=== PATIENT | male | born 1950 | race Caucasian/White ===

== ENCOUNTER 2020-04-09 04:17 | Day surgery (SDC) | payer OTHER ==
[2020-04-08 12:55] VITALS: BMI 22.8
[2020-04-09] MEDS ORDERED: LIDOCAINE HCL/PF 1% SDV 5ML VIAL ONE (10:11)
[2020-04-09] MEDS ORDERED: DEXAMETHASONE SOD PHOSPHATE/PF 10 MG/ML SDV ONE (10:17)
--- NOTE | 2020-04-09 10:30 | PROC ---
Procedure Note Procedure: Preprocedure Diagnosis: Lumbar Radiculopathy Post Procedure Diagnosis: same Anesthesia: Local Procedure Performed: Left L5 and L5 Transforaminal Epidural Steroid Injections under fluoroscpic guidance After the risks and benefits were explained, informed consent was obtained. The patient was then taken to the procedure room and positioned prone on the procedure table. Time out was performed. The region overlying the Left L4 and L5 neural foramens were identified using fluoroscopy. The skin was prepped and draped in the usual sterile fashion. The skin and soft tissues were anesthetized using 1% lidocaine. The neural foramens were identified with the fluoroscopic beam directed in a right oblique dire ction. 2 22 gauge 3.5 inch spinal needles were then introduced into the appropriate neural foramens using intermittent fluoroscopic guidance using AP, oblique and lateral views as indicated. Needle placement was then confirmed with the injection of Omnipaque 180. Epidural flow was noted and the nerve root was outlined. No vascular uptake was noted. Next, a mixture 1.5 cc of dexamethasone and Normal saline followed by 0.5 cc of 1% lidocaine was then injected around the Left L4 and L5 spinal nerves. The patient tolerated the procedure well and there were no complications. The patient was taken to the post procedure recovery area in good condition. Vital signs remained stable before, during, and after the procedure. The patient was given oral and written follow-up instructions. The patient was given a follow up appointment with me in the near future. Boaz Angulo DO
[2020-04-09] MEDS ORDERED: LIDOCAINE HCL 1% PRESERVATIVE FREE - 30ML VIAL IJ ONE (10:55)
[2020-04-09] MEDS ORDERED: IOHEXOL 180 MG/1 ML ML IJ ONE (10:55)
[2020-04-09 11:44] VITALS: BP 148/75; PULSE 52; TEMP 96.2
== END 2020-04-09 11:48 | disposition home or self-care (01) ==
LOC: JASU-SURG 04:17
PROVIDERS: ATTEND Pain Medicine Pain Medicine
PROC: 3E0R33Z Introduction of Anti-inflammatory into Spinal Canal, Percutaneous Approach (ICD-10-PCS; 2020-04-09)
PROC: 3E0R3BZ Introduction of Anesthetic Agent into Spinal Canal, Percutaneous Approach (ICD-10-PCS; principal; 2020-04-09 10:30)
DX: M54.16 Radiculopathy, lumbar region (principal)
CPT/HCPCS: 76000-TC-FY

== ENCOUNTER 2020-05-21 04:44 | Day surgery (SDC) | payer OTHER ==
[2020-05-19 11:20] VITALS: BMI 22.4
--- OUTSIDE RECORDS SUMMARY | 2020-05-21 04:53 | XMS ---
:1950 Author Organization [facility] Care Team Providers Name Role Phone Chumaceiro, Michael Unavailable Unavailable Chumaceiro, Michael Unavailable Unavailable Chumaceiro, Michael Unavailable Unavailable Chumaceiro, Michael Unavailable Unavailable Chumaceiro, Michael Unavailable Unavailable Chumaceiro, Michael Unavailable Unavailable Chumaceiro, Michael Unavailable Unavailable Chumaceiro, Michael Unavailable Unavailable Erosa, Boaz Unavailable Erosa, Boaz Unavailable Re-disclosure Warning The records that you are about to access may contain information from federally- assisted alcohol or drug abuse programs. If such information is present, then the following federally mandated warning applies: This information has been disclosed to you from records protected by federal confidentiality rules (42 CFR part 2). The federal rules prohibit you from making any further disclosure of this information unless further disclosure is expressly permitted by the written consent of the person to whom it pertains or as otherwise permitted by 42 CFR part 2. A general authorization for the release of medical or other information is NOT sufficient for this purpose. The Federal rules restrict any use of the information to criminally investigate or prosecute any alcohol or drug abuse patient.The records that you are about to access may contain highly sensitive health information, the redisclosure of which is protected by Article 27-F of the [facility] Public Health law. If you continue you may haveaccess to information: Regarding HIV / AIDS; Provided by facilities licensed or operated by the [facility] Office of Mental Health; or Provided by the [facility] Office for People With Developmental Disabilities. If such information is present, then the following [facility] mandated warning applies: This information has been disclosed to you from confidential records which are protected by state law. State law prohibits you from making any further disclosure of this information without the specific written consent of the person to whom it pertains, or as otherwise permitted by law. Any unauthorized further disclosure in violation of state law may result in a fine or halfway sentence or both. A general authorization for the release of medical or other information is NOT sufficient authorization for further disclosure. Encounters Encounter Providers Location Date Indications Data Source(s ) Attender: Boaz 05/10/2020 [facility] 12:[facility]:00 AM [facility]T [facility]) Office Attender: Boaz Angulo 03/29/2020 12:00:00 AM EDT [facility] ([facility] Office Attender: Michael 03/24/2020 12:00:00 AM EDT [facility] ([facility] Office Immunizations Vaccine Date Status Description Data Source(s) New in 2011. IIV4 06/06/2018 12:00:00 completed [facility] ([facility]) New in 2011. IIV4 06/06/2018 12:00:00 completed [facility] ([facility]) New in 2011. IIV4 06/06/2018 12:00:00 completed [facility] ([facility]) New in 2011. IIV4 06/06/2018 12:00:00 completed [facility] ([facility]) New in 2011. IIV4 06/04/2017 12:00:00 completed [facility] ([facility]) New in 2011. IIV4 06/04/2017 12:00:00 completed ME [facility] ([facility]) New in 2011. IIV4 06/04/2017 12:00:00 completed ME [facility] ([facility]) New in 2011. IIV4 06/04/2017 12:00:00 completed ME [facility] ([facility]) Medications Medication Brand Start Product Dose Route Administrative Pharmacy [facility] Indications Reaction Description Data Name Date Form Instructions Instructions Source(s) gabapentin GABAPE 05/10/ CAPSULE 180 complet [facility]T P[facility]IN [facility] (St 100 MG Oral NTIN:3 2019 ed [facility] Capsule 28835 12:00: Medical, GABAPENTIN: 00 AM PC) [id number] EDT gabapentin GABAPE 04/19/ CAPSULE 90 complet [facility] (St 100 MG Oral NTIN:3 2019 ed [facility] Capsule 91305 12:00: Medical, GABAPENTIN: 00 AM PC) [id number] EDT CREAM 03/29/ CREAM 1 complet CREAM BASE [facility] ( BASE:[id number] ed Ricky 12:00: Medical, 00 AM PC) EDT CREAM 03/29/ CREAM 1 complet CREAM BASE ME DGEN ( BASE:[id number] ed [facility] 12:00: Medical, 00 AM PC) EDT CREAM 03/29/ CREAM 1 complet CREAM BASE ME DGEN ( BASE:[id number] ed [facility] 12:00: Medical, 00 AM PC) EDT 24 HR METOPR 10/24/ complet METOPROLOL SHELDON ( metoprolol OLOL 2018 ed SUCCINATE ER [facility] succinate SUCCIN 12:00: Medica l, 25 MG ATE 00 AM PC) Extended ER:866 EST Release 427 Oral Tablet METOPROLOL SUCCINATE ER:[id number] 24 HR METOPR 10/24/ complet METOPROLOL SHELDON ( metoprolol OLOL 2018 ed SUCCINATE ER [facility] succinate SUCCIN 12:00: Medica l, 25 MG ATE 00 AM PC) Extended ER:866 EST Release 427 Oral Tablet METOPROLOL SUCCINATE ER:000074 24 HR METOPR 10/24/ complet METOPROLOL [facility] ( metoprolol OLOL 2018 ed SUCCINATE ER [facility] succinate SUCCIN 12:00: Medica l, 25 MG ATE 00 AM PC) Extended ER:866 EST Release 427 Oral Tablet METOPROLOL SUCCINATE ER:[id number] 24 HR METOPR 10/24/ complet METOPROLOL M SHELDONN ( metoprolol OLOL 2018 ed SUCCINATE ER [facility] succinate SUCCIN 12:00: Medica l, 25 MG ATE 00 AM PC) Extended ER:866 EST Release 427 Oral Tablet METOPROLOL SUCCINATE ER:[id number] Aspirin 81 ASPIRI 11/20/ complet ASPIRIN [facility] (St MG Delayed N:3084 2016 ed [facility] Release 16 12:00: Medical, Oral Tablet 00 AM PC) ASPIRIN:308 EDT 416 clopidogrel PLAVIX 11/20/ complet PLAVIX [facility] (St 75 MG Oral :43420 2016 ed [facility] Tablet 2 12:00: Medical, PLAVIX:3093 00 AM PC) 62 EDT Aspirin 81 ASPIRI 11/20/ complet ASPIRIN [facility] (St MG Delayed N:3084 2016 ed [facility] Release 16 12:00: Medical, Oral Tablet 00 AM PC) ASPIRIN:308 EDT 416 clopidogrel PLAVIX 11/20/ complet PLAVIX [facility] (St 75 MG Oral :03738 2016 ed [facility] Tablet 2 12:00: Medical, PLAVIX:3093 00 AM PC) 62 EDT Aspirin 81 ASPIRI 11/20/ complet ASPIRIN [facility] (St MG Delayed N:3084 2016 ed [facility] Release 16 12:00: Medical, Oral Tablet 00 AM PC) ASPIRIN:308 EDT 416 clopidogrel PLAVIX 11/20/ complet PLAVIX [facility] (St 75 MG Oral :61160 2016 ed [facility] Tablet 2 12:00: Medical, PLAVIX:3093 00 AM PC) 62 EDT Aspirin 81 ASPIRI 11/20/ complet ASPIRIN [facility] (St MG Delayed N:3084 2016 ed [facility] Release 16 12:00: Medical, Oral Tablet 00 AM PC) ASPIRIN:308 EDT 416 clopidogrel PLAVIX 11/20/ complet PLAVIX [facility] (St 75 MG Oral :30402 2016 ed [facility] Tablet 2 12:00: Medical, PLAVIX:3093 00 AM PC) 62 EDT Lisinopril LISINO 08/16/ TABLET 30 complet LISIN OPRIL [facility] (St 10 MG Oral PRIL:3 2015 ed [facility] Tablet 20442 12:00: Medical, LISINOPRIL: 00 AM PC) [id number] EST Lisinopril LISINO 08/16/ TABLET 30 complet LISIN OPRIL [facility] (St 10 MG Oral PRIL:3 2015 ed [facility] Tablet 59681 12:00: Medical, LISINOPRIL: 00 AM PC) [id number] EST Lisinopril LISINO 08/16/ TABLET 30 complet LISIN OPRIL [facility] (St 10 MG Oral PRIL:3 2015 ed [facility] Tablet 98843 12:00: Medical, LISINOPRIL: 00 AM ) [id number] EST Lisinopril LISINO 08/16/ TABLET 30 complet LISIN OPRIL [facility] (St 10 MG Oral PRIL:3 2015 ed [facility] Tablet 82979 12:00: Medical, LISINOPRIL: 00 AM ) [id number] EST Insurance Providers Payer name Policy type Policy ID Covered Covered constitution party's Policy P abundio / Coverage constitution party ID relationship to Izaguirre Inf ormation type izaguirre CALIENTE [id number] SP [id number] HEALTHCARE (MEDICARE) [facility] [id number] CARE MEDICARE COMPLETE CALIENTE [id number] SP [id number] HEALTHCARE (MEDICARE) Problems, Conditions, and Diagnoses Code Display Name Description Problem Effective Data Type Dates Source(s) M54.16 Radiculopathy, RADICULOPATHY, LUMBAR Problem 03/29/2020 [facility] (St lumbar region REGION 12:00:00 AM [facility], ) M54.16 Radiculopathy, RADICULOPATHY, LUMBAR Problem 03/29/2020 [facility] (St lumbar region REGION 12:00:00 AM [facility], ) M54.16 Radiculopathy, RADICULOPATHY, LUMBAR Problem 03/29/2020 [facility] (St lumbar region REGION 12:00:00 AM [facility], ) M54.5 Low back pain LOW BACK PAIN Problem 01/26/2020 [facility] ( St 12:00:00 AM [facility], ) M25.552 Pain in left hip PAIN IN LEFT HIP Problem 01/26/2020 ME [facility] (St 12:00:00 AM [facility], ) M54.5 Low back pain LOW BACK PAIN Problem 01/26/2020 [facility] ( St 12:00:00 AM [facility], ) M25.552 Pain in left hip PAIN IN LEFT HIP Problem 01/26/2020 [facility] ([facility] 12[facility]00:00 AM [facility], ) M54.5 Low back pain LOW BACK PAIN Problem 01/26/2020 [facility] ( St 12:00:00 AM [facility], ) M25.552 Pain in left hip PAIN IN LEFT HIP Problem 01/26/2020 ME D[facility] (St 12:00:00 AM [facility]'s [facility], ) M54.5 Low back pain LOW BACK PAIN Problem 01/26/2020 MED[facility] ( St 12:00:00 AM [facility], ) M25.552 Pain in left hip PAIN IN LEFT HIP Problem 01/26/2020 ME [facility] (St 12:00:00 AM [facility], ) R05 Cough COUGH Problem 09/05/2019 [facility] (St 12:00:00 AM [facility], ) R05 Cough COUGH Problem 09/05/2019 [facility] (St 12:00:[address] [facility], ) R05 Cough COUGH Problem 09/05/2019 [facility] (St 12:00:00 AM [facility], ) R05 Cough COUGH Problem 09/05/2019 [facility] (St 12:00:[address] [facility], ) R63.4 Abnormal weight ABNORMAL WEIGHT LOSS Problem 06/06/2018 [facility] (St loss 12:00:00 AM [facility], ) G47.00 Insomnia, INSOMNIA, UNSPECIFIED Problem 06/06/2018 MED [facility] (St unspecified 12:00:00 AM [facility], ) Z23 Encounter for ENCOUNTER FOR Problem 06/06/2018 [facility] ( St immunization IMMUNIZATION 12:00:00 AM [facility], ) R63.4 Abnormal weight ABNORMAL WEIGHT LOSS Problem 06/06/2018 [facility] (St loss 12:00:00 AM [facility], ) G47.00 Insomnia, INSOMNIA, UNSPECIFIED Problem 06/06/2018 MED GEN (St unspecified 12:00:00 AM [facility], ) Z23 Encounter for ENCOUNTER FOR Problem 06/06/2018 [facility] ( St immunization IMMUNIZATION 12:00:00 AM [facility], ) R63.4 Abnormal weight ABNORMAL WEIGHT LOSS Problem 06/06/2018 [facility] (St loss 12:00:00 AM [facility], ) G47.00 Insomnia, INSOMNIA, UNSPECIFIED Problem 06/06/2018 MED [facility] (St unspecified 12:00:00 AM [facility], ) Z23 Encounter for ENCOUNTER FOR Problem 06/06/2018 [facility] ( St immunization IMMUNIZATION 12:00:00 AM [facility], ) R63.4 Abnormal weight ABNORMAL WEIGHT LOSS Problem 06/06/2018 [facility] (St loss 12:00:00 AM [facility], ) G47.00 Insomnia, INSOMNIA, UNSPECIFIED Problem 06/06/2018 MED GEN (St unspecified 12:00:00 AM [facility], ) Z23 Encounter for ENCOUNTER FOR Problem 06/06/2018 [facility] ( St immunization IMMUNIZATION 12:00:00 AM [facility], ) R94.5 Abnormal results ABNORMAL RESULTS OF Problem 11/28/2016 [facility] (St of liver LIVER FUNCTION STUDIES 12:00:00 AM [facility] function studies [facility], ) D50.8 Other iron OTHER IRON DEFICIENCY Problem 11/28/2016 MED GEN (St deficiency ANEMIAS 12:00:00 AM [facility] [place], ) R94.5 Abnormal results ABNORMAL RESULTS OF Problem 11/28/2016 [facility] (St of liver LIVER FUNCTION STUDIES 12:00:00 AM [facility] function studies [facility], ) D50.8 Other iron OTHER IRON DEFICIENCY Problem 11/28/2016 MED GEN (St deficiency ANEMIAS 12:00:00 AM [facility] [place], ) R94.5 Abnormal results ABNORMAL RESULTS OF Problem 11/28/2016 [facility] (St of liver LIVER FUNCTION STUDIES 12:00:00 AM [facility] function studies [facility], ) D50.8 Other iron OTHER IRON DEFICIENCY Problem 11/28/2016 MED GEN (St deficiency ANEMIAS 12:00:[address] [facility], ) R94.5 Abnormal results ABNORMAL RESULTS OF Problem 11/28/2016 [facility] (St of liver LIVER FUNCTION STUDIES 12:00:00 AM [facility] function studies [facility], ) D50.8 Other iron OTHER IRON DEFICIENCY Problem 11/28/2016 MED GEN (St deficiency ANEMIAS 12:00:00 AM [facility]'s anemias [facility], ) E78.00 Pure PURE Problem 11/20/2016 [facility] (St hypercholesterol HYPERCHOLESTEROLEMIA 12:00:00 AM [facility] [place], [facility], ) unspecified I49.9 Cardiac CARDIAC ARRHYTHMIA, Problem 11/20/2016 MED[facility] N (St arrhythmia, UNSPECIFIED 12:00:00 AM [facility] unspecified EDT Medical, ) I10 Essential ESSENTIAL (PRIMARY) Problem 11/20/2016 MEDGE N (St (primary) HYPERTENSION 12:00:00 AM [facility] hypertension EDT Medical, ) E78.00 Pure PURE Problem 11/20/2016 [facility] (St hypercholesterol HYPERCHOLESTEROLEMIA 12:00:00 AM [facility] emia, EDT Medical, ) unspecified I49.9 Cardiac CARDIAC ARRHYTHMIA, Problem 11/20/2016 MED[facility] N (St arrhythmia, UNSPECIFIED 12:00:00 AM [facility] unspecified EDT Medical, ) I10 Essential ESSENTIAL (PRIMARY) Problem 11/20/2016 MED[facility] N (St (primary) HYPERTENSION 12:00:00 AM [facility] hypertension EDT Medical, ) E78.00 Pure PURE Problem 11/20/2016 [facility] (St hypercholesterol HYPERCHOLESTEROLEMIA 12:00:00 AM [facility] emia, EDT Medical, ) unspecified I49.9 Cardiac CARDIAC ARRHYTHMIA, Problem 11/20/2016 MEDGE N (St arrhythmia, UNSPECIFIED 12:00:00 AM [facility] unspecified EDT Medical, ) I10 Essential ESSENTIAL (PRIMARY) Problem 11/20/2016 MED[facility] N (St (primary) HYPERTENSION 12:00:00 AM [facility] hypertension EDT Medical, ) E78.00 Pure PURE Problem 11/20/2016 [facility] (St hypercholesterol HYPERCHOLESTEROLEMIA 12:00:00 AM [facility] emia, EDT Medical, ) unspecified I49.9 Cardiac CARDIAC ARRHYTHMIA, Problem 11/20/2016 MED[facility] N (St arrhythmia, UNSPECIFIED 12:00:00 AM [facility] unspecified EDT Medical, ) I10 Essential ESSENTIAL (PRIMARY) Problem 11/20/2016 MEDGE N (St (primary) HYPERTENSION 12:00:00 AM [facility] hypertension EDT Medical, ) Surgeries/Procedures Procedure Description Date Indications Data Source(s) OFFICE OUTPATIENT VISIT 15 05/10/2020 Lisa FISHER ([facility] MINUTES 12:00:00 AM EDT Medical, ) Documentation of current 04/19/2020 [facility] ([facility] medications (procedure) 12:00:00 AM EDT Lisa jqauez, PC) Documentation of current 04/19/2020 [facility] ([facility] medications (procedure) 12:00:00 AM EDT M leonid, PC) Documentation of current 04/19/2020 [facility] ([facility] medications (procedure) 12:00:00 AM EDT M leonid, PC) Documentation of current 04/19/2020 [facility] ([facility] medications (procedure) 12:00:00 AM EDT leonid, PC) Documentation of current 04/19/2020 [facility] ([facility] medications (procedure) 12:00:00 AM EDT leonid, PC) Documentation of current 04/19/2020 [facility] ([facility] medications (procedure) 12:00:00 AM EDT leonid, PC) Documentation of current 04/19/2020 [facility] ([facility] medications (procedure) 12:00:00 AM EDT M leonid, PC) OFFICE OUTPATIENT VISIT 15 04/19/2020 M [facility]GEN ([facility]ES 12:00:00 AM EDT Medical, PC) Documentation of current 04/19/2020 MED [facility] ([facility] medications (procedure) 12:00:00 AM EDT leonid, PC) OFFICE OUTPATIENT VISIT 15 04/19/2020 M [facility]GEN ([facility] MIN[facility]ES 12:00:00 AM EDT Medical, PC) Documentation of current 03/29/2020 MED [facility] ([facility] medications (procedure) 12:00:00 AM EDT leonid, PC) Documentation of current 03/29/2020 [facility] ([facility] medications (procedure) 12:00:00 AM EDT leonid, PC) Documentation of current 03/29/2020 [facility] ([facility] medications (procedure) 12:00:00 AM EDT leonid, PC) Documentation of current 03/29/2020 [facility] ([facility] medications (procedure) 12:00:00 AM EDT leonid, PC) Documentation of current 03/29/2020 [facility] ([facility] medications (procedure) 12:00:00 AM EDT M leonid, PC) Documentation of current 03/29/2020 [facility] ([facility] medications (procedure) 12:00:00 AM EDT leonid, PC) Documentation of current 03/29/2020 [facility] ([facility] medications (procedure) 12:00:00 AM EDT leonid, PC) Documentation of current 03/29/2020 [facility] ([facility] medications (procedure) 12:00:00 AM EDT leonid, PC) Documentation of current 03/29/2020 [facility] ([facility] medications (procedure) 12:00:00 AM EDT leonid, PC) Documentation of current 03/29/2020 [facility] ([facility] medications (procedure) 12:00:00 AM EDT leonid, PC) Documentation of current 03/29/2020 [facility] ([facility] medications (procedure) 12:00:00 AM EDT leonid, PC) Documentation of current 03/29/2020 [facility] ([facility] medications (procedure) 12:00:00 AM EDT leonid, PC) Documentation of current 03/29/2020 [facility] ([facility] medications (procedure) 12:00:00 AM EDT leonid, PC) Documentation of current 03/29/2020 [facility] ([facility] medications (procedure) 12:00:00 AM EDT leonid, PC) Documentation of current 03/29/2020 [facility] ([facility] medications (procedure) 12:00:00 AM EDT leonid, PC) Documentation of current 03/24/2020 [facility] ([facility] medications (procedure) 12:00:00 AM EDT leonid, PC) Documentation of current 03/24/2020 [facility] ([facility] medications (procedure) 12:00:00 AM EDT leonid, PC) Documentation of current 03/24/2020 [facility] ([facility] medications (procedure) 12:00:00 AM EDT leonid, PC) OFFICE OUTPATIENT VISIT 15 03/24/2020 Lisa [facility]GEN ([facility]ES 12:00:00 AM EDT Davi PC) Documentation of current 03/24/2020 MED [facility] ([facility] medications (procedure) 12:00:00 AM EDT leonid, PC) Documentation of current 03/24/2020 [facility] ([facility] medications (procedure) 12:00:00 AM EDT leonid, PC) OFFICE OUTPATIENT VISIT 15 03/24/2020 Lisa [facility]GEN ([facility]ES 12:00:00 AM EDT Medical, PC) Documentation of current 03/24/2020 MED [facility] ([facility] medications (procedure) 12:00:00 AM EDT edical, PC) Documentation of current 03/24/2020 [facility] ([facility] medications (procedure) 12:00:00 AM EDT edical, PC) Documentation of current 03/24/2020 [facility] ([facility] medications (procedure) 12:00:00 AM EDT edical, PC) OFFICE OUTPATIENT VISIT 15 03/24/2020 M NATALIA ([facility] 12:00:00 AM EDT Medical, PC) Documentation of current 03/24/2020 MED [facility] ([facility] medications (procedure) 12:00:00 AM EDT edical, PC) OFFICE OUTPATIENT VISIT 15 03/24/2020 M NATALIA ([facility] 12:00:00 AM EDT Medical, PC) Documentation of current 02/09/2020 [facility] ([facility] medications (procedure) 12:00:00 AM EDT edical, PC) Documentation of current 02/09/2020 [facility] ([facility] medications (procedure) 12:00:00 AM EDT edical, PC) Documentation of current 02/09/2020 [facility] ([facility] medications (procedure) 12:00:00 AM EDT edical, PC) OFFICE OUTPATIENT VISIT 15 02/09/2020 M NATALIA ([facility]ES 12:00:00 AM EDT Medical, PC) Documentation of current 02/09/2020 MED [facility] ([facility] medications (procedure) 12:00:00 AM EDT edical, PC) Documentation of current 02/09/2020 [facility] ([facility] medications (procedure) 12:00:00 AM EDT edical, PC) Documentation of current 02/09/2020 [facility] ([facility] medications (procedure) 12:00:00 AM EDT edical, PC) OFFICE OUTPATIENT VISIT 15 02/09/2020 M NATALIA ([facility]ES 12:00:00 AM EDT Medical, PC) Documentation of current 02/09/2020 MED [facility] ([facility] medications (procedure) 12:00:00 AM EDT edical, PC) Documentation of current 02/09/2020 [facility] ([facility] medications (procedure) 12:00:00 AM EDT edical, PC) Documentation of current 02/09/2020 [facility] ([facility] medications (procedure) 12:00:00 AM EDT edical, PC) OFFICE OUTPATIENT VISIT 15 02/09/2020 Lisa NATALIA ([facility] 12:00:00 AM EDT Medical, PC) Documentation of current 02/09/2020 MED [facility] ([facility] medications (procedure) 12:00:00 AM EDT edical, PC) Documentation of current 02/09/2020 [facility] ([facility] medications (procedure) 12:00:00 AM EDT edical, PC) Documentation of current 02/09/2020 [facility] ([facility] medications (procedure) 12:00:00 AM EDT edical, PC) OFFICE OUTPATIENT VISIT 15 02/09/2020 Lisa NATALIA ([facility] 12:00:00 AM EDT Medical, PC) Documentation of current 01/26/2020 MED [facility] ([facility] medications (procedure) 12:00:00 AM EDT edical, PC) Documentation of current 01/26/2020 MED [facility] ([facility] medications (procedure) 12:00:00 AM EDT edical, PC) Documentation of current 01/26/2020 [facility] ([facility] medications (procedure) 12:00:00 AM EDT edical, PC) OFFICE OUTPATIENT VISIT 10 01/26/2020 Lisa NATALIA ([facility] 12:00:00 AM EDT Medical, PC) Documentation of current 01/26/2020 MED [facility] ([facility] medications (procedure) 12:00:00 AM EDT edical, PC) Documentation of current 01/26/2020 [facility] ([facility] medications (procedure) 12:00:00 AM EDT edical, PC) Documentation of current 01/26/2020 [facility] ([facility] medications (procedure) 12:00:00 AM EDT edical, PC) OFFICE OUTPATIENT VISIT 10 01/26/2020 Lisa NATALIA ([facility]ES 12:00:00 AM EDT Medical, PC) Documentation of current 01/26/2020 MED [facility] ([facility] medications (procedure) 12:00:00 AM EDT edical, ) Documentation of current 01/26/2020 [facility] ([facility] medications (procedure) 12:00:00 AM EDT edical, PC) Documentation of current 01/26/2020 MED [facility] ([facility] medications (procedure) 12:00:00 AM EDT edical, ) OFFICE OUTPATIENT VISIT 10 01/26/2020 Lisa FISHER ([facility] 12:00:00 AM EDT Medical, PC) Documentation of current 01/26/2020 MED [facility] ([facility] medications (procedure) 12:00:00 AM EDT edical, PC) Documentation of current 01/26/2020 MED [facility] ([facility] medications (procedure) 12:00:00 AM EDT edical, PC) Documentation of current 01/26/2020 [facility] ([facility] medications (procedure) 12:00:00 AM EDT edical, ) OFFICE OUTPATIENT VISIT 10 01/26/2020 Lisa FISHER ([facility] 12:00:00 AM EDT Medical, PC) Documentation of current 09/05/2019 [facility] ([facility] medications (procedure) 12:00:00 AM EST edical, PC) OFFICE OUTPATIENT VISIT 15 09/05/2019 Lisa FISHER ([facility] 12:00:00 AM EST Medical, PC) Documentation of current 09/05/2019 MED [facility] ([facility] medications (procedure) 12:00:00 AM EST edical, PC) OFFICE OUTPATIENT VISIT 15 09/05/2019 Lisa FISHER ([facility] 12:00:00 AM EST Medical, PC) Documentation of current 09/05/2019 MED [facility] ([facility] medications (procedure) 12:00:00 AM EST edical, PC) OFFICE OUTPATIENT VISIT 15 09/05/2019 Lisa FISHER ([facility] 12:00:00 AM EST Medical, PC) Documentation of current 09/05/2019 MED [facility] ([facility] medications (procedure) 12:00:00 AM EST edical, PC) OFFICE OUTPATIENT VISIT 15 09/05/2019 Lisa FISHER ([facility] 12:00:00 AM EST Medical, PC) Documentation of current 02/20/2019 MED [facility] ([facility] medications (procedure) 12:00:00 AM EDT edical, ) Documentation of current 02/20/2019 MED [facility] ([facility] medications (procedure) 12:00:00 AM EDT edical, ) OFFICE OUTPATIENT VISIT 15 02/20/2019 Lisa NATALIA ([facility] 12:00:00 AM EDT Medical, ) Documentation of current 02/20/2019 MED [facility] ([facility] medications (procedure) 12:00:00 AM EDT edical, ) Documentation of current 02/20/2019 MED [facility] ([facility] medications (procedure) 12:00:00 AM EDT edical, ) OFFICE OUTPATIENT VISIT 15 02/20/2019 Lisa NATALIA ([facility] 12:00:00 AM EDT Medical, ) Documentation of current 02/20/2019 MED [facility] ([facility] medications (procedure) 12:00:00 AM EDT edical, ) Documentation of current 02/20/2019 MED [facility] ([facility] medications (procedure) 12:00:00 AM EDT edical, ) OFFICE OUTPATIENT VISIT 15 02/20/2019 Lisa NATALIA ([facility] MIN[facility]ES 12:00:00 AM EDT Medical, ) Documentation of current 02/20/2019 MED GEN ([facility] medications (procedure) 12:00:00 AM EDT edical, ) Documentation of current 02/20/2019 MED GEN ([facility] medications (procedure) 12:00:00 AM EDT edical, ) OFFICE OUTPATIENT VISIT 15 02/20/2019 Lisa FISHER ([facility] 12:00:00 AM EDT Medical, ) OFFICE OUTPATIENT VISIT 15 10/24/2018 Lisa FISHER ([facility]ES 12:00:00 AM EST Medical, ) COLLECTION VENOUS BLOOD 10/24/2018 MEDG EN ([facility] VENIPUNCTURE 12:00:00 AM EST Medical, PC) OFFICE OUTPATIENT VISIT 15 10/24/2018 Lisa FISHER ([facility] MINUTES 12:00:00 AM EST Medical, ) COLLECTION VENOUS BLOOD 10/24/2018 MEDG EN ([facility] VENIPUNCTURE 12:00:00 AM EST Medical, ) OFFICE OUTPATIENT VISIT 15 10/24/2018 Lisa FISHER ([facility] MINUTES 12:00:00 AM EST Medical, ) COLLECTION VENOUS BLOOD 10/24/2018 MEDG EN ([facility] VENIPUNCTURE 12:00:00 AM [facility] Medical, ) OFFICE OUTPATIENT VISIT 15 10/24/2018 Lisa FISHER ([facility] MINUTES 12:00:00 AM [facility] Medical, ) COLLECTION VENOUS BLOOD 10/24/2018 MEDG EN ([facility] VENIPUNCTURE 12:00:00 AM [facility], ) Documentation of current 07/23/2018 MED GEN ([facility] medications (procedure) [facility] OFFICE OUTPATIENT VISIT 15 07/23/2018 Lisa NATALIA ([facility] MINUTES 12:00:00 AM [facility], ) Documentation of current 07/23/2018 MED GEN ([facility] medications (procedure) 12:00:00 AM EST [facility], ) OFFICE OUTPATIENT VISIT 15 07/23/2018 Lisa NATALIA ([facility] MINUTES 12:00:00 AM [facility], ) Documentation of current 07/23/2018 MED GEN ([facility] medications (procedure) [facility]:00:00 [facility] OFFICE OUTPATIENT VISIT 15 07/23/2018 Lisa NATALIA ([facility] MINUTES 12:00:00 AM [facility], ) Documentation of current 07/23/2018 MED GEN ([facility] medications (procedure) 12:00:00 AM EST [facility], ) OFFICE OUTPATIENT VISIT 15 07/23/2018 Lisa NATALIA ([facility] MINUTES 12:00:00 AM [facility], ) Documentation of current 06/06/2018 MED GEN [facility]IS[facility] 15 06/06/2018 Lisa NATALIA ([facility] MINUTES 12:00:00 AM [facility], ) INFLUENZA VACCINE 06/06/2018 MEDGEN ([facility] 12:00:00 AM [facility], ) IMADM PRQ ID SUBQ/IM NJXS 06/06/2018 ME DGEN ([facility] 1 VACCINE 12:00:00 AM [facility], ) Documentation of current 06/06/2018 MED GEN ([facility] medications (procedure) 12:00:00 AM EDT [facility], ) OFFICE OUTPATIENT VISIT 15 06/06/2018 Lisa EDGEN ([facility] MINUTES 12:00:00 AM EDT [facility], ) INFLUENZA VACCINE 06/06/2018 MEDGEN ([facility] 12:00:00 AM [facility], ) IMADM PRQ ID SUBQ/IM NJXS 06/06/2018 ME DGEN ([facility] 1 VACCINE 12:00:00 AM EDT [facility], ) Documentation of current 06/06/2018 MED GEN ([facility]procedure) [facility]PAT[facility] VISIT 15 06/06/2018 Lisa EDGEN ([facility] MINUTES 12:00:00 AM EDT Medical, ) INFLUENZA VACCINE 06/06/2018 MEDGEN ([facility] 12:00:00 AM [facility] Medical, ) IMADM PRQ ID SUBQ/IM [id number] 06/06/2018 ME DGEN ([facility] 1 VACCINE 12:00:00 AM [facility], ) Documentation of current 06/06/2018 MED GEN ([facility] medications (procedure) [facility] OFF[facility] OUTPATIENT VISIT 15 06/06/2018 Lisa CHUNGN ([facility] MINUTES 12:00:00 AM [facility] Medical, ) INFLUENZA VACCINE 06/06/2018 MEDGEN ([facility] 12:00:00 AM EDT Medical, ) IMADM PRQ ID SUBQ/IM NJXS 06/06/2018 ME DGEN ([facility] 1 VACCINE 12:00:00 AM [facility], ) Documentation of current 05/03/2018 MED GEN ([facility] medications (procedure) [facility] Documentation of current 05/03/2018 MED GEN ([facility] medications (procedure) 12:00:00 AM EDT edical, ) Documentation of current 05/03/2018 MED GEN ([facility] medications (procedure) [facility] OFFICE OUTPATIENT VISIT 15 05/03/2018 Lisa CHUNGN ([facility] MIN[facility]ES 12:00:00 AM [facility], ) COLLECTION VENOUS BLOOD 05/03/2018 MEDG EN ([facility] VENIPUNCTURE 12:00:00 AM EDT Medical, ) Documentation of current 05/03/2018 MED GEN ([facility] medications (procedure) 12:00:00 AM EDT edical, ) Documentation of current 05/03/2018 MED GEN ([facility] medications (procedure) 12:00:00 AM EDT edical, ) Documentation of current 05/03/2018 MED GEN ([facility] medications (procedure) 12:00:00 AM EDT edical, ) OFFICE OUTPATIENT VISIT 15 05/03/2018 Lisa NATALIA ([facility] MIN[facility]ES 12:00:00 AM EDT Medical, ) COLLECTION VENOUS BLOOD 05/03/2018 MEDG EN ([facility] VENIPUNCTURE 12:00:00 AM EDT Medical, ) Documentation of current 05/03/2018 MED GEN ([facility] medications (procedure) 12:00:00 AM EDT edical, ) Documentation of current 05/03/2018 MED GEN ([facility] medications (procedure) 12:00:00 AM EDT edical, ) Documentation of current 05/03/2018 MED GEN ([facility] medications (procedure) 12:00:00 AM EDT edical, ) OFFICE OUTPATIENT VISIT 15 05/03/2018 Lisa CHUNGKlaudia ([facility] MINUTES 12:00:00 AM EDT Medical, ) COLLECTION VENOUS BLOOD 05/03/2018 MEDG EN ([facility] VENIPUNCTURE 12:00:00 AM EDT Medical, ) Documentation of current 05/03/2018 MED GEN ([facility] medications (procedure) 12:00:00 AM EDT edical, ) Documentation of current 05/03/2018 MED GEN ([facility] medications (procedure) 12:00:00 AM EDT edical, ) Documentation of current 05/03/2018 MED GEN ([facility] medications (procedure) 12:00:00 AM EDT edical, ) OFFICE OUTPATIENT VISIT 15 05/03/2018 Lisa CHUNGKlaudia ([facility] MINUTES 12:00:00 AM EDT Medical, ) COLLECTION VENOUS BLOOD 05/03/2018 MEDG EN ([facility] VENIPUNCTURE 12:00:00 AM EDT Medical, ) Documentation of current 01/01/2018 MED GEN ([facility] medications (procedure) 12:00:00 AM EDT edical, ) Documentation of current 01/01/2018 MED GEN ([facility] (procedure) [facility] Documentation of current 01/01/2018 MED GEN ([facility] medications (procedure) [facility] Documentation of current 01/01/2018 MED GEN ([facility] medications (procedure) 12:00:00 AM EDT edical, ) OFFICE OUTPATIENT VISIT 25 01/01/2018 M EDGEN ([facility] MINUTES 12:00:00 AM EDT Medical, ) ECG ROUTINE ECG W/LEAST 12 01/01/2018 M EDGEN ([facility] LDS W/I&R 12:00:00 AM T Medical, ) COLLECTION VENOUS BLOOD 01/01/2018 MEDG EN ([facility] VENIPUNCTURE 12:00:00 AM T Medical, ) Documentation of current 01/01/2018 MED GEN ([facility] medications (procedure) [facility] Documentation of current 01/01/2018 MED GEN ([facility] medications (procedure) [facility] Documentation of current 01/01/2018 MED GEN ([facility] medications (procedure) [facility] Documentation of current 01/01/2018 MED GEN ([facility] medications (procedure) 12:00:00 AM EDT edical, ) OFFICE OUTPATIENT VISIT 25 01/01/2018 M EDGEN ([facility] MINUTES 12:00:00 AM T Medical, ) ECG ROUTINE ECG W/LEAST 12 01/01/2018 M EDGEN ([facility] LDS W/I&R 12:00:00 AM EDT Medical, ) COLLECTION VENOUS BLOOD 01/01/2018 MEDG EN ([facility] VENIPUNCTURE 12:00:00 AM [facility] Medical, ) Documentation of current 01/01/2018 MED GEN ([facility] medications (procedure) 12:00:00 AM EDT edical, ) Documentation of current 01/01/2018 MED GEN ([facility] medications (procedure) 12:00:00 AM EDT edical, ) Documentation of current 01/01/2018 MED GEN ([facility] medications (procedure) 12:00:00 AM EDT edical, ) Documentation of current 01/01/2018 MED GEN ([facility] medications (procedure) 12:00:00 AM EDT [facility], ) OFFICE OUTPATIENT VISIT 25 01/01/2018 Lisa EDGEN ([facility] MINUTES 12:00:00 AM EDT Medical, ) ECG ROUTINE ECG W/LEAST 12 01/01/2018 Lisa SHELDONN ([facility] LDS W/I&R 12:00:00 AM EDT Medical, ) COLLECTION VENOUS BLOOD 01/01/2018 MEDG EN ([facility] VENIPUNCTURE 12:00:00 AM EDT Medical, ) Documentation of current 01/01/2018 MED GEN ([facility] medications (procedure) 12:00:00 AM EDT edical, ) Documentation of current 01/01/2018 MED GEN ([facility] medications (procedure) 12:00:00 AM EDT [facility], ) Documentation of current 01/01/2018 MED GEN ([facility] medications (procedure) [facility] Documentation of current 01/01/2018 MED GEN ([facility] medications (procedure) [facility] OFFICE OUTPATIENT VISIT 25 01/01/2018 Lisa SHELDONN ([facility] MIN[facility]ES 12:00:00 AM EDT Medical, ) ECG ROUTINE ECG W/LEAST 12 01/01/2018 Lisa SHELDONN ([facility] LDS W/I&R 12:00:00 AM EDT Medical, ) COLLECTION VENOUS BLOOD 01/01/2018 MEDG EN ([facility] VENIPUNCTURE 12:00:00 AM EDT Medical, ) Documentation of current 08/06/2017 MED GEN ([facility] medications (procedure) 12:00:00 AM EST edical, ) OFFICE OUTPATIENT VISIT 15 08/06/2017 Lisa SHELDONN ([facility] MINUTES 12:00:00 AM [facility] Medical, ) Documentation of current 08/06/2017 MED GEN ([facility] medications (procedure) 12:00:00 AM EST Lisa edical, PC) OFFICE OUTPATIENT VISIT 15 08/06/2017 Lisa FISHER ([facility] MINUTES 12:00:00 AM EST Medical, PC) Documentation of current 08/06/2017 MED GEN ([facility] medications (procedure) 12:00:00 AM EST Lisa edical, PC) OFFICE OUTPATIENT VISIT 15 08/06/2017 Lisa FISHER ([facility] MIN[facility]ES 12:00:00 AM EST Medical, PC) Documentation of current 08/06/2017 MED GEN ([facility] medications (procedure) 12:00:00 AM EST Lisa edical, PC) OFFICE OUTPATIENT VISIT 15 08/06/2017 Lisa FISHER ([facility] MIN[facility]ES 12:00:00 AM EST Medical, PC) Documentation of current 07/23/2017 MED GEN ([facility] medications (procedure) 12:00:00 AM EST Lisa edical, PC) Documentation of current 07/23/2017 MED GEN ([facility] medications (procedure) 12:00:00 AM EST Lisa edical, PC) OFFICE OUTPATIENT VISIT 15 07/23/2017 Lisa FISHER ([facility] MIN[facility]ES 12:00:00 AM EST Medical, PC) Documentation of current 07/23/2017 MED GEN ([facility] medications (procedure) 12:00:00 AM EST Lisa edical, PC) Documentation of current 07/23/2017 MED GEN ([facility] medications (procedure) 12:00:00 AM EST Lisa edical, PC) OFFICE OUTPATIENT VISIT 15 07/23/2017 Lisa FISHER ([facility] MIN[facility]ES 12:00:00 AM EST Medical, PC) Documentation of current 07/23/2017 MED GEN ([facility] medications (procedure) 12:00:00 AM EST Lisa edical, PC) Documentation of current 07/23/2017 MED GEN ([facility] medications (procedure) 12:00:00 AM EST Lisa edical, PC) OFFICE OUTPATIENT VISIT 15 07/23/2017 Lisa FISHER ([facility] MIN[facility]ES 12:00:00 AM EST Medical, PC) Documentation of current 07/23/2017 MED GEN ([facility] medications (procedure) 12:00:00 AM EST Lisa edical, PC) Documentation of current 07/23/2017 MED GEN ([facility] medications (procedure) 12:00:00 AM EST Lisa edical, PC) OFFICE OUTPATIENT VISIT 15 07/23/2017 M EDGEN ([facility] MINUTES 12:00:00 AM [facility], ) Influenza virus vaccine, 06/04/2017 MED GEN ([facility] split virus, when 12:00:00 AM [facility]) administered to individuals 3 years of age and older, for intramuscular use (flulaval) Administration of 06/04/2017 MEDGEN ([facility] influenza virus vaccine 12:00:00 AM [facility]) OFFICE OUTPATIENT VISIT 15 06/04/2017 M EDGEN ([facility] MINUTES 12:00:00 AM [facility]) Influenza virus vaccine, 06/04/2017 MED GEN ([facility] split virus, when 12:00:00 AM [facility]) administered to individuals 3 years of age and older, for intramuscular use (flulaval) Administration of 06/04/2017 MEDGEN ([facility] influenza virus vaccine 12:00:00 AM [facility]) OFFICE OUTPATIENT VISIT 15 06/04/2017 Lisa EDGEN ([facility] MINUTES 12:00:00 AM [facility]) Influenza virus vaccine, 06/04/2017 MED GEN ([facility] split virus, when 12:00:00 AM [facility]) administered to individuals 3 years of age and older, for intramuscular use (flulaval) Administration of 06/04/2017 MEDGEN ([facility] influenza virus vaccine 12:00:00 AM [facility]) OFFICE OUTPATIENT VISIT 15 06/04/2017 Lisa EDGEN ([facility] MINUTES 12:00:00 AM [facility], ) Influenza virus vaccine, 06/04/2017 MED GEN ([facility] split virus, when 12:00:00 AM [facility]) administered to individuals 3 years of age and older, for intramuscular use (flulaval) Administration of 06/04/2017 MEDGEN ([facility] influenza virus vaccine 12:00:00 AM [facility]) OFFICE OUTPATIENT VISIT 15 06/04/2017 M EDGEN ([facility] MINUTES 12:00:00 AM [facility], ) Documentation of current 03/02/2017 MED GEN ([facility] medications (procedure) 12:00:00 AM EDT edical, PC) Documentation of current 03/02/2017 MED GEN ([facility] medications (procedure) 12:00:00 AM EDT edical, PC) Documentation of current 03/02/2017 MED GEN ([facility] medications (procedure) 12:00:00 AM EDT edical, PC) OFFICE OUTPATIENT VISIT 15 03/02/2017 Lisa FISHER ([facility] MIN[facility]ES 12:00:00 AM EDT Medical, PC) Documentation of current 03/02/2017 MED GEN ([facility] medications (procedure) 12:00:00 AM EDT edical, PC) Documentation of current 03/02/2017 MED GEN ([facility] medications (procedure) 12:00:00 AM EDT edical, PC) Documentation of current 03/02/2017 MED GEN ([facility] medications (procedure) 12:00:00 AM EDT edical, PC) OFFICE OUTPATIENT VISIT 15 03/02/2017 Lisa FISHER ([facility] MIN[facility]ES 12:00:00 AM EDT Medical, PC) Documentation of current 03/02/2017 MED GEN ([facility] medications (procedure) 12:00:00 AM EDT edical, PC) Documentation of current 03/02/2017 MED GEN ([facility] medications (procedure) 12:00:00 AM EDT edical, PC) Documentation of current 03/02/2017 MED GEN ([facility] medications (procedure) 12:00:00 AM EDT edical, PC) OFFICE OUTPATIENT VISIT 15 03/02/2017 Lisa FISHER ([facility] MIN[facility]ES 12:00:00 AM EDT Medical, PC) Documentation of current 03/02/2017 MED GEN ([facility] medications (procedure) 12:00:00 AM EDT edical, PC) Documentation of current 03/02/2017 MED GEN ([facility] medications (procedure) 12:00:00 AM EDT edical, PC) Documentation of current 03/02/2017 MED GEN ([facility] medications (procedure) 12:00:00 AM EDT edical, PC) OFFICE OUTPATIENT VISIT 15 03/02/2017 Lisa FISHER ([facility] MIN[facility]ES 12:00:00 AM EDT Medical, PC) Documentation of current 02/02/2017 MED GEN ([facility] medications (procedure) 12:00:00 AM EDT edical, ) OFFICE OUTPATIENT VISIT 15 02/02/2017 Lisa NATALIA ([facility] MIN[facility]ES 12:00:00 AM EDT Medical, ) Documentation of current 02/02/2017 MED GEN ([facility] medications (procedure) [facility]PATIENT VISIT 15 02/02/2017 Lias FISHER ([facility] MINUTES 12:00:00 AM ED Medical, ) Documentation of current 02/02/2017 MED GEN ([facility] medications (procedure) [facility] OFFICE OUTPATIENT VISIT 15 02/02/2017 Lisa NATALIA ([facility] MINUTES 12:00:00 AM [facility] Medical, ) Documentation of current 02/02/2017 MED GEN ([facility] medications (procedure) [facility]00:[facility] OFFICE OUTPATIENT VISIT 15 02/02/2017 Lisa FISHER ([facility] MINUTES 12:00:00 AM [facility] Medical, ) Documentation of current 01/12/2017 MED GEN ([facility] medications (procedure) [facility]00:[facility] Documentation of current 01/12/2017 MED GEN ([facility] medications (procedure) [facility]:00:[facility] Documentation of current 01/12/2017 MED GEN ([facility] medications (procedure) [facility]00:[facility] OFFICE OUTPATIENT VISIT 25 01/12/2017 Lisa FISHER ([facility] MINUTES 12:00:00 AM ED Medical, ) COLLECTION VENOUS BLOOD 01/12/2017 MEDG EN [facility] current 01/12/2017 MED GEN ([facility] medications (procedure) 12:00:00 AM EDT edical, ) Documentation of current 01/12/2017 MED GEN ([facility] medications (procedure) 12:00:00 AM EDT edical, ) Documentation of current 01/12/2017 MED GEN ([facility] medications (procedure) 12:00:00 AM EDT M edical, ) OFFICE OUTPATIENT VISIT 25 01/12/2017 Lisa EDGEN ([facility] MINUTES 12:00:00 AM EDT Medical, ) COLLECTION VENOUS BLOOD 01/12/2017 MEDG EN ([facility] VENIPUNCTURE 12:00:00 AM EDT Medical, ) Documentation of current 01/12/2017 MED GEN ([facility] medications (procedure) 12:00:00 AM EDT edical, ) Documentation of current 01/12/2017 MED GEN ([facility] medications (procedure) 12:00:00 AM EDT edical, ) Documentation of current 01/12/2017 MED GEN ([facility] medications (procedure) 12:00:00 AM EDT edical, ) OFFICE OUTPATIENT VISIT 25 01/12/2017 Lisa SHELDONN ([facility] MINUTES 12:00:00 AM EDT Medical, ) COLLECTION VENOUS BLOOD 01/12/2017 MEDG EN ([facility] VENIPUNCTURE 12:00:00 AM EDT Medical, ) Documentation of current 01/12/2017 MED GEN ([facility] medications (procedure) 12:00:00 AM EDT edical, ) Documentation of current 01/12/2017 MED GEN ([facility] medications (procedure) 12:00:00 AM EDT edical, ) Documentation of current 01/12/2017 MED GEN ([facility] medications (procedure) 12:00:00 AM EDT edical, ) OFFICE OUTPATIENT VISIT 25 01/12/2017 Lisa CHUNGN ([facility] MINUTES 12:00:00 AM EDT Medical, ) COLLECTION VENOUS BLOOD 01/12/2017 MEDG EN ([facility] VENIPUNCTURE 12:00:00 AM EDT Medical, ) OFFICE OUTPATIENT VISIT 15 12/05/2016 Lisa CHUNGN ([facility] MINUTES 12:00:00 AM EDT Medical, ) Documentation of current 12/05/2016 MED GEN ([facility] medications (procedure) 12:00:00 AM EDT edical, ) Documentation of current 12/05/2016 MED GEN ([facility] medications (procedure) 12:00:00 AM EDT edical, ) OFFICE OUTPATIENT VISIT 15 12/05/2016 Lisa CHUNGN ([facility] MINUTES 12:00:00 AM EDT Medical, PC) Documentation of current 12/05/2016 MED GEN ([facility] medications (procedure) 12:00:00 AM EDT edical, PC) Documentation of current 12/05/2016 MED GEN ([facility] medications (procedure) 12:00:00 AM EDT edical, PC) OFFICE OUTPATIENT VISIT 15 12/05/2016 Lisa NATALIA ([facility] MINUTES 12:00:00 AM EDT Medical, PC) Documentation of current 12/05/2016 MED GEN ([facility] medications (procedure) 12:00:00 AM EDT edical, PC) Documentation of current 12/05/2016 MED GEN ([facility] medications (procedure) 12:00:00 AM EDT edical, PC) OFFICE OUTPATIENT VISIT 15 12/05/2016 Lisa NATALIA ([facility] MINUTES 12:00:00 AM EDT Medical, PC) Documentation of current 12/05/2016 MED GEN ([facility] medications (procedure) 12:00:00 AM EDT edical, PC) Documentation of current 12/05/2016 MED GEN ([facility] medications (procedure) 12:00:00 AM EDT edical, PC) Documentation of current 11/28/2016 MED GEN ([facility] medications (procedure) 12:00:00 AM EDT edical, PC) Documentation of current 11/28/2016 MED GEN ([facility] medications (procedure) 12:00:00 AM EDT edical, PC) Documentation of current 11/28/2016 MED GEN ([facility] medications (procedure) 12:00:00 AM EDT edical, PC) OFFICE OUTPATIENT VISIT 15 11/28/2016 Lisa NATALIA ([facility] MINUTES 12:00:00 AM EDT Medical, PC) Documentation of current 11/28/2016 MED GEN ([facility] medications (procedure) 12:00:00 AM EDT edical, PC) Documentation of current 11/28/2016 MED GEN ([facility] medications (procedure) 12:00:00 AM EDT edical, PC) Documentation of current 11/28/2016 MED GEN ([facility] medications (procedure) 12:00:00 AM EDT edical, PC) OFFICE OUTPATIENT VISIT 15 11/28/2016 Lisa FISHER ([facility] MINUTES 12:00:00 AM EDT Medical, ) Documentation of current 11/28/2016 MED GEN ([facility] medications (procedure) 12:00:00 AM EDT edical, PC) Documentation of current 11/28/2016 MED GEN ([facility] medications (procedure) 12:00:00 AM EDT edical, PC) Documentation of current 11/28/2016 MED GEN ([facility] medications (procedure) 12:00:00 AM EDT edical, ) OFFICE OUTPATIENT VISIT 15 11/28/2016 Lisa FISHER ([facility] MINUTES 12:00:00 AM EDT Medical, PC) Documentation of current 11/28/2016 MED GEN ([facility] medications (procedure) 12:00:00 AM EDT edical, PC) Documentation of current 11/28/2016 MED GEN ([facility] medications (procedure) 12:00:00 AM EDT edical, PC) Documentation of current 11/28/2016 MED GEN ([facility] medications (procedure) 12:00:00 AM EDT edical, PC) OFFICE OUTPATIENT VISIT 15 11/28/2016 Lisa FISHER ([facility] MIN[facility]ES 12:00:00 AM EDT Medical, PC) Documentation of current 11/20/2016 MED GEN ([facility] medications (procedure) 12:00:00 AM EDT edical, PC) Documentation of current 11/20/2016 MED GEN ([facility] medications (procedure) 12:00:00 AM EDT edical, PC) Documentation of current 11/20/2016 MED GEN ([facility] medications (procedure) 12:00:00 AM EDT edical, PC) Documentation of current 11/20/2016 MED GEN ([facility] medications (procedure) 12:00:00 AM EDT edical, PC) OFFICE OUTPATIENT VISIT 15 11/20/2016 Lisa FISHER ([facility] MINUTES 12:00:00 AM EDT Medical, PC) COLLECTION VENOUS BLOOD 11/20/2016 MEDG EN ([facility] VENIPUNCTURE 12:00:00 AM EDT Medical, PC) Documentation of current 11/20/2016 MED GEN ([facility] medications (procedure) 12:00:00 AM EDT edical, PC) Documentation of current 11/20/2016 MED GEN ([facility] medications (procedure) 12:00:00 AM EDT edical, PC) Documentation of current 11/20/2016 MED GEN ([facility] medications (procedure) 12:00:00 AM EDT edical, PC) Documentation of current 11/20/2016 MED GEN ([facility] medications (procedure) 12:00:00 AM EDT edical, PC) OFFICE OUTPATIENT VISIT 15 11/20/2016 Lisa EDGEN ([facility] MINUTES 12:00:00 AM EDT Medical, PC) COLLECTION VENOUS BLOOD 11/20/2016 MEDG EN ([facility] VENIPUNCTURE 12:00:00 AM EDT Medical, PC) Documentation of current 11/20/2016 MED GEN ([facility] medications (procedure) 12:00:00 AM EDT edical, PC) Documentation of current 11/20/2016 MED GEN ([facility] medications (procedure) 12:00:00 AM EDT edical, PC) Documentation of current 11/20/2016 MED GEN ([facility] medications (procedure) 12:00:00 AM EDT edical, PC) Documentation of current 11/20/2016 MED GEN ([facility] medications (procedure) 12:00:00 AM EDT edical, PC) OFFICE OUTPATIENT VISIT 15 11/20/2016 Lisa SHELDONN ([facility] MIN[facility]ES 12:00:00 AM EDT Medical, PC) COLLECTION VENOUS BLOOD 11/20/2016 MEDG EN ([facility] VENIPUNCTURE 12:00:00 AM EDT Medical, PC) Documentation of current 11/20/2016 MED GEN ([facility] medications (procedure) 12:00:00 AM EDT edical, PC) Documentation of current 11/20/2016 MED GEN ([facility] medications (procedure) 12:00:00 AM EDT edical, PC) Documentation of current 11/20/2016 MED GEN ([facility] medications (procedure) 12:00:00 AM EDT edical, PC) Documentation of current 11/20/2016 MED GEN ([facility] medications (procedure) 12:00:00 AM EDT edical, PC) OFFICE OUTPATIENT VISIT 15 11/20/2016 Lisa FISHER ([facility] MIN[facility]ES 12:00:00 AM ED Medical, PC) COLLECTION VENOUS BLOOD 11/20/2016 MEDG EN ([facility] VENIPUNCTURE 12:00:00 AM EDT Medical, PC) Documentation of current 08/16/2016 MED GEN ([facility] medications (procedure) 12:00:00 AM EST Lisa [facility], PC) Documentation of current 08/16/2016 MED GEN ([facility] medications (procedure) 12:00:00 AM EST Lisa [facility], PC) Documentation of current 08/16/2016 MED GEN ([facility] medications (procedure) 12:00:00 AM EST Lisa [facility], PC) Documentation of current 08/16/2016 MED GEN ([facility] medications (procedure) 12:00:00 AM EST Lisa edical, PC) OFFICE OUTPATIENT VISIT 15 08/16/2016 Lisa FISHER ([facility] MIN[facility]ES 12:00:00 AM EST Medical, PC) Documentation of current 08/16/2016 MED GEN ([facility] medications (procedure) 12:00:00 AM EST Lisa [facility], PC) Documentation of current 08/16/2016 MED GEN ([facility] medications (procedure) 12:00:00 AM EST Lisa [facility], PC) Documentation of current 08/16/2016 MED GEN ([facility] medications (procedure) 12:00:00 AM EST Lisa [facility], PC) Documentation of current 08/16/2016 MED GEN ([facility] medications (procedure) 12:00:00 AM EST Lisa [facility], PC) OFFICE OUTPATIENT VISIT 15 08/16/2016 Lisa FISHER ([facility] MIN[facility]ES 12:00:00 AM EST Medical, PC) Documentation of current 08/16/2016 MED GEN ([facility] medications (procedure) 12:00:00 AM EST Lisa [facility], PC) Documentation of current 08/16/2016 MED GEN ([facility] medications (procedure) 12:00:00 AM EST Lisa [facility], PC) Documentation of current 08/16/2016 MED GEN ([facility] medications (procedure) 12:00:00 AM EST Lisa [facility], PC) Documentation of current 08/16/2016 MED GEN ([facility] medications (procedure) 12:00:00 AM EST M edical, PC) OFFICE OUTPATIENT VISIT 15 08/16/2016 Lisa CHUNGN ([facility] MIN[facility]ES 12:00:00 AM EST Medical, PC) Documentation of current 08/16/2016 MED GEN ([facility] medications (procedure) 12:00:00 AM EST Lisa jaquez PC) Documentation of current 08/16/2016 MED [facility] ([facility] (procedure) 12:00:00 AM EST Lisa jaquez PC) Documentation of current 08/16/2016 MED [facility] ([facility] (procedure) 12:00:00 AM EST Lisa jaquez PC) Documentation of current 08/16/2016 MED [facility] ([facility] medications (procedure) 12:00:00 AM EST Lisa jaquez PC) OFFICE OUTPATIENT VISIT 15 08/16/2016 Lisa NATALIA ([facility] MINUTES 12:00:00 AM EST Medical, PC) Results ID Date Data Source [id number] 05/16/2020 10:15:00 AM EDT [facility] Name Value Range Interpretation Description Data Sup porting Code Source(s) Document(s ) SARS [facility] coronavirus 2 RNA This lab was ordered by [facility] and reported by [facility]. ID Date Data Source [id number] 04/05/2020 12:55:00 PM EDT [facility] Name Value Range Interpretation Description Data Sup porting Code Source(s) Document(s ) SARS [facility] coronavirus 2 RNA This lab was ordered by [facility] and reported by [facility]. ID Date Data Source [id number] 10/24/2018 12:00:00 AM EST [facility] ([facility], ) Name Value Range Interpretation Description Data Sup porting Code Source(s) Document(s ) Vitamin D, 31.1 Normal (applies to [facility] (St 25-Hydroxy ng/mL non-numeric [facility] results) Medical, PC) ID Date Data Source [id number] 10/24/2018 12:00:00 AM EST [facility] ([facility]) Name Value Range Interpretation Description Data Sup porting Code Source(s) Document(s ) Vitamin B12 267 pg/mL Normal (applies to [facility] (S t non-numeric [facility] results) Medical, PC) Folate 18.1 Normal (applies to [facility] (St (Folic ng/mL non-numeric [facility] Acid), Serum results) Medical, ) ID Date Data Source [id number] 10/24/2018 12:00:00 AM EST [facility] ([facility]) Name Value Range Interpretation Description Data Sup porting Code Source(s) Document(s ) Bilirubin.c 0.08 mg/dL Normal (applies to [facility] ( St onjugated non-numeric Ricky's [Mass/volum results) Medical, ) e] in Serum or Plasma ID Date Data Source [id number] 10/24/2018 12:00:00 AM EST [facility] ([facility]) Name Value Range Interpretation Description Data Sup porting Code Source(s) Document(s ) Cholesterol 168 Normal (applies [facility] (St [Mass/volume] in mg/dL to non-numeric Ricky's Serum or Plasma results) [facility], ) HDL Cholesterol 29 mg/dL Below low normal [facility] ([facility], ) Triglyceride 151 Above high normal [facility] (S t [Mass/volume] in mg/dL Ricky's Serum or Plasma [facility], ) LDL Cholesterol 109 Above high normal [facility] (St Calc mg/dL [facility], ) VLDL Cholesterol 30 mg/dL Normal (applies [facility] (St Nathan to non-numeric [facility]'s results) [facility], ) ID Date Data Source [id number] 10/24/2018 12:00:00 AM EST [facility] ([facility], ) Name Value Range Interpretation Description Data Sup porting Code Source(s) Document(s ) Specific gravity 1.017 Normal (applies [facility] (St of Pericardial to non-numeric Ricky's fluid by results) Medical, Refractometry ) pH of Lower 6.5 Normal (applies [facility] (St respiratory to non-numeric Ricky's specimen results) Medical, ) Urine-Color Yellow Normal (applies [facility] (St to non-numeric [facility]'s results) Medical, ) WBC Esterase Negative Normal (applies [facility] (St to non-numeric [facility]'s results) Medical, ) Appearance of Clear Normal (applies [facility] (St Abdomen to non-numeric [facility]'s results) Medical, ) Glucose Negative Normal (applies [facility] (St [Mass/volume] in to non-numeric [facility]'s Urine collected results) Medical, for unspecified PC) duration Protein Negative Normal (applies [facility] (St [Mass/volume] in to non-numeric Ricky's Lower results) Medical, respiratory PC) specimen Ketones Negative Normal (applies [facility] (St [Presence] in to non-numeric [facility] Blood by Tablet results) Medical, PC) Occult Blood Negative Normal (applies [facility] (St to non-numeric [facility] results) Medical, PC) Bilirubin Negative Normal (applies [facility] (St [Presence] in to non-numeric Ricky's Peritoneal fluid results) Medical, PC) Urobilinogen,Corin 0.2 EU/dL Normal (applies [facility] (St i-Qn to non-numeric [facility]'s results) Medical, PC) Nitrite, Urine Negative Normal (applies [facility] (S t to non-numeric [facility]'s results) Medical, PC) Microscopic Normal (applies [facility] (St Examination to non-numeric [facility] results) Medical, PC) ID Date Data Source [id number] 10/24/2018 12:00:00 AM EST [facility] ([facility]) Name Value Range Interpretation Description Data Sup porting Code Source(s) Document(s ) Glucose 78 mg/dL Normal (applies [facility] (St [Mass/volume] in to non-numeric [facility]'s Urine collected for results) Medical, unspecified PC) duration Urea nitrogen 18 mg/dL Normal (applies [facility] (St [Mass/volume] in to non-numeric [facility]'s Serum or Plasma results) Medical, PC) eGFR If NonAfricn 87 Normal (applies [facility] (St Am mL/min/1 to non-numeric Ricky's .73 results) Medical, PC) Creatinine 0.89 Normal (applies [facility] (St [Interpretation] in mg/dL to non-numeric Ricky' s Urine results) Medical, PC) eGFR If Africn Am 100 Normal (applies [facility] (St mL/min/1 to non-numeric Ricky's .73 results) Medical, PC) BUN/Creatinine 20 Normal (applies [facility] (S t Ratio to non-numeric [facility]'s results) Medical, PC) Sodium 141 Normal (applies [facility] (St [Moles/volume] in mmol/L to non-numeric [facility]'s Serum or Plasma results) Medical, PC) Potassium 4.4 Normal (applies [facility] (St [Mass/volume] in mmol/L to non-numeric [facility]'s Blood results) Medical, PC) Chloride 105 Normal (applies [facility] (St [Moles/volume] in mmol/L to non-numeric [facility]'s Serum or Plasma results) Medical, PC) Carbon dioxide, 25 Normal (applies [facility] ( St total mmol/L to non-numeric Ricky's [Moles/volume] in results) Medical, Serum or Plasma PC) Calcium 9.1 Normal (applies [facility] (St [Moles/volume] in mg/dL to non-numeric [facility]'s Urine collected for results) Medical, unspecified PC) duration Protein 6.8 g/dL Normal (applies [facility] (St [Mass/volume] in to non-numeric [facility]'s Serum or Plasma results) Medical, ) Globulin, Total 2.9 g/dL Normal (applies [facility] ( St to non-numeric [facility]'s results) Medical, PC) Microalbumin 3.9 g/dL Normal (applies [facility] (St [Mass/time] in to non-numeric Ricky's Urine collected for results) Medical, unspecified PC) duration A/G Ratio 1.3 Normal (applies [facility] (St to non-numeric [facility]'s results) Medical, PC) Bilirubin.total 0.3 Normal (applies [facility] ( St [Mass/volume] in mg/dL to non-numeric Ricky's Serum or Plasma results) Medical, ) Alkaline 45 IU/L Normal (applies [facility] (St phosphatase to non-numeric Ricky's [Enzymatic results) Medical, activity/volume] in PC) Serum, Plasma or Blood Aspartate 21 IU/L Normal (applies [facility] (St aminotransferase to non-numeric Ricky's [Enzymatic results) Medical, activity/volume] in PC) Serum or Plasma Alanine 22 IU/L Normal (applies [facility] (St aminotransferase to non-numeric Ricky's [Enzymatic results) Medical, activity/volume] in PC) Serum or Plasma ID Date Data Source [id number] 10/24/2018 12:00:00 AM EST [facility] ([facility], ) Name Value Range Interpretation Description Data Sup porting Code Source(s) Document(s ) Leukocytes 5.2 Normal (applies [facility] (St [#/volume] in x10E3/uL to non-numeric [facility] Blood by results) Medical, ) Automated count Hemoglobin 12.9 Below low normal [facility] (St [Mass/volume] in g/dL Ricky's Blood [facility], ) Erythrocytes 4.08 Below low normal [facility] (St [#/volume] in x10E6/uL Ricky's Blood by [facility], ) Automated count MCV 96 fL Normal (applies [facility] (St to non-numeric Ricky's results) [facility], ) Hematocrit 39.2 % Normal (applies [facility] (St [Volume to non-numeric Ricky's Fraction] of results) [facility], ) Blood by Automated count MCHC 32.9 Normal (applies [facility] (St g/dL to non-numeric Ricky's results) [facility], ) MCH 31.6 pg Normal (applies [facility] (St to non-numeric Ricky's results) [facility], ) RDW 14.1 % Normal (applies [facility] (St to non-numeric Ricky's results) [facility], ) Platelets 191 Normal (applies [facility] (St [#/area] in x10E3/uL to non-numeric [facility]'s Blood by results) [facility], ) Microscopy high power field Neutrophils [#] 39 % Normal (applies [facility] ( St in Body fluid by to non-numeric Ricky's Manual count results) [facility], ) Lymphs 47 % Normal (applies [facility] (St to non-numeric Ricky's results) [facility], ) Monocytes 12 % Normal (applies [facility] (St [#/volume] in to non-numeric Ricky's Cord blood results) [facility], ) Eos 2 % Normal (applies [facility] (St to non-numeric Ricky's results) [facility], ) Neutrophils 2.1 Normal (applies [facility] (St (Absolute) x10E3/uL to non-numeric Ricky's results) [facility], ) Basos 0 % Normal (applies [facility] (St to non-numeric Ricky's results) [facility], ) Monocytes(Absolu 0.6 Normal (applies [facility] (St te) x10E3/uL to non-numeric Ricky's results) [facility], ) Lymphs 2.5 Normal (applies [facility] (St (Absolute) x10E3/uL to non-numeric Ricky's results) [facility], ) Eos (Absolute) 0.1 Normal (applies [facility] (S t x10E3/uL to non-numeric Ricky's results) [facility], ) Baso (Absolute) 0.0 Normal (applies [facility] ( St x10E3/uL to non-numeric Ricky's results) [facility]) Immature Grans 0.0 Normal (applies [facility] (S t (Abs) x10E3/uL to non-numeric Ricky's results) [facility]) Immature 0 % Normal (applies [facility] (St Granulocytes to non-numeric Ricky's results) [facility]) ID Date Data Source [id number] 10/24/2018 12:00:00 AM EST [facility] ([facility]) Name Value Range Interpretation Description Data Sup porting Code Source(s) Document(s ) Vitamin D, 31.1 Normal (applies to [facility] (St 25-Hydroxy ng/mL non-numeric [facility]'s results) [facility]) ID Date Data Source [id number] 10/24/2018 12:00:00 AM EST [facility] ([facility]) Name Value Range Interpretation Description Data Sup porting Code Source(s) Document(s ) Vitamin B12 267 pg/mL Normal (applies to [facility] (S t non-numeric [facility]'s results) [facility]) Folate 18.1 Normal (applies to [facility] (St (Folic ng/mL non-numeric [facility]'s Acid), Serum results) [facility]) ID Date Data Source [id number] 10/24/2018 12:00:00 AM EST [facility] ([facility]) Name Value Range Interpretation Description Data Sup porting Code Source(s) Document(s ) Bilirubin.c 0.08 mg/dL Normal (applies to [facility] ( St onjugated non-numeric Ricky's [Mass/volum results) [facility]) e] in Serum or Plasma ID Date Data Source [id number] 10/24/2018 12:00:00 AM EST [facility] ([facility]) Name Value Range Interpretation Description Data Sup porting Code Source(s) Document(s ) Cholesterol 168 Normal (applies [facility] (St [Mass/volume] in mg/dL to non-numeric Ricky's Serum or Plasma results) [facility]) Triglyceride 151 Above high normal [facility] (S t [Mass/volume] in mg/dL Ricky's Serum or Plasma [facility]) HDL Cholesterol 29 mg/dL Below low normal [facility] ([facility], [facility]) LDL Cholesterol 109 Above high normal [facility] (St Calc mg/dL [facility], [facility]) VLDL Cholesterol 30 mg/dL Normal (applies [facility] (St Nathan to non-numeric [facility] results) Medical, PC) ID Date Data Source [id number] 10/24/2018 12:00:00 AM EST [facility] ([facility]) Name Value Range Interpretation Description Data Sup porting Code Source(s) Document(s ) Specific gravity 1.017 Normal (applies [facility] (St of Pericardial to non-numeric Ricky's fluid by results) Medical, Refractometry PC) pH of Lower 6.5 Normal (applies [facility] (St respiratory to non-numeric Ricky's specimen results) Medical, PC) Appearance of Clear Normal (applies [facility] (St Abdomen to non-numeric Ricky's results) Medical, PC) Urine-Color Yellow Normal (applies [facility] (St to non-numeric Ricky's results) Medical, PC) WBC Esterase Negative Normal (applies [facility] (St to non-numeric Ricky's results) Medical, PC) Protein Negative Normal (applies [facility] (St [Mass/volume] in to non-numeric Ricky's Lower results) Medical, respiratory PC) specimen Glucose Negative Normal (applies [facility] (St [Mass/volume] in to non-numeric Ricky's Urine collected results) Medical, for unspecified PC) duration Occult Blood Negative Normal (applies [facility] (St to non-numeric Ricky's results) Medical, PC) Ketones Negative Normal (applies [facility] (St [Presence] in to non-numeric Ricky's Blood by Tablet results) Medical, PC) Bilirubin Negative Normal (applies [facility] (St [Presence] in to non-numeric Ricky's Peritoneal fluid results) Medical, PC) Urobilinogen,Corin 0.2 EU/dL Normal (applies [facility] (St i-Qn to non-numeric Ricky's results) Medical, PC) Microscopic Normal (applies [facility] (St Examination to non-numeric Ricky's results) Medical, PC) Nitrite, Urine Negative Normal (applies [facility] (S t to non-numeric [facility]'s results) Medical, PC) ID Date Data Source [id number] 10/24/2018 12:00:00 AM EST [facility] ([facility]) Name Value Range Interpretation Description Data Sup porting Code Source(s) Document(s ) Glucose 78 mg/dL Normal (applies [facility] (St [Mass/volume] in to non-numeric Ricky's Urine collected for results) Medical, unspecified PC) duration Urea nitrogen 18 mg/dL Normal (applies [facility] (St [Mass/volume] in to non-numeric Ricky's Serum or Plasma results) Medical, PC) Creatinine 0.89 Normal (applies [facility] (St [Interpretation] in mg/dL to non-numeric Ricky' s Urine results) Medical, PC) eGFR If Africn Am 100 Normal (applies [facility] (St mL/min/1 to non-numeric Ricky's .73 results) Medical, PC) eGFR If NonAfricn 87 Normal (applies [facility] (St Am mL/min/1 to non-numeric Ricky's .73 results) Medical, PC) BUN/Creatinine 20 Normal (applies [facility] (S t Ratio to non-numeric [facility]'s results) Medical, PC) Sodium 141 Normal (applies [facility] (St [Moles/volume] in mmol/L to non-numeric Ricky's Serum or Plasma results) Medical, PC) Potassium 4.4 Normal (applies [facility] (St [Mass/volume] in mmol/L to non-numeric Ricky's Blood results) Medical, PC) Carbon dioxide, 25 Normal (applies [facility] ( St total mmol/L to non-numeric Ricky's [Moles/volume] in results) Medical, Serum or Plasma PC) Chloride 105 Normal (applies [facility] (St [Moles/volume] in mmol/L to non-numeric Ricky's Serum or Plasma results) Medical, PC) Protein 6.8 g/dL Normal (applies [facility] (St [Mass/volume] in to non-numeric Ricky's Serum or Plasma results) Medical, PC) Calcium 9.1 Normal (applies [facility] (St [Moles/volume] in mg/dL to non-numeric Ricky's Urine collected for results) Medical, unspecified PC) duration Microalbumin 3.9 g/dL Normal (applies [facility] (St [Mass/time] in to non-numeric Ircky's Urine collected for results) Medical, unspecified PC) duration Globulin, Total 2.9 g/dL Normal (applies [facility] ( St to non-numeric Ricky's results) Medical, PC) A/G Ratio 1.3 Normal (applies [facility] (St to non-numeric Ricky's results) Medical, ) Alkaline 45 IU/L Normal (applies [facility] (St phosphatase to non-numeric Ricky's [Enzymatic results) Medical, activity/volume] in ) Serum, Plasma or Blood Bilirubin.total 0.3 Normal (applies [facility] ( St [Mass/volume] in mg/dL to non-numeric Ricky's Serum or Plasma results) Medical, ) Aspartate 21 IU/L Normal (applies [facility] (St aminotransferase to non-numeric Ricky's [Enzymatic results) Medical, activity/volume] in ) Serum or Plasma Alanine 22 IU/L Normal (applies [facility] (St aminotransferase to non-numeric Ricky's [Enzymatic results) Medical, activity/volume] in ) Serum or Plasma ID Date Data Source [id number] 10/24/2018 12:00:00 AM EST [facility] ([facility], ) Name Value Range Interpretation Description Data Sup porting Code Source(s) Document(s ) Leukocytes 5.2 Normal (applies [facility] (St [#/volume] in x10E3/uL to non-numeric Ricky's Blood by results) Medical, ) Automated count Erythrocytes 4.08 Below low normal [facility] (St [#/volume] in x10E6/uL Ricky's Blood by Medical, ) Automated count Hemoglobin 12.9 Below low normal [facility] (St [Mass/volume] in g/dL Ricky's Blood [facility], ) Hematocrit 39.2 % Normal (applies [facility] (St [Volume to non-numeric Ricky's Fraction] of results) Medical, ) Blood by Automated count MCH 31.6 pg Normal (applies [facility] (St to non-numeric Ricky's results) Medical, ) MCV 96 fL Normal (applies [facility] (St to non-numeric Ricky's results) Medical, ) RDW 14.1 % Normal (applies [facility] (St to non-numeric Ricky's results) Medical, ) MCHC 32.9 Normal (applies [facility] (St g/dL to non-numeric Ricky's results) Medical, ) Neutrophils [#] 39 % Normal (applies [facility] ( St in Body fluid by to non-numeric Ricky's Manual count results) [facility], ) Platelets 191 Normal (applies [facility] (St [#/area] in x10E3/uL to non-numeric Ricky's Blood by results) Medical, ) Microscopy high power field Monocytes 12 % Normal (applies [facility] (St [#/volume] in to non-numeric Ricky's Cord blood results) [facility], ) Lymphs 47 % Normal (applies [facility] (St to non-numeric Ricky's results) [facility], ) Basos 0 % Normal (applies [facility] (St to non-numeric Ricky's results) [facility], ) Eos 2 % Normal (applies [facility] (St to non-numeric Ricky's results) [facility], ) Neutrophils 2.1 Normal (applies [facility] (St (Absolute) x10E3/uL to non-numeric Ricky's results) Medical, ) Lymphs 2.5 Normal (applies [facility] (St (Absolute) x10E3/uL to non-numeric Ricky's results) [facility], ) Monocytes(Absolu 0.6 Normal (applies [facility] (St te) x10E3/uL to non-numeric Ricky's results) [facility], ) Baso (Absolute) 0.0 Normal (applies [facility] ( St x10E3/uL to non-numeric Ricky's results) [facility], ) Eos (Absolute) 0.1 Normal (applies [facility] (S t x10E3/uL to non-numeric Ricky's results) [facility], ) Immature 0 % Normal (applies [facility] (St Granulocytes to non-numeric Ricky's results) [facility], ) Immature Grans 0.0 Normal (applies [facility] (S t (Abs) x10E3/uL to non-numeric Ricky's results) [facility], ) ID Date Data Source [id number] 10/24/2018 12:00:00 AM EST [facility]) Name Value Range Interpretation Description Data Sup porting Code Source(s) Document(s ) Vitamin D, 31.1 Normal (applies to [facility] (St 25-Hydroxy ng/mL non-numeric Ricky's results) [facility]) ID Date Data Source [id number] 10/24/2018 12:00:00 AM EST [facility]) Name Value Range Interpretation Description Data Sup porting Code Source(s) Document(s ) Vitamin B12 267 pg/mL Normal (applies to [facility] (S t non-numeric Ricky's results) [facility]) Folate 18.1 Normal (applies to [facility] (St (Folic ng/mL non-numeric Ricky's Acid), Serum results) [facility], ) ID Date Data Source [id number] 10/24/2018 12:00:00 AM EST [facility] ([facility], ) Name Value Range Interpretation Description Data Sup porting Code Source(s) Document(s ) Bilirubin.c 0.08 mg/dL Normal (applies to [facility] ( St onjugated non-numeric Ricky's [Mass/volum results) Medical, ) e] in Serum or Plasma ID Date Data Source [id number] 10/24/2018 12:00:00 AM EST [facility] ([facility], ) Name Value Range Interpretation Description Data Sup porting Code Source(s) Document(s ) Cholesterol 168 Normal (applies [facility] (St [Mass/volume] in mg/dL to non-numeric Ricky's Serum or Plasma results) [facility], ) HDL Cholesterol 29 mg/dL Below low normal [facility] ([facility], ) Triglyceride 151 Above high normal [facility] (S t [Mass/volume] in mg/dL Ricky's Serum or Plasma [facility], ) LDL Cholesterol 109 Above high normal [facility] (St Calc mg/dL [facility], ) VLDL Cholesterol 30 mg/dL Normal (applies [facility] (St Nathan to non-numeric Ricky's results) [facility], ) ID Date Data Source [id number] 10/24/2018 12:00:00 AM EST [facility] ([facility], ) Name Value Range Interpretation Description Data Sup porting Code Source(s) Document(s ) pH of Lower 6.5 Normal (applies [facility] (St respiratory to non-numeric Ricky's specimen results) Medical, ) Specific gravity 1.017 Normal (applies [facility] (St of Pericardial to non-numeric Ricky's fluid by results) Medical, Refractometry ) Urine-Color Yellow Normal (applies [facility] (St to non-numeric Ricky's results) [facility], ) Appearance of Clear Normal (applies [facility] (St Abdomen to non-numeric Ricky's results) Medical, ) Protein Negative Normal (applies [facility] (St [Mass/volume] in to non-numeric Ricky's Lower results) Medical, respiratory ) specimen WBC Esterase Negative Normal (applies [facility] (St to non-numeric Ricky's results) Medical, ) Ketones Negative Normal (applies [facility] (St [Presence] in to non-numeric Ricky's Blood by Tablet results) Medical, ) Glucose Negative Normal (applies [facility] (St [Mass/volume] in to non-numeric Ricky's Urine collected results) [facility], for unspecified PC) duration Occult Blood Negative Normal (applies [facility] (St to non-numeric Ricky's results) Medical, ) Bilirubin Negative Normal (applies [facility] (St [Presence] in to non-numeric Ricky's Peritoneal fluid results) Medical, ) Urobilinogen,Corin 0.2 EU/dL Normal (applies [facility] (St i-Qn to non-numeric Ricky's results) Medical, ) Nitrite, Urine Negative Normal (applies [facility] (S t to non-numeric Ricky's results) Medical, ) Microscopic Normal (applies [facility] (St Examination to non-numeric Ricky's results) Medical, ) ID Date Data Source [id number] 10/24/2018 12:00:00 AM EST [facility] ([facility], ) Name Value Range Interpretation Description Data Sup porting Code Source(s) Document(s ) Glucose 78 mg/dL Normal (applies [facility] (St [Mass/volume] in to non-numeric Ricky's Urine collected for results) [facility], unspecified PC) duration Creatinine 0.89 Normal (applies [facility] (St [Interpretation] in mg/dL to non-numeric Ricky' s Urine results) Medical, ) Urea nitrogen 18 mg/dL Normal (applies [facility] (St [Mass/volume] in to non-numeric Ricky's Serum or Plasma results) Medical, ) eGFR If Africn Am 100 Normal (applies [facility] (St mL/min/1 to non-numeric Ricky's .73 results) Medical, ) eGFR If NonAfricn 87 Normal (applies [facility] (St Am mL/min/1 to non-numeric Ricky's .73 results) Medical, ) BUN/Creatinine 20 Normal (applies [facility]GEN (S t Ratio to non-numeric Ricky's results) Medical, ) Sodium 141 Normal (applies [facility] (St [Moles/volume] in mmol/L to non-numeric Ricky's Serum or Plasma results) Medical, PC) Chloride 105 Normal (applies [facility] (St [Moles/volume] in mmol/L to non-numeric Ricky's Serum or Plasma results) Medical, PC) Potassium 4.4 Normal (applies [facility] (St [Mass/volume] in mmol/L to non-numeric Ricky's Blood results) Medical, ) Carbon dioxide, 25 Normal (applies [facility] ( St total mmol/L to non-numeric Ricky's [Moles/volume] in results) Medical, Serum or Plasma PC) Calcium 9.1 Normal (applies [facility] (St [Moles/volume] in mg/dL to non-numeric Ricky's Urine collected for results) Medical, unspecified PC) duration Microalbumin 3.9 g/dL Normal (applies [facility] (St [Mass/time] in to non-numeric Ricky's Urine collected for results) Medical, unspecified PC) duration Protein 6.8 g/dL Normal (applies [facility] (St [Mass/volume] in to non-numeric Ricky's Serum or Plasma results) Medical, ) Globulin, Total 2.9 g/dL Normal (applies [facility]GEN ( St to non-numeric Ricky's results) Medical, PC) A/G Ratio 1.3 Normal (applies MEDGEN (St to non-numeric [facility] results) [facility], PC) Bilirubin.total 0.3 Normal (applies [facility] ( St [Mass/volume] in mg/dL to non-numeric [facility] Serum or Plasma results) Medical, ) Alkaline 45 IU/L Normal (applies [facility] (St phosphatase to non-numeric Ricky's [Enzymatic results) Medical, activity/volume] in PC) Serum, Plasma or Blood Aspartate 21 IU/L Normal (applies [facility] (St aminotransferase to non-numeric [facility]'s [Enzymatic results) Medical, activity/volume] in PC) Serum or Plasma Alanine 22 IU/L Normal (applies [facility] (St aminotransferase to non-numeric Ricky's [Enzymatic results) Medical, activity/volume] in PC) Serum or Plasma ID Date Data Source [id number] 10/24/2018 12:00:00 AM EST [facility] ([facility] Name Value Range Interpretation Description Data Sup porting Code Source(s) Document(s ) Leukocytes 5.2 Normal (applies [facility] (St [#/volume] in x10E3/uL to non-numeric [facility] Blood by results) [facility], ) Automated count Erythrocytes 4.08 Below low normal [facility] (St [#/volume] in x10E6/uL [facility] Blood by Medical, ) Automated count Hemoglobin 12.9 Below low normal [facility] (St [Mass/volume] in g/dL [facility] Blood [facility], ) Hematocrit 39.2 % Normal (applies [facility] (St [Volume to non-numeric [facility]'s Fraction] of results) [facility], ) Blood by Automated count MCH 31.6 pg Normal (applies [facility] (St to non-numeric [facility] results) [facility], ) MCV 96 fL Normal (applies [facility] (St to non-numeric [facility] results) [facility], ) MCHC 32.9 Normal (applies [facility] (St g/dL to non-numeric [facility] results) [facility], ) RDW 14.1 % Normal (applies [facility] (St to non-numeric [facility] results) [facility], ) Neutrophils [#] 39 % Normal (applies [facility] ( St in Body fluid by to non-numeric [facility] Manual count results) [facility], ) Platelets 191 Normal (applies [facility] (St [#/area] in x10E3/uL to non-numeric [facility] Blood by results) [facility], ) Microscopy high power field Lymphs 47 % Normal (applies [facility] (St to non-numeric [facility] results) [facility], ) Eos 2 % Normal (applies [facility] (St to non-numeric [facility] results) [facility], ) Monocytes 12 % Normal (applies [facility] (St [#/volume] in to non-numeric [facility] Cord blood results) [facility], ) Basos 0 % Normal (applies [facility] (St to non-numeric [facility] results) [facility], ) Neutrophils 2.1 Normal (applies [facility] (St (Absolute) x10E3/uL to non-numeric [facility] results) [facility], ) Lymphs 2.5 Normal (applies [facility] (St (Absolute) x10E3/uL to non-numeric [facility] results) [facility], ) Monocytes(Absolu 0.6 Normal (applies [facility] (St te) x10E3/uL to non-numeric [facility] results) [facility], ) Eos (Absolute) 0.1 Normal (applies [facility] (S t x10E3/uL to non-numeric [facility] results) Medical, ) Baso (Absolute) 0.0 Normal (applies [facility] ( St x10E3/uL to non-numeric [facility] results) [facility], ) Immature Grans 0.0 Normal (applies [facility] (S t (Abs) x10E3/uL to non-numeric [facility] results) Medical, ) Immature 0 % Normal (applies [facility] (St Granulocytes to non-numeric [facility] results) [facility], ) ID Date Data Source [id number] 10/24/2018 12:00:00 AM EST [facility] ([facility], ) Name Value Range Interpretation Description Data Sup porting Code Source(s) Document(s ) Vitamin D, 31.1 Normal (applies to [facility] (St 25-Hydroxy ng/mL non-numeric [facility] results) [facility], ) ID Date Data Source [id number] 10/24/2018 12:00:00 AM EST [facility] ([facility], ) Name Value Range Interpretation Description Data Sup porting Code Source(s) Document(s ) Vitamin B12 267 pg/mL Normal (applies to [facility] (S t non-numeric [facility] results) [facility], ) Folate 18.1 Normal (applies to [facility] (St (Folic ng/mL non-numeric [facility] Acid), Serum results) [facility], ) ID Date Data Source [id number] 10/24/2018 12:00:00 AM EST [facility] ([facility]) Name Value Range Interpretation Description Data Sup porting Code Source(s) Document(s ) Bilirubin.c 0.08 mg/dL Normal (applies to [facility] ( St onjugated non-numeric [facility]'s [Mass/volum results) [facility], ) e] in Serum or Plasma ID Date Data Source [id number] 10/24/2018 12:00:00 AM EST [facility] ([facility], ) Name Value Range Interpretation Description Data Sup porting Code Source(s) Document(s ) Triglyceride 151 Above high normal [facility] (S t [Mass/volume] in mg/dL [facility] Serum or Plasma [facility], ) Cholesterol 168 Normal (applies [facility] (St [Mass/volume] in mg/dL to non-numeric [facility] Serum or Plasma results) [facility], PC) VLDL Cholesterol 30 mg/dL Normal (applies [facility] (St [facility] to non-numeric [facility] results) [facility], PC) HDL Cholesterol 29 mg/dL Below low normal [facility] ([facility]) LDL Cholesterol 109 Above high normal [facility] (St Calc mg/dL [facility], ) ID Date Data Source [id number] 10/24/2018 12:00:00 AM EST [facility] ([facility], ) Name Value Range Interpretation Description Data Sup porting Code Source(s) Document(s ) Specific gravity 1.017 Normal (applies [facility] (St of Pericardial to non-numeric [facility] fluid by results) Medical, Refractometry PC) pH of Lower 6.5 Normal (applies [facility] (St respiratory to non-numeric [facility] specimen results) [facility], PC) Appearance of Clear Normal (applies [facility] (St Abdomen to non-numeric [facility] results) [facility], PC) Urine-Color Yellow Normal (applies [facility] (St to non-numeric [facility] results) [facility], PC) WBC Esterase Negative Normal (applies [facility] (St to non-numeric [facility] results) [facility], PC) Protein Negative Normal (applies [facility] (St [Mass/volume] in to non-numeric [facility]'s Lower results) Medical, respiratory PC) specimen Ketones Negative Normal (applies [facility] (St [Presence] in to non-numeric [facility] Blood by Tablet results) [facility], PC) Glucose Negative Normal (applies [facility] (St [Mass/volume] in to non-numeric [facility] Urine collected results) Medical, for unspecified PC) duration Occult Blood Negative Normal (applies [facility] (St to non-numeric [facility] results) [facility], PC) Bilirubin Negative Normal (applies [facility] (St [Presence] in to non-numeric [facility] Peritoneal fluid results) Medical, PC) Nitrite, Urine Negative Normal (applies [facility] (S t to non-numeric [facility] results) [facility], PC) Urobilinogen,Corin 0.2 EU/dL Normal (applies [facility] (St i-Qn to non-numeric [facility] results) [facility], [facility]) ID Date Data Source [id number] 10/24/2018 12:00:00 AM EST [facility] ([facility], ) Name Value Range Interpretation Description Data Sup porting Code Source(s) Document(s ) Glucose 78 mg/dL Normal (applies [facility] (St [Mass/volume] in to non-numeric [facility] Urine collected for results) Medical, unspecified PC) duration Creatinine 0.89 Normal (applies [facility] (St [Interpretation] in mg/dL to non-numeric Ricky' s Urine results) Medical, PC) Urea nitrogen 18 mg/dL Normal (applies [facility] (St [Mass/volume] in to non-numeric [facility] Serum or Plasma results) Medical, PC) eGFR If NonAfricn 87 Normal (applies [facility] (St Am mL/min/1 to non-numeric Ricky's .73 results) Medical, PC) BUN/Creatinine 20 Normal (applies [facility] (S t Ratio to non-numeric [facility] results) Medical, PC) eGFR If Africn Am 100 Normal (applies [facility] (St mL/min/1 to non-numeric [facility]'s .73 results) Medical, PC) Potassium 4.4 Normal (applies [facility] (St [Mass/volume] in mmol/L to non-numeric [facility] Blood results) Medical, PC) Sodium 141 Normal (applies [facility] (St [Moles/volume] in mmol/L to non-numeric [facility] Serum or Plasma results) Medical, PC) Chloride 105 Normal (applies [facility] (St [Moles/volume] in mmol/L to non-numeric [facility] Serum or Plasma results) Medical, PC) Carbon dioxide, 25 Normal (applies [facility] ( St total mmol/L to non-numeric [facility] [Moles/volume] in results) Medical, Serum or Plasma PC) Protein 6.8 g/dL Normal (applies [facility] (St [Mass/volume] in to non-numeric [facility] Serum or Plasma results) Medical, PC) Calcium 9.1 Normal (applies [facility] (St [Moles/volume] in mg/dL to non-numeric [facility] Urine collected for results) Medical, unspecified PC) duration Microalbumin 3.9 g/dL Normal (applies [facility] (St [Mass/time] in to non-numeric [facility] Urine collected for results) Medical, unspecified PC) duration Globulin, Total 2.9 g/dL Normal (applies [facility] ( St to non-numeric [facility] results) Medical, PC) A/G Ratio 1.3 Normal (applies [facility] (St to non-numeric [facility] results) Medical, ) Bilirubin.total 0.3 Normal (applies [facility] ( St [Mass/volume] in mg/dL to non-numeric [facility] Serum or Plasma results) [facility], ) Alkaline 45 IU/L Normal (applies [facility] (St phosphatase to non-numeric Ricky's [Enzymatic results) Medical, activity/volume] in ) Serum, Plasma or Blood Aspartate 21 IU/L Normal (applies [facility] (St aminotransferase to non-numeric Ricky's [Enzymatic results) Medical, activity/volume] in ) Serum or Plasma Alanine 22 IU/L Normal (applies [facility] (St aminotransferase to non-numeric Ricky's [Enzymatic results) Medical, activity/volume] in ) Serum or Plasma ID Date Data Source [id number] 10/24/2018 12:00:00 AM EST [facility] ([facility], ) Name Value Range Interpretation Description Data Sup porting Code Source(s) Document(s ) Leukocytes 5.2 Normal (applies [facility] (St [#/volume] in x10E3/uL to non-numeric [facility] Blood by results) [facility], ) Automated count Hemoglobin 12.9 Below low normal [facility] (St [Mass/volume] in g/dL [facility] Blood [facility], ) Erythrocytes 4.08 Below low normal [facility] (St [#/volume] in x10E6/uL [facility] Blood by [facility], ) Automated count Hematocrit 39.2 % Normal (applies [facility] (St [Volume to non-numeric Ricky's Fraction] of results) [facility], ) Blood by Automated count MCV 96 fL Normal (applies [facility] (St to non-numeric [facility]'s results) [facility], ) MCH 31.6 pg Normal (applies [facility] (St to non-numeric [facility]'s results) [facility], ) MCHC 32.9 Normal (applies [facility] (St g/dL to non-numeric [facility] results) [facility], ) RDW 14.1 % Normal (applies [facility] (St to non-numeric [facility] results) Medical, ) Platelets 191 Normal (applies [facility] (St [#/area] in x10E3/uL to non-numeric [facility] Blood by results) [facility], ) Microscopy high power field Lymphs 47 % Normal (applies [facility] (St to non-numeric [facility] results) Medical, ) Neutrophils [#] 39 % Normal (applies [facility] ( St in Body fluid by to non-numeric [facility]'s Manual count results) Medical, ) Monocytes 12 % Normal (applies [facility] (St [#/volume] in to non-numeric [facility]'s Cord blood results) Medical, ) Eos 2 % Normal (applies [facility] (St to non-numeric [facility]'s results) Medical, ) Basos 0 % Normal (applies [facility] (St to non-numeric [facility]'s results) Medical, ) Lymphs 2.5 Normal (applies [facility] (St (Absolute) x10E3/uL to non-numeric [facility] results) Medical, ) Neutrophils 2.1 Normal (applies [facility] (St (Absolute) x10E3/uL to non-numeric [facility] results) [facility], ) Monocytes(Absolu 0.6 Normal (applies [facility] (St te) x10E3/uL to non-numeric [facility]'s results) Medical, ) Eos (Absolute) 0.1 Normal (applies [facility] (S t x10E3/uL to non-numeric [facility] results) Medical, ) Baso (Absolute) 0.0 Normal (applies [facility] ( St x10E3/uL to non-numeric [facility] results) Medical, ) Immature Grans 0.0 Normal (applies [facility] (S t (Abs) x10E3/uL to non-numeric [facility] results) Medical, ) Immature 0 % Normal (applies [facility] (St Granulocytes to non-numeric [facility] results) [facility], ) ID Date Data Source [id number] 01/01/2018 12:00:00 AM EDT [facility], ) Name Value Range Interpretation Description Data Sup porting Code Source(s) Document(s ) Vitamin D, 36.7 Normal (applies to [facility] (St 25-Hydroxy ng/mL non-numeric [facility] results) [facility], ) ID Date Data Source [id number] 01/01/2018 12:00:00 AM EDT [facility] ([facility], ) Name Value Range Interpretation Description Data Sup porting Code Source(s) Document(s ) Prostate 1.7 ng/mL Normal (applies to [facility] (St Specific Ag, non-numeric [facility] Serum results) [facility], ) ID Date Data Source [id number] 01/01/2018 12:00:00 AM EDT [facility] ([facility], ) Name Value Range Interpretation Description Data Sup porting Code Source(s) Document(s ) Vitamin B12 607 pg/mL Normal (applies to [facility] (S t non-numeric [facility]'s results) [facility], ) Folate 13.7 Normal (applies to [facility] (St (Folic ng/mL non-numeric [facility]'s Acid), Serum results) [facility], ) ID Date Data Source [id number] 01/01/2018 12:00:00 AM [facility], ) Name Value Range Interpretation Description Data Sup porting Code Source(s) Document(s ) Bilirubin.c 0.08 mg/dL Normal (applies to [facility] ( St onjugated non-numeric Ricky's [Mass/volum results) [facility]) e] in Serum or Plasma ID Date Data Source [id number] 01/01/2018 12:00:00 AM EDT [facility], ) Name Value Range Interpretation Description Data Sup porting Code Source(s) Document(s ) Cholesterol 159 Normal (applies [facility] (St [Mass/volume] in mg/dL to non-numeric [facility]'s Serum or Plasma results) [facility], ) Triglyceride 77 mg/dL Normal (applies [facility] (St [Mass/volume] in to non-numeric [facility] Serum or Plasma results) [facility], ) HDL Cholesterol 28 mg/dL Below low normal [facility] ([facility], ) LDL Cholesterol 116 Above high normal [facility] (St Calc mg/dL Ricky's [facility], ) VLDL Cholesterol 15 mg/dL Normal (applies [facility] (St Nathan to non-numeric [facility]'s results) [facility]) ID Date Data Source [id number] 01/01/2018 12:00:00 AM EDT [facility], ) Name Value Range Interpretation Description Data Sup porting Code Source(s) Document(s ) pH of Lower 7.5 Normal (applies [facility] (St respiratory to non-numeric [facility]'s specimen results) [facility], ) Specific gravity 1.024 Normal (applies [facility] (St of Pericardial to non-numeric Ricky's fluid by results) Medical, Refractometry PC) Appearance of Clear Normal (applies [facility] (St Abdomen to non-numeric [facility] results) Medical, PC) Urine-Color Yellow Normal (applies [facility] (St to non-numeric [facility] results) Medical, PC) WBC Esterase Negative Normal (applies [facility] (St to non-numeric [facility]'s results) Medical, PC) Protein Negative Normal (applies [facility] (St [Mass/volume] in to non-numeric [facility]'s Lower results) Medical, respiratory PC) specimen Glucose Negative Normal (applies [facility] (St [Mass/volume] in to non-numeric [facility] Urine collected results) Medical, for unspecified PC) duration Ketones Negative Normal (applies [facility] (St [Presence] in to non-numeric [facility] Blood by Tablet results) Medical, PC) Bilirubin Negative Normal (applies [facility] (St [Presence] in to non-numeric [facility]'s Peritoneal fluid results) Medical, PC) Occult Blood Negative Normal (applies [facility] (St to non-numeric [facility]'s results) Medical, PC) Urobilinogen,Corin 0.2 EU/dL Normal (applies [facility] (St i-Qn to non-numeric [facility] results) Medical, PC) Nitrite, Urine Negative Normal (applies [facility] (S t to non-numeric [facility]'s results) Medical, PC) Microscopic Normal (applies [facility] (St Examination to non-numeric [facility] results) Medical, PC) ID Date Data Source [id number] 01/01/2018 12:00:00 AM EDT [facility] ([facility]) Name Value Range Interpretation Description Data Sup porting Code Source(s) Document(s ) Glucose 91 mg/dL Normal (applies [facility] (St [Mass/volume] in to non-numeric [facility] Urine collected for results) Medical, unspecified PC) duration Urea nitrogen 19 mg/dL Normal (applies [facility] (St [Mass/volume] in to non-numeric [facility]'s Serum or Plasma results) Medical, PC) Creatinine 0.97 Normal (applies [facility] (St [Interpretation] in mg/dL to non-numeric Ricky' s Urine results) Medical, PC) eGFR If NonAfricn 79 Normal (applies [facility] (St Am mL/min/1 to non-numeric Ricky's .73 results) Medical, PC) eGFR If Africn Am 92 Normal (applies [facility] (St mL/min/1 to non-numeric [facility]'s .73 results) Medical, PC) BUN/Creatinine 20 Normal (applies [facility] (S t Ratio to non-numeric [facility]'s results) Medical, PC) Sodium 142 Normal (applies [facility] (St [Moles/volume] in mmol/L to non-numeric [facility] Serum or Plasma results) Medical, PC) Potassium 4.2 Normal (applies [facility] (St [Mass/volume] in mmol/L to non-numeric [facility] Blood results) Medical, PC) Chloride 104 Normal (applies [facility] (St [Moles/volume] in mmol/L to non-numeric [facility] Serum or Plasma results) Medical, PC) Carbon dioxide, 22 Normal (applies [facility] ( St total mmol/L to non-numeric Ricky's [Moles/volume] in results) Medical, Serum or Plasma PC) Calcium 9.3 Normal (applies [facility] (St [Moles/volume] in mg/dL to non-numeric Ricky's Urine collected for results) Medical, unspecified PC) duration Protein 7.1 g/dL Normal (applies [facility] (St [Mass/volume] in to non-numeric [facility]'s Serum or Plasma results) Medical, ) Microalbumin 4.1 g/dL Normal (applies [facility] (St [Mass/time] in to non-numeric [facility]'s Urine collected for results) Medical, unspecified PC) duration Globulin, Total 3.0 g/dL Normal (applies [facility] ( St to non-numeric [facility]'s results) Medical, PC) A/G Ratio 1.4 Normal (applies [facility] (St to non-numeric [facility] results) Medical, PC) Bilirubin.total 0.3 Normal (applies [facility] ( St [Mass/volume] in mg/dL to non-numeric [facility] Serum or Plasma results) Medical, ) Aspartate 20 IU/L Normal (applies [facility] (St aminotransferase to non-numeric Ricky's [Enzymatic results) Medical, activity/volume] in PC) Serum or Plasma Alkaline 51 IU/L Normal (applies [facility] (St phosphatase to non-numeric Ricky's [Enzymatic results) Medical, activity/volume] in PC) Serum, Plasma or Blood Alanine 15 IU/L Normal (applies [facility] (St aminotransferase to non-numeric Ricky's [Enzymatic results) Medical, activity/volume] in PC) Serum or Plasma ID Date Data Source [id number] 01/01/2018 12:00:00 AM EDT [facility] ([facility], ) Name Value Range Interpretation Description Data Sup porting Code Source(s) Document(s ) Leukocytes 5.3 Normal (applies [facility] (St [#/volume] in x10E3/uL to non-numeric [facility] Blood by results) Medical, ) Automated count Erythrocytes 3.93 Below low normal [facility] (St [#/volume] in x10E6/uL [facility] Blood by Medical, ) Automated count Hemoglobin 12.6 Below low normal [facility] (St [Mass/volume] in g/dL [facility] Blood Medical, ) MCV 96 fL Normal (applies [facility] (St to non-numeric [facility]'s results) Medical, ) Hematocrit 37.7 % Normal (applies [facility] (St [Volume to non-numeric Ricky's Fraction] of results) Medical, ) Blood by Automated count MCHC 33.4 Normal (applies [facility] (St g/dL to non-numeric [facility] results) Medical, ) MCH 32.1 pg Normal (applies [facility] (St to non-numeric [facility]'s results) Medical, ) RDW 14.9 % Normal (applies [facility] (St to non-numeric [facility]'s results) Medical, ) Platelets 163 Normal (applies [facility] (St [#/area] in x10E3/uL to non-numeric [facility] Blood by results) Medical, ) Microscopy high power field Neutrophils [#] 46 % Normal (applies [facility] ( St in Body fluid by to non-numeric [facility]'s Manual count results) Medical, ) Lymphs 42 % Normal (applies [facility] (St to non-numeric [facility] results) Medical, ) Monocytes 11 % Normal (applies [facility] (St [#/volume] in to non-numeric [facility]'s Cord blood results) Medical, ) Eos 1 % Normal (applies [facility] (St to non-numeric [facility]'s results) Medical, ) Basos 0 % Normal (applies [facility] (St to non-numeric [facility]'s results) Medical, ) Neutrophils 2.4 Normal (applies [facility] (St (Absolute) x10E3/uL to non-numeric [facility] results) Medical, ) Lymphs 2.2 Normal (applies [facility] (St (Absolute) x10E3/uL to non-numeric [facility]'s results) Medical, ) Monocytes(Absolu 0.6 Normal (applies [facility] (St te) x10E3/uL to non-numeric [facility] results) Medical, ) Eos (Absolute) 0.1 Normal (applies [facility] (S t x10E3/uL to non-numeric [facility] results) Medical, ) Baso (Absolute) 0.0 Normal (applies [facility] ( St x10E3/uL to non-numeric [facility]'s results) Medical, ) Immature 0 % Normal (applies [facility] (St Granulocytes to non-numeric [facility]'s results) Medical, ) Immature Grans 0.0 Normal (applies [facility] (S t (Abs) x10E3/uL to non-numeric [facility] results) Medical, ) ID Date Data Source [id number] 01/01/2018 12:00:00 AM EDT [facility] ([facility], ) Name Value Range Interpretation Description Data Sup porting Code Source(s) Document(s ) Vitamin D, 36.7 Normal (applies to [facility] (St 25-Hydroxy ng/mL non-numeric [facility] results) Medical, ) ID Date Data Source [id number] 01/01/2018 12:00:00 AM EDT [facility] ([facility], ) Name Value Range Interpretation Description Data Sup porting Code Source(s) Document(s ) Prostate 1.7 ng/mL Normal (applies to [facility] (St Specific Ag, non-numeric [facility]'s Serum results) Medical, ) ID Date Data Source [id number] 01/01/2018 12:00:00 AM EDT [facility] ([facility], ) Name Value Range Interpretation Description Data Sup porting Code Source(s) Document(s ) Vitamin B12 607 pg/mL Normal (applies to [facility] (S t non-numeric [facility]'s results) Medical, ) Folate 13.7 Normal (applies to [facility] (St (Folic ng/mL non-numeric [facility]'s Acid), Serum results) Medical, ) ID Date Data Source [id number] 01/01/2018 12:00:00 AM EDT [facility] ([facility], ) Name Value Range Interpretation Description Data Sup porting Code Source(s) Document(s ) Bilirubin.c 0.08 mg/dL Normal (applies to [facility] ( St onjugated non-numeric Ricky's [Mass/volum results) Medical, ) e] in Serum or Plasma ID Date Data Source [id number] 01/01/2018 12:00:00 AM EDT [facility] ([facility] [place]) Name Value Range Interpretation Description Data Sup porting Code Source(s) Document(s ) Cholesterol 159 Normal (applies [facility] (St [Mass/volume] in mg/dL to non-numeric Ricky's Serum or Plasma results) Medical, ) Triglyceride 77 mg/dL Normal (applies [facility] (St [Mass/volume] in to non-numeric Ricky's Serum or Plasma results) Medical, ) HDL Cholesterol 28 mg/dL Below low normal [facility] VLDL Cholesterol 15 mg/dL Normal (applies [facility] (St Nathan to non-numeric [facility]'s results) Medical, ) LDL Cholesterol 116 Above high normal [facility] (St Calc mg/dL [facility]) ID Date Data Source [id number] 01/01/2018 12:00:00 AM EDT [facility], ) Name Value Range Interpretation Description Data Sup porting Code Source(s) Document(s ) Specific gravity 1.024 Normal (applies [facility] (St of Pericardial to non-numeric [facility]'s fluid by results) Medical, Refractometry ) Urine-Color Yellow Normal (applies [facility] (St to non-numeric Ricky's results) Medical, ) pH of Lower 7.5 Normal (applies [facility] (St respiratory to non-numeric [facility]'s specimen results) Medical, ) Appearance of Clear Normal (applies [facility] (St Abdomen to non-numeric Ricky's results) Medical, ) WBC Esterase Negative Normal (applies [facility] (St to non-numeric [facility]'s results) Medical, PC) Protein Negative Normal (applies [facility] (St [Mass/volume] in to non-numeric [facility] Lower results) Medical, respiratory PC) specimen Ketones Negative Normal (applies [facility] (St [Presence] in to non-numeric [facility] Blood by Tablet results) Medical, PC) Glucose Negative Normal (applies [facility] (St [Mass/volume] in to non-numeric [facility] Urine collected results) Medical, for unspecified PC) duration Occult Blood Negative Normal (applies [facility] (St to non-numeric [facility]'s results) Medical, PC) Urobilinogen,Corin 0.2 EU/dL Normal (applies [facility] (St i-Qn to non-numeric Ricky's results) Medical, PC) Bilirubin Negative Normal (applies [facility] (St [Presence] in to non-numeric [facility]'s Peritoneal fluid results) Medical, ) Nitrite, Urine Negative Normal (applies [facility] (S t to non-numeric [facility]'s results) Medical, PC) Microscopic Normal (applies [facility] (St Examination to non-numeric [facility] results) Medical, ) ID Date Data Source [id number] 01/01/2018 12:00:00 AM EDT [facility] Name Value Range Interpretation Description Data Sup porting Code Source(s) Document(s ) Glucose 91 mg/dL Normal (applies [facility] (St [Mass/volume] in to non-numeric [facility] Urine collected for results) Medical, unspecified PC) duration Urea nitrogen 19 mg/dL Normal (applies [facility] (St [Mass/volume] in to non-numeric [facility]'s Serum or Plasma results) Medical, ) eGFR If NonAfricn 79 Normal (applies [facility] (St Am mL/min/1 to non-numeric Ricky's .73 results) Medical, PC) Creatinine 0.97 Normal (applies [facility] (St [Interpretation] in mg/dL to non-numeric Ricky' s Urine results) Medical, PC) BUN/Creatinine 20 Normal (applies [facility] (S t Ratio to non-numeric [facility]'s results) Medical, PC) eGFR If Africn Am 92 Normal (applies [facility] (St mL/min/1 to non-numeric Ricky's .73 results) Medical, PC) Sodium 142 Normal (applies [facility] (St [Moles/volume] in mmol/L to non-numeric [facility]'s Serum or Plasma results) Medical, PC) Chloride 104 Normal (applies [facility] (St [Moles/volume] in mmol/L to non-numeric Ricky's Serum or Plasma results) Medical, PC) Potassium 4.2 Normal (applies [facility] (St [Mass/volume] in mmol/L to non-numeric [facility] Blood results) Medical, PC) Carbon dioxide, 22 Normal (applies [facility] ( St total mmol/L to non-numeric Ricky's [Moles/volume] in results) Medical, Serum or Plasma PC) Calcium 9.3 Normal (applies [facility] (St [Moles/volume] in mg/dL to non-numeric [facility]'s Urine collected for results) Medical, unspecified PC) duration Protein 7.1 g/dL Normal (applies [facility] (St [Mass/volume] in to non-numeric Ricky's Serum or Plasma results) Medical, ) Microalbumin 4.1 g/dL Normal (applies [facility] (St [Mass/time] in to non-numeric [facility]'s Urine collected for results) Medical, unspecified PC) duration Globulin, Total 3.0 g/dL Normal (applies [facility] ( St to non-numeric Ricky's results) Medical, PC) Bilirubin.total 0.3 Normal (applies [facility] ( St [Mass/volume] in mg/dL to non-numeric Ricky's Serum or Plasma results) Medical, ) A/G Ratio 1.4 Normal (applies [facility] (St to non-numeric [facility]'s results) Medical, ) Alkaline 51 IU/L Normal (applies [facility] (St phosphatase to non-numeric Ricky's [Enzymatic results) Medical, activity/volume] in PC) Serum, Plasma or Blood Aspartate 20 IU/L Normal (applies [facility] (St aminotransferase to non-numeric Ricky's [Enzymatic results) Medical, activity/volume] in PC) Serum or Plasma Alanine 15 IU/L Normal (applies [facility] (St aminotransferase to non-numeric Ricky's [Enzymatic results) Medical, activity/volume] in PC) Serum or Plasma ID Date Data Source [id number] 01/01/2018 12:00:00 AM EDT [facility] Name Value Range Interpretation Description Data Sup porting Code Source(s) Document(s ) Leukocytes 5.3 Normal (applies [facility] (St [#/volume] in x10E3/uL to non-numeric [facility] Blood by results) Medical, ) Automated count Hemoglobin 12.6 Below low normal [facility] (St [Mass/volume] in g/dL [facility] Blood Medical, ) Erythrocytes 3.93 Below low normal [facility] (St [#/volume] in x10E6/uL [facility] Blood by Medical, ) Automated count Hematocrit 37.7 % Normal (applies [facility] (St [Volume to non-numeric Ricky's Fraction] of results) [facility], ) Blood by Automated count MCH 32.1 pg Normal (applies [facility] (St to non-numeric Ricky's results) [facility], ) MCV 96 fL Normal (applies [facility] (St to non-numeric Ricky's results) [facility], ) MCHC 33.4 Normal (applies [facility] (St g/dL to non-numeric Ricky's results) [facility], ) RDW 14.9 % Normal (applies [facility] (St to non-numeric Ricky's results) [facility], ) Neutrophils [#] 46 % Normal (applies [facility] ( St in Body fluid by to non-numeric Ricky's Manual count results) [facility], ) Platelets 163 Normal (applies [facility] (St [#/area] in x10E3/uL to non-numeric [facility]'s Blood by results) [facility], ) Microscopy high power field Lymphs 42 % Normal (applies [facility] (St to non-numeric Ricky's results) [facility], ) Monocytes 11 % Normal (applies [facility] (St [#/volume] in to non-numeric Ricky's Cord blood results) [facility], ) Eos 1 % Normal (applies [facility] (St to non-numeric Ricky's results) [facility], ) Basos 0 % Normal (applies [facility] (St to non-numeric Ricky's results) [facility], ) Neutrophils 2.4 Normal (applies [facility] (St (Absolute) x10E3/uL to non-numeric Ricky's results) [facility], ) Lymphs 2.2 Normal (applies [facility] (St (Absolute) x10E3/uL to non-numeric Ricky's results) [facility], ) Monocytes(Absolu 0.6 Normal (applies [facility] (St te) x10E3/uL to non-numeric Rciky's results) [facility], ) Baso (Absolute) 0.0 Normal (applies [facility] ( St x10E3/uL to non-numeric Ricky's results) [facility], ) Eos (Absolute) 0.1 Normal (applies [facility] (S t x10E3/uL to non-numeric Ricky's results) [facility], ) Immature 0 % Normal (applies [facility] (St Granulocytes to non-numeric Ricky's results) [facility], ) Immature Grans 0.0 Normal (applies [facility] (S t (Abs) x10E3/uL to non-numeric Ricky's results) [facility], ) ID Date Data Source [id number] 01/01/2018 12:00:00 AM EDT [facility], ) Name Value Range Interpretation Description Data Sup porting Code Source(s) Document(s ) Vitamin D, 36.7 Normal (applies to [facility] (St 25-Hydroxy ng/mL non-numeric Ricky's results) [facility], ) ID Date Data Source [id number] 01/01/2018 12:00:00 AM EDT [facility], ) Name Value Range Interpretation Description Data Sup porting Code Source(s) Document(s ) Prostate 1.7 ng/mL Normal (applies to [facility] (St Specific Ag, non-numeric Ricky's Serum results) [facility], ) ID Date Data Source [id number] 01/01/2018 12:00:00 AM EDT [facility], ) Name Value Range Interpretation Description Data Sup porting Code Source(s) Document(s ) Vitamin B12 607 pg/mL Normal (applies to [facility] (S t non-numeric Ricky's results) [facility], ) Folate 13.7 Normal (applies to [facility] (St (Folic ng/mL non-numeric Ricky's Acid), Serum results) [facility], ) ID Date Data Source [id number] 01/01/2018 12:00:00 AM EDT [facility], ) Name Value Range Interpretation Description Data Sup porting Code Source(s) Document(s ) Bilirubin.c 0.08 mg/dL Normal (applies to [facility] ( St onjugated non-numeric Ricky's [Mass/volum results) [facility], ) e] in Serum or Plasma ID Date Data Source [id number] 01/01/2018 12:00:00 AM EDT [facility], ) Name Value Range Interpretation Description Data Sup porting Code Source(s) Document(s ) Triglyceride 77 mg/dL Normal (applies [facility] (St [Mass/volume] in to non-numeric Ricky's Serum or Plasma results) Medical, PC) Cholesterol 159 Normal (applies [facility] (St [Mass/volume] in mg/dL to non-numeric Ricky's Serum or Plasma results) Medical, PC) HDL Cholesterol 28 mg/dL Below low normal [facility] ([facility]) VLDL Cholesterol 15 mg/dL Normal (applies [facility] (St Nathan to non-numeric Ricky's results) Medical, PC) LDL Cholesterol 116 Above high normal [facility] (St Calc mg/dL [facility], ) ID Date Data Source [id number] 01/01/2018 12:00:00 AM EDT [facility], ) Name Value Range Interpretation Description Data Sup porting Code Source(s) Document(s ) Specific gravity 1.024 Normal (applies [facility] (St of Pericardial to non-numeric Ricky's fluid by results) Medical, Refractometry PC) Urine-Color Yellow Normal (applies [facility] (St to non-numeric Ricky's results) Medical, PC) pH of Lower 7.5 Normal (applies [facility] (St respiratory to non-numeric Ricky's specimen results) Medical, PC) Appearance of Clear Normal (applies [facility] (St Abdomen to non-numeric Ricky's results) Medical, PC) WBC Esterase Negative Normal (applies [facility] (St to non-numeric Ricky's results) Medical, PC) Protein Negative Normal (applies [facility] (St [Mass/volume] in to non-numeric [facility]'s Lower results) Medical, respiratory PC) specimen Glucose Negative Normal (applies [facility] (St [Mass/volume] in to non-numeric [facility]'s Urine collected results) Medical, for unspecified PC) duration Occult Blood Negative Normal (applies [facility] (St to non-numeric Ricky's results) Medical, PC) Ketones Negative Normal (applies [facility] (St [Presence] in to non-numeric Ricky's Blood by Tablet results) Medical, PC) Bilirubin Negative Normal (applies [facility] (St [Presence] in to non-numeric Ricky's Peritoneal fluid results) Medical, PC) Urobilinogen,Corin 0.2 EU/dL Normal (applies [facility] (St i-Qn to non-numeric Ricky's results) Medical, PC) Nitrite, Urine Negative Normal (applies [facility] (S t to non-numeric Ricky's results) Medical, PC) Microscopic Normal (applies [facility] (St Examination to non-numeric Ricky's results) Medical, PC) ID Date Data Source [id number] 01/01/2018 12:00:00 AM EDT [facility] Name Value Range Interpretation Description Data Sup porting Code Source(s) Document(s ) Glucose 91 mg/dL Normal (applies [facility] (St [Mass/volume] in to non-numeric Ricky's Urine collected for results) Medical, unspecified PC) duration Urea nitrogen 19 mg/dL Normal (applies [facility] (St [Mass/volume] in to non-numeric Ricky's Serum or Plasma results) Medical, PC) eGFR If NonAfricn 79 Normal (applies [facility] (St Am mL/min/1 to non-numeric Ricky's .73 results) Medical, PC) Creatinine 0.97 Normal (applies [facility] (St [Interpretation] in mg/dL to non-numeric Ricky' s Urine results) Medical, PC) eGFR If Africn Am 92 Normal (applies [facility] (St mL/min/1 to non-numeric Ricky's .73 results) Medical, PC) BUN/Creatinine 20 Normal (applies [facility] (S t Ratio to non-numeric Ricky's results) Medical, PC) Potassium 4.2 Normal (applies [facility] (St [Mass/volume] in mmol/L to non-numeric Ricky's Blood results) Medical, PC) Sodium 142 Normal (applies [facility] (St [Moles/volume] in mmol/L to non-numeric Ricky's Serum or Plasma results) Medical, PC) Chloride 104 Normal (applies [facility] (St [Moles/volume] in mmol/L to non-numeric Ricky's Serum or Plasma results) Medical, PC) Carbon dioxide, 22 Normal (applies [facility] ( St total mmol/L to non-numeric Ricky's [Moles/volume] in results) Medical, Serum or Plasma PC) Calcium 9.3 Normal (applies [facility] (St [Moles/volume] in mg/dL to non-numeric Ricky's Urine collected for results) Medical, unspecified PC) duration Protein 7.1 g/dL Normal (applies [facility] (St [Mass/volume] in to non-numeric Ricky's Serum or Plasma results) Medical, PC) Globulin, Total 3.0 g/dL Normal (applies [facility] ( St to non-numeric Ricky's results) Medical, ) Microalbumin 4.1 g/dL Normal (applies [facility] (St [Mass/time] in to non-numeric Ricky's Urine collected for results) [facility], unspecified ) duration A/G Ratio 1.4 Normal (applies [facility] (St to non-numeric Ricky's results) Medical, ) Alkaline 51 IU/L Normal (applies [facility] (St phosphatase to non-numeric Ricky's [Enzymatic results) Medical, activity/volume] in ) Serum, Plasma or Blood Bilirubin.total 0.3 Normal (applies [facility] ( St [Mass/volume] in mg/dL to non-numeric Ricky's Serum or Plasma results) Medical, ) Aspartate 20 IU/L Normal (applies [facility] (St aminotransferase to non-numeric Ricky's [Enzymatic results) Medical, activity/volume] in PC) Serum or Plasma Alanine 15 IU/L Normal (applies [facility] (St aminotransferase to non-numeric Ricky's [Enzymatic results) Medical, activity/volume] in ) Serum or Plasma ID Date Data Source [id number] 01/01/2018 12:00:00 AM EDT [facility] ([facility], ) Name Value Range Interpretation Description Data Sup porting Code Source(s) Document(s ) Leukocytes 5.3 Normal (applies [facility] (St [#/volume] in x10E3/uL to non-numeric Ricky's Blood by results) Medical, ) Automated count Hemoglobin 12.6 Below low normal [facility] (St [Mass/volume] in g/dL [facility] Blood Medical, ) Erythrocytes 3.93 Below low normal [facility] (St [#/volume] in x10E6/uL Ricky's Blood by Medical, ) Automated count Hematocrit 37.7 % Normal (applies [facility] (St [Volume to non-numeric Ricky's Fraction] of results) Medical, ) Blood by Automated count MCH 32.1 pg Normal (applies [facility] (St to non-numeric Ricky's results) Medical, ) MCV 96 fL Normal (applies [facility] (St to non-numeric Ricky's results) Medical, PC) RDW 14.9 % Normal (applies [facility] (St to non-numeric Ricky's results) Medical, ) MCHC 33.4 Normal (applies [facility] (St g/dL to non-numeric Ricky's results) [facility], ) Platelets 163 Normal (applies [facility] (St [#/area] in x10E3/uL to non-numeric Ricky's Blood by results) [facility], ) Microscopy high power field Neutrophils [#] 46 % Normal (applies [facility] ( St in Body fluid by to non-numeric Ricky's Manual count results) [facility], ) Lymphs 42 % Normal (applies [facility] (St to non-numeric Ricky's results) [facility], ) Monocytes 11 % Normal (applies [facility] (St [#/volume] in to non-numeric Ricky's Cord blood results) [facility], ) Basos 0 % Normal (applies [facility] (St to non-numeric Ricky's results) [facility], ) Eos 1 % Normal (applies [facility] (St to non-numeric Ricky's results) [facility], ) Lymphs 2.2 Normal (applies [facility] (St (Absolute) x10E3/uL to non-numeric Ricky's results) [facility], ) Neutrophils 2.4 Normal (applies [facility] (St (Absolute) x10E3/uL to non-numeric Ricky's results) [facility], ) Monocytes(Absolu 0.6 Normal (applies [facility] (St te) x10E3/uL to non-numeric Ricky's results) [facility], ) Eos (Absolute) 0.1 Normal (applies [facility] (S t x10E3/uL to non-numeric Ricky's results) [facility], ) Baso (Absolute) 0.0 Normal (applies [facility] ( St x10E3/uL to non-numeric Ricky's results) [facility], ) Immature 0 % Normal (applies [facility] (St Granulocytes to non-numeric Ricky's results) [facility], ) Immature Grans 0.0 Normal (applies [facility] (S t (Abs) x10E3/uL to non-numeric Ricky's results) [facility], ) ID Date Data Source [id number] 01/01/2018 12:00:00 AM EDT [facility], ) Name Value Range Interpretation Description Data Sup porting Code Source(s) Document(s ) Vitamin D, 36.7 Normal (applies to [facility] (St 25-Hydroxy ng/mL non-numeric Ricky's results) [facility], ) ID Date Data Source [id number] 01/01/2018 12:00:00 AM EDT [facility], ) Name Value Range Interpretation Description Data Sup porting Code Source(s) Document(s ) Prostate 1.7 ng/mL Normal (applies to [facility] (St Specific Ag, non-numeric Ricky's Serum results) [facility], ) ID Date Data Source [id number] 01/01/2018 12:00:00 AM EDT [facility] ([facility], ) Name Value Range Interpretation Description Data Sup porting Code Source(s) Document(s ) Folate 13.7 Normal (applies to [facility] (St (Folic ng/mL non-numeric Ricky's Acid), Serum results) [facility], ) Vitamin B12 607 pg/mL Normal (applies to [facility] (S t non-numeric Ricky's results) [facility], ) ID Date Data Source [id number] 01/01/2018 12:00:00 AM EDT [facility] ([facility], ) Name Value Range Interpretation Description Data Sup porting Code Source(s) Document(s ) Bilirubin.c 0.08 mg/dL Normal (applies to [facility] ( St onjugated non-numeric Ricky's [Mass/volum results) [facility], ) e] in Serum or Plasma ID Date Data Source [id number] 01/01/2018 12:00:00 AM EDT [facility] ([facility], ) Name Value Range Interpretation Description Data Sup porting Code Source(s) Document(s ) Triglyceride 77 mg/dL Normal (applies [facility] (St [Mass/volume] in to non-numeric Ricky's Serum or Plasma results) [facility], ) Cholesterol 159 Normal (applies [facility] (St [Mass/volume] in mg/dL to non-numeric Ricky's Serum or Plasma results) [facility], ) HDL Cholesterol 28 mg/dL Below low normal [facility] ([facility], ) LDL Cholesterol 116 Above high normal [facility] (St Calc mg/dL Ricky's [facility], ) VLDL Cholesterol 15 mg/dL Normal (applies [facility] (St [facility] to non-numeric Ricky's results) [facility], ) ID Date Data Source [id number] 01/01/2018 12:00:00 AM EDT [facility]) Name Value Range Interpretation Description Data Sup porting Code Source(s) Document(s ) Specific gravity 1.024 Normal (applies [facility] (St of Pericardial to non-numeric Ricky's fluid by results) Medical, Refractometry PC) Urine-Color Yellow Normal (applies [facility] (St to non-numeric Ricky's results) Medical, PC) pH of Lower 7.5 Normal (applies [facility] (St respiratory to non-numeric Ricky's specimen results) Medical, PC) WBC Esterase Negative Normal (applies [facility] (St to non-numeric Ricky's results) Medical, PC) Appearance of Clear Normal (applies [facility] (St Abdomen to non-numeric Ricky's results) Medical, PC) Protein Negative Normal (applies [facility] (St [Mass/volume] in to non-numeric Ricky's Lower results) Medical, respiratory PC) specimen Ketones Negative Normal (applies [facility] (St [Presence] in to non-numeric Ricky's Blood by Tablet results) Medical, PC) Glucose Negative Normal (applies [facility] (St [Mass/volume] in to non-numeric Ricky's Urine collected results) Medical, for unspecified PC) duration Occult Blood Negative Normal (applies [facility] (St to non-numeric Ricky's results) Medical, PC) Bilirubin Negative Normal (applies [facility] (St [Presence] in to non-numeric Ricky's Peritoneal fluid results) Medical, PC) Urobilinogen,Corin 0.2 EU/dL Normal (applies [facility] (St i-Qn to non-numeric Ricky's results) Medical, PC) Nitrite, Urine Negative Normal (applies [facility] (S t to non-numeric Ricky's results) Medical, PC) ID Date Data Source [id number] 01/01/2018 12:00:00 AM EDT [facility] ([facility] Name Value Range Interpretation Description Data Sup porting Code Source(s) Document(s ) Glucose 91 mg/dL Normal (applies [facility] (St [Mass/volume] in to non-numeric Ricky's Urine collected for results) Medical, unspecified PC) duration Creatinine 0.97 Normal (applies [facility] (St [Interpretation] in mg/dL to non-numeric Ricky' s Urine results) Medical, PC) Urea nitrogen 19 mg/dL Normal (applies [facility] (St [Mass/volume] in to non-numeric Ricky's Serum or Plasma results) Medical, PC) eGFR If NonAfricn 79 Normal (applies [facility] (St Am mL/min/1 to non-numeric Ricky's .73 results) Medical, PC) eGFR If Africn Am 92 Normal (applies [facility] (St mL/min/1 to non-numeric Ricky's .73 results) Medical, PC) Sodium 142 Normal (applies [facility] (St [Moles/volume] in mmol/L to non-numeric Ricky's Serum or Plasma results) Medical, PC) BUN/Creatinine 20 Normal (applies [facility] (S t Ratio to non-numeric Ricky's results) Medical, PC) Potassium 4.2 Normal (applies [facility] (St [Mass/volume] in mmol/L to non-numeric Ricky's Blood results) Medical, PC) Chloride 104 Normal (applies [facility] (St [Moles/volume] in mmol/L to non-numeric Ricky's Serum or Plasma results) Medical, PC) Carbon dioxide, 22 Normal (applies [facility] ( St total mmol/L to non-numeric Ricky's [Moles/volume] in results) Medical, Serum or Plasma PC) Calcium 9.3 Normal (applies [facility] (St [Moles/volume] in mg/dL to non-numeric Ricky's Urine collected for results) Medical, unspecified PC) duration Protein 7.1 g/dL Normal (applies [facility] (St [Mass/volume] in to non-numeric Ricky's Serum or Plasma results) Medical, PC) Microalbumin 4.1 g/dL Normal (applies [facility] (St [Mass/time] in to non-numeric Ricky's Urine collected for results) Medical, unspecified PC) duration Globulin, Total 3.0 g/dL Normal (applies [facility] ( St to non-numeric Ricky's results) Medical, PC) Bilirubin.total 0.3 Normal (applies [facility] ( St [Mass/volume] in mg/dL to non-numeric Ricky's Serum or Plasma results) Medical, PC) A/G Ratio 1.4 Normal (applies [facility] (St to non-numeric Ricky's results) Medical, PC) Alkaline 51 IU/L Normal (applies [facility] (St phosphatase to non-numeric Ricky's [Enzymatic results) Medical, activity/volume] in PC) Serum, Plasma or Blood Aspartate 20 IU/L Normal (applies [facility] (St aminotransferase to non-numeric Ricky's [Enzymatic results) Medical, activity/volume] in ) Serum or Plasma Alanine 15 IU/L Normal (applies [facility] (St aminotransferase to non-numeric Ricky's [Enzymatic results) Medical, activity/volume] in ) Serum or Plasma ID Date Data Source [id number] 01/01/2018 12:00:00 AM EDT [facility] ([facility], ) Name Value Range Interpretation Description Data Sup porting Code Source(s) Document(s ) Leukocytes 5.3 Normal (applies [facility] (St [#/volume] in x10E3/uL to non-numeric Ricky's Blood by results) Medical, ) Automated count Erythrocytes 3.93 Below low normal [facility] (St [#/volume] in x10E6/uL Ricky's Blood by Medical, ) Automated count Hematocrit 37.7 % Normal (applies [facility] (St [Volume to non-numeric Ricky's Fraction] of results) Medical, ) Blood by Automated count Hemoglobin 12.6 Below low normal [facility] (St [Mass/volume] in g/dL [facility] Blood Medical, ) MCV 96 fL Normal (applies [facility] (St to non-numeric Ricky's results) Medical, ) MCH 32.1 pg Normal (applies [facility] (St to non-numeric Ricky's results) Medical, ) MCHC 33.4 Normal (applies [facility] (St g/dL to non-numeric Ricky's results) Medical, ) RDW 14.9 % Normal (applies [facility] (St to non-numeric Ricky's results) Medical, ) Platelets 163 Normal (applies [facility] (St [#/area] in x10E3/uL to non-numeric Ricky's Blood by results) Medical, ) Microscopy high power field Neutrophils [#] 46 % Normal (applies [facility] ( St in Body fluid by to non-numeric Ricky's Manual count results) Medical, ) Lymphs 42 % Normal (applies [facility] (St to non-numeric Ricky's results) Medical, ) Monocytes 11 % Normal (applies [facility] (St [#/volume] in to non-numeric Ricky's Cord blood results) Medical, ) Eos 1 % Normal (applies [facility] (St to non-numeric Ricky's results) Medical, ) Basos 0 % Normal (applies [facility] (St to non-numeric Ricky's results) Medical, ) Neutrophils 2.4 Normal (applies [facility] (St (Absolute) x10E3/uL to non-numeric Ricky's results) Medical, ) Lymphs 2.2 Normal (applies [facility] (St (Absolute) x10E3/uL to non-numeric [facility] results) Medical, ) Eos (Absolute) 0.1 Normal (applies [facility] (S t x10E3/uL to non-numeric [facility] results) Medical, ) Monocytes(Absolu 0.6 Normal (applies [facility] (St te) x10E3/uL to non-numeric [facility] results) Medical, ) Immature 0 % Normal (applies [facility] (St Granulocytes to non-numeric [facility] results) [facility], ) Baso (Absolute) 0.0 Normal (applies [facility] ( St x10E3/uL to non-numeric [facility] results) Medical, ) Immature Grans 0.0 Normal (applies [facility] (S t (Abs) x10E3/uL to non-numeric [facility] results) [facility], ) ID Date Data Source [id number] 01/12/2017 12:00:00 AM EDT [facility] ([facility], ) Name Value Range Interpretation Description Data Sup porting Code Source(s) Document(s ) Bilirubin.c 0.08 mg/dL Normal (applies to [facility] ( St onjugated non-numeric [facility]'s [Mass/volum results) Medical, ) e] in Serum or Plasma ID Date Data Source [id number] 01/12/2017 12:00:00 AM EDT [facility] ([facility], ) Name Value Range Interpretation Description Data Sup porting Code Source(s) Document(s ) Glucose, Serum 87 mg/dL Normal (applies [facility] (S t to non-numeric [facility] results) Medical, ) Creatinine, Serum 0.79 Normal (applies [facility] (St mg/dL to non-numeric [facility] results) [facility], ) Urea nitrogen 22 mg/dL Normal (applies [facility] (St [Mass/volume] in to non-numeric [facility]'s Serum or Plasma results) Medical, ) eGFR If Africn Am 107 Normal (applies [facility] (St mL/min/1 to non-numeric Ricky's .73 results) Medical, ) eGFR If NonAfricn 92 Normal (applies [facility] (St Am mL/min/1 to non-numeric Ricky's .73 results) Medical, ) Sodium 141 Normal (applies [facility] (St [Moles/volume] in mmol/L to non-numeric Ricky's Serum or Plasma results) Medical, ) BUN/Creatinine 28 Above high [facility] (St Ratio normal [facility], ) Potassium, Serum 4.3 Normal (applies [facility] (St mmol/L to non-numeric [facility] results) Medical, ) Chloride 104 Normal (applies [facility] (St [Moles/volume] in mmol/L to non-numeric [facility]'s Serum or Plasma results) Medical, ) Carbon dioxide, 24 Normal (applies [facility] ( St total mmol/L to non-numeric Ricky's [Moles/volume] in results) Medical, Serum or Plasma PC) Protein 6.9 g/dL Normal (applies [facility] (St [Mass/volume] in to non-numeric Ricky's Serum or Plasma results) Medical, ) Calcium, Serum 8.6 Normal (applies [facility] (S t mg/dL to non-numeric [facility] results) Medical, ) Globulin, Total 2.9 g/dL Normal (applies [facility] ( St to non-numeric [facility] results) Medical, ) Albumin, Serum 4.0 g/dL Normal (applies [facility] (S t to non-numeric [facility] results) Medical, ) A/G Ratio 1.4 Normal (applies [facility] (St to non-numeric [facility] results) Medical, ) Bilirubin.total 0.3 Normal (applies [facility] ( St [Mass/volume] in mg/dL to non-numeric [facility]'s Serum or Plasma results) Medical, ) Alkaline 49 IU/L Normal (applies [facility] (St Phosphatase, S to non-numeric [facility] results) Medical, ) Aspartate 20 IU/L Normal (applies [facility] (St aminotransferase to non-numeric Ricky's [Enzymatic results) Medical, activity/volume] in ) Serum or Plasma Alanine 19 IU/L Normal (applies [facility] (St aminotransferase to non-numeric Ricky's [Enzymatic results) Medical, activity/volume] in ) Serum or Plasma ID Date Data Source [id number] 01/12/2017 12:00:00 AM EDT [facility] ([facility], ) Name Value Range Interpretation Description Data Sup porting Code Source(s) Document(s ) Leukocytes 6.6 Normal (applies [facility] (St [#/volume] in x10E3/uL to non-numeric [facility] Blood by results) Medical, ) Automated count Erythrocytes 3.88 Below low normal [facility] (St [#/volume] in x10E6/uL [facility] Blood by Medical, ) Automated count Hemoglobin 12.2 Below low normal [facility] (St [Mass/volume] in g/dL [facility] Blood [facility], ) MCV 96 fL Normal (applies [facility] (St to non-numeric [facility] results) Medical, ) Hematocrit 37.2 % Below low normal [facility] (St [Volume [facility]'s Fraction] of Medical, ) Blood by Automated count MCHC 32.8 Normal (applies [facility] (St g/dL to non-numeric [facility]'s results) Medical, ) MCH 31.4 pg Normal (applies [facility] (St to non-numeric [facility] results) Medical, ) Platelets 171 Normal (applies [facility] (St [#/area] in x10E3/uL to non-numeric [facility] Blood by results) Medical, ) Microscopy high power field RDW 16.8 % Above high normal [facility] ([facility], ) Neutrophils [#] 47 % Normal (applies [facility] ( St in Body fluid by to non-numeric Ricky's Manual count results) Medical, ) Lymphs 41 % Normal (applies [facility] (St to non-numeric [facility] results) Medical, ) Monocytes 11 % Normal (applies [facility] (St [#/volume] in to non-numeric [facility]'s Cord blood results) Medical, ) Basos 0 % Normal (applies [facility] (St to non-numeric [facility] results) Medical, ) Eos 1 % Normal (applies [facility] (St to non-numeric [facility] results) Medical, ) Lymphs 2.7 Normal (applies [facility] (St (Absolute) x10E3/uL to non-numeric [facility] results) Medical, ) Neutrophils 3.1 Normal (applies [facility] (St (Absolute) x10E3/uL to non-numeric [facility] results) [facility], ) Eos (Absolute) 0.1 Normal (applies [facility] (S t x10E3/uL to non-numeric [facility] results) [facility], ) Monocytes(Absolu 0.7 Normal (applies [facility] (St te) x10E3/uL to non-numeric [facility]'s results) [facility], ) Baso (Absolute) 0.0 Normal (applies [facility] ( St x10E3/uL to non-numeric [facility]'s results) [facility], ) Immature 0 % Normal (applies [facility] (St Granulocytes to non-numeric [facility]'s results) [facility], ) Immature Grans 0.0 Normal (applies [facility] (S t (Abs) x10E3/uL to non-numeric [facility] results) [facility], ) ID Date Data Source [id number] 01/12/2017 12:00:00 AM EDT [facility] ([facility], ) Name Value Range Interpretation Description Data Sup porting Code Source(s) Document(s ) Bilirubin.c 0.08 mg/dL Normal (applies to [facility] ( St onjugated non-numeric Ricky's [Mass/volum results) [facility], ) e] in Serum or Plasma ID Date Data Source [id number] 01/12/2017 12:00:00 AM EDT [facility] ([facility], ) Name Value Range Interpretation Description Data Sup porting Code Source(s) Document(s ) Glucose, Serum 87 mg/dL Normal (applies [facility] (S t to non-numeric [facility]'s results) [facility], ) Creatinine, Serum 0.79 Normal (applies [facility] (St mg/dL to non-numeric [facility]'s results) [facility], ) Urea nitrogen 22 mg/dL Normal (applies [facility] (St [Mass/volume] in to non-numeric Ricky's Serum or Plasma results) [facility], ) eGFR If NonAfricn 92 Normal (applies [facility] (St Am mL/min/1 to non-numeric Ricky's .73 results) [facility], ) eGFR If Africn Am 107 Normal (applies [facility] (St mL/min/1 to non-numeric Ricky's .73 results) [facility], ) BUN/Creatinine 28 Above high [facility] (St Ratio normal Ricky's [facility], ) Sodium 141 Normal (applies [facility] (St [Moles/volume] in mmol/L to non-numeric Ricky's Serum or Plasma results) Medical, ) Potassium, Serum 4.3 Normal (applies [facility] (St mmol/L to non-numeric Ricky's results) [facility], ) Carbon dioxide, 24 Normal (applies [facility] ( St total mmol/L to non-numeric Ricky's [Moles/volume] in results) Medical, Serum or Plasma PC) Chloride 104 Normal (applies [facility] (St [Moles/volume] in mmol/L to non-numeric Ricky's Serum or Plasma results) [facility], ) Protein 6.9 g/dL Normal (applies [facility] (St [Mass/volume] in to non-numeric Ricky's Serum or Plasma results) [facility], ) Calcium, Serum 8.6 Normal (applies [facility] (S t mg/dL to non-numeric [facility] results) [facility], ) Albumin, Serum 4.0 g/dL Normal (applies [facility] (S t to non-numeric Ricky's results) [facility], ) A/G Ratio 1.4 Normal (applies [facility] (St to non-numeric [facility]'s results) [facility], ) Globulin, Total 2.9 g/dL Normal (applies [facility] ( St to non-numeric Ricky's results) [facility], ) Bilirubin.total 0.3 Normal (applies [facility] ( St [Mass/volume] in mg/dL to non-numeric Ricky's Serum or Plasma results) [facility], ) Alkaline 49 IU/L Normal (applies [facility] (St Phosphatase, S to non-numeric [facility]'s results) [facility], ) Alanine 19 IU/L Normal (applies [facility] (St aminotransferase to non-numeric Ricky's [Enzymatic results) Medical, activity/volume] in ) Serum or Plasma Aspartate 20 IU/L Normal (applies [facility] (St aminotransferase to non-numeric Ricky's [Enzymatic results) Medical, activity/volume] in ) Serum or Plasma ID Date Data Source [id number] 01/12/2017 12:00:00 AM EDT [facility] ([facility], ) Name Value Range Interpretation Description Data Sup porting Code Source(s) Document(s ) Leukocytes 6.6 Normal (applies [facility] (St [#/volume] in x10E3/uL to non-numeric [facility] Blood by results) [facility], ) Automated count Erythrocytes 3.88 Below low normal [facility] (St [#/volume] in x10E6/uL [facility] Blood by [facility], ) Automated count Hematocrit 37.2 % Below low normal [facility] (St [Volume Ricky's Fraction] of [facility], ) Blood by Automated count Hemoglobin 12.2 Below low normal [facility] (St [Mass/volume] in g/dL Ricky's Blood [facility], ) MCV 96 fL Normal (applies [facility] (St to non-numeric Ricky's results) [facility], ) MCHC 32.8 Normal (applies [facility] (St g/dL to non-numeric Ricky's results) [facility]) MCH 31.4 pg Normal (applies [facility] (St to non-numeric Ricky's results) [facility]) RDW 16.8 % Above high normal [facility] ([facility], ) Neutrophils [#] 47 % Normal (applies [facility] ( St in Body fluid by to non-numeric Ricky's Manual count results) [facility], ) Platelets 171 Normal (applies [facility] (St [#/area] in x10E3/uL to non-numeric [facility]'s Blood by results) [facility], ) Microscopy high power field Lymphs 41 % Normal (applies [facility] (St to non-numeric Ricky's results) [facility]) Monocytes 11 % Normal (applies [facility] (St [#/volume] in to non-numeric Ricky's Cord blood results) [facility], ) Eos 1 % Normal (applies [facility] (St to non-numeric Ricky's results) [facility], ) Basos 0 % Normal (applies [facility] (St to non-numeric Ricky's results) [facility]) Neutrophils 3.1 Normal (applies [facility] (St (Absolute) x10E3/uL to non-numeric Ricky's results) [facility]) Lymphs 2.7 Normal (applies [facility] (St (Absolute) x10E3/uL to non-numeric Ricky's results) [facility]) Monocytes(Absolu 0.7 Normal (applies [facility] (St te) x10E3/uL to non-numeric Ricky's results) [facility], ) Eos (Absolute) 0.1 Normal (applies [facility] (S t x10E3/uL to non-numeric Ricky's results) [facility], ) Baso (Absolute) 0.0 Normal (applies [facility] ( St x10E3/uL to non-numeric [facility]'s results) Medical, ) Immature Grans 0.0 Normal (applies [facility] (S t (Abs) x10E3/uL to non-numeric Ricky's results) [facility], ) Immature 0 % Normal (applies [facility] (St Granulocytes to non-numeric Ricky's results) [facility], ) ID Date Data Source [id number] 01/12/2017 12:00:00 AM EDT [facility] ([facility], ) Name Value Range Interpretation Description Data Sup porting Code Source(s) Document(s ) Bilirubin.c 0.08 mg/dL Normal (applies to [facility] ( St onjugated non-numeric Ricky's [Mass/volum results) [facility], ) e] in Serum or Plasma ID Date Data Source [id number] 01/12/2017 12:00:00 AM EDT [facility] ([facility], ) Name Value Range Interpretation Description Data Sup porting Code Source(s) Document(s ) Glucose, Serum 87 mg/dL Normal (applies [facility] (S t to non-numeric Ricky's results) [facility], ) Urea nitrogen 22 mg/dL Normal (applies [facility] (St [Mass/volume] in to non-numeric Ricky's Serum or Plasma results) [facility], ) eGFR If NonAfricn 92 Normal (applies [facility] (St Am mL/min/1 to non-numeric Ricky's .73 results) [facility], ) Creatinine, Serum 0.79 Normal (applies [facility] (St mg/dL to non-numeric Ricky's results) [facility], ) eGFR If Africn Am 107 Normal (applies [facility] (St mL/min/1 to non-numeric Ricky's .73 results) Medical, ) Sodium 141 Normal (applies [facility] (St [Moles/volume] in mmol/L to non-numeric Ricky's Serum or Plasma results) [facility], ) BUN/Creatinine 28 Above high [facility] (St Ratio normal Ricky's [facility], ) Potassium, Serum 4.3 Normal (applies [facility] (St mmol/L to non-numeric Ricky's results) [facility], ) Chloride 104 Normal (applies [facility] (St [Moles/volume] in mmol/L to non-numeric Ricky's Serum or Plasma results) [facility], ) Carbon dioxide, 24 Normal (applies [facility] ( St total mmol/L to non-numeric Ricky's [Moles/volume] in results) Medical, Serum or Plasma PC) Calcium, Serum 8.6 Normal (applies [facility] (S t mg/dL to non-numeric Ricky's results) [facility], ) Protein 6.9 g/dL Normal (applies [facility] (St [Mass/volume] in to non-numeric Ricky's Serum or Plasma results) [facility], ) Albumin, Serum 4.0 g/dL Normal (applies [facility] (S t to non-numeric Ricky's results) Medical, ) Globulin, Total 2.9 g/dL Normal (applies [facility] ( St to non-numeric Ricky's results) [facility], ) Bilirubin.total 0.3 Normal (applies [facility] ( St [Mass/volume] in mg/dL to non-numeric Ricky's Serum or Plasma results) [facility], ) A/G Ratio 1.4 Normal (applies [facility] (St to non-numeric Ricky's results) [facility], ) Alkaline 49 IU/L Normal (applies [facility] (St Phosphatase, S to non-numeric Ricky's results) [facility], ) Aspartate 20 IU/L Normal (applies [facility] (St aminotransferase to non-numeric Ricky's [Enzymatic results) Medical, activity/volume] in PC) Serum or Plasma Alanine 19 IU/L Normal (applies [facility] (St aminotransferase to non-numeric Ricky's [Enzymatic results) Medical, activity/volume] in ) Serum or Plasma ID Date Data Source [id number] 01/12/2017 12:00:00 AM EDT [facility] ([facility], ) Name Value Range Interpretation Description Data Sup porting Code Source(s) Document(s ) Leukocytes 6.6 Normal (applies [facility] (St [#/volume] in x10E3/uL to non-numeric Ricky's Blood by results) [facility], ) Automated count Erythrocytes 3.88 Below low normal [facility] (St [#/volume] in x10E6/uL [facility] Blood by Medical, ) Automated count Hemoglobin 12.2 Below low normal [facility] (St [Mass/volume] in g/dL Ricky[facility] Blood [facility], ) Hematocrit 37.2 % Below low normal [facility] (St [Volume Ricky's Fraction] of [facility], ) Blood by Automated count MCV 96 fL Normal (applies [facility] (St to non-numeric Ricky's results) [facility], ) MCH 31.4 pg Normal (applies [facility] (St to non-numeric Ricky's results) [facility], ) MCHC 32.8 Normal (applies [facility] (St g/dL to non-numeric Ricky's results) [facility], ) RDW 16.8 % Above high normal [facility] ([facility], ) Platelets 171 Normal (applies [facility] (St [#/area] in x10E3/uL to non-numeric [facility] Blood by results) [facility], ) Microscopy high power field Neutrophils [#] 47 % Normal (applies [facility] ( St in Body fluid by to non-numeric Ricky's Manual count results) [facility], ) Monocytes 11 % Normal (applies [facility] (St [#/volume] in to non-numeric Ricky's Cord blood results) [facility], ) Lymphs 41 % Normal (applies [facility] (St to non-numeric Ricky's results) [facility], ) Eos 1 % Normal (applies [facility] (St to non-numeric Ricky's results) [facility], ) Basos 0 % Normal (applies [facility] (St to non-numeric Ricky's results) [facility], ) Neutrophils 3.1 Normal (applies [facility] (St (Absolute) x10E3/uL to non-numeric Ricky's results) [facility], ) Lymphs 2.7 Normal (applies [facility] (St (Absolute) x10E3/uL to non-numeric Ricky's results) [facility], ) Eos (Absolute) 0.1 Normal (applies [facility] (S t x10E3/uL to non-numeric Ricky's results) [facility], ) Monocytes(Absolu 0.7 Normal (applies [facility] (St te) x10E3/uL to non-numeric Ricky's results) [facility], ) Immature 0 % Normal (applies [facility] (St Granulocytes to non-numeric Ricky's results) [facility], ) Baso (Absolute) 0.0 Normal (applies [facility] ( St x10E3/uL to non-numeric Ricky's results) [facility], ) Immature Grans 0.0 Normal (applies [facility] (S t (Abs) x10E3/uL to non-numeric Ricky's results) [facility], ) ID Date Data Source [id number] 01/12/2017 12:00:00 AM EDT [facility] ([facility], ) Name Value Range Interpretation Description Data Sup porting Code Source(s) Document(s ) Bilirubin.c 0.08 mg/dL Normal (applies to [facility] ( St onjugated non-numeric Ricky's [Mass/volum results) Medical, ) e] in Serum or Plasma ID Date Data Source [id number] 01/12/2017 12:00:00 AM EDT [facility] ([facility], ) Name Value Range Interpretation Description Data Sup porting Code Source(s) Document(s ) Glucose, Serum 87 mg/dL Normal (applies [facility] (S t to non-numeric [facility]'s results) Medical, ) Creatinine, Serum 0.79 Normal (applies [facility] (St mg/dL to non-numeric [facility] results) Medical, ) Urea nitrogen 22 mg/dL Normal (applies [facility] (St [Mass/volume] in to non-numeric Ricky's Serum or Plasma results) Medical, ) eGFR If NonAfricn 92 Normal (applies [facility] (St Am mL/min/1 to non-numeric Ricky's .73 results) Medical, ) eGFR If Africn Am 107 Normal (applies [facility] (St mL/min/1 to non-numeric Ricky's .73 results) Medical, ) BUN/Creatinine 28 Above high [facility] (St Ratio normal [facility], ) Potassium, Serum 4.3 Normal (applies [facility] (St mmol/L to non-numeric [facility] results) [facility], ) Sodium 141 Normal (applies [facility] (St [Moles/volume] in mmol/L to non-numeric [facility] Serum or Plasma results) Medical, ) Carbon dioxide, 24 Normal (applies [facility] ( St total mmol/L to non-numeric Ricky's [Moles/volume] in results) Medical, Serum or Plasma PC) Chloride 104 Normal (applies [facility] (St [Moles/volume] in mmol/L to non-numeric [facility] Serum or Plasma results) Medical, ) Calcium, Serum 8.6 Normal (applies [facility] (S t mg/dL to non-numeric [facility] results) Medical, ) Protein 6.9 g/dL Normal (applies [facility] (St [Mass/volume] in to non-numeric [facility]'s Serum or Plasma results) [facility], ) Albumin, Serum 4.0 g/dL Normal (applies [facility] (S t to non-numeric Ricky's results) [facility], ) Globulin, Total 2.9 g/dL Normal (applies [facility] ( St to non-numeric Ricky's results) [facility], ) A/G Ratio 1.4 Normal (applies [facility] (St to non-numeric Ricky's results) [facility], ) Bilirubin.total 0.3 Normal (applies [facility] ( St [Mass/volume] in mg/dL to non-numeric Ricky's Serum or Plasma results) [facility], ) Alkaline 49 IU/L Normal (applies [facility] (St Phosphatase, S to non-numeric Ricky's results) [facility], ) Aspartate 20 IU/L Normal (applies [facility] (St aminotransferase to non-numeric Ricky's [Enzymatic results) Medical, activity/volume] in ) Serum or Plasma Alanine 19 IU/L Normal (applies [facility] (St aminotransferase to non-numeric Ricky's [Enzymatic results) Medical, activity/volume] in ) Serum or Plasma ID Date Data Source [id number] 01/12/2017 12:00:00 AM EDT [facility] ([facility], ) Name Value Range Interpretation Description Data Sup porting Code Source(s) Document(s ) Leukocytes 6.6 Normal (applies [facility] (St [#/volume] in x10E3/uL to non-numeric [facility] Blood by results) [facility], ) Automated count Hemoglobin 12.2 Below low normal [facility] (St [Mass/volume] in g/dL Ricky[facility] Blood [facility], ) Erythrocytes 3.88 Below low normal [facility] (St [#/volume] in x10E6/uL Ricky's Blood by [facility], ) Automated count Hematocrit 37.2 % Below low normal [facility] (St [Volume [facility] Fraction] of [facility], ) Blood by Automated count MCV 96 fL Normal (applies [facility] (St to non-numeric Ricky's results) [facility], ) MCH 31.4 pg Normal (applies [facility] (St to non-numeric Ricky's results) [facility], ) MCHC 32.8 Normal (applies [facility] (St g/dL to non-numeric Ricky's results) [facility], ) RDW 16.8 % Above high normal [facility] ([facility], ) Platelets 171 Normal (applies [facility] (St [#/area] in x10E3/uL to non-numeric [facility] Blood by results) [facility], ) Microscopy high power field Lymphs 41 % Normal (applies [facility]GEN (St to non-numeric Ricky's results) [facility], ) Neutrophils [#] 47 % Normal (applies [facility] ( St in Body fluid by to non-numeric Ricky's Manual count results) [facility], ) Monocytes 11 % Normal (applies [facility]GEN (St [#/volume] in to non-numeric Ricky's Cord blood results) [facility], ) Eos 1 % Normal (applies [facility] (St to non-numeric Ricky's results) [facility], ) Basos 0 % Normal (applies [facility] (St to non-numeric Ricky's results) [facility], ) Neutrophils 3.1 Normal (applies [facility] (St (Absolute) x10E3/uL to non-numeric Ricky's results) [facility], ) Lymphs 2.7 Normal (applies [facility] (St (Absolute) x10E3/uL to non-numeric Rc[facility]'s results) [facility], ) Monocytes(Absolu 0.7 Normal (applies MEDGEN (St te) x10E3/uL to non-numeric Ricky's results) [facility], ) Baso (Absolute) 0.0 Normal (applies MEDGEN ( St x10E3/uL to non-numeric Ricky's results) [facility], ) Eos (Absolute) 0.1 Normal (applies MEDGEN (S t x10E3/uL to non-numeric Ricky's results) [facility], ) Immature 0 % Normal (applies [facility] (St Granulocytes to non-numeric Ricky's results) [facility], ) Immature Grans 0.0 Normal (applies [facility]GEN (S t (Abs) x10E3/uL to non-numeric Ricky[facility] results) [facility], ) ID Date Data Source [id number] 11/20/2016 12:00:00 AM EDT [facility] ([facility], ) Name Value Range Interpretation Description Data Sup porting Code Source(s) Document(s ) Hemoglobin 5.9 % Above high normal [facility] (St A1c/Hemoglobin. Ricky's total in Blood [facility], ) ID Date Data Source [id number] 11/20/2016 12:00:00 AM EDT [facility] ([facility], ) Name Value Range Interpretation Description Data Sup porting Code Source(s) Document(s ) Protein 6.6 g/dL Normal (applies [facility] (St [Mass/volume] in to non-numeric Ricky's Serum or Plasma results) [facility], ) Albumin, Serum 3.4 g/dL Below low normal MEDGEN ( [facility], ) Bilirubin.total 0.5 Normal (applies MEDGEN ( St [Mass/volume] in mg/dL to non-numeric Ricky's Serum or Plasma results) [facility], ) Bilirubin.conjugate 0.17 Normal (applies MEDG EN (St d [Mass/volume] in mg/dL to non-numeric Ricky's Serum or Plasma results) [facility], ) Aspartate 109 IU/L Above high MEDGEN (St aminotransferase normal Ricky's [Enzymatic Medical, activity/volume] in ) Serum or Plasma Alkaline 82 IU/L Normal (applies MEDGEN (St Phosphatase, S to non-numeric Ricky's results) [facility], ) Alanine 157 IU/L Above high MEDGEN (St aminotransferase normal Ricky's [Enzymatic Medical, activity/volume] in ) Serum or Plasma ID Date Data Source [id number] 11/20/2016 12:00:00 AM EDT MEDGEN ([facility], ) Name Value Range Interpretation Description Data Sup porting Code Source(s) Document(s ) Triglyceride 48 mg/dL Normal (applies MEDGEN (St [Mass/volume] in to non-numeric Ricky's Serum or Plasma results) [facility], ) Cholesterol 77 mg/dL Below low normal MEDGEN (St [Mass/volume] in Ricky's Serum or Plasma [facility], ) VLDL Cholesterol 10 mg/dL Normal (applies MEDGEN (St [facility] to non-numeric Ricky's results) [facility], ) HDL Cholesterol 16 mg/dL Below low normal MEDGEN ([facility], ) LDL Cholesterol 51 mg/dL Normal (applies MEDGEN ( St Calc to non-numeric Ricky's results) [facility], ) ID Date Data Source [id number] 11/20/2016 12:00:00 AM EDT MEDGEN ([facility], ) Name Value Range Interpretation Description Data Sup porting Code Source(s) Document(s ) Leukocytes 6.7 Normal (applies MEDGEN (St [#/volume] in x10E3/uL to non-numeric Ricky's Blood by results) [facility], ) Automated count Erythrocytes 3.07 Below low normal MEDGEN (St [#/volume] in x10E6/uL Ricky's Blood by [facility], ) Automated count Hemoglobin 10.0 Below low normal MEDGEN (St [Mass/volume] in g/dL Ricky's Blood [facility], ) MCV 94 fL Normal (applies MEDGEN (St to non-numeric Ricky's results) [facility], ) Hematocrit 28.8 % Below low normal MEDGEN (St [Volume Ricky's Fraction] of [facility], ) Blood by Automated count MCHC 34.7 Normal (applies MEDGEN (St g/dL to non-numeric Ricky's results) [facility], ) MCH 32.6 pg Normal (applies MEDGEN (St to non-numeric Ricky's results) [facility], ) RDW 13.8 % Normal (applies MEDGEN (St to non-numeric Ricky's results) [facility], ) Platelets 223 Normal (applies MEDGEN (St [#/area] in x10E3/uL to non-numeric Ricky's Blood by results) [facility], ) Microscopy high power field Neutrophils [#] 64 % Normal (applies MEDGEN ( St in Body fluid by to non-numeric Ricky's Manual count results) [facility], ) Lymphs 26 % Normal (applies MEDGEN (St to non-numeric Ricky's results) [facility], ) Eos 2 % Normal (applies MEDGEN (St to non-numeric Ricky's results) [facility], ) Monocytes 8 % Normal (applies MEDGEN (St [#/volume] in to non-numeric Ricky's Cord blood results) [facility], ) Neutrophils 4.3 Normal (applies MEDGEN (St (Absolute) x10E3/uL to non-numeric Ricky's results) [facility]) Basos 0 % Normal (applies MEDGEN (St to non-numeric Ricky's results) [facility]) Lymphs 1.7 Normal (applies MEDGEN (St (Absolute) x10E3/uL to non-numeric Ricky's results) [facility], ) Monocytes(Absolu 0.6 Normal (applies MEDGEN (St te) x10E3/uL to non-numeric Ricky's results) [facility], ) Eos (Absolute) 0.1 Normal (applies MEDGEN (S t x10E3/uL to non-numeric Ricky's results) [facility], ) Baso (Absolute) 0.0 Normal (applies MEDGEN ( St x10E3/uL to non-numeric Ricky's results) [facility], ) Immature Grans 0.0 Normal (applies MEDGEN (S t (Abs) x10E3/uL to non-numeric Ricky's results) [facility], ) Immature 0 % Normal (applies MEDGEN (St Granulocytes to non-numeric Ricky's results) [facility], ) ID Date Data Source [id number] 11/20/2016 12:00:00 AM EDT MEDGEN ([facility]) Name Value Range Interpretation Description Data Sup porting Code Source(s) Document(s ) Hemoglobin 5.9 % Above high normal MEDGEN (St A1c/Hemoglobin. Ricky's total in Blood [facility], ) ID Date Data Source [id number] 11/20/2016 12:00:00 AM EDT MEDGEN ([facility]) Name Value Range Interpretation Description Data Sup porting Code Source(s) Document(s ) Protein 6.6 g/dL Normal (applies MEDGEN (St [Mass/volume] in to non-numeric Ricky's Serum or Plasma results) [facility], ) Albumin, Serum 3.4 g/dL Below low normal MEDGEN ( [facility]) Bilirubin.total 0.5 Normal (applies MEDGEN ( St [Mass/volume] in mg/dL to non-numeric Ricky's Serum or Plasma results) [facility], ) Bilirubin.conjugate 0.17 Normal (applies MEDG EN (St d [Mass/volume] in mg/dL to non-numeric Ricky's Serum or Plasma results) [facility], ) Alkaline 82 IU/L Normal (applies MEDGEN (St Phosphatase, S to non-numeric Ricky's results) [facility]) Aspartate 109 IU/L Above high MEDGEN (St aminotransferase normal Ricky's [Enzymatic Medical, activity/volume] in ) Serum or Plasma Alanine 157 IU/L Above high MEDGEN (St aminotransferase normal Ricky's [Enzymatic Medical, activity/volume] in ) Serum or Plasma ID Date Data Source [id number] 11/20/2016 12:00:00 AM EDT [facility] ([facility], ) Name Value Range Interpretation Description Data Sup porting Code Source(s) Document(s ) Cholesterol 77 mg/dL Below low normal MEDGEN (St [Mass/volume] in Ricky's Serum or Plasma [facility], ) Triglyceride 48 mg/dL Normal (applies MEDGEN (St [Mass/volume] in to non-numeric Ricky's Serum or Plasma results) [facility], ) HDL Cholesterol 16 mg/dL Below low normal MEDGEN ([facility], ) VLDL Cholesterol 10 mg/dL Normal (applies MEDGEN (St Nathan to non-numeric Ricky's results) [facility], ) LDL Cholesterol 51 mg/dL Normal (applies MEDGEN ( St Calc to non-numeric Ricky's results) [facility], ) ID Date Data Source [id number] 11/20/2016 12:00:00 AM EDT MEDGEN ( [facility], ) Name Value Range Interpretation Description Data Sup porting Code Source(s) Document(s ) Leukocytes 6.7 Normal (applies MEDGEN (St [#/volume] in x10E3/uL to non-numeric Ricky's Blood by results) [facility], ) Automated count Erythrocytes 3.07 Below low normal MEDGEN (St [#/volume] in x10E6/uL Ricky's Blood by [facility], ) Automated count Hemoglobin 10.0 Below low normal MEDGEN (St [Mass/volume] in g/dL Ricky's Blood [facility], ) Hematocrit 28.8 % Below low normal MEDGEN (St [Volume Ricky's Fraction] of [facility], ) Blood by Automated count MCH 32.6 pg Normal (applies MEDGEN (St to non-numeric Ricky's results) [facility], ) MCV 94 fL Normal (applies MEDGEN (St to non-numeric Ricky's results) [facility], ) MCHC 34.7 Normal (applies MEDGEN (St g/dL to non-numeric Ricky's results) [facility], ) Platelets 223 Normal (applies MEDGEN (St [#/area] in x10E3/uL to non-numeric Ricky's Blood by results) [facility], ) Microscopy high power field RDW 13.8 % Normal (applies MEDGEN (St to non-numeric Ricky's results) [facility], ) Neutrophils [#] 64 % Normal (applies MEDGEN ( St in Body fluid by to non-numeric Ricky's Manual count results) [facility], ) Lymphs 26 % Normal (applies MEDGEN (St to non-numeric Ricky's results) [facility], ) Monocytes 8 % Normal (applies MEDGEN (St [#/volume] in to non-numeric Ricky's Cord blood results) [facility], ) Eos 2 % Normal (applies MEDGEN (St to non-numeric Ricky's results) [facility], ) Basos 0 % Normal (applies MEDGEN (St to non-numeric Ricky's results) [facility], ) Neutrophils 4.3 Normal (applies MEDGEN (St (Absolute) x10E3/uL to non-numeric Ricky's results) [facility], ) Lymphs 1.7 Normal (applies MEDGEN (St (Absolute) x10E3/uL to non-numeric Ricky's results) [facility], ) Monocytes(Absolu 0.6 Normal (applies MEDGEN (St te) x10E3/uL to non-numeric Ricky's results) [facility], ) Eos (Absolute) 0.1 Normal (applies MEDGEN (S t x10E3/uL to non-numeric Ricky's results) [facility], ) Immature 0 % Normal (applies MEDGEN (St Granulocytes to non-numeric Ricky's results) [facility], ) Baso (Absolute) 0.0 Normal (applies MEDGEN ( St x10E3/uL to non-numeric Ricky's results) [facility], ) Immature Grans 0.0 Normal (applies MEDGEN (S t (Abs) x10E3/uL to non-numeric Ricky's results) [facility], ) ID Date Data Source [id number] 11/20/2016 12:00:00 AM EDT [facility]GEN ([facility], ) Name Value Range Interpretation Description Data Sup porting Code Source(s) Document(s ) Hemoglobin 5.9 % Above high normal MEDGEN (St A1c/Hemoglobin. Ricky's total in Blood [facility], ) ID Date Data Source [id number] 11/20/2016 12:00:00 AM EDT [facility] ([facility], ) Name Value Range Interpretation Description Data Sup porting Code Source(s) Document(s ) Albumin, Serum 3.4 g/dL Below low normal MEDGEN ( [facility], ) Protein 6.6 g/dL Normal (applies MEDGEN (St [Mass/volume] in to non-numeric Ricky's Serum or Plasma results) [facility]) Bilirubin.total 0.5 Normal (applies MEDGEN ( St [Mass/volume] in mg/dL to non-numeric Ricky's Serum or Plasma results) [facility]) Bilirubin.conjugate 0.17 Normal (applies MEDG EN (St d [Mass/volume] in mg/dL to non-numeric Ricky's Serum or Plasma results) [facility], ) Alkaline 82 IU/L Normal (applies MEDGEN (St Phosphatase, S to non-numeric Ricky's results) [facility]) Alanine 157 IU/L Above high MEDGEN (St aminotransferase normal Ricky's [Enzymatic Medical, activity/volume] in ) Serum or Plasma Aspartate 109 IU/L Above high MEDGEN (St aminotransferase normal Ricky's [Enzymatic Medical, activity/volume] in ) Serum or Plasma ID Date Data Source [id number] 11/20/2016 12:00:00 AM EDT MEDGEN ([facility]) Name Value Range Interpretation Description Data Sup porting Code Source(s) Document(s ) Triglyceride 48 mg/dL Normal (applies MEDGEN (St [Mass/volume] in to non-numeric Ricky's Serum or Plasma results) [facility], ) Cholesterol 77 mg/dL Below low normal MEDGEN (St [Mass/volume] in Ricky's Serum or Plasma [facility], ) HDL Cholesterol 16 mg/dL Below low normal MEDGEN ([facility], ) VLDL Cholesterol 10 mg/dL Normal (applies MEDGEN (St [facility] to non-numeric Ricky's results) [facility]) LDL Cholesterol 51 mg/dL Normal (applies MEDGEN ( St Calc to non-numeric Ricky's results) [facility]) ID Date Data Source [id number] 11/20/2016 12:00:00 AM EDT MEDGEN ([facility], ) Name Value Range Interpretation Description Data Sup porting Code Source(s) Document(s ) Leukocytes 6.7 Normal (applies MEDGEN (St [#/volume] in x10E3/uL to non-numeric Ricky's Blood by results) [facility]) Automated count Erythrocytes 3.07 Below low normal MEDGEN (St [#/volume] in x10E6/uL Ricky's Blood by [facility], ) Automated count Hemoglobin 10.0 Below low normal MEDGEN (St [Mass/volume] in g/dL Ricky's Blood [facility], ) Hematocrit 28.8 % Below low normal MEDGEN (St [Volume Ricky's Fraction] of [facility], ) Blood by Automated count MCV 94 fL Normal (applies MEDGEN (St to non-numeric Ricky's results) [facility], ) MCHC 34.7 Normal (applies MEDGEN (St g/dL to non-numeric Ricky's results) [facility], ) MCH 32.6 pg Normal (applies MEDGEN (St to non-numeric Ricky's results) [facility], ) RDW 13.8 % Normal (applies MEDGEN (St to non-numeric Ricky's results) [facility], ) Platelets 223 Normal (applies MEDGEN (St [#/area] in x10E3/uL to non-numeric Ricky's Blood by results) [facility], ) Microscopy high power field Neutrophils [#] 64 % Normal (applies MEDGEN ( St in Body fluid by to non-numeric Ricky's Manual count results) [facility], ) Lymphs 26 % Normal (applies MEDGEN (St to non-numeric Ricky's results) [facility], ) Monocytes 8 % Normal (applies MEDGEN (St [#/volume] in to non-numeric Ricky's Cord blood results) [facility], ) Eos 2 % Normal (applies MEDGEN (St to non-numeric Ricky's results) [facility], ) Basos 0 % Normal (applies MEDGEN (St to non-numeric Ricky's results) [facility], ) Neutrophils 4.3 Normal (applies MEDGEN (St (Absolute) x10E3/uL to non-numeric Ricky's results) [facility], ) Lymphs 1.7 Normal (applies MEDGEN (St (Absolute) x10E3/uL to non-numeric Ricky's results) [facility], ) Eos (Absolute) 0.1 Normal (applies MEDGEN (S t x10E3/uL to non-numeric Ricky's results) [facility], ) Monocytes(Absolu 0.6 Normal (applies MEDGEN (St te) x10E3/uL to non-numeric Ricky's results) [facility], ) Baso (Absolute) 0.0 Normal (applies MEDGEN ( St x10E3/uL to non-numeric Ricky's results) [facility], ) Immature 0 % Normal (applies MEDGEN (St Granulocytes to non-numeric Ricky's results) [facility]) Immature Grans 0.0 Normal (applies MEDGEN (S t (Abs) x10E3/uL to non-numeric Ricky's results) [facility]) ID Date Data Source [id number] 11/20/2016 12:00:00 AM EDT MEDGEN ([facility]) Name Value Range Interpretation Description Data Sup porting Code Source(s) Document(s ) Hemoglobin 5.9 % Above high normal MEDGEN (St A1c/Hemoglobin. Ricky's total in Blood [facility]) ID Date Data Source [id number] 11/20/2016 12:00:00 AM EDT MEDGEN ([facility]) Name Value Range Interpretation Description Data Sup porting Code Source(s) Document(s ) Protein 6.6 g/dL Normal (applies MEDGEN (St [Mass/volume] in to non-numeric Ricky's Serum or Plasma results) [facility]) Albumin, Serum 3.4 g/dL Below low normal MEDGEN ( [facility]) Bilirubin.total 0.5 Normal (applies MEDGEN ( St [Mass/volume] in mg/dL to non-numeric Ricky's Serum or Plasma results) [facility]) Alkaline 82 IU/L Normal (applies MEDGEN (St Phosphatase, S to non-numeric Ricky's results) [facility]) Bilirubin.conjugate 0.17 Normal (applies MEDG EN (St d [Mass/volume] in mg/dL to non-numeric Ricky's Serum or Plasma results) [facility]) Alanine 157 IU/L Above high MEDGEN (St aminotransferase normal Ricky's [Enzymatic Medical, activity/volume] in ) Serum or Plasma Aspartate 109 IU/L Above high MEDGEN (St aminotransferase normal Ricky's [Enzymatic Medical, activity/volume] in ) Serum or Plasma ID Date Data Source [id number] 11/20/2016 12:00:00 AM EDT MEDGEN ([facility]) Name Value Range Interpretation Description Data Sup porting Code Source(s) Document(s ) Cholesterol 77 mg/dL Below low normal MEDGEN (St [Mass/volume] in Ricky's Serum or Plasma [facility]) HDL Cholesterol 16 mg/dL Below low normal MEDGEN ([facility], ) Triglyceride 48 mg/dL Normal (applies MEDGEN (St [Mass/volume] in to non-numeric Ricky's Serum or Plasma results) [facility], ) LDL Cholesterol 51 mg/dL Normal (applies MEDGEN ( St Calc to non-numeric Ricky's results) [facility], ) VLDL Cholesterol 10 mg/dL Normal (applies MEDGEN (St [facility] to non-numeric Ricky's results) [facility], ) ID Date Data Source [id number] 11/20/2016 12:00:00 AM EDT [facility] ([facility], ) Name Value Range Interpretation Description Data Sup porting Code Source(s) Document(s ) Erythrocytes 3.07 Below low normal MEDGEN (St [#/volume] in x10E6/uL Ricky's Blood by [facility], ) Automated count Leukocytes 6.7 Normal (applies MEDGEN (St [#/volume] in x10E3/uL to non-numeric Ricky's Blood by results) [facility], ) Automated count Hematocrit 28.8 % Below low normal MEDGEN (St [Volume Ricky's Fraction] of [facility], ) Blood by Automated count Hemoglobin 10.0 Below low normal MEDGEN (St [Mass/volume] in g/dL Ricky's Blood [facility], ) MCV 94 fL Normal (applies MEDGEN (St to non-numeric Ricky's results) [facility], ) MCH 32.6 pg Normal (applies MEDGEN (St to non-numeric Ricky's results) [facility], ) RDW 13.8 % Normal (applies MEDGEN (St to non-numeric Ricky's results) [facility], ) MCHC 34.7 Normal (applies MEDGEN (St g/dL to non-numeric Ricky's results) [facility], ) Neutrophils [#] 64 % Normal (applies MEDGEN ( St in Body fluid by to non-numeric Ricky's Manual count results) [facility], ) Platelets 223 Normal (applies MEDGEN (St [#/area] in x10E3/uL to non-numeric Ricky's Blood by results) [facility], ) Microscopy high power field Lymphs 26 % Normal (applies MEDGEN (St to non-numeric Ricky's results) [facility], ) Monocytes 8 % Normal (applies MEDGEN (St [#/volume] in to non-numeric Ricky's Cord blood results) Medical, ) Eos 2 % Normal (applies MEDGEN (St to non-numeric Ricky's results) [facility], ) Basos 0 % Normal (applies MEDGEN (St to non-numeric Ricky's results) [facility], ) Neutrophils 4.3 Normal (applies MEDGEN (St (Absolute) x10E3/uL to non-numeric Ricky's results) Medical, ) Lymphs 1.7 Normal (applies MEDGEN (St (Absolute) x10E3/uL to non-numeric Ricky's results) [facility], ) Monocytes(Absolu 0.6 Normal (applies MEDGEN (St te) x10E3/uL to non-numeric Ricky's results) [facility], ) Baso (Absolute) 0.0 Normal (applies MEDGEN ( St x10E3/uL to non-numeric Ricky's results) [facility], ) Eos (Absolute) 0.1 Normal (applies MEDGEN (S t x10E3/uL to non-numeric Ricky's results) [facility], ) Immature 0 % Normal (applies MEDGEN (St Granulocytes to non-numeric Ricky's results) [facility], ) Immature Grans 0.0 Normal (applies MEDGEN (S t (Abs) x10E3/uL to non-numeric Ricky's results) [facility], ) Procedure Social History Code Duration Value Status Description Data Source(s ) Smoking 05/10/2020 No alcohol No completed No alcohol No MEDGEN ( [facility] 12:00:00 AM EDT smoking smoking Medical, ) Smoking 05/10/2020 Unknown if ever completed Unknown if ever MEDG EN ([facility] 12:00:00 AM EDT smoked smoked Medical, ) Smoking 04/19/2020 No alcohol No completed No alcohol No [facility] smoking smoking Medical, ) Smoking 04/19/2020 Unknown if ever completed Unknown if ever MEDG EN ([facility] 12:00:00 AM EDT smoked smoked Medical, ) Smoking 03/29/2020 No alcohol No completed No alcohol No MEDGEN ( [facility] 12:00:00 AM EDT smoking smoking Medical, ) Smoking 03/29/2020 Unknown if ever completed Unknown if ever MEDG EN ([facility] 12:00:00 AM EDT smoked smoked Medical, ) Smoking 03/24/2020 No alcohol No completed No alcohol No MEDGEN ( [facility] 12:00:00 AM EDT smoking smoking [facility]) Smoking 03/24/2020 Unknown if ever completed Unknown if ever MEDG EN ([facility] 12:00:00 AM EDT smoked smoked [facility]) Vital Signs ID Date Data Source UNK Name Value Range Interpretation Code Description Data Source(s) Heart rate 88 /min 88 /min MEDGEN ([facility]) Respiratory rate 14 /min 14 /min MEDGEN ( [facility]) Inhaled oxygen 96 % 96 % MEDGEN ([facility]) Diastolic blood 60 mm[Hg] 60 mm[Hg] MEDGEN ([facility]) Systolic blood 120 mm[Hg] 120 mm[Hg] [facility] [place] Body height 72 in 72 in MEDGEN ([facility]) Heart rate 103 /min 103 /min MEDGEN ([facility]) Respiratory rate 15 /min 15 /min MEDGEN ( [facility]) Inhaled oxygen 96 % 96 % MEDGEN ([facility]) Body mass index 23.7 kg/m2 23.7 kg/m2 MEDGEN (S t (BMI) [Ratio] [facility]) Diastolic blood 64 mm[Hg] 64 mm[Hg] MEDGEN (S [facility]) Systolic blood 120 mm[Hg] 120 mm[Hg] [facility] [place] [place] Body weight 175 lb 175 lb MEDGEN ([facility]) Body height 72 in 72 in MEDGEN ([facility]) Heart rate 103 /min 103 /min MEDGEN ([facility]) Respiratory rate 15 /min 15 /min MEDGEN ( [facility]) Inhaled oxygen 96 % 96 % MEDGEN ([facility]) Body mass index 23.7 kg/m2 23.7 kg/m2 MEDGEN (S t (BMI) [Ratio] [facility]) Diastolic blood 64 mm[Hg] 64 mm[Hg] MEDGEN (S [facility]) Systolic blood 120 mm[Hg] 120 mm[Hg] [facility] [place] [place] Body weight 175 lb 175 lb MEDGEN ([facility]) Body height 72 in 72 in MEDGEN ([facility]) Heart rate 103 /min 103 /min MEDGEN ([facility]) Respiratory rate 15 /min 15 /min MEDGEN ( [facility]) Inhaled oxygen 96 % 96 % MEDGEN ([facility], ) Body mass index 23.7 kg/m2 23.7 kg/m2 MEDGEN (S t (BMI) [Ratio] [facility]) Diastolic blood 64 mm[Hg] 64 mm[Hg] MEDGEN (S t pressure [facility]) Systolic blood 120 mm[Hg] 120 mm[Hg] [facility] [place] [place] Body weight 175 lb 175 lb MEDGEN ([facility]) Body height 72 in 72 in MEDGEN ([facility]) Body mass index 23.9 kg/m2 23.9 kg/m2 MEDGEN (S t (BMI) [Ratio] [facility]) Diastolic blood 70 mm[Hg] 70 mm[Hg] MEDGEN (S t pressure [facility]) Systolic blood 118 mm[Hg] 118 mm[Hg] [facility] [place] [place] Body weight 176 lb 176 lb MEDGEN ([facility]) Body height 72 in 72 in MEDGEN ([facility]) Body mass index 23.9 kg/m2 23.9 kg/m2 MEDGEN (S t (BMI) [Ratio] [facility]) Diastolic blood 70 mm[Hg] 70 mm[Hg] MEDGEN (S t pressure [facility]) Systolic blood 118 mm[Hg] 118 mm[Hg] [facility] [place] [place] weight 176 lb 176 lb [facility] [place] Body height 72 in 72 in [facility] ([facility] [place]) Body mass index 23.9 kg/m2 23.9 kg/m2 MEDGEN (S t (BMI) [Ratio] [facility] [place], ) Diastolic blood 70 mm[Hg] 70 mm[Hg] MEDGEN (S t pressure [facility]) Systolic blood 118 mm[Hg] 118 mm[Hg] [facility] [place] [place] Body weight 176 lb 176 lb [facility] ([facility] [place]) Body height 72 in 72 in [facility] ([facility] [place]) Body mass index 23.9 kg/m2 23.9 kg/m2 MEDGEN (S t (BMI) [Ratio] [facility] [place], ) Diastolic blood 70 mm[Hg] 70 mm[Hg] MEDGEN (S t pressure [facility]) Systolic blood 118 mm[Hg] 118 mm[Hg] [facility] [place] [place] Body weight 176 lb 176 lb [facility] ([facility] [place]) Body height 72 in 72 in [facility] ([facility] [place]) Heart rate 54 /min 54 /min [facility] ([facility] [place]) Inhaled oxygen 99 % 99 % MEDGEN ([facility], ) Body mass index 24.5 kg/m2 24.5 kg/m2 MEDGEN (S t (BMI) [Ratio] [facility] [place], ) Diastolic blood 72 mm[Hg] 72 mm[Hg] MEDGEN (S t pressure [facility]) Systolic blood 130 mm[Hg] 130 mm[Hg] [facility] [place] [place] Body weight 181 lb 181 lb [facility] ([facility] [place]) Body height 72 in 72 in [facility] ([facility] [place]) Heart rate 54 /min 54 /min [facility] ([facility] [place]) Inhaled oxygen 99 % 99 % MEDGEN ([facility], ) Body mass index 24.5 kg/m2 24.5 kg/m2 MEDGEN (S t (BMI) [Ratio] [facility] [place], ) Diastolic blood 72 mm[Hg] 72 mm[Hg] MEDGEN (S t pressure [facility]) Systolic blood 130 mm[Hg] 130 mm[Hg] [facility] [place] [place] Body weight 181 lb 181 lb [facility] ([facility] [place]) Body height 72 in 72 in [facility] ([facility] [place]) Body height 72 in 72 in [facility] ([facility] [place]) Heart rate 54 /min 54 /min [facility] ([facility] [place]) Inhaled oxygen 99 % 99 % MED[facility] ([facility]) Body mass index 24.5 kg/m2 24.5 kg/m2 MEDGEN (S t (BMI) [Ratio] [facility]) Diastolic blood 72 mm[Hg] 72 mm[Hg] MEDGEN (S [facility]) Systolic blood 130 mm[Hg] 130 mm[Hg] [facility] [place] [place] Body weight 181 lb 181 lb [facility] ([facility] [place]) Heart rate 54 /min 54 /min [facility] ([facility] [place]) Inhaled oxygen 99 % 99 % MEDGEN ([facility]) Body mass index 24.5 kg/m2 24.5 kg/m2 MEDGEN (S t (BMI) [Ratio] [facility]) Diastolic blood 72 mm[Hg] 72 mm[Hg] MED[facility] (S [facility]) Systolic blood 130 mm[Hg] 130 mm[Hg] [facility] [place] [place] Body weight 181 lb 181 lb [facility] ([facility] [place]) Body height 72 in 72 in [facility] ([facility] [place]) Body mass index 24 kg/m2 24 kg/m2 MEDGEN (S t (BMI) [Ratio] [facility]) Diastolic blood 72 mm[Hg] 72 mm[Hg] MED[facility] (S [facility]) Systolic blood 126 mm[Hg] 126 mm[Hg] [facility] [place] [place] Body weight 177 lb 177 lb [facility] ([facility] [place]) Body height 72 in 72 in [facility] ([facility] [place]) Body mass index 24 kg/m2 24 kg/m2 MEDGEN (S t (BMI) [Ratio] [facility]) Diastolic blood 72 mm[Hg] 72 mm[Hg] MED[facility] (S [facility]) Systolic blood 126 mm[Hg] 126 mm[Hg] [facility] [place] [place] Body weight 177 lb 177 lb [facility] ([facility] [place]) Body height 72 in 72 in [facility] ([facility] [place]) Body mass index 24 kg/m2 24 kg/m2 MEDGEN (S t (BMI) [Ratio] [facility]) Diastolic blood 72 mm[Hg] 72 mm[Hg] MED[facility] (S [facility]) Systolic blood 126 mm[Hg] 126 mm[Hg] [facility] [place] [facility] 177 lb [facility] [place] Body height 72 in 72 in [facility] ([facility] [place]) Body mass index 24 kg/m2 24 kg/m2 MEDGEN (S t (BMI) [Ratio] [facility]) Diastolic blood 72 mm[Hg] 72 mm[Hg] [facility] (S [facility]) Systolic blood 126 mm[Hg] 126 mm[Hg] [facility] [place] [place] Body weight 177 lb 177 lb [facility] ([facility] [place]) Body height 72 in 72 in [facility] [place] Body mass index 23.7 kg/m2 23.7 kg/m2 MEDGEN (S t (BMI) [Ratio] [facility]) Diastolic blood 84 mm[Hg] 84 mm[Hg] [facility] (S [facility]) Systolic blood 140 mm[Hg] 140 mm[Hg] [facility] [place] [place] Body weight 175 lb 175 lb [facility] ([facility] [place]) Body height 72 in 72 in [facility] [place] Body mass index 23.7 kg/m2 23.7 kg/m2 MEDGEN (S t (BMI) [Ratio] [facility]) Diastolic blood 84 mm[Hg] 84 mm[Hg] [facility] (S [facility]) Systolic blood 140 mm[Hg] 140 mm[Hg] [facility] [place] [place] Body weight 175 lb 175 lb [facility] ([facility] [place]) Body height 72 in 72 in [facility] ([facility] [place]) Body mass index 23.7 kg/m2 23.7 kg/m2 MEDGEN (S t (BMI) [Ratio] [facility] [place], ) Diastolic blood 84 mm[Hg] 84 mm[Hg] MEDGEN (S t pressure [facility]) Systolic blood 140 mm[Hg] 140 mm[Hg] [facility] [place] Body weight 175 lb 175 lb [facility] ([facility] [place]) Body height 72 in 72 in [facility] [place] Body mass index 23.7 kg/m2 23.7 kg/m2 MEDGEN (S t (BMI) [Ratio] [facility], ) Diastolic blood 84 mm[Hg] 84 mm[Hg] MEDGEN (S t pressure [facility]) Systolic blood 140 mm[Hg] 140 mm[Hg] [facility] [place] [place] Body weight 175 lb 175 lb [facility] ([facility] [place]) Body height 72 in 72 in [facility] ([facility] [place]) Body mass index 24 kg/m2 24 kg/m2 MEDGEN (S t (BMI) [Ratio] [facility] [place], ) Diastolic blood 74 mm[Hg] 74 mm[Hg] MEDGEN (S t pressure [facility]) Systolic blood 126 mm[Hg] 126 mm[Hg] [facility] [place] Body weight 177 lb 177 lb [facility] ([facility] [place]) Body height 72 in 72 in [facility] ([facility] [place]) Body mass index 24 kg/m2 24 kg/m2 MEDGEN (S t (BMI) [Ratio] [facility] [place], ) Diastolic blood 74 mm[Hg] 74 mm[Hg] MEDGEN (S t pressure [facility]) Systolic blood 126 mm[Hg] 126 mm[Hg] [facility] [place] [place] Body weight 177 lb 177 lb [facility] ([facility] [place]) Body height 72 in 72 in [facility] ([facility] [place]) Body mass index 24 kg/m2 24 kg/m2 MEDGEN (S t (BMI) [Ratio] [facility] [place], ) Diastolic blood 74 mm[Hg] 74 mm[Hg] MEDGEN (S t pressure [facility]) Systolic blood 126 mm[Hg] 126 mm[Hg] [facility] [place] [place] Body weight 177 lb 177 lb [facility] ([facility] [place]) Body height 72 in 72 in [facility] ([facility] [place]) Body mass index 24 kg/m2 24 kg/m2 MEDGEN (S t (BMI) [Ratio] [facility] [place], ) Diastolic blood 74 mm[Hg] 74 mm[Hg] MEDGEN (S t pressure [facility]) Systolic blood 126 mm[Hg] 126 mm[Hg] [facility] [place] [place] Body weight 177 lb 177 lb [facility] ([facility] [place]) Body height 72 in 72 in [facility] ([facility] [place]) Body mass index 23.9 kg/m2 23.9 kg/m2 MEDGEN (S t (BMI) [Ratio] [facility] [place], ) Diastolic blood 80 mm[Hg] 80 mm[Hg] MEDGEN (S t pressure [facility]) Systolic blood 132 mm[Hg] 132 mm[Hg] [facility] [place] [place] Body weight 176 lb 176 lb [facility] ([facility] [place]) Body height 72 in 72 in [facility] ([facility] [place]) Body mass index 23.9 kg/m2 23.9 kg/m2 MEDGEN (S t (BMI) [Ratio] [facility] [place], ) Diastolic blood 80 mm[Hg] 80 mm[Hg] MEDGEN (S t pressure [facility]) Systolic blood 132 mm[Hg] 132 mm[Hg] [facility] [place] [place] Body weight 176 lb 176 lb [facility] ([facility] [place]) Body height 72 in 72 in [facility] ([facility] [place]) Body mass index 23.9 kg/m2 23.9 kg/m2 MEDGEN (S t (BMI) [Ratio] [facility] [place], ) Diastolic blood 80 mm[Hg] 80 mm[Hg] MEDGEN (S t pressure [facility]) Systolic blood 132 mm[Hg] 132 mm[Hg] [facility] [place] [place] Body weight 176 lb 176 lb [facility] ([facility] [place]) Body height 72 in 72 in [facility] ([facility] [place]) Body mass index 23.9 kg/m2 23.9 kg/m2 MEDGEN (S t (BMI) [Ratio] [facility]) Diastolic blood 80 mm[Hg] 80 mm[Hg] MEDGEN (S [facility]) Systolic blood 132 mm[Hg] 132 mm[Hg] [facility] [place] Body weight 176 lb 176 lb [facility] ([facility] [place]) Body height 72 in 72 in [facility] ([facility] [place]) Body mass index 23.5 kg/m2 23.5 kg/m2 MEDGEN (S t (BMI) [Ratio] [facility]) Diastolic blood 90 mm[Hg] 90 mm[Hg] MEDGEN (S [facility]) Systolic blood 150 mm[Hg] 150 mm[Hg] [facility] [place] [place] Body weight 173 lb 173 lb [facility] ([facility] [place]) Body height 72 in 72 in [facility] ([facility] [place]) Body mass index 23.5 kg/m2 23.5 kg/m2 MEDGEN (S t (BMI) [Ratio] [facility]) Diastolic blood 90 mm[Hg] 90 mm[Hg] MEDGEN (S [facility]) Systolic blood 150 mm[Hg] 150 mm[Hg] [facility] [place] Body weight 173 lb 173 lb [facility] ([facility] [place]) Body height 72 in 72 in [facility] [place] Body mass index 23.5 kg/m2 23.5 kg/m2 MEDGEN (S t (BMI) [Ratio] [facility]) Diastolic blood 90 mm[Hg] 90 mm[Hg] MED[facility] (S [facility]) Systolic blood 150 mm[Hg] 150 mm[Hg] [facility] [place] Body weight 173 lb 173 lb [facility] [place] Body height 72 in 72 in [facility] ([facility] [place]) Body mass index 23.5 kg/m2 23.5 kg/m2 MEDGEN (S t (BMI) [Ratio] [facility]) Diastolic blood 90 mm[Hg] 90 mm[Hg] MEDGEN (S t [facility]) Systolic blood 150 mm[Hg] 150 mm[Hg] [facility] [place] Body weight 173 lb 173 lb [facility] [place]) Body height 72 in 72 in [facility] ([facility] [place]) Body mass index 23.6 kg/m2 23.6 kg/m2 MEDGEN (S t (BMI) [Ratio] [facility]) Diastolic blood 100 mm[Hg] 100 mm[Hg] [facility] (S [facility] [place]) Systolic blood 150 mm[Hg] 150 mm[Hg] [facility] Body weight 174 lb 174 lb [facility] ([facility] [place]) Body height 72 in 72 in [facility] ([facility] [place]) Body mass index 23.6 kg/m2 23.6 kg/m2 MEDGEN (S t (BMI) [Ratio] [facility]) Diastolic blood 100 mm[Hg] 100 mm[Hg] [facility] (S [facility]) Systolic blood 150 mm[Hg] 150 mm[Hg] [facility] Body weight 174 lb 174 lb [facility] ([facility] [place]) Body height 72 in 72 in [facility] ([facility] [place]) Body mass index 23.6 kg/m2 23.6 kg/m2 MEDGEN (S t (BMI) [Ratio] [facility]) Diastolic blood 100 mm[Hg] 100 mm[Hg] MEDGEN (S [facility]) Systolic blood 150 mm[Hg] 150 mm[Hg] [facility] Body weight 174 lb 174 lb [facility] ([facility] [place]) Body height 72 in 72 in [facility] ([facility] [place]) Body mass index 23.6 kg/m2 23.6 kg/m2 MEDGEN (S t (BMI) [Ratio] [facility] [place], ) Diastolic blood 100 mm[Hg] 100 mm[Hg] MEDGEN (S t pressure [facility]) Systolic blood 150 mm[Hg] 150 mm[Hg] [facility] [place] Body weight 174 lb 174 lb [facility] ([facility] [place]) Body height 72 in 72 in [facility] [place]) Body mass index 25 kg/m2 25 kg/m2 MEDGEN (S t (BMI) [Ratio] [facility] [place], ) Diastolic blood 84 mm[Hg] 84 mm[Hg] MEDGEN (S t pressure [facility]) Systolic blood 140 mm[Hg] 140 mm[Hg] [facility] [place] Body weight 184 lb 184 lb [facility] ([facility] [place]) Body height 72 in 72 in [facility] ([facility] [place]) Body mass index 25 kg/m2 25 kg/m2 MEDGEN (S t (BMI) [Ratio] [facility] [place], ) Diastolic blood 84 mm[Hg] 84 mm[Hg] MEDGEN (S t pressure [facility]) Systolic blood 140 mm[Hg] 140 mm[Hg] [facility] [place] Body weight 184 lb 184 lb [facility] ([facility] [place]) Body height 72 in 72 in [facility] ([facility] [place]) Body mass index 25 kg/m2 25 kg/m2 MEDGEN (S t (BMI) [Ratio] [facility] [place], ) Diastolic blood 84 mm[Hg] 84 mm[Hg] MEDGEN (S t pressure [facility]) Systolic blood 140 mm[Hg] 140 mm[Hg] [facility] [place] Body weight 184 lb 184 lb [facility] ([facility] [place]) Body height 72 in 72 in [facility] ([facility] [place]) Body mass index 25 kg/m2 25 kg/m2 MEDGEN (S t (BMI) [Ratio] [facility]) Diastolic blood 84 mm[Hg] 84 mm[Hg] MEDGEN (S t pressure [facility]) Systolic blood 140 mm[Hg] 140 mm[Hg] [facility] [place] Body weight 184 lb 184 lb [facility] ([facility] [place]) Body height 72 in 72 in [facility] ([facility] [place]) Body mass index 24.5 kg/m2 24.5 kg/m2 MEDGEN (S t (BMI) [Ratio] [facility]) Diastolic blood 100 mm[Hg] 100 mm[Hg] MEDGEN (S [facility]) Systolic blood 170 mm[Hg] 170 mm[Hg] [facility] [place] Body weight 181 lb 181 lb [facility] [place] Body height 72 in 72 in [facility] ([facility] [place]) Body mass index 24.5 kg/m2 24.5 kg/m2 MEDGEN (S t (BMI) [Ratio] [facility]) Diastolic blood 100 mm[Hg] 100 mm[Hg] MED[facility] (S [facility]) Systolic blood 170 mm[Hg] 170 mm[Hg] [facility] [place] Body weight 181 lb 181 lb [facility] ([facility] [place]) Body height 72 in 72 in [facility] [place] Body mass index 24.5 kg/m2 24.5 kg/m2 MEDGEN (S t (BMI) [Ratio] [facility]) Diastolic blood 100 mm[Hg] 100 mm[Hg] [facility] (S [facility]) Systolic blood 170 mm[Hg] 170 mm[Hg] [facility] [place] Body weight 181 lb 181 lb [facility] ([facility] [place]) Body height 72 in 72 in [facility] [place]) Body mass index 24.5 kg/m2 24.5 kg/m2 MEDGEN (S t (BMI) [Ratio] [facility]) Diastolic blood 100 mm[Hg] 100 mm[Hg] MED[facility] (S [facility]) Systolic blood 170 mm[Hg] 170 mm[Hg] [facility] [place] Body weight 181 lb 181 lb [facility] ([facility] [place]) Body height 72 in 72 in [facility] [place]) Body mass index 24.8 kg/m2 24.8 kg/m2 MEDGEN (S t (BMI) [Ratio] [facility]) Diastolic blood 80 mm[Hg] 80 mm[Hg] MED[facility] (S [facility]) Systolic blood 130 mm[Hg] 130 mm[Hg] [facility] [place] Body weight 183 lb 183 lb [facility] ([facility] [place]) Body height 72 in 72 in [facility] ([facility] [place]) Body mass index 24.8 kg/m2 24.8 kg/m2 MEDGEN (S t (BMI) [Ratio] [facility]) Diastolic blood 80 mm[Hg] 80 mm[Hg] [facility] (S [facility]) Systolic blood 130 mm[Hg] 130 mm[Hg] [facility] Body weight 183 lb 183 lb [facility] ([facility] [place]) Body height 72 in 72 in [facility] ([facility] [place]) Body mass index 24.8 kg/m2 24.8 kg/m2 MEDGEN (S t (BMI) [Ratio] [facility]) Diastolic blood 80 mm[Hg] 80 mm[Hg] [facility] ([facility]) Systolic blood 130 mm[Hg] 130 mm[Hg] [facility] [place] Body weight 183 lb 183 lb [facility] ([facility] [place]) Body height 72 in 72 in [facility] ([facility] [place]) Body mass index 24.8 kg/m2 24.8 kg/m2 MEDGEN (S t (BMI) [Ratio] [facility]) Diastolic blood 80 mm[Hg] 80 mm[Hg] [facility] ([facility]) Systolic blood 130 mm[Hg] 130 mm[Hg] [facility] Body weight 183 lb 183 lb [facility] ([facility] [place]) Body height 72 in 72 in [facility] ([facility] [place]) Heart rate 61 /min 61 /min [facility] ([facility] [place]) Body mass index 24.1 kg/m2 24.1 kg/m2 MEDGEN (S t (BMI) [Ratio] [facility]) Diastolic blood 90 mm[Hg] 90 mm[Hg] MEDGEN (S t pressure [facility]) Systolic blood 150 mm[Hg] 150 mm[Hg] [facility] [place] Body weight 178 lb 178 lb [facility] ([facility] [place]) Body height 72 in 72 in [facility] ([facility] [place]) Heart rate 61 /min 61 /min [facility] ([facility] [place]) Body mass index 24.1 kg/m2 24.1 kg/m2 MEDGEN (S t (BMI) [Ratio] [facility]) Diastolic blood 90 mm[Hg] 90 mm[Hg] MEDGEN (S t [facility]) Systolic blood 150 mm[Hg] 150 mm[Hg] [facility] [place] Body weight 178 lb 178 lb [facility] ([facility] [place]) Body height 72 in 72 in [facility] ([facility] [place]) Heart rate 61 /min 61 /min [facility] ([facility] [place]) Body mass index 24.1 kg/m2 24.1 kg/m2 MEDGEN (S t (BMI) [Ratio] [facility] [place], ) Diastolic blood 90 mm[Hg] 90 mm[Hg] MEDGEN (S t pressure [facility]) Systolic blood 150 mm[Hg] 150 mm[Hg] [facility] [place] Body weight 178 lb 178 lb [facility] ([facility] [place]) Body height 72 in 72 in [facility] ([facility] [place]) Heart rate 61 /min 61 /min [facility] ([facility] [place]) Body mass index 24.1 kg/m2 24.1 kg/m2 MEDGEN (S t (BMI) [Ratio] [facility] [place], ) Diastolic blood 90 mm[Hg] 90 mm[Hg] MEDGEN (S t pressure [facility]) Systolic blood 150 mm[Hg] 150 mm[Hg] [facility] [place] Body weight 178 lb 178 lb [facility] ([facility] [place]) Body height 72 in 72 in [facility] ([facility] [place]) Heart rate 61 /min 61 /min [facility] ([facility] [place]) Body mass index 24.5 kg/m2 24.5 kg/m2 MEDGEN (S t (BMI) [Ratio] [facility] [place], ) Diastolic blood 82 mm[Hg] 82 mm[Hg] MEDGEN (S t pressure [facility]) Systolic blood 140 mm[Hg] 140 mm[Hg] [facility] [place] Body weight 181 lb 181 lb [facility] ([facility] [place]) Body height 72 in 72 in [facility] ([facility] [place]) Heart rate 61 /min 61 /min [facility] ([facility] [place]) Body mass index 24.5 kg/m2 24.5 kg/m2 MEDGEN (S t (BMI) [Ratio] [facility] [place], ) Diastolic blood 82 mm[Hg] 82 mm[Hg] MEDGEN (S t pressure [facility]) Systolic blood 140 mm[Hg] 140 mm[Hg] [facility] Body weight 181 lb 181 lb [facility] ([facility] [place]) Body height 72 in 72 in [facility] ([facility] [place]) Heart rate 61 /min 61 /min [facility] ([facility] [place]) Body mass index 24.5 kg/m2 24.5 kg/m2 MEDGEN (S t (BMI) [Ratio] [facility] [place], ) Diastolic blood 82 mm[Hg] 82 mm[Hg] MEDGEN (S pressure [facility]) Systolic blood 140 mm[Hg] 140 mm[Hg] [facility] Body weight 181 lb 181 lb [facility] ([facility] [place]) Body height 72 in 72 in [facility] ([facility] [place]) Heart rate 61 /min 61 /min [facility] ([facility] [place]) Body mass index 24.5 kg/m2 24.5 kg/m2 MEDGEN (S t (BMI) [Ratio] [facility] [place], ) Diastolic blood 82 mm[Hg] 82 mm[Hg] MEDGEN (S t [facility] , ) Systolic blood 140 mm[Hg] 140 mm[Hg] MEDGEN ([facility] [place] ) Body weight 181 lb 181 lb [facility] ([facility] [place]) Body height 72 in 72 in [facility] ([facility] [place]) Heart rate 61 /min 61 /min [facility] ([facility] [place]) Body mass index 24 kg/m2 24 kg/m2 MEDGEN (S t (BMI) [Ratio] [facility] [place], ) Diastolic blood 74 mm[Hg] 74 mm[Hg] MEDGEN (S t pressure [facility] , ) Systolic blood 126 mm[Hg] 126 mm[Hg] [facility] ([facility] , ) Body weight 177 lb 177 lb [facility] ([facility] [place]) Body height 72 in 72 in [facility] ([facility]) Heart rate 61 /min 61 /min [facility] ([facility] , ) Body mass index 24 kg/m2 24 kg/m2 [facility] (S t (BMI) [Ratio] [facility], ) Diastolic blood 74 mm[Hg] 74 mm[Hg] [facility] (S t [facility] , ) Systolic blood 126 mm[Hg] 126 mm[Hg] [facility] (St pressure [facility] , ) Body weight 177 lb 177 lb [facility] ([facility]) Body height 72 in 72 in [facility] ([facility]) Heart rate 61 /min 61 /min [facility] ([facility] , ) Body mass index 24 kg/m2 24 kg/m2 [facility] (S t (BMI) [Ratio] [facility] [place], ) Diastolic blood 74 mm[Hg] 74 mm[Hg] [facility] (S t pressure [facility] , ) Systolic blood 126 mm[Hg] 126 mm[Hg] [facility] ([facility] , ) Body weight 177 lb 177 lb [facility] ([facility]) Body height 72 in 72 in [facility] ([facility]) Heart rate 61 /min 61 /min [facility] ([facility]) Body mass index 24 kg/m2 24 kg/m2 [facility] (S t (BMI) [Ratio] [facility], ) Diastolic blood 74 mm[Hg] 74 mm[Hg] [facility] (S t pressure [facility]) Systolic blood 126 mm[Hg] 126 mm[Hg] [facility] [place] [place] Body weight 177 lb 177 lb [facility] ([facility]) Body height 72 in 72 in [facility] ([facility]) Heart rate 61 /min 61 /min [facility] ([facility]) Body mass index 23.7 kg/m2 23.7 kg/m2 [facility] (S t (BMI) [Ratio] [facility], ) Diastolic blood 72 mm[Hg] 72 mm[Hg] [facility] (S t pressure [facility]) Systolic blood 120 mm[Hg] 120 mm[Hg] [facility] [place] [place] Body weight 175 lb 175 lb [facility] ([facility]) Body height 72 in 72 in [facility] ([facility]) Heart rate 61 /min 61 /min [facility] ([facility]) Body mass index 23.7 kg/m2 23.7 kg/m2 [facility] (S t (BMI) [Ratio] [facility], ) Diastolic blood 72 mm[Hg] 72 mm[Hg] [facility] (S t pressure [facility]) Systolic blood 120 mm[Hg] 120 mm[Hg] [facility] [place] [place] Body weight 175 lb 175 lb [facility] ([facility]) Body height 72 in 72 in [facility] ([facility]) Heart rate 61 /min 61 /min [facility] ([facility]) Body mass index 23.7 kg/m2 23.7 kg/m2 [facility] (S t (BMI) [Ratio] [facility], ) Diastolic blood 72 mm[Hg] 72 mm[Hg] [facility] (S t pressure [facility]) Systolic blood 120 mm[Hg] 120 mm[Hg] [facility] [place] [place] Body weight 175 lb 175 lb [facility] ([facility]) Body height 72 in 72 in [facility] ([facility]) Heart rate 61 /min 61 /min [facility] ([facility]) Body mass index 23.7 kg/m2 23.7 kg/m2 [facility] (S t (BMI) [Ratio] [facility]) Diastolic blood 72 mm[Hg] 72 mm[Hg] [facility] (S pressure [facility]) Systolic blood 120 mm[Hg] 120 mm[Hg] [facility] [place] [place] Body weight 175 lb 175 lb [facility] ([facility]) Body height 72 in 72 in [facility] ([facility]) Heart rate 61 /min 61 /min [facility] ([facility]) Body mass index 23.7 kg/m2 23.7 kg/m2 [facility] (S t (BMI) [Ratio] [facility]) Diastolic blood 82 mm[Hg] 82 mm[Hg] [facility] (S t [facility]) Systolic blood 120 mm[Hg] 120 mm[Hg] [facility] [place] [place] Body weight 175 lb 175 lb [facility] ([facility]) Body height 72 in 72 in [facility] ([facility]) Heart rate 61 /min 61 /min [facility] ([facility]) Body mass index 23.7 kg/m2 23.7 kg/m2 [facility] (S t (BMI) [Ratio] [facility]) Diastolic blood 82 mm[Hg] 82 mm[Hg] [facility] (S t pressure [facility]) Systolic blood 120 mm[Hg] 120 mm[Hg] [facility] [place] [place] Body weight 175 lb 175 lb [facility] ([facility]) Body height 72 in 72 in [facility] ([facility]) Heart rate 61 /min 61 /min [facility] ([facility]) Body mass index 23.7 kg/m2 23.7 kg/m2 [facility] (S t (BMI) [Ratio] [facility]) Diastolic blood 82 mm[Hg] 82 mm[Hg] [facility] (S t pressure [facility]) Systolic blood 120 mm[Hg] 120 mm[Hg] [facility] [place] [place] Body weight 175 lb 175 lb [facility] ([facility]) Body height 72 in 72 in [facility] ([facility]) Heart rate 61 /min 61 /min [facility] ([facility]) Body mass index 23.7 kg/m2 23.7 kg/m2 [facility] (S t (BMI) [Ratio] [facility], ) Diastolic blood 82 mm[Hg] 82 mm[Hg] [facility] (S t [facility]) Systolic blood 120 mm[Hg] 120 mm[Hg] [facility] [place] [place] Body weight 175 lb 175 lb [facility] ([facility]) Body height 72 in 72 in [facility] ([facility]) Heart rate 61 /min 61 /min [facility] ([facility]) Body mass index 23.7 kg/m2 23.7 kg/m2 [facility] (S t (BMI) [Ratio] [facility], ) Diastolic blood 65 mm[Hg] 65 mm[Hg] [facility] (S t [facility]) Systolic blood 116 mm[Hg] 116 mm[Hg] [facility] [place] [place] Body weight 175 lb 175 lb [facility] ([facility]) Body height 72 in 72 in [facility] ([facility]) Heart rate 61 /min 61 /min [facility] ([facility]) Body mass index 23.7 kg/m2 23.7 kg/m2 [facility] (S t (BMI) [Ratio] [facility], ) Diastolic blood 65 mm[Hg] 65 mm[Hg] [facility] (S t [facility]) Systolic blood 116 mm[Hg] 116 mm[Hg] [facility] [place] [place] Body weight 175 lb 175 lb [facility] ([facility]) Body height 72 in 72 in [facility] ([facility]) Heart rate 61 /min 61 /min [facility] ([facility]) Body mass index 23.7 kg/m2 23.7 kg/m2 [facility] (S t (BMI) [Ratio] [facility], ) Diastolic blood 65 mm[Hg] 65 mm[Hg] [facility] (S t pressure [facility]) Systolic blood 116 mm[Hg] 116 mm[Hg] [facility] [place] [place] Body weight 175 lb 175 lb [facility] ([facility]) Body height 72 in 72 in [facility] ([facility]) Heart rate 61 /min 61 /min [facility] ([facility]) Body mass index 23.7 kg/m2 23.7 kg/m2 [facility] (S t (BMI) [Ratio] [facility], ) Diastolic blood 65 mm[Hg] 65 mm[Hg] [facility] (S t pressure [facility]) Systolic blood 116 mm[Hg] 116 mm[Hg] [facility] [place] [place] Body weight 175 lb 175 lb [facility] ([facility]) Body height 72 in 72 in [facility] ([facility]) Body mass index 23.7 kg/m2 23.7 kg/m2 [facility] (S t (BMI) [Ratio] [facility], ) Diastolic blood 70 mm[Hg] 70 mm[Hg] [facility] (S t pressure [facility]) Systolic blood 120 mm[Hg] 120 mm[Hg] [facility] [place] [place] Body weight 175 lb 175 lb [facility] ([facility]) Body height 72 in 72 in [facility] ([facility]) Body mass index 23.7 kg/m2 23.7 kg/m2 [facility] (S t (BMI) [Ratio] [facility], ) Diastolic blood 70 mm[Hg] 70 mm[Hg] [facility] (S t pressure [facility]) Systolic blood 120 mm[Hg] 120 mm[Hg] [facility] [place] [place] Body weight 175 lb 175 lb [facility] ([facility]) Body height 72 in 72 in [facility] ([facility]) Body mass index 23.7 kg/m2 23.7 kg/m2 [facility] (S t (BMI) [Ratio] [facility], ) Diastolic blood 70 mm[Hg] 70 mm[Hg] [facility] (S t pressure [facility]) Systolic blood 120 mm[Hg] 120 mm[Hg] [facility] [place] Body weight 175 lb 175 lb [facility] ([facility]) Body height 72 in 72 in [facility] ([facility]) Body mass index 23.7 kg/m2 23.7 kg/m2 [facility] (BMI[facility] [Ratio] [facility], ) Diastolic blood 70 mm[Hg] 70 mm[Hg] [facility] (S t pressure [facility]) Systolic blood 120 mm[Hg] 120 mm[Hg] [facility] [place] Body weight 175 lb 175 lb [facility] ([facility]) Body height 72 in 72 in [facility] ([facility])
== END 2020-05-21 06:25 | disposition home or self-care (01) ==
LOC: JASU-SURG 04:44
PROVIDERS: ATTEND Pain Medicine Pain Medicine
DX: Z53.8 Procedure and treatment not carried out for other reasons (principal)

== ENCOUNTER 2020-05-21 06:18 | Emergency (ER) | payer OTHER ==
[2020-05-21 07:00] VITALS: BMI 24.4
--- OUTSIDE RECORDS SUMMARY | 2020-05-21 07:09 | XMS ---
:1950 Author Organization [facility] Care Team Providers Name Role [...] is protected by Article 27-F of the [facility] Public Health law. If you continue you may haveaccess to information: Regarding HIV / AIDS; Provided by facilities licensed or operated by the [facility] Office of Mental Health; or Provided by the [facility] Office for People With Developmental Disabilities. If such information is present, then the following [facility] mandated warning applies: This information has been [...] law may result in a fine or fpc sentence or both. A general authorization for [...] Brand Start Product Dose Route Administrative Pharmacy [facility] Indications Reaction Description Data Name Date Form Instructions Instructions Source(s) gabapentin GABAPE 05/10/ CAPSULE 180 complet CURT PENTIN MED[facility] (St 100 MG Oral NTIN:3 2019 ed [facility] Capsule 52876 12:00: Medical, GABAPENTIN: 00 AM PC) [id number] EDT gabapentin GABAPE 04/19/ CAPSULE 90 complet [facility]T [facility]IN MED[facility] (St 100 MG Oral NTIN:3 2019 ed [facility] Capsule 43253 12:00: Medical, GABAPENTIN: 00 AM PC) [id number] EDT CREAM 03/29/ CREAM 1 complet CREAM BASE ME DGEN ( BASE:[id number] ed Ricky 12:00: Medical, 00 AM PC) EDT CREAM 03/29/ CREAM 1 complet CREAM BASE ME DGEN ( BASE:[id number] ed [facility] 12:00: Medical, 00 AM PC) EDT CREAM 03/29/ CREAM 1 complet CREAM BASE ME DGEN ( BASE:[id number] ed [facility] 12:00: Medical, 00 AM PC) EDT 24 HR METOPR 10/24/ complet METOPROLOL SHELDON ( metoprolol OLOL 2018 ed SUCCINATE ER J [facility] succinate SUCCIN 12:00: Medica l, 25 MG ATE 00 AM PC) Extended ER:866 EST Release 427 Oral Tablet METOPROLOL SUCCINATE ER:[id number] 24 HR METOPR 10/24/ complet METOPROLOL SHELDON ( metoprolol OLOL 2018 ed SUCCINATE ER J ohn[facility] succinate SUCCIN 12:00: Medica l, 25 MG ATE 00 AM PC) Extended ER:866 EST Release 427 Oral Tablet METOPROLOL SUCCINATE ER:[id number] 24 HR METOPR 10/24/ complet METOPROLOL [facility] ( metoprolol OLOL 2018 ed SUCCINATE ER J ohn's succinate SUCCIN 12:00: Medica l, 25 MG ATE 00 AM PC) Extended ER:866 EST Release 427 Oral Tablet METOPROLOL SUCCINATE ER:[id number] 24 HR METOPR 10/24/ complet METOPROLOL M SHELDONN ( metoprolol OLOL 2018 ed SUCCINATE ER J ohn's succinate SUCCIN 12:00: Medica l, 25 MG ATE 00 AM PC) Extended ER:866 EST Release 427 Oral Tablet METOPROLOL SUCCINATE ER:[id number] Aspirin 81 ASPIRI 11/20/ complet ASPIRIN MED[facility] (St MG Delayed N:3084 2016 ed Ricky[facility] Release 16 12:00: Medical, Oral Tablet 00 AM PC) ASPIRIN:308 EDT 416 clopidogrel PLAVIX 11/20/ complet PLAVIX MED[facility] (St 75 MG Oral :48394 2016 ed Ricky[facility] Tablet 2 12:00: Medical, PLAVIX:3093 00 AM PC) 62 EDT Aspirin 81 ASPIRI 11/20/ complet ASPIRIN MEDGEN (St MG Delayed N:3084 2016 ed Ricky[facility] Release 16 12:00: Medical, Oral Tablet 00 AM PC) ASPIRIN:308 EDT 416 clopidogrel PLAVIX 11/20/ complet PLAVIX MEDGEN (St 75 MG Oral :11488 2016 ed [facility] Tablet 2 12:00: Medical, PLAVIX:3093 00 AM PC) 62 EDT Aspirin 81 ASPIRI 11/20/ complet ASPIRIN MED[facility] (St MG Delayed N:3084 2016 ed Ricky[facility] Release 16 12:00: Medical, Oral Tablet 00 AM PC) ASPIRIN:308 EDT 416 clopidogrel PLAVIX 11/20/ complet PLAVIX MED[facility] (St 75 MG Oral :34841 2016 ed Ricky[facility] Tablet 2 12:00: Medical, PLAVIX:3093 00 AM PC) 62 EDT Aspirin 81 ASPIRI 11/20/ complet ASPIRIN MEDGEN (St MG Delayed N:3084 2016 ed [facility] Release 16 12:00: Medical, Oral Tablet 00 AM PC) ASPIRIN:308 EDT 416 clopidogrel PLAVIX 11/20/ complet PLAVIX MED[facility] (St 75 MG Oral :88948 2016 ed [facility] Tablet 2 12:00: Medical, PLAVIX:3093 00 AM PC) 62 EDT Lisinopril LISINO 08/16/ TABLET 30 complet LISIN OPRIL MEDGEN (St 10 MG Oral PRIL:3 2015 ed Ricky's Tablet 03037 12:00: Medical, LISINOPRIL: 00 AM PC) [id number] EST Lisinopril LISINO 08/16/ TABLET 30 complet LISIN OPRIL MEDGEN (St 10 MG Oral PRIL:3 2015 ed [facility] Tablet 10044 12:00: Medical, LISINOPRIL: 00 AM PC) [id number] EST Lisinopril LISINO 08/16/ TABLET 30 complet LISIN OPRIL MEDGEN (St 10 MG Oral PRIL:3 2015 ed [facility]'s Tablet 74976 12:00: Medical, LISINOPRIL: 00 AM ) [id number] EST Lisinopril LISINO 08/16/ TABLET 30 complet LISIN OPRIL MEDGEN (St 10 MG Oral PRIL:3 2015 ed Ricky's Tablet 51228 12:00: Medical, LISINOPRIL: 00 AM ) [id number] EST Insurance Providers Payer name Policy type Policy ID Covered Covered green party's Policy P abundio / Coverage green party ID relationship to [employer] ormation type izagu[employer]re HARRISON [id number] SP [id number] HEALTHCARE (MEDICARE) [facility] [id number] 1 [id number] CARE MEDICARE COMPLETE HARRISON [id number] SP [id number] HEALTHCARE (MEDICARE) Problems, Conditions, and Diagnoses Code Display Name Description Problem Effective Data Type Dates Source(s) M54.16 Radiculopathy, RADICULOPATHY, LUMBAR Problem 03/29/2020 MEDGEN (St lumbar region REGION 12:00:00 AM Ricky[facility], ) M54.16 Radiculopathy, RADICULOPATHY, LUMBAR Problem 03/29/2020 MEDGEN (St lumbar region REGION 12:00:00 AM [facility], ) M54.16 Radiculopathy, RADICULOPATHY, LUMBAR Problem 03/29/2020 MEDGEN (St lumbar region REGION 12:00:00 AM [facility], ) M54.5 Low back pain LOW BACK PAIN Problem 01/26/2020 MEDGEN ( St 12:00:00 AM [facility], ) M25.552 Pain in left hip PAIN IN LEFT HIP Problem 01/26/2020 ME DGEN (St 12:00:00 AM Ricky[facility], ) M54.5 Low back pain LOW BACK PAIN Problem 01/26/2020 MEDGEN ( St 12:00:00 AM [facility], ) M25.552 Pain in left hip PAIN IN LEFT HIP Problem 01/26/2020 ME DGEN (St 12:00:00 [facility] M54.5 Low back pain LOW BACK PAIN Problem 01/26/2020 MEDGEN ( St 12:00:00 AM [facility], ) M25.552 Pain in left hip PAIN IN LEFT HIP Problem 01/26/2020 ME DGEN (St 12:00:00 AM [facility], ) M54.5 Low back pain LOW BACK PAIN Problem 01/26/2020 MEDGEN ( St 12:00:00 AM [facility], ) M25.552 Pain in left hip PAIN IN LEFT HIP Problem 01/26/2020 ME DGEN (St 12:00:00 AM [facility], ) R05 Cough COUGH Problem 09/05/2019 MEDGEN (St 12:00:00 AM [facility], ) R05 Cough COUGH Problem 09/05/2019 MEDGEN (St 12:00:00 AM [facility], ) R05 Cough COUGH Problem 09/05/2019 MEDGEN (St 12:00:00 AM [facility], ) R05 Cough COUGH Problem 09/05/2019 MEDGEN (St 12:00:00 AM [facility], ) R63.4 Abnormal weight ABNORMAL WEIGHT LOSS Problem 06/06/2018 MEDGEN (St loss 12:00:00 AM [facility], ) G47.00 Insomnia, INSOMNIA, UNSPECIFIED Problem 06/06/2018 MED GEN (St unspecified 12:00:00 AM [facility], ) Z23 Encounter for ENCOUNTER FOR Problem 06/06/2018 MEDGEN ( St immunization IMMUNIZATION 12:00:00 AM [facility], ) R63.4 Abnormal weight ABNORMAL WEIGHT LOSS Problem 06/06/2018 MEDGEN (St loss 12:00:00 AM [facility], ) G47.00 Insomnia, INSOMNIA, UNSPECIFIED Problem 06/06/2018 MED GEN (St unspecified 12:00:00 AM [facility], ) Z23 Encounter for ENCOUNTER FOR Problem 06/06/2018 MEDGEN ( St immunization IMMUNIZATION 12:00:00 AM [facility], ) R63.4 Abnormal weight ABNORMAL WEIGHT LOSS Problem 06/06/2018 MEDGEN (St loss 12:00:00 AM [facility], ) G47.00 Insomnia, INSOMNIA, UNSPECIFIED Problem 06/06/2018 MED GEN (St unspecified 12:00:00 AM [facility], ) Z23 Encounter for ENCOUNTER FOR Problem 06/06/2018 MEDGEN ( St immunization IMMUNIZATION 12:00:00 AM [facility], ) R63.4 Abnormal weight ABNORMAL WEIGHT LOSS Problem 06/06/2018 MEDGEN (St loss 12:00:00 AM [facility], ) G47.00 Insomnia, INSOMNIA, UNSPECIFIED Problem 06/06/2018 MED GEN (St unspecified 12:00:00 AM [facility], ) Z23 Encounter for ENCOUNTER FOR Problem 06/06/2018 MEDGEN ( St immunization IMMUNIZATION 12:00:00 AM [facility], ) R94.5 Abnormal results ABNORMAL RESULTS OF Problem 11/28/2016 MEDGEN (St of liver LIVER FUNCTION STUDIES 12:00:00 AM J ohn's function studies [facility], ) D50.8 Other iron OTHER IRON DEFICIENCY Problem 11/28/2016 MED GEN (St deficiency ANEMIAS 12:00:00 AM [facility], ) R94.5 Abnormal results ABNORMAL RESULTS OF Problem 11/28/2016 MEDGEN (St of liver LIVER FUNCTION STUDIES 12:00:00 AM J ohn's function studies [facility], ) D50.8 Other iron OTHER IRON DEFICIENCY Problem 11/28/2016 MED GEN (St deficiency ANEMIAS 12:00:00 AM [facility], ) R94.5 Abnormal results ABNORMAL RESULTS OF Problem 11/28/2016 MEDGEN (St of liver LIVER FUNCTION STUDIES 12:00:00 AM J ohn's function studies [facility], ) D50.8 Other iron OTHER IRON DEFICIENCY Problem 11/28/2016 MED GEN (St deficiency ANEMIAS 12:00:00 AM [facility], ) R94.5 Abnormal results ABNORMAL RESULTS OF Problem 11/28/2016 MEDGEN (St of liver LIVER FUNCTION STUDIES 12:00:00 AM J ohn's function studies [facility], ) D50.8 Other iron OTHER IRON DEFICIENCY Problem 11/28/2016 MED GEN (St deficiency ANEMIAS 12:00:00 AM [facility] anemias [facility], ) E78.00 Pure PURE Problem 11/20/2016 MEDGEN (St hypercholesterol HYPERCHOLESTEROLEMIA 12:00:00 AM [facility], ) unspecified I49.9 Cardiac CARDIAC ARRHYTHMIA, Problem [...] (Jamaal's medications (procedure) 12:00:00 AM EDT Lisa jaquez, PC) Documentation of current 04/19/2020 MED GEN [...] OFFICE OUTPATIENT VISIT 15 02/20/2019 Lisa FISHER (Jmaaal's MINUTES 12:00:00 AM EDT Medical, ) OFFICE [...] 10/24/2018 MEDG EN (Jamaal's VENIPUNCTURE 12:00:00 AM [facility] Medical, ) OFFICE OUTPATIENT VISIT 15 10/24/2018 Lisa FISHER (Jamaal's MINUTES 12:00:00 AM [facility] Medical, ) COLLECTION VENOUS BLOOD 10/24/2018 MEDG EN (Jamaal's VENIPUNCTURE 12:00:00 AM [facility], ) Documentation of current 07/23/2018 MED GEN ([facility]al[facility] medications (procedure) [facility]PAT[facility] VISIT 15 07/23/2018 Lisa NATALIA (Jamaal's MINUTES 12:00:00 AM [facility], ) Documentation of current 07/23/2018 MED GEN (Jamaal's medications (procedure) 12:00:00 AM EST [facility], ) OFFICE OUTPATIENT VISIT 15 07/23/2018 Lisa NATALIA (Jamaal's MINUTES 12:00:00 AM [facility], ) Documentation of current 07/23/2018 MED GEN (Jamaal's medications (procedure) [facility]:00:[facility] OFF[facility] OUTPATIENT VISIT 15 07/23/2018 Lisa NATALIA ([facility]amaal's MINUTES 12:00:00 AM [facility], ) Documentation of current 07/23/2018 MED GEN (Jamaal's medications (procedure) 12:00:00 AM EST [facility], ) OFFICE OUTPATIENT VISIT 15 07/23/2018 Lisa NATALIA ([facility]amaal's MINUTES 12:00:00 AM [facility], ) Documentation of current 06/06/2018 MED GEN ([facility]IS[facility] 15 06/06/2018 Lisa NATALIA (Jamaal's MINUTES 12:00:00 AM [facility], ) INFLUENZA VACCINE 06/06/2018 MEDGEN (Jamaal's 12:00:00 AM [facility], ) IMADM PRQ ID SUBQ/IM NJXS 06/06/2018 ME DGEN (Jamaal's 1 VACCINE 12:00:00 AM [facility], ) Documentation of current 06/06/2018 MED GEN (Jamaal's medications (procedure) 12:00:00 AM EDT [facility], ) OFFICE OUTPATIENT VISIT 15 06/06/2018 Lisa EDGEN (Jamaal's MINUTES 12:00:00 AM EDT [facility], ) INFLUENZA VACCINE 06/06/2018 MEDGEN (Jamaal's 12:00:00 AM [facility], ) IMADM PRQ ID SUBQ/IM NJXS 06/06/2018 ME DGEN (Jamaal's 1 VACCINE 12:00:00 AM EDT [facility], ) Documentation of current 06/06/2018 MED GEN ([facility]amaal's medications (procedure) 12:00:00 [facility] OFFICE OUTPATIENT VISIT 15 06/06/2018 Lisa EDGEN (Jamaal's MINUTES 12:00:00 AM EDT Medical, ) INFLUENZA VACCINE 06/06/2018 MEDGEN (Jamaal's 12:00:00 AM [facility] Medical, ) IMADM PRQ ID SUBQ/IM NJXS 06/06/2018 ME DGEN (Jamaal's 1 VACCINE 12:00:00 AM [facility], ) Documentation of current 06/06/2018 MED GEN (Jamaal's medications (procedure) 12:00:00 AM EDT [facility], ) OFFICE OUTPATIENT VISIT 15 06/06/2018 Lisa CHUNGN (Jamaal's MINUTES 12:00:00 AM [facility] Medical, ) INFLUENZA VACCINE 06/06/2018 MEDGEN (Jamaal's 12:00:00 AM EDT Medical, ) IMADM PRQ ID SUBQ/IM NJXS 06/06/2018 ME DGEN (Jamaal's 1 VACCINE 12:00:00 AM [facility], ) Documentation of current 05/03/2018 MED GEN (Jamaal's medications (procedure) 12:00:00 AM EDT [facility], ) Documentation of current 05/03/2018 MED GEN (Jamaal's medications (procedure) 12:00:00 AM EDT edical, ) Documentation of current 05/03/2018 MED GEN (Jamaal's medications (procedure) 12:00:00 AM EDT [facility], ) OFFICE OUTPATIENT VISIT 15 05/03/2018 Lisa CHUNGN (Jamaal's MINUTES 12:00:00 AM [facility], ) COLLECTION VENOUS BLOOD 05/03/2018 MEDG EN [...] GEN (Jamaal's medications (procedure) 12:00:00 AM EDT [facility], ) Documentation of current 01/01/2018 MED GEN (Jamaal's medications (procedure) 12:00:00 AM EDT [facility], ) Documentation of current 01/01/2018 MED GEN [...] GEN (Jamaal's medications (procedure) 12:00:00 AM EDT [facility], ) Documentation of current 01/01/2018 MED GEN (Jamaal's medications (procedure) 12:00:00 AM EDT [facility], ) Documentation of current 01/01/2018 MED GEN (Jamaal's medications (procedure) 12:00:00 AM EDT [facility], ) Documentation of current 01/01/2018 MED GEN (Jamaal's medications (procedure) 12:00:00 AM EDT edical, ) OFFICE OUTPATIENT VISIT 25 01/01/2018 M EDGEN (Jamaal's MINUTES 12:00:00 AM T Medical, ) ECG ROUTINE ECG W/LEAST 12 01/01/2018 M EDGEN ([facility]al's LDS W/I&R 12:00:00 AM EDT Medical, ) COLLECTION VENOUS BLOOD 01/01/2018 MEDG EN (Jamaal's VENIPUNCTURE 12:00:00 AM [facility] Medical, ) Documentation of current 01/01/2018 MED GEN (Jamaal's medications (procedure) 12:00:00 AM EDT edical, ) Documentation of current 01/01/2018 MED GEN (Jamaal's medications (procedure) 12:00:00 AM EDT edical, ) Documentation of current 01/01/2018 MED GEN (Jamaal's medications (procedure) 12:00:00 AM EDT edical, ) Documentation of current 01/01/2018 MED GEN (Jamaal's medications (procedure) 12:00:00 AM EDT [facility], ) OFFICE OUTPATIENT VISIT 25 01/01/2018 Lisa [...] GEN (Jamaal's medications (procedure) 12:00:00 AM EDT [facility], ) Documentation of current 01/01/2018 MED GEN (Jamaal's medications (procedure) 12:00:00 AM EDT [facility], ) Documentation of current 01/01/2018 MED GEN (Jamaal's medications (procedure) 12:00:00 AM EDT [facility], ) OFFICE OUTPATIENT VISIT 25 01/01/2018 Lisa [...] 08/06/2017 Lisa SHELDONN (Jamaal's MINUTES 12:00:00 AM [facility] Medical, ) Documentation of current 08/06/2017 MED [...] GEN (Jamaal's medications (procedure) 12:00:00 AM EST [facility], PC) Documentation of current 07/23/2017 MED [...] 07/23/2017 M EDGEN ([facility]al's MINUTES 12:00:00 AM [facility], ) Influenza virus vaccine, 06/04/2017 MED GEN (Jamaal's split virus, when 12:00:[address] [facility]) administered to individuals 3 years of age and older, for intramuscular use (flulaval) Administration of 06/04/2017 MEDGEN ([facility]amaal's influenza virus vaccine 12:00:00 AM [facility]) OFFICE OUTPATIENT VISIT 15 06/04/2017 M EDGEN (Jamaal's MINUTES 12:00:00 AM [facility]) Influenza virus vaccine, 06/04/2017 MED GEN (Jamaal's split virus, when 12:00:[address] [facility]) administered to individuals 3 years of age and older, for intramuscular use (flulaval) Administration of 06/04/2017 MEDGEN (Jamaal's influenza virus vaccine 12:00:00 AM [facility]) OFFICE OUTPATIENT VISIT 15 06/04/2017 Lisa EDGEN (Jamaal's MINUTES 12:00:00 AM [facility]) Influenza virus vaccine, 06/04/2017 MED GEN (Jamaal's split virus, when 12:00:[address] [facility]) administered to individuals 3 years of age and older, for intramuscular use (flulaval) Administration of 06/04/2017 MEDGEN ([facility]amaal's influenza virus vaccine 12:00:00 AM [facility]) OFFICE OUTPATIENT VISIT 15 06/04/2017 Lisa EDGEN (Jamaal's MINUTES 12:00:00 AM [facility], ) Influenza virus vaccine, 06/04/2017 MED GEN (Jamaal's split virus, when 12:00:[address] [facility]) administered to individuals 3 years of age and older, for intramuscular use (flulaval) Administration of 06/04/2017 MEDGEN (Jamaal's influenza virus vaccine 12:00:00 AM [facility]) OFFICE OUTPATIENT VISIT 15 06/04/2017 M EDGEN (Jamaal's MINUTES 12:00:00 AM [facility], ) Documentation of current 03/02/2017 MED GEN (Jamaal's medications (procedure) 12:00:00 AM EDT edical, PC) Documentation of current 03/02/2017 MED GEN (Jamaal's medications (procedure) 12:00:00 AM EDT edical, PC) Documentation of current 03/02/2017 MED GEN (Jamaal's medications (procedure) 12:00:00 AM EDT edical, PC) OFFICE OUTPATIENT VISIT 15 03/02/2017 Lisa FISHER (Jamaal's MINUTES 12:00:00 AM EDT Medical, PC) Documentation of current 03/02/2017 MED GEN (Ajmaal's medications (procedure) 12:00:00 AM EDT edical, PC) [...] GEN (Jamaal's medications (procedure) 12:00:00 AM EDT [facility], ) OFFICE OUTPATIENT VISIT 15 02/02/2017 Lisa FISHER (Jamaal's MINUTES 12:00:00 AM ED Medical, ) Documentation of current 02/02/2017 MED GEN (Jamaal's medications (procedure) 12:00:00 AM EDT [facility], ) OFFICE OUTPATIENT VISIT 15 02/02/2017 Lisa NATALIA ([facility]amaal's MINUTES 12:00:00 AM [facility] Medical, ) Documentation of current 02/02/2017 MED GEN (Jamaal's medications (procedure) 12:00:00 AM EDT [facility], ) OFFICE OUTPATIENT VISIT 15 02/02/2017 Lisa FISHER (Jamaal's MINUTES 12:00:00 AM [facility] Medical, ) Documentation of current 01/12/2017 MED GEN (Jamaal's medications (procedure) 12:00:00 AM EDT [facility], ) Documentation of current 01/12/2017 MED GEN (Jamaal's medications (procedure) 12:00:00 AM EDT [facility], ) Documentation of current 01/12/2017 MED GEN (Jamaal's medications (procedure) 12:00:00 AM EDT [facility], ) OFFICE OUTPATIENT VISIT 25 01/12/2017 Lisa FISHER (Jamaal's MINUTES 12:00:00 AM ED Medical, ) COLLECTION VENOUS BLOOD 01/12/2017 MEDG EN ([facility] Documentation of current 01/12/2017 MED [...] GEN (Jamaal's medications (procedure) 12:00:00 AM EST [facility], [facility]) Documentation of current 08/16/2016 MED [...] PC) OFFICE OUTPATIENT VISIT 15 08/16/2016 Lisa CUHNGN (Jamaal's MINUTES 12:00:00 AM EST Medical, PC) [...] Medical, PC) Results ID Date Data Source [id number] 05/16/2020 10:15:00 AM EDT [facility] Name Value Range Interpretation Description Data Sup porting Code Source(s) Document(s ) SARS [facility] coronavirus 2 RNA This lab was ordered by [facility] and reported by [facility]. ID Date Data Source [id number] 04/05/2020 12:55:00 PM EDT [facility] Name Value Range Interpretation Description Data Sup porting Code Source(s) Document(s ) SARS [facility] coronavirus 2 RNA This lab was ordered by [facility] and reported by [facility]. ID Date Data Source [id number] 10/24/2018 12:00:00 AM EST [facility], ) Name Value Range Interpretation Description Data Sup porting Code Source(s) Document(s ) Vitamin D, 31.1 Normal (applies to MEDGEN (St 25-Hydroxy ng/mL non-numeric Ricky's results) Medical, PC) ID Date Data Source [id number] 10/24/2018 12:00:00 AM EST [facility]) Name Value Range Interpretation Description Data Sup porting Code Source(s) Document(s ) Vitamin B12 267 pg/mL Normal (applies to MEDGEN (S t non-numeric Ricky's results) Medical, PC) Folate 18.1 Normal (applies to MEDGEN (St (Folic ng/mL non-numeric Ricky's Acid), Serum results) Medical, ) ID Date Data Source [id number] 10/24/2018 12:00:00 AM EST MEDGEN ([facility]) Name Value Range Interpretation Description Data Sup porting Code Source(s) Document(s ) Bilirubin.c 0.08 mg/dL Normal (applies to MEDGEN ( St onjugated non-numeric Ricky's [Mass/volum results) Medical, ) e] in Serum or Plasma ID Date Data Source [id number] 10/24/2018 12:00:00 AM EST MEDGEN ([facility]) Name Value Range Interpretation Description Data Sup porting Code Source(s) Document(s ) Cholesterol 168 Normal (applies MEDGEN (St [Mass/volume] in mg/dL to non-numeric Ricky's Serum or Plasma results) [facility], ) HDL Cholesterol 29 mg/dL Below low normal MEDGEN ([facility], ) Triglyceride 151 Above high normal MEDGEN (S t [Mass/volume] in mg/dL Ricky's Serum or Plasma [facility], ) LDL Cholesterol 109 Above high normal MEDGEN (St Calc mg/dL [facility], ) VLDL Cholesterol 30 mg/dL Normal (applies MEDGEN (St Nathan to non-numeric Ricky's results) [facility], ) ID Date Data Source [id number] 10/24/2018 12:00:00 AM EST MEDGEN ([facility], ) Name Value Range Interpretation Description Data [...] results) Medical, PC) ID Date Data Source [id number] 10/24/2018 12:00:00 AM EST [facility] [...] Serum or Plasma ID Date Data Source [id number] 10/24/2018 12:00:00 AM EST [facility] ([facility], ) Name Value Range Interpretation Description Data Sup porting Code Source(s) Document(s ) Leukocytes 5.2 Normal (applies MEDGEN (St [#/volume] in x10E3/uL to non-numeric Ricky's Blood by results) Medical, ) Automated count Hemoglobin 12.9 Below low normal MEDGEN (St [Mass/volume] in g/dL Ricky's Blood [facility], ) Erythrocytes 4.08 Below low normal MEDGEN (St [#/volume] in x10E6/uL Ricky's Blood by [facility], ) Automated count MCV 96 fL Normal (applies MEDGEN (St to non-numeric Ricky's results) [facility], ) Hematocrit 39.2 % Normal (applies MEDGEN (St [Volume to non-numeric Ricky's Fraction] of results) [facility], ) Blood by Automated count MCHC 32.9 Normal (applies MEDGEN (St g/dL to non-numeric Ricky's results) [facility], ) MCH 31.6 pg Normal (applies MEDGEN (St to non-numeric Ricky's results) [facility], ) RDW 14.1 % Normal (applies MEDGEN (St to non-numeric Ricky's results) [facility], ) Platelets 191 Normal (applies MEDGEN (St [#/area] in x10E3/uL to non-numeric Ricky's Blood by results) [facility], ) Microscopy high power field Neutrophils [#] 39 % Normal (applies MEDGEN ( St in Body fluid by to non-numeric Ricky's Manual count results) [facility], ) Lymphs 47 % Normal (applies MEDGEN (St to non-numeric Ricky's results) [facility], ) Monocytes 12 % Normal (applies MEDGEN (St [#/volume] in to non-numeric Ricky's Cord blood results) [facility], ) Eos 2 % Normal (applies MEDGEN (St to non-numeric Ricky's results) [facility], ) Neutrophils 2.1 Normal (applies MEDGEN (St (Absolute) x10E3/uL to non-numeric Ricky's results) [facility], ) Basos 0 % Normal (applies MEDGEN (St to non-numeric Ricky's results) [facility], ) Monocytes(Absolu 0.6 Normal (applies MEDGEN (St te) x10E3/uL to non-numeric Ricky's results) [facility], ) Lymphs 2.5 Normal (applies MEDGEN (St (Absolute) x10E3/uL to non-numeric Ricky's results) [facility], ) Eos (Absolute) 0.1 Normal (applies [facility] (S t x10E3/uL to non-numeric Ricky's results) [facility], ) Baso (Absolute) 0.0 Normal (applies MEDGEN ( St x10E3/uL to non-numeric Ricky's results) [facility]) Immature Grans 0.0 Normal (applies [facility]GEN (S t (Abs) x10E3/uL to non-numeric Ricky's results) [facility]) Immature 0 % Normal (applies MEDGEN (St Granulocytes to non-numeric Ricky's results) [facility]) ID Date Data Source [id number] 10/24/2018 12:00:00 AM EST [facility] ([facility]) Name Value Range Interpretation Description Data Sup porting Code Source(s) Document(s ) Vitamin D, 31.1 Normal (applies to MEDGEN (St 25-Hydroxy ng/mL non-numeric Ricky's results) [facility]) ID Date Data Source [id number] 10/24/2018 12:00:00 AM EST [facility] ([facility]) Name Value Range Interpretation Description Data Sup porting Code Source(s) Document(s ) Vitamin B12 267 pg/mL Normal (applies to [facility]GEN (S t non-numeric Ricky's results) [facility]) Folate 18.1 Normal (applies to MEDGEN (St (Folic ng/mL non-numeric [facility]'s Acid), Serum results) [facility]) ID Date Data Source [id number] 10/24/2018 12:00:00 AM EST [facility] ([facility]) Name Value Range Interpretation Description Data Sup porting Code Source(s) Document(s ) Bilirubin.c 0.08 mg/dL Normal (applies to MEDGEN ( St onjugated non-numeric Ricky's [Mass/volum results) [facility]) e] in Serum or Plasma ID Date Data Source [id number] 10/24/2018 12:00:00 AM EST [facility] ([facility]) Name Value Range Interpretation Description Data Sup porting Code Source(s) Document(s ) Cholesterol 168 Normal (applies MEDGEN (St [Mass/volume] in mg/dL to non-numeric Ricky's Serum or Plasma results) [facility]) Triglyceride 151 Above high normal MEDGEN (S t [Mass/volume] in mg/dL Ricky's Serum or Plasma [facility]) HDL Cholesterol 29 mg/dL Below low normal [facility] ([facility]) LDL Cholesterol 109 Above high normal MED[facility] (St Calc mg/dL [facility]) VLDL Cholesterol 30 mg/dL Normal (applies [facility] ([facility] to non-numeric [facility] results) [facility]) ID Date Data Source [id number] 10/24/2018 12:00:00 AM EST [facility]) ID Date Data Source [id number] 10/24/2018 12:00:00 AM EST [facility] ([facility] [...] Serum or Plasma ID Date Data Source [id number] 10/24/2018 12:00:00 AM EST [facility] ([facility] [...] MEDGEN (St [Mass/volume] in g/dL [facility] Blood [facility], ) Hematocrit 39.2 % Normal (applies MEDGEN [...] by to non-numeric [facility]'s Manual count results) [facility], ) Platelets 191 Normal (applies [facility]GEN (St [#/area] in x10E3/uL to non-numeric [facility] Blood by results) [facility], ) Microscopy high power field Monocytes 12 % Normal (applies [facility]GEN (St [#/volume] in to non-numeric Ricky's Cord blood results) [facility], ) Lymphs 47 % Normal (applies [facility]GEN (St to non-numeric Ricky's results) [facility], ) Basos 0 % Normal (applies [facility]GEN (St to non-numeric Ricky's results) [facility], ) Eos 2 % Normal (applies [facility]GEN (St to non-numeric [facility]'s results) [facility], ) Neutrophils 2.1 Normal (applies [facility]GEN (St (Absolute) x10E3/uL to non-numeric [facility] results) [facility], ) Lymphs 2.5 Normal (applies [facility]GEN (St (Absolute) x10E3/uL to non-numeric Ricky's results) [facility], ) Monocytes(Absolu 0.6 Normal (applies MEDGEN (St te) x10E3/uL to non-numeric [facility] results) [facility], ) Baso (Absolute) 0.0 Normal (applies MEDGEN ( St x10E3/uL to non-numeric Ricky's results) [facility], ) Eos (Absolute) 0.1 Normal (applies [facility]GEN (S t x10E3/uL to non-numeric Ricky's results) [facility], ) Immature 0 % Normal (applies [facility]GEN (St Granulocytes to non-numeric Ricky's results) [facility], ) Immature Grans 0.0 Normal (applies [facility]GEN (S t (Abs) x10E3/uL to non-numeric [facility]'s results) [facility], ) ID Date Data Source [id number] 10/24/2018 12:00:00 AM EST [facility]) Name Value Range Interpretation Description Data Sup porting Code Source(s) Document(s ) Vitamin D, 31.1 Normal (applies to [facility] (St 25-Hydroxy ng/mL non-numeric [facility]'s results) [facility]) ID Date Data Source [id number] 10/24/2018 12:00:00 AM EST [facility]) Name Value Range Interpretation Description Data Sup porting Code Source(s) Document(s ) Vitamin B12 267 pg/mL Normal (applies to [facility] (S t non-numeric Ricky's results) [facility]) Folate 18.1 Normal (applies to MEDGEN (St (Folic ng/mL non-numeric [facility] Acid), Serum results) [facility], ) ID Date Data Source [id number] 10/24/2018 12:00:00 AM EST [facility] ([facility], ) Name Value Range Interpretation Description Data Sup porting Code Source(s) Document(s ) Bilirubin.c 0.08 mg/dL Normal (applies to MEDGEN ( St onjugated non-numeric [facility]'s [Mass/volum results) [facility], ) e] in Serum or Plasma ID Date Data Source [id number] 10/24/2018 12:00:00 AM EST [facility] ([facility], ) Name Value Range Interpretation Description Data Sup porting Code Source(s) Document(s ) Cholesterol 168 Normal (applies MEDGEN (St [Mass/volume] in mg/dL to non-numeric [facility]'s Serum or Plasma results) [facility], ) HDL Cholesterol 29 mg/dL Below low normal [facility] ([facility], ) Triglyceride 151 Above high normal MEDGEN (S t [Mass/volume] in mg/dL [facility]'s Serum or Plasma [facility], ) LDL Cholesterol 109 Above high normal MEDGEN (St Calc mg/dL [facility], ) VLDL Cholesterol 30 mg/dL Normal (applies MEDGEN (St Nathan to non-numeric Ricky's results) [facility], ) ID Date Data Source [id number] 10/24/2018 12:00:00 AM EST [facility] ([facility], ) Name Value Range Interpretation Description Data Sup porting Code Source(s) Document(s ) pH of Lower 6.5 Normal (applies MEDGEN (St respiratory to non-numeric [facility]'s specimen results) [facility], ) Specific gravity 1.017 Normal (applies [facility]GEN (St of Pericardial to non-numeric Ricky's fluid by results) [facility] ) Urine-Color Yellow Normal (applies MEDGEN (St to non-numeric [facility]'s results) [facility], ) Appearance of Clear Normal (applies MEDGEN [...] in to non-numeric [facility] Urine collected results) [facility], for unspecified PC) duration Occult Blood Negative [...] results) [facility], ) ID Date Data Source [id number] 10/24/2018 12:00:00 AM EST [facility] Name Value Range Interpretation Description Data Sup porting Code Source(s) Document(s ) Glucose 78 mg/dL Normal (applies MEDGEN (St [Mass/volume] in to non-numeric [facility]'s Urine collected for results) [facility], unspecified PC) duration Creatinine 0.89 Normal (applies [...] MEDGEN (St [Moles/volume] in mmol/L to non-numeric Rciky's Serum or Plasma results) [facility]) Potassium [...] Serum or Plasma ID Date Data Source [id number] 10/24/2018 12:00:00 AM EST [facility] Name Value Range Interpretation Description Data Sup porting Code Source(s) Document(s ) Leukocytes 5.2 Normal (applies MEDGEN (St [#/volume] in x10E3/uL to non-numeric [facility] Blood by results) [facility], ) Automated count Erythrocytes 4.08 Below low normal MEDGEN (St [#/volume] in x10E6/uL [facility], ) Automated count Hemoglobin 12.9 Below low normal MEDGEN (St [Mass/volume] in g/dL [facility], ) Hematocrit 39.2 % Normal (applies MEDGEN (St [Volume to non-numeric Ricky's Fraction] of results) [facility], ) Blood by Automated count MCH 31.6 pg Normal (applies MEDGEN (St to non-numeric Ricky's results) [facility], ) MCV 96 fL Normal (applies MEDGEN (St to non-numeric [facility]'s results) [facility], ) MCHC 32.9 Normal (applies MEDGEN (St g/dL to non-numeric Ricky's results) [facility], ) RDW 14.1 % Normal (applies MEDGEN (St to non-numeric [facility]'s results) [facility], ) Neutrophils [#] 39 % Normal (applies MEDGEN ( St in Body fluid by to non-numeric Ricky's Manual count results) [facility], ) Platelets 191 Normal (applies MEDGEN (St [#/area] in x10E3/uL to non-numeric [facility] Blood by results) [facility], ) Microscopy high power field Lymphs 47 % Normal (applies MEDGEN (St to non-numeric [facility]'s results) [facility], ) Eos 2 % Normal (applies MEDGEN (St to non-numeric [facility]'s results) [facility], ) Monocytes 12 % Normal (applies MEDGEN (St [#/volume] in to non-numeric [facility]'s Cord blood results) [facility], ) Basos 0 % Normal (applies MEDGEN (St to non-numeric [facility]'s results) [facility], ) Neutrophils 2.1 Normal (applies MEDGEN (St (Absolute) x10E3/uL to non-numeric Ricky's results) [facility], ) Lymphs 2.5 Normal (applies MEDGEN (St (Absolute) x10E3/uL to non-numeric Ricky's results) [facility], ) Monocytes(Absolu 0.6 Normal (applies MEDGEN (St te) x10E3/uL to non-numeric [facility]'s results) [facility], ) Eos (Absolute) 0.1 Normal (applies MEDGEN (S t x10E3/uL to non-numeric [facility] results) [facility], ) Baso (Absolute) 0.0 Normal (applies MEDGEN ( St x10E3/uL to non-numeric [facility] results) [facility], ) Immature Grans 0.0 Normal (applies MEDGEN (S t (Abs) x10E3/uL to non-numeric [facility] results) [facility], ) Immature 0 % Normal (applies MEDGEN (St Granulocytes to non-numeric Ricky's results) [facility], ) ID Date Data Source [id number] 10/24/2018 12:00:00 AM EST [facility] ([facility], ) Name Value Range Interpretation Description Data Sup porting Code Source(s) Document(s ) Vitamin D, 31.1 Normal (applies to MEDGEN (St 25-Hydroxy ng/mL non-numeric [facility]'s results) [facility], ) ID Date Data Source [id number] 10/24/2018 12:00:00 AM EST [facility] ([facility], ) Name Value Range Interpretation Description Data Sup porting Code Source(s) Document(s ) Vitamin B12 267 pg/mL Normal (applies to MEDGEN (S t non-numeric Ricky's results) [facility], ) Folate 18.1 Normal (applies to MEDGEN (St (Folic ng/mL non-numeric [facility]'s Acid), Serum results) [facility], ) ID Date Data Source [id number] 10/24/2018 12:00:00 AM EST [facility] ([facility]) Name Value Range Interpretation Description Data Sup porting Code Source(s) Document(s ) Bilirubin.c 0.08 mg/dL Normal (applies to MEDGEN ( St onjugated non-numeric Ricky's [Mass/volum results) [facility], ) e] in Serum or Plasma ID Date Data Source [id number] 10/24/2018 12:00:00 AM EST MEDGEN ([facility], ) Name Value Range Interpretation Description Data Sup porting Code Source(s) Document(s ) Triglyceride 151 Above high normal MEDGEN (S t [Mass/volume] in mg/dL [facility] Serum or Plasma [facility], ) Cholesterol 168 Normal (applies MEDGEN (St [Mass/volume] in mg/dL to non-numeric Ricky's Serum or Plasma results) [facility]) VLDL Cholesterol 30 mg/dL Normal (applies MED[facility] (St [facility] to non-numeric [facility] results) [facility]) HDL Cholesterol 29 mg/dL Below low normal [facility] ([facility]) LDL Cholesterol 109 Above high normal MED[facility] (St Calc mg/dL [facility], ) ID Date Data Source [id number] 10/24/2018 12:00:00 AM EST [facility] ([facility]) [facility]) ID Date Data Source [id number] 10/24/2018 12:00:00 AM EST [facility] ([facility] [...] to non-numeric Ricky's Serum or Plasma results) [facility], ) Alkaline 45 IU/L Normal (applies MEDGEN [...] Serum or Plasma ID Date Data Source [id number] 10/24/2018 12:00:00 AM EST [facility], ) Name Value Range Interpretation Description Data Sup porting Code Source(s) Document(s ) Leukocytes 5.2 Normal (applies MEDGEN (St [#/volume] in x10E3/uL to non-numeric [facility]'s Blood by results) [facility], ) Automated count Hemoglobin 12.9 Below low normal MEDGEN (St [Mass/volume] in g/dL [facility], ) Erythrocytes 4.08 Below low normal MEDGEN (St [#/volume] in x10E6/uL [facility] Blood by [facility], ) Automated count Hematocrit 39.2 % Normal (applies MEDGEN (St [Volume to non-numeric Ricky's Fraction] of results) [facility], ) Blood by Automated count MCV 96 fL Normal (applies MEDGEN (St to non-numeric Ricky's results) [facility], ) MCH 31.6 pg Normal (applies MEDGEN (St to non-numeric Ricky's results) [facility], ) MCHC 32.9 Normal (applies MEDGEN (St g/dL to non-numeric Ricky's results) [facility], ) RDW 14.1 % Normal (applies MEDGEN (St to non-numeric [facility]'s results) [facility], ) Platelets 191 Normal (applies MEDGEN (St [#/area] in x10E3/uL to non-numeric [facility]'s Blood by results) [facility], ) Microscopy high power field Lymphs 47 [...] (St (Absolute) x10E3/uL to non-numeric Ricky's results) [facility], ) Monocytes(Absolu 0.6 Normal (applies MEDGEN (St [...] MEDGEN (St Granulocytes to non-numeric Ricky's results) [facility], ) ID Date Data Source [id number] 01/01/2018 12:00:00 AM EDT [facility] ([facility], ) Name Value Range Interpretation Description Data Sup porting Code Source(s) Document(s ) Vitamin D, 36.7 Normal (applies to MEDGEN (St 25-Hydroxy ng/mL non-numeric [facility]'s results) [facility], ) ID Date Data Source [id number] 01/01/2018 12:00:00 AM EDT [facility] ([facility], ) Name Value Range Interpretation Description Data Sup porting Code Source(s) Document(s ) Prostate 1.7 ng/mL Normal (applies to MEDGEN (St Specific Ag, non-numeric Ricky's Serum results) [facility], ) ID Date Data Source [id number] 01/01/2018 12:00:00 AM EDT [facility] ([facility], ) Name Value Range Interpretation Description Data Sup porting Code Source(s) Document(s ) Vitamin B12 607 pg/mL Normal (applies to MEDGEN (S t non-numeric Ricky's results) [facility], ) Folate 13.7 Normal (applies to MEDGEN (St (Folic ng/mL non-numeric [facility]'s Acid), Serum results) [facility], ) ID Date Data Source [id number] 01/01/2018 12:00:00 AM EDT [facility] ([facility], ) Name Value Range Interpretation Description Data Sup porting Code Source(s) Document(s ) Bilirubin.c 0.08 mg/dL Normal (applies to MEDGEN ( St onjugated non-numeric Ricky's [Mass/volum results) [facility]) e] in Serum or Plasma ID Date Data Source [id number] 01/01/2018 12:00:00 AM EDT [facility] ([facility], ) Name Value Range Interpretation Description Data Sup porting Code Source(s) Document(s ) Cholesterol 159 Normal (applies MEDGEN (St [Mass/volume] in mg/dL to non-numeric Ricky's Serum or Plasma results) [facility], ) Triglyceride 77 mg/dL Normal (applies MEDGEN (St [Mass/volume] in to non-numeric Ricky's Serum or Plasma results) [facility], ) HDL Cholesterol 28 mg/dL Below low normal [facility] ([facility], ) LDL Cholesterol 116 Above high normal MEDGEN (St Calc mg/dL [facility], ) VLDL Cholesterol 15 mg/dL Normal (applies MEDGEN (St Nathan to non-numeric Ricky's results) [facility]) ID Date Data Source [id number] 01/01/2018 12:00:00 AM EDT [facility] ([facility], ) Name Value Range Interpretation Description Data Sup porting Code Source(s) Document(s ) pH of Lower 7.5 Normal (applies MEDGEN (St respiratory to non-numeric Ricky's specimen results) [facility], ) Specific gravity 1.024 Normal (applies [facility]GEN [...] results) [facility]) ID Date Data Source [id number] 01/01/2018 12:00:00 AM EDT [facility] ([facility] [...] Serum or Plasma ID Date Data Source [id number] 01/01/2018 12:00:00 AM EDT [facility] ([facility] [...] results) [facility], ) ID Date Data Source [id number] 01/01/2018 12:00:00 AM EDT [facility] ([facility], ) Name Value Range Interpretation Description Data Sup porting Code Source(s) Document(s ) Vitamin D, 36.7 Normal (applies to [facility] (St 25-Hydroxy ng/mL non-numeric [facility]'s results) [facility], ) ID Date Data Source [id number] 01/01/2018 12:00:00 AM EDT [facility] ([facility], ) Name Value Range Interpretation Description Data Sup porting Code Source(s) Document(s ) Prostate 1.7 ng/mL Normal (applies to MEDGEN (St Specific Ag, non-numeric Ricky's Serum results) [facility], ) ID Date Data Source [id number] 01/01/2018 12:00:00 AM EDT [facility] ([facility], ) Name Value Range Interpretation Description Data Sup porting Code Source(s) Document(s ) Vitamin B12 607 pg/mL Normal (applies to [facility]GEN (S t non-numeric [facility]'s results) [facility], ) Folate 13.7 Normal (applies to MEDGEN (St (Folic ng/mL non-numeric [facility] Acid), Serum results) [facility], ) ID Date Data Source [id number] 01/01/2018 12:00:00 AM EDT [facility] ([facility] ) Name Value Range Interpretation Description Data Sup porting Code Source(s) Document(s ) Bilirubin.c 0.08 mg/dL Normal (applies to MEDGEN ( St onjugated non-numeric Ricky's [Mass/volum results) [facility], ) e] in Serum or Plasma ID Date Data Source [id number] 01/01/2018 12:00:00 AM EDT [facility] ([facility]) Name Value Range Interpretation Description Data Sup porting Code Source(s) Document(s ) Cholesterol 159 Normal (applies MEDGEN (St [Mass/volume] in mg/dL to non-numeric Ricky's Serum or Plasma results) [facility], ) Triglyceride 77 mg/dL Normal (applies MED[facility] (St [Mass/volume] in to non-numeric Ricky's Serum or Plasma results) [facility], ) HDL Cholesterol 28 mg/dL Below low normal [facility] VLDL Cholesterol 15 mg/dL Normal (applies MED[facility] ([facility] to non-numeric [facility] results) [facility], ) LDL Cholesterol 116 Above high normal MEDGEN (St Calc mg/dL [facility]) ID Date Data Source [id number] 01/01/2018 12:00:00 AM EDT [facility] ([facility], ) Name Value Range Interpretation Description Data [...] results) [facility], ) ID Date Data Source [id number] 01/01/2018 12:00:00 AM EDT [facility] ([facility] [...] Serum or Plasma ID Date Data Source [id number] 01/01/2018 12:00:00 AM EDT [facility] ([facility] [...] [Volume to non-numeric Ricky's Fraction] of results) [facility], ) Blood by Automated count MCH 32.1 pg Normal (applies MEDGEN (St to non-numeric Ricky's results) [facility], ) MCV 96 fL Normal (applies MEDGEN (St to non-numeric Ricky's results) [facility], ) MCHC 33.4 Normal (applies MEDGEN (St g/dL to non-numeric Ricky's results) [facility], ) RDW 14.9 % Normal (applies MEDGEN (St to non-numeric Ricky's results) [facility], ) Neutrophils [#] 46 % Normal (applies MEDGEN ( St in Body fluid by to non-numeric Ricky's Manual count results) [facility], ) Platelets 163 Normal (applies MEDGEN (St [#/area] in x10E3/uL to non-numeric Ricky's Blood by results) [facility], ) Microscopy high power field Lymphs 42 % Normal (applies MEDGEN (St to non-numeric Ricky's results) [facility], ) Monocytes 11 % Normal (applies MEDGEN (St [#/volume] in to non-numeric Ricky's Cord blood results) [facility], ) Eos 1 % Normal (applies MEDGEN (St to non-numeric Ricky's results) [facility], ) Basos 0 % Normal (applies MEDGEN (St to non-numeric Ricky's results) [facility], ) Neutrophils 2.4 Normal (applies MEDGEN (St (Absolute) x10E3/uL to non-numeric Ricky's results) [facility], ) Lymphs 2.2 Normal (applies MEDGEN (St (Absolute) x10E3/uL to non-numeric Ricky's results) [facility], ) Monocytes(Absolu 0.6 Normal (applies MEDGEN (St te) x10E3/uL to non-numeric Ricky's results) [facility], ) Baso (Absolute) 0.0 Normal (applies MEDGEN ( St x10E3/uL to non-numeric Ricky's results) [facility], ) Eos (Absolute) 0.1 Normal (applies MEDGEN (S t x10E3/uL to non-numeric Ricky's results) [facility], ) Immature 0 % Normal (applies MEDGEN (St Granulocytes to non-numeric Ricky's results) [facility], ) Immature Grans 0.0 Normal (applies MEDGEN (S t (Abs) x10E3/uL to non-numeric Ricky's results) [facility], ) ID Date Data Source [id number] 01/01/2018 12:00:00 AM EDT [facility] ([facility], ) Name Value Range Interpretation Description Data Sup porting Code Source(s) Document(s ) Vitamin D, 36.7 Normal (applies to MED[facility] (St 25-Hydroxy ng/mL non-numeric Ricky's results) [facility], ) ID Date Data Source [id number] 01/01/2018 12:00:00 AM EDT [facility] ([facility], ) Name Value Range Interpretation Description Data Sup porting Code Source(s) Document(s ) Prostate 1.7 ng/mL Normal (applies to MEDGEN (St Specific Ag, non-numeric Ricky's Serum results) [facility], ) ID Date Data Source [id number] 01/01/2018 12:00:00 AM EDT [facility] ([facility], ) Name Value Range Interpretation Description Data Sup porting Code Source(s) Document(s ) Vitamin B12 607 pg/mL Normal (applies to MEDGEN (S t non-numeric Ricky's results) [facility], ) Folate 13.7 Normal (applies to MEDGEN (St (Folic ng/mL non-numeric Ricky's Acid), Serum results) [facility], ) ID Date Data Source [id number] 01/01/2018 12:00:00 AM EDT [facility] ( [facility], ) Name Value Range Interpretation Description Data Sup porting Code Source(s) Document(s ) Bilirubin.c 0.08 mg/dL Normal (applies to MED[facility] ( St onjugated non-numeric Ricky's [Mass/volum results) [facility], ) e] in Serum or Plasma ID Date Data Source [id number] 01/01/2018 12:00:00 AM EDT [facility], ) Name Value Range Interpretation Description Data [...] Above high normal MED[facility] (St Calc mg/dL [facility], ) ID Date Data Source [id number] 01/01/2018 12:00:00 AM EDT [facility] ([facility], ) Name Value Range Interpretation Description Data [...] results) [facility]) ID Date Data Source [id number] 01/01/2018 12:00:00 AM EDT [facility] ([facility] [...] to non-numeric Ricky's Urine collected for results) [facility], unspecified ) duration A/G Ratio 1.4 Normal [...] Serum or Plasma ID Date Data Source [id number] 01/01/2018 12:00:00 AM EDT [facility] ([facility] [...] MEDGEN (St g/dL to non-numeric Ricky's results) [facility], ) Platelets 163 Normal (applies MEDGEN (St [#/area] in x10E3/uL to non-numeric Ricky's Blood by results) [facility], ) Microscopy high power field Neutrophils [#] 46 % Normal (applies MEDGEN ( St in Body fluid by to non-numeric Ricky's Manual count results) [facility], ) Lymphs 42 % Normal (applies MEDGEN (St to non-numeric Ricky's results) [facility], ) Monocytes 11 % Normal (applies MEDGEN (St [#/volume] in to non-numeric Ricky's Cord blood results) [facility], ) Basos 0 % Normal (applies MEDGEN (St to non-numeric Ricky's results) [facility], ) Eos 1 % Normal (applies MEDGEN (St to non-numeric Ricky's results) [facility], ) Lymphs 2.2 Normal (applies MEDGEN (St (Absolute) x10E3/uL to non-numeric Ricky's results) [facility], ) Neutrophils 2.4 Normal (applies MEDGEN (St (Absolute) x10E3/uL to non-numeric Ricky's results) [facility], ) Monocytes(Absolu 0.6 Normal (applies MEDGEN (St te) x10E3/uL to non-numeric Ricky's results) [facility], ) Eos (Absolute) 0.1 Normal (applies MEDGEN (S t x10E3/uL to non-numeric Ricky's results) [facility], ) Baso (Absolute) 0.0 Normal (applies MEDGEN ( St x10E3/uL to non-numeric Ricky's results) [facility], ) Immature 0 % Normal (applies MEDGEN (St Granulocytes to non-numeric Ricky's results) [facility], ) Immature Grans 0.0 Normal (applies MEDGEN (S t (Abs) x10E3/uL to non-numeric Ricky's results) [facility], ) ID Date Data Source [id number] 01/01/2018 12:00:00 AM EDT [facility] ([facility] ) Name Value Range Interpretation Description Data Sup porting Code Source(s) Document(s ) Vitamin D, 36.7 Normal (applies to MEDGEN (St 25-Hydroxy ng/mL non-numeric Ricky's results) [facility], ) ID Date Data Source [id number] 01/01/2018 12:00:00 AM EDT [facility] ) Name Value Range Interpretation Description Data Sup porting Code Source(s) Document(s ) Prostate 1.7 ng/mL Normal (applies to MEDGEN (St Specific Ag, non-numeric Ricky's Serum results) [facility], ) ID Date Data Source [id number] 01/01/2018 12:00:00 AM EDT MED[facility] ([facility], ) Name Value Range Interpretation Description Data Sup porting Code Source(s) Document(s ) Folate 13.7 Normal (applies to MEDGEN (St (Folic ng/mL non-numeric Ricky's Acid), Serum results) [facility], ) Vitamin B12 607 pg/mL Normal (applies to MEDGEN (S t non-numeric Ricky's results) [facility], ) ID Date Data Source [id number] 01/01/2018 12:00:00 AM EDT [facility] ([facility], ) Name Value Range Interpretation Description Data Sup porting Code Source(s) Document(s ) Bilirubin.c 0.08 mg/dL Normal (applies to MEDGEN ( St onjugated non-numeric Ricky's [Mass/volum results) [facility], ) e] in Serum or Plasma ID Date Data Source [id number] 01/01/2018 12:00:00 AM EDT [facility] ([facility], ) Name Value Range Interpretation Description Data Sup porting Code Source(s) Document(s ) Triglyceride 77 mg/dL Normal (applies MEDGEN (St [Mass/volume] in to non-numeric Ricky's Serum or Plasma results) [facility], ) Cholesterol 159 Normal (applies MEDGEN (St [Mass/volume] in mg/dL to non-numeric Ricky's Serum or Plasma results) [facility], ) HDL Cholesterol 28 mg/dL Below low normal [facility] ([facility], ) LDL Cholesterol 116 Above high normal MEDGEN (St Calc mg/dL [facility], ) VLDL Cholesterol 15 mg/dL Normal (applies MEDGEN (St Nathan to non-numeric Ricky's results) [facility], ) ID Date Data Source [id number] 01/01/2018 12:00:00 AM EDT [facility] ([facility] Name Value Range Interpretation Description Data [...] results) [facility], [facility]) ID Date Data Source [id number] 01/01/2018 12:00:00 AM EDT [facility] ([facility] [...] Serum or Plasma ID Date Data Source [id number] 01/01/2018 12:00:00 AM EDT [facility] ([facility] [...] MEDGEN (St Granulocytes to non-numeric Ricky's results) [facility], ) Baso (Absolute) 0.0 Normal (applies MEDGEN ( St x10E3/uL to non-numeric Ricky's results) [facility], ) Immature Grans 0.0 Normal (applies MEDGEN (S t (Abs) x10E3/uL to non-numeric Ricky's results) [facility], ) ID Date Data Source [id number] 01/12/2017 12:00:00 AM EDT [facility] ([facility], ) Name Value Range Interpretation Description Data Sup porting Code Source(s) Document(s ) Bilirubin.c 0.08 mg/dL Normal (applies to MEDGEN ( St onjugated non-numeric Ricky's [Mass/volum results) [facility], ) e] in Serum or Plasma ID Date Data Source [id number] 01/12/2017 12:00:00 AM EDT [facility] ([facility] ) Name Value Range Interpretation Description Data Sup porting Code Source(s) Document(s ) Glucose, Serum 87 mg/dL Normal (applies MEDGEN (S t to non-numeric Ricky's results) Medical, ) Creatinine, Serum 0.79 Normal (applies MEDGEN (St mg/dL to non-numeric Ricky's results) [facility], ) Urea nitrogen 22 mg/dL Normal (applies [...] Serum or Plasma ID Date Data Source [id number] 01/12/2017 12:00:00 AM EDT [facility] ([facility], ) Name Value Range Interpretation Description Data [...] 16.8 % Above high normal [facility] ([facility], ) Neutrophils [#] 47 % Normal (applies [...] (St (Absolute) x10E3/uL to non-numeric Ricky's results) [facility], ) Eos (Absolute) 0.1 Normal (applies MEDGEN (S t x10E3/uL to non-numeric Ricky's results) [facility], ) Monocytes(Absolu 0.7 Normal (applies MEDGEN (St te) x10E3/uL to non-numeric Ricky's results) [facility], ) Baso (Absolute) 0.0 Normal (applies MEDGEN ( St x10E3/uL to non-numeric Ricky's results) [facility], ) Immature 0 % Normal (applies MEDGEN (St Granulocytes to non-numeric Ricky's results) [facility], ) Immature Grans 0.0 Normal (applies MEDGEN (S t (Abs) x10E3/uL to non-numeric Ricky's results) [facility], ) ID Date Data Source [id number] 01/12/2017 12:00:00 AM EDT [facility] ([facility], ) Name Value Range Interpretation Description Data Sup porting Code Source(s) Document(s ) Bilirubin.c 0.08 mg/dL Normal (applies to MEDGEN ( St onjugated non-numeric Ricky's [Mass/volum results) [facility], ) e] in Serum or Plasma ID Date Data Source [id number] 01/12/2017 12:00:00 AM EDT [facility] ([facility], ) Name Value Range Interpretation Description Data Sup porting Code Source(s) Document(s ) Glucose, Serum 87 mg/dL Normal (applies MEDGEN (S t to non-numeric Ricky's results) [facility], ) Creatinine, Serum 0.79 Normal (applies MEDGEN (St mg/dL to non-numeric Ricky's results) [facility], ) Urea nitrogen 22 mg/dL Normal (applies MEDGEN (St [Mass/volume] in to non-numeric Ricky's Serum or Plasma results) [facility], ) eGFR If NonAfricn 92 Normal (applies MEDGEN (St Am mL/min/1 to non-numeric Ricky's .73 results) [facility], ) eGFR If Africn Am 107 Normal (applies MEDGEN (St mL/min/1 to non-numeric Ricky's .73 results) [facility], ) BUN/Creatinine 28 Above high MEDGEN (St Ratio normal [facility], ) Sodium 141 Normal (applies MEDGEN (St [Moles/volume] in mmol/L to non-numeric Ricky's Serum or Plasma results) Medical, ) Potassium, Serum 4.3 Normal (applies MEDGEN (St mmol/L to non-numeric Ricky's results) [facility], ) Carbon dioxide, 24 Normal (applies MEDGEN ( St total mmol/L to non-numeric Ricky's [Moles/volume] in results) Medical, Serum or Plasma PC) Chloride 104 Normal (applies MEDGEN (St [Moles/volume] in mmol/L to non-numeric Ricky's Serum or Plasma results) [facility], ) Protein 6.9 g/dL Normal (applies MEDGEN (St [Mass/volume] in to non-numeric Ricky's Serum or Plasma results) [facility], ) Calcium, Serum 8.6 Normal (applies MEDGEN (S t mg/dL to non-numeric Ricky's results) [facility], ) Albumin, Serum 4.0 g/dL Normal (applies MEDGEN (S t to non-numeric Ricky's results) [facility], ) A/G Ratio 1.4 Normal (applies MEDGEN (St to non-numeric Ricky's results) [facility], ) Globulin, Total 2.9 g/dL Normal (applies MEDGEN ( St to non-numeric Ricky's results) [facility], ) Bilirubin.total 0.3 Normal (applies MEDGEN ( St [Mass/volume] in mg/dL to non-numeric Ricky's Serum or Plasma results) [facility], ) Alkaline 49 IU/L Normal (applies MEDGEN (St Phosphatase, S to non-numeric Ricky's results) [facility], ) Alanine 19 IU/L Normal (applies MEDGEN (St aminotransferase to non-numeric Ricky's [Enzymatic results) Medical, activity/volume] in ) Serum or Plasma Aspartate 20 IU/L Normal (applies MEDGEN (St aminotransferase to non-numeric Ricky's [Enzymatic results) Medical, activity/volume] in ) Serum or Plasma ID Date Data Source [id number] 01/12/2017 12:00:00 AM EDT [facility] Name Value Range Interpretation Description Data Sup porting Code Source(s) Document(s ) Leukocytes 6.6 Normal (applies MEDGEN (St [#/volume] in x10E3/uL to non-numeric Ricky's Blood by results) [facility], ) Automated count Erythrocytes 3.88 Below low normal MEDGEN (St [#/volume] in x10E6/uL Ricky's Blood by [facility], ) Automated count Hematocrit 37.2 % Below low normal MEDGEN (St [Volume Ricky's Fraction] of [facility], ) Blood by Automated count Hemoglobin 12.2 Below low normal MEDGEN (St [Mass/volume] in g/dL Ricky's Blood [facility], ) MCV 96 fL Normal (applies MEDGEN (St to non-numeric Ricky's results) [facility], ) MCHC 32.8 Normal (applies MEDGEN (St g/dL to non-numeric Ricky's results) [facility]) MCH 31.4 pg Normal (applies MEDGEN (St to non-numeric Ricky's results) [facility]) RDW 16.8 % Above high normal [facility] ([facility], ) Neutrophils [#] 47 % Normal (applies MEDGEN ( St in Body fluid by to non-numeric Ricky's Manual count results) [facility], ) Platelets 171 Normal (applies MEDGEN (St [#/area] in x10E3/uL to non-numeric Ricky's Blood by results) [facility], ) Microscopy high power field Lymphs 41 % Normal (applies MEDGEN (St to non-numeric Ricky's results) [facility]) Monocytes 11 % Normal (applies MEDGEN (St [#/volume] in to non-numeric Ricky's Cord blood results) [facility], ) Eos 1 % Normal (applies MEDGEN (St to non-numeric Ricky's results) [facility], ) Basos 0 % Normal (applies MEDGEN (St to non-numeric Ricky's results) [facility]) Neutrophils 3.1 Normal (applies MEDGEN (St (Absolute) x10E3/uL to non-numeric Ricky's results) [facility]) Lymphs 2.7 Normal (applies MEDGEN (St (Absolute) x10E3/uL to non-numeric Ricky's results) [facility]) Monocytes(Absolu 0.7 Normal (applies MEDGEN (St te) x10E3/uL to non-numeric Ricky's results) [facility], ) Eos (Absolute) 0.1 Normal (applies MEDGEN (S t x10E3/uL to non-numeric Ricky's results) [facility], ) Baso (Absolute) 0.0 Normal (applies MEDGEN ( St x10E3/uL to non-numeric Ricky's results) [facility], ) Immature Grans 0.0 Normal (applies MEDGEN (S t (Abs) x10E3/uL to non-numeric Ricky's results) [facility], ) Immature 0 % Normal (applies MEDGEN (St Granulocytes to non-numeric Ricky's results) [facility], ) ID Date Data Source [id number] 01/12/2017 12:00:00 AM EDT [facility] ([facility], ) Name Value Range Interpretation Description Data Sup porting Code Source(s) Document(s ) Bilirubin.c 0.08 mg/dL Normal (applies to MEDGEN ( St onjugated non-numeric Ricky's [Mass/volum results) [facility], ) e] in Serum or Plasma ID Date Data Source [id number] 01/12/2017 12:00:00 AM EDT [facility] ([facility], ) Name Value Range Interpretation Description Data Sup porting Code Source(s) Document(s ) Glucose, Serum 87 mg/dL Normal (applies MEDGEN (S t to non-numeric Ricky's results) [facility], ) Urea nitrogen 22 mg/dL Normal (applies MEDGEN (St [Mass/volume] in to non-numeric Ricky's Serum or Plasma results) [facility], ) eGFR If NonAfricn 92 Normal (applies MEDGEN (St Am mL/min/1 to non-numeric Ricky's .73 results) [facility], ) Creatinine, Serum 0.79 Normal (applies MEDGEN (St mg/dL to non-numeric Ricky's results) [facility], ) eGFR If Africn Am 107 Normal (applies MEDGEN (St mL/min/1 to non-numeric Ricky's .73 results) Medical, ) Sodium 141 Normal (applies MEDGEN (St [Moles/volume] in mmol/L to non-numeric Ricky's Serum or Plasma results) [facility], ) BUN/Creatinine 28 Above high MEDGEN (St Ratio normal Ricky's [facility], ) Potassium, Serum 4.3 Normal (applies MEDGEN (St mmol/L to non-numeric Ricky's results) [facility], ) Chloride 104 Normal (applies MEDGEN (St [Moles/volume] in mmol/L to non-numeric Ricky's Serum or Plasma results) [facility], ) Carbon dioxide, 24 Normal (applies MEDGEN ( St total mmol/L to non-numeric Ricky's [Moles/volume] in results) Medical, Serum or Plasma PC) Calcium, Serum 8.6 Normal (applies MEDGEN (S t mg/dL to non-numeric Ricky's results) [facility], ) Protein 6.9 g/dL Normal (applies MEDGEN (St [Mass/volume] in to non-numeric Ricky's Serum or Plasma results) [facility], ) Albumin, Serum 4.0 g/dL Normal (applies MEDGEN (S t to non-numeric Ricky's results) [facility], ) Globulin, Total 2.9 g/dL Normal (applies MEDGEN ( St to non-numeric Ricky's results) [facility], ) Bilirubin.total 0.3 Normal (applies MEDGEN ( St [Mass/volume] in mg/dL to non-numeric Ricky's Serum or Plasma results) [facility], ) A/G Ratio 1.4 Normal (applies MEDGEN (St to non-numeric Ricky's results) [facility], ) Alkaline 49 IU/L Normal (applies MEDGEN (St Phosphatase, S to non-numeric Ricky's results) [facility], ) Aspartate 20 IU/L Normal (applies MEDGEN (St aminotransferase to non-numeric Ricky's [Enzymatic results) Medical, activity/volume] in PC) Serum or Plasma Alanine 19 IU/L Normal (applies MEDGEN (St aminotransferase to non-numeric Ricky's [Enzymatic results) Medical, activity/volume] in ) Serum or Plasma ID Date Data Source [id number] 01/12/2017 12:00:00 AM EDT [facility] Name Value Range Interpretation Description Data Sup porting Code Source(s) Document(s ) Leukocytes 6.6 Normal (applies MEDGEN (St [#/volume] in x10E3/uL to non-numeric Ricky's Blood by results) [facility], ) Automated count Erythrocytes 3.88 Below low normal MEDGEN (St [#/volume] in x10E6/uL Ricky's Blood by [facility], ) Automated count Hemoglobin 12.2 Below low normal MEDGEN (St [Mass/volume] in g/dL Ricky's Blood [facility], ) Hematocrit 37.2 % Below low normal MEDGEN (St [Volume Ricky's Fraction] of [facility], ) Blood by Automated count MCV 96 fL Normal (applies MEDGEN (St to non-numeric Ricky's results) [facility], ) MCH 31.4 pg Normal (applies MEDGEN (St to non-numeric Ricky's results) [facility], ) MCHC 32.8 Normal (applies MEDGEN (St g/dL to non-numeric Ricky's results) [facility], ) RDW 16.8 % Above high normal [facility] ([facility], ) Platelets 171 Normal (applies MEDGEN (St [#/area] in x10E3/uL to non-numeric Ricky's Blood by results) [facility], ) Microscopy high power field Neutrophils [#] 47 % Normal (applies MEDGEN ( St in Body fluid by to non-numeric Ricky's Manual count results) [facility], ) Monocytes 11 % Normal (applies MEDGEN (St [#/volume] in to non-numeric Ricky's Cord blood results) [facility], ) Lymphs 41 % Normal (applies MEDGEN (St to non-numeric Ricky's results) [facility], ) Eos 1 % Normal (applies MEDGEN (St to non-numeric Ricky's results) [facility], ) Basos 0 % Normal (applies MEDGEN (St to non-numeric Ricky's results) [facility], ) Neutrophils 3.1 Normal (applies MEDGEN (St (Absolute) x10E3/uL to non-numeric Ricky's results) [facility], ) Lymphs 2.7 Normal (applies MEDGEN (St (Absolute) x10E3/uL to non-numeric Ricky's results) [facility], ) Eos (Absolute) 0.1 Normal (applies MEDGEN (S t x10E3/uL to non-numeric Ricky's results) [facility], ) Monocytes(Absolu 0.7 Normal (applies MEDGEN (St te) x10E3/uL to non-numeric Ricky's results) [facility], ) Immature 0 % Normal (applies MEDGEN (St Granulocytes to non-numeric Ricky's results) [facility], ) Baso (Absolute) 0.0 Normal (applies MEDGEN ( St x10E3/uL to non-numeric Ricky's results) [facility], ) Immature Grans 0.0 Normal (applies MEDGEN (S t (Abs) x10E3/uL to non-numeric Ricky's results) [facility], ) ID Date Data Source [id number] 01/12/2017 12:00:00 AM EDT [facility] ([facility], ) Name Value Range Interpretation Description Data Sup porting Code Source(s) Document(s ) Bilirubin.c 0.08 mg/dL Normal (applies to MEDGEN ( St onjugated non-numeric Ricky's [Mass/volum results) Medical, ) e] in Serum or Plasma ID Date Data Source [id number] 01/12/2017 12:00:00 AM EDT [facility] ([facility], ) Name Value Range Interpretation Description Data [...] to non-numeric Ricky's Serum or Plasma results) [facility], ) Albumin, Serum 4.0 g/dL Normal (applies MEDGEN (S t to non-numeric Ricky's results) [facility], ) Globulin, Total 2.9 g/dL Normal (applies MEDGEN ( St to non-numeric Ricky's results) [facility], ) A/G Ratio 1.4 Normal (applies MEDGEN (St to non-numeric Ricky's results) [facility], ) Bilirubin.total 0.3 Normal (applies MEDGEN ( St [Mass/volume] in mg/dL to non-numeric Ricky's Serum or Plasma results) [facility], ) Alkaline 49 IU/L Normal (applies MEDGEN (St Phosphatase, S to non-numeric Ircky's results) [facility], ) Aspartate 20 IU/L Normal (applies MEDGEN (St aminotransferase to non-numeric Ricky's [Enzymatic results) Medical, activity/volume] in ) Serum or Plasma Alanine 19 IU/L Normal (applies MEDGEN (St aminotransferase to non-numeric Ricky's [Enzymatic results) Medical, activity/volume] in ) Serum or Plasma ID Date Data Source [id number] 01/12/2017 12:00:00 AM EDT [facility] ([facility], ) Name Value Range Interpretation Description Data Sup porting Code Source(s) Document(s ) Leukocytes 6.6 Normal (applies MEDGEN (St [#/volume] in x10E3/uL to non-numeric Ricky's Blood by results) [facility], ) Automated count Hemoglobin 12.2 Below low normal MEDGEN (St [Mass/volume] in g/dL Ricky's Blood [facility], ) Erythrocytes 3.88 Below low normal MEDGEN (St [#/volume] in x10E6/uL Ricky's Blood by [facility], ) Automated count Hematocrit 37.2 % Below low normal MEDGEN (St [Volume Ricky's Fraction] of [facility], ) Blood by Automated count MCV 96 fL Normal (applies MEDGEN (St to non-numeric Ricky's results) [facility], ) MCH 31.4 pg Normal (applies MEDGEN (St to non-numeric Ricky's results) [facility], ) MCHC 32.8 Normal (applies MEDGEN (St g/dL to non-numeric Ricky's results) [facility], ) RDW 16.8 % Above high normal [facility] ([facility], ) Platelets 171 Normal (applies MEDGEN (St [#/area] in x10E3/uL to non-numeric Ricky's Blood by results) [facility], ) Microscopy high power field Lymphs 41 % Normal (applies MEDGEN (St to non-numeric Ricky's results) [facility], ) Neutrophils [#] 47 % Normal (applies MEDGEN ( St in Body fluid by to non-numeric Ricky's Manual count results) [facility], ) Monocytes 11 % Normal (applies MEDGEN (St [#/volume] in to non-numeric Ricky's Cord blood results) [facility], ) Eos 1 % Normal (applies MEDGEN (St to non-numeric Ricky's results) [facility], ) Basos 0 % Normal (applies MEDGEN (St to non-numeric Ricky's results) [facility], ) Neutrophils 3.1 Normal (applies MEDGEN (St (Absolute) x10E3/uL to non-numeric Ricky's results) [facility], ) Lymphs 2.7 Normal (applies MEDGEN (St (Absolute) x10E3/uL to non-numeric Ricky's results) [facility], ) Monocytes(Absolu 0.7 Normal (applies MEDGEN (St te) x10E3/uL to non-numeric Ricky's results) [facility], ) Baso (Absolute) 0.0 Normal (applies MEDGEN ( St x10E3/uL to non-numeric Ricky's results) [facility], ) Eos (Absolute) 0.1 Normal (applies MEDGEN (S t x10E3/uL to non-numeric Ricky's results) [facility], ) Immature 0 % Normal (applies MEDGEN (St Granulocytes to non-numeric Ricky's results) [facility], ) Immature Grans 0.0 Normal (applies MEDGEN (S t (Abs) x10E3/uL to non-numeric Ricky's results) [facility], ) ID Date Data Source [id number] 11/20/2016 12:00:00 AM EDT [facility] ([facility], ) Name Value Range Interpretation Description Data Sup porting Code Source(s) Document(s ) Hemoglobin 5.9 % Above high normal MEDGEN (St A1c/Hemoglobin. Ricky's total in Blood [facility], ) ID Date Data Source [id number] 11/20/2016 12:00:00 AM EDT [facility] ([facility], ) Name Value Range Interpretation Description Data Sup porting Code Source(s) Document(s ) Protein 6.6 g/dL Normal (applies MEDGEN (St [Mass/volume] in to non-numeric Rikcy's Serum or Plasma results) [facility], ) Albumin, Serum 3.4 g/dL Below low normal MED[facility] ( [facility], ) Bilirubin.total 0.5 Normal (applies MEDGEN ( St [Mass/volume] in mg/dL to non-numeric Ricky's Serum or Plasma results) [facility], ) Bilirubin.conjugate 0.17 Normal (applies MEDG EN (St d [Mass/volume] in mg/dL to non-numeric Ricky's Serum or Plasma results) [facility], ) Aspartate 109 IU/L Above high MEDGEN (St aminotransferase normal Ricky's [Enzymatic Medical, activity/volume] in ) Serum or Plasma Alkaline 82 IU/L Normal (applies MEDGEN (St Phosphatase, S to non-numeric Ricky's results) [facility], ) Alanine 157 IU/L Above high MEDGEN (St aminotransferase normal Ricky's [Enzymatic Medical, activity/volume] in ) Serum or Plasma ID Date Data Source [id number] 11/20/2016 12:00:00 AM EDT [facility] ([facility], ) Name Value Range Interpretation Description Data Sup porting Code Source(s) Document(s ) Triglyceride 48 mg/dL Normal (applies MEDGEN (St [Mass/volume] in to non-numeric Ricky's Serum or Plasma results) [facility], ) Cholesterol 77 mg/dL Below low normal MEDGEN (St [Mass/volume] in Ricky's Serum or Plasma [facility], ) VLDL Cholesterol 10 mg/dL Normal (applies MEDGEN (St Nathan to non-numeric Ricky's results) [facility], ) HDL Cholesterol 16 mg/dL Below low normal [facility] ([facility], ) LDL Cholesterol 51 mg/dL Normal (applies MEDGEN ( St Calc to non-numeric Ricky's results) [facility], ) ID Date Data Source [id number] 11/20/2016 12:00:00 AM EDT [facility] ([facility], ) Name Value Range Interpretation Description Data Sup porting Code Source(s) Document(s ) Leukocytes 6.7 Normal (applies MEDGEN (St [#/volume] in x10E3/uL to non-numeric Ricky's Blood by results) [facility], ) Automated count Erythrocytes 3.07 Below low normal MEDGEN (St [#/volume] in x10E6/uL Ricky's Blood by [facility], ) Automated count Hemoglobin 10.0 Below low normal MEDGEN (St [Mass/volume] in g/dL Ricky's Blood [facility], ) MCV 94 fL Normal (applies MEDGEN (St to non-numeric Ricky's results) [facility], ) Hematocrit 28.8 % Below low normal MEDGEN (St [Volume Ricky's Fraction] of [facility], ) Blood by Automated count MCHC 34.7 Normal (applies MEDGEN (St g/dL to non-numeric Ricky's results) [facility], ) MCH 32.6 pg Normal (applies MEDGEN (St to non-numeric Ricky's results) [facility], ) RDW 13.8 % Normal (applies MEDGEN (St to non-numeric Ricky's results) [facility], ) Platelets 223 Normal (applies MEDGEN (St [#/area] in x10E3/uL to non-numeric Ricky's Blood by results) [facility], ) Microscopy high power field Neutrophils [#] 64 % Normal (applies MEDGEN ( St in Body fluid by to non-numeric Ricky's Manual count results) [facility], ) Lymphs 26 % Normal (applies MEDGEN (St to non-numeric Ricky's results) [facility], ) Eos 2 % Normal (applies MEDGEN (St to non-numeric Ricky's results) [facility], ) Monocytes 8 % Normal (applies MEDGEN (St [#/volume] in to non-numeric Ricky's Cord blood results) [facility], ) Neutrophils 4.3 Normal (applies MEDGEN (St (Absolute) x10E3/uL to non-numeric Ricky's results) [facility]) Basos 0 % Normal (applies MEDGEN (St to non-numeric Ricky's results) [facility]) Lymphs 1.7 Normal (applies MEDGEN (St (Absolute) x10E3/uL to non-numeric Ricky's results) [facility], ) Monocytes(Absolu 0.6 Normal (applies MEDGEN (St te) x10E3/uL to non-numeric Ricky's results) [facility], ) Eos (Absolute) 0.1 Normal (applies MEDGEN (S t x10E3/uL to non-numeric Ricky's results) [facility], ) Baso (Absolute) 0.0 Normal (applies MEDGEN ( St x10E3/uL to non-numeric Ricky's results) [facility], ) Immature Grans 0.0 Normal (applies MEDGEN (S t (Abs) x10E3/uL to non-numeric Rciky's results) [facility], ) Immature 0 % Normal (applies MEDGEN (St Granulocytes to non-numeric Ricky's results) [facility], ) ID Date Data Source [id number] 11/20/2016 12:00:00 AM EDT MED[facility] ([facility]) Name Value Range Interpretation Description Data Sup porting Code Source(s) Document(s ) Hemoglobin 5.9 % Above high normal MEDGEN (St A1c/Hemoglobin. Ricky's total in Blood [facility], ) ID Date Data Source [id number] 11/20/2016 12:00:00 AM EDT MEDGEN ([facility]) Name Value Range Interpretation Description Data Sup porting Code Source(s) Document(s ) Protein 6.6 g/dL Normal (applies MEDGEN (St [Mass/volume] in to non-numeric Ricky's Serum or Plasma results) [facility], ) Albumin, Serum 3.4 g/dL Below low normal [facility] ( [facility]) Bilirubin.total 0.5 Normal (applies MEDGEN ( St [Mass/volume] in mg/dL to non-numeric Ricky's Serum or Plasma results) [facility], ) Bilirubin.conjugate 0.17 Normal (applies MEDG EN (St d [Mass/volume] in mg/dL to non-numeric Ricky's Serum or Plasma results) [facility], ) Alkaline 82 IU/L Normal (applies MEDGEN (St Phosphatase, S to non-numeric Ricky's results) [facility]) Aspartate 109 IU/L Above high MEDGEN (St aminotransferase normal Ricky's [Enzymatic Medical, activity/volume] in ) Serum or Plasma Alanine 157 IU/L Above high MEDGEN (St aminotransferase normal Ricky's [Enzymatic Medical, activity/volume] in ) Serum or Plasma ID Date Data Source [id number] 11/20/2016 12:00:00 AM EDT [facility] ([facility], ) Name Value Range Interpretation Description Data Sup porting Code Source(s) Document(s ) Cholesterol 77 mg/dL Below low normal MEDGEN (St [Mass/volume] in Ricky's Serum or Plasma [facility], ) Triglyceride 48 mg/dL Normal (applies MEDGEN (St [Mass/volume] in to non-numeric Ricky's Serum or Plasma results) [facility], ) HDL Cholesterol 16 mg/dL Below low normal [facility] ([facility], ) VLDL Cholesterol 10 mg/dL Normal (applies MEDGEN (St Nathan to non-numeric Ricky's results) [facility], ) LDL Cholesterol 51 mg/dL Normal (applies MEDGEN ( St Calc to non-numeric Ricky's results) [facility], ) ID Date Data Source [id number] 11/20/2016 12:00:00 AM EDT [facility] ( [facility], ) Name Value Range Interpretation Description Data Sup porting Code Source(s) Document(s ) Leukocytes 6.7 Normal (applies MEDGEN (St [#/volume] in x10E3/uL to non-numeric [facility]'s Blood by results) [facility], ) Automated count Erythrocytes 3.07 Below low normal MEDGEN (St [#/volume] in x10E6/uL Ricky[facility] Blood by [facility], ) Automated count Hemoglobin 10.0 Below low normal [facility] (St [Mass/volume] in g/dL Ricky[facility] Blood [facility], ) Hematocrit 28.8 % Below low normal MEDGEN (St [Volume Ricky's Fraction] of [facility], ) Blood by Automated count MCH 32.6 pg Normal (applies MEDGEN (St to non-numeric Ricky's results) [facility], ) MCV 94 fL Normal (applies MEDGEN (St to non-numeric Ricky's results) [facility], ) MCHC 34.7 Normal (applies MEDGEN (St g/dL to non-numeric Ricky's results) [facility], ) Platelets 223 Normal (applies MEDGEN (St [#/area] in x10E3/uL to non-numeric Ricky[facility] Blood by results) [facility], ) Microscopy high power field RDW 13.8 % Normal (applies MEDGEN (St to non-numeric Ricky's results) [facility], ) Neutrophils [#] 64 % Normal (applies MEDGEN ( St in Body fluid by to non-numeric Ricky's Manual count results) [facility], ) Lymphs 26 % Normal (applies [facility]GEN (St to non-numeric Ricky's results) [facility], ) Monocytes 8 % Normal (applies MEDGEN (St [#/volume] in to non-numeric Ricky's Cord blood results) [facility], ) Eos 2 % Normal (applies MEDGEN (St to non-numeric Ricky's results) [facility], ) Basos 0 % Normal (applies [facility]GEN (St to non-numeric Ricky's results) [facility], ) Neutrophils 4.3 Normal (applies [facility]GEN (St (Absolute) x10E3/uL to non-numeric Ricky's results) [facility], ) Lymphs 1.7 Normal (applies [facility]GEN (St (Absolute) x10E3/uL to non-numeric Ricky's results) [facility], ) Monocytes(Absolu 0.6 Normal (applies [facility]GEN (St te) x10E3/uL to non-numeric Ricky's results) [facility], ) Eos (Absolute) 0.1 Normal (applies [facility]GEN (S t x10E3/uL to non-numeric Ricky's results) [facility], ) Immature 0 % Normal (applies [facility] (St Granulocytes to non-numeric Ricky's results) [facility], ) Baso (Absolute) 0.0 Normal (applies [facility] ( St x10E3/uL to non-numeric Ricky's results) [facility], ) Immature Grans 0.0 Normal (applies [facility] (S t (Abs) x10E3/uL to non-numeric Ricky's results) [facility], ) ID Date Data Source [id number] 11/20/2016 12:00:00 AM EDT [facility] ([facility], ) Name Value Range Interpretation Description Data Sup porting Code Source(s) Document(s ) Hemoglobin 5.9 % Above high normal [facility] (St A1c/Hemoglobin. Ricky[facility] total in Blood [facility], ) ID Date Data Source [id number] 11/20/2016 12:00:00 AM EDT [facility] ([facility], ) Name Value Range Interpretation Description Data Sup porting Code Source(s) Document(s ) Albumin, Serum 3.4 g/dL Below low normal [facility] ( [facility], ) Protein 6.6 g/dL Normal (applies [facility] (St [Mass/volume] in to non-numeric [facility] Serum or Plasma results) [facility]) Bilirubin.total 0.5 Normal (applies MEDGEN ( St [Mass/volume] in mg/dL to non-numeric [facility] Serum or Plasma results) [facility]) Bilirubin.conjugate 0.17 Normal (applies MEDG EN (St d [Mass/volume] in mg/dL to non-numeric [facility] Serum or Plasma results) [facility], ) Alkaline 82 IU/L Normal (applies [facility] (St Phosphatase, S to non-numeric Ricky's results) [facility]) Alanine 157 IU/L Above high [facility] (St aminotransferase normal Ricky's [Enzymatic Medical, activity/volume] in ) Serum or Plasma Aspartate 109 IU/L Above high [facility]GEN (St aminotransferase normal Ricky's [Enzymatic Medical, activity/volume] in ) Serum or Plasma ID Date Data Source [id number] 11/20/2016 12:00:00 AM EDT [facility] ([facility]) Name Value Range Interpretation Description Data Sup porting Code Source(s) Document(s ) Triglyceride 48 mg/dL Normal (applies [facility] (St [Mass/volume] in to non-numeric [facility] Serum or Plasma results) [facility], ) Cholesterol 77 mg/dL Below low normal [facility] (St [Mass/volume] in Ricky's Serum or Plasma [facility], ) HDL Cholesterol 16 mg/dL Below low normal [facility] ([facility], ) VLDL Cholesterol 10 mg/dL Normal (applies [facility] (St Nathan to non-numeric Ricky's results) [facility]) LDL Cholesterol 51 mg/dL Normal (applies MEDGEN ( St Calc to non-numeric Ricky's results) [facility]) ID Date Data Source [id number] 11/20/2016 12:00:00 AM EDT [facility] ([facility], ) Name Value Range Interpretation Description Data Sup porting Code Source(s) Document(s ) Leukocytes 6.7 Normal (applies [facility] (St [#/volume] in x10E3/uL to non-numeric Ricky[facility] Blood by results) [facility]) Automated count Erythrocytes 3.07 Below low normal [facility] (St [#/volume] in x10E6/uL Ricky's Blood by [facility], ) Automated count Hemoglobin 10.0 Below low normal [facility] (St [Mass/volume] in g/dL Ricky[facility] Blood [facility], ) Hematocrit 28.8 % Below low normal [facility] (St [Volume Ricky's Fraction] of [facility], ) Blood by Automated count MCV 94 fL Normal (applies [facility]GEN (St to non-numeric Ricky's results) [facility], ) MCHC 34.7 Normal (applies [facility] (St g/dL to non-numeric Ricky's results) [facility], ) MCH 32.6 pg Normal (applies [facility]GEN (St to non-numeric Ricky's results) [facility], ) RDW 13.8 % Normal (applies [facility]GEN (St to non-numeric Ricky's results) [facility], ) Platelets 223 Normal (applies [facility]GEN (St [#/area] in x10E3/uL to non-numeric Ricky's Blood by results) [facility], ) Microscopy high power field Neutrophils [#] 64 % Normal (applies MEDGEN ( St in Body fluid by to non-numeric Ricky's Manual count results) [facility], ) Lymphs 26 % Normal (applies [facility]GEN (St to non-numeric Ricky's results) [facility], ) Monocytes 8 % Normal (applies [facility]GEN (St [#/volume] in to non-numeric Ricky's Cord blood results) [facility], ) Eos 2 % Normal (applies [facility]GEN (St to non-numeric Ricky's results) [facility], ) Basos 0 % Normal (applies [facility]GEN (St to non-numeric Ricky's results) [facility], ) Neutrophils 4.3 Normal (applies [facility]GEN (St (Absolute) x10E3/uL to non-numeric Ricky's results) [facility], ) Lymphs 1.7 Normal (applies [facility]GEN (St (Absolute) x10E3/uL to non-numeric Ricky's results) [facility], ) Eos (Absolute) 0.1 Normal (applies MEDGEN (S t x10E3/uL to non-numeric Ricky's results) [facility], ) Monocytes(Absolu 0.6 Normal (applies MEDGEN (St te) x10E3/uL to non-numeric Ricky's results) [facility], ) Baso (Absolute) 0.0 Normal (applies MEDGEN ( St x10E3/uL to non-numeric Ricky's results) [facility], ) Immature 0 % Normal (applies [facility] (St Granulocytes to non-numeric Ricky's results) [facility]) Immature Grans 0.0 Normal (applies [facility]GEN (S t (Abs) x10E3/uL to non-numeric Ricky's results) [facility]) ID Date Data Source [id number] 11/20/2016 12:00:00 AM EDT MED[facility] ([facility]) Name Value Range Interpretation Description Data Sup porting Code Source(s) Document(s ) Hemoglobin 5.9 % Above high normal [facility] (St A1c/Hemoglobin. Ricky's total in Blood [facility]) ID Date Data Source [id number] 11/20/2016 12:00:00 AM EDT MED[facility] ([facility]) Name Value Range Interpretation Description Data Sup porting Code Source(s) Document(s ) Protein 6.6 g/dL Normal (applies MEDGEN (St [Mass/volume] in to non-numeric [facility] Serum or Plasma results) [facility]) Albumin, Serum 3.4 g/dL Below low normal [facility] ( [facility]) Bilirubin.total 0.5 Normal (applies MEDGEN ( St [Mass/volume] in mg/dL to non-numeric [facility] Serum or Plasma results) [facility]) Alkaline 82 IU/L Normal (applies [facility] (St Phosphatase, S to non-numeric Ricky's results) [facility]) Bilirubin.conjugate 0.17 Normal (applies MEDG EN (St d [Mass/volume] in mg/dL to non-numeric Ricky's Serum or Plasma results) [facility]) Alanine 157 IU/L Above high [facility] (St aminotransferase normal Ricky's [Enzymatic Medical, activity/volume] in ) Serum or Plasma Aspartate 109 IU/L Above high MEDGEN (St aminotransferase normal Ricky's [Enzymatic Medical, activity/volume] in ) Serum or Plasma ID Date Data Source [id number] 11/20/2016 12:00:00 AM EDT [facility] ([facility]) Name Value Range Interpretation Description Data Sup porting Code Source(s) Document(s ) Cholesterol 77 mg/dL Below low normal [facility] (St [Mass/volume] in Ricky's Serum or Plasma [facility]) HDL Cholesterol 16 mg/dL Below low normal [facility] ([facility], ) Triglyceride 48 mg/dL Normal (applies [facility]GEN (St [Mass/volume] in to non-numeric Ricky's Serum or Plasma results) [facility], ) LDL Cholesterol 51 mg/dL Normal (applies MEDGEN ( St Calc to non-numeric Ricky's results) [facility], ) VLDL Cholesterol 10 mg/dL Normal (applies [facility] (St Nathan to non-numeric Ricky's results) [facility], ) ID Date Data Source [id number] 11/20/2016 12:00:00 AM EDT [facility] ([facility], ) Name Value Range Interpretation Description Data Sup porting Code Source(s) Document(s ) Erythrocytes 3.07 Below low normal [facility] (St [#/volume] in x10E6/uL Ricky[facility] Blood by [facility], ) Automated count Leukocytes 6.7 Normal (applies [facility]GEN (St [#/volume] in x10E3/uL to non-numeric Ricky's Blood by results) [facility], ) Automated count Hematocrit 28.8 % Below low normal [facility] (St [Volume Ricky's Fraction] of [facility], ) Blood by Automated count Hemoglobin 10.0 Below low normal [facility] (St [Mass/volume] in g/dL Ricky[facility] Blood [facility], ) MCV 94 fL Normal (applies [facility]GEN (St to non-numeric Ricky's results) [facility], ) MCH 32.6 pg Normal (applies MEDGEN (St to non-numeric Ricky's results) [facility], ) RDW 13.8 % Normal (applies [facility]GEN (St to non-numeric Ricky's results) [facility], ) MCHC 34.7 Normal (applies [facility]GEN (St g/dL to non-numeric Ricky's results) [facility], ) Neutrophils [#] 64 % Normal (applies MEDGEN ( St in Body fluid by to non-numeric Ricky's Manual count results) [facility], ) Platelets 223 Normal (applies [facility] (St [#/area] in x10E3/uL to non-numeric [facility] Blood by results) [facility], ) Microscopy high power field Lymphs 26 % Normal (applies [facility]GEN (St to non-numeric Ricky's results) [facility], ) Monocytes 8 % Normal (applies MEDGEN [...] No completed No alcohol No MEDGEN ( [facility] 12:00:00 AM EDT smoking smoking Medical, ) Smoking 05/10/2020 Unknown if ever completed Unknown if ever MEDG EN ([facility] 12:00:00 AM EDT smoked smoked Medical, ) Smoking 04/19/2020 No alcohol No completed No alcohol No [facility] smoking smoking Medical, ) Smoking 04/19/2020 Unknown if ever completed Unknown if ever MEDG EN ([facility] 12:00:00 AM EDT smoked smoked Medical, ) Smoking 03/29/2020 No alcohol No completed No alcohol No MEDGEN ( [facility] 12:00:00 AM EDT smoking smoking Medical, ) Smoking 03/29/2020 Unknown if ever completed Unknown if ever MEDG EN ([facility] 12:00:00 AM EDT smoked smoked Medical, ) Smoking 03/24/2020 No alcohol No completed No alcohol No MEDGEN ( [facility] 12:00:00 AM EDT smoking smoking [facility]) Smoking 03/24/2020 Unknown if ever completed Unknown if ever MEDG EN ([facility] 12:00:00 AM EDT smoked smoked [facility]) Vital Signs ID Date Data Source UNK Name Value Range Interpretation Code Description Data Source(s) Heart rate 88 /min 88 /min [facility] ([facility]) Respiratory rate 14 /min 14 /min [facility] ( [facility]) Inhaled oxygen 96 % 96 % MED[facility] ([facility]) Diastolic blood 60 mm[Hg] 60 mm[Hg] MEDGEN (S [facility]) Systolic blood 120 mm[Hg] 120 mm[Hg] MEDGEN ([facility]) Body height 72 in 72 in MED[facility] ([facility]) Heart rate 103 /min 103 /min [facility] ([facility]) Respiratory rate 15 /min 15 /min MED[facility] ( [facility]) Inhaled oxygen 96 % 96 % [facility] ([facility]) Body mass index 23.7 kg/m2 23.7 kg/m2 MEDGEN (S t (BMI) [Ratio] [facility]) Diastolic blood 64 mm[Hg] 64 mm[Hg] MEDGEN (S [facility]) Systolic blood 120 mm[Hg] 120 mm[Hg] MEDGEN ([facility]) Body weight 175 lb 175 lb MED[facility] ([facility]) Body height 72 in 72 in [facility] ([facility]) Heart rate 103 /min 103 /min [facility] ([facility]) Respiratory rate 15 /min 15 /min MED[facility] ( [facility]) Inhaled oxygen 96 % 96 % MED[facility] ([facility]) Body mass index 23.7 kg/m2 23.7 kg/m2 MEDGEN (S t (BMI) [Ratio] [facility]) Diastolic blood 64 mm[Hg] 64 mm[Hg] MEDGEN (S [facility]) Systolic blood 120 mm[Hg] 120 mm[Hg] MEDGEN ([facility]) Body weight 175 lb 175 lb MED[facility] ([facility]) Body height 72 in 72 in MED[facility] ([facility]) Heart rate 103 /min 103 /min [facility] ([facility]) Respiratory rate 15 /min 15 /min MEDGEN ( [facility]) Inhaled oxygen 96 % 96 % MEDGEN ([facility], ) Body mass index 23.7 kg/m2 23.7 kg/m2 MEDGEN (S t (BMI) [Ratio] [facility]) Diastolic blood 64 mm[Hg] 64 mm[Hg] MEDGEN (S t pressure [facility]) Systolic blood 120 mm[Hg] 120 mm[Hg] MEDGEN ([facility]) Body weight 175 lb 175 lb MED[facility] ([facility]) Body height 72 in 72 in [facility] ([facility]) Body mass index 23.9 kg/m2 23.9 kg/m2 MEDGEN (S t (BMI) [Ratio] [facility]) Diastolic blood 70 mm[Hg] 70 mm[Hg] MEDGEN (S t pressure [facility]) Systolic blood 118 mm[Hg] 118 mm[Hg] MED[facility] ([facility]) Body weight 176 lb 176 lb MED[facility] ([facility]) Body height 72 in 72 in [facility] ([facility]) Body mass index 23.9 kg/m2 23.9 kg/m2 MEDGEN (S t (BMI) [Ratio] [facility]) Diastolic blood 70 mm[Hg] 70 mm[Hg] MEDGEN (S t pressure [facility]) Systolic blood 118 mm[Hg] 118 mm[Hg] MEDGEN ([facility]) Body weight 176 lb 176 lb MED[facility] ([facility]) Body height 72 in 72 in MED[facility] ([facility]) Body mass index 23.9 kg/m2 23.9 kg/m2 MEDGEN (S t (BMI) [Ratio] [facility], ) Diastolic blood 70 mm[Hg] 70 mm[Hg] MEDGEN (S t pressure [facility]) Systolic blood 118 mm[Hg] 118 mm[Hg] MEDGEN ([facility]) Body weight 176 lb 176 lb MED[facility] ([facility]) Body height 72 in 72 in MED[facility] ([facility]) Body mass index 23.9 kg/m2 23.9 kg/m2 MEDGEN (S t (BMI) [Ratio] [facility], ) Diastolic blood 70 mm[Hg] 70 mm[Hg] MEDGEN (S t pressure [facility]) Systolic blood 118 mm[Hg] 118 mm[Hg] MED[facility] ([facility]) Body weight 176 lb 176 lb MED[facility] ([facility]) Body height 72 in 72 in MED[facility] ([facility]) Heart rate 54 /min 54 /min MED[facility] ([facility]) Inhaled oxygen 99 % 99 % MEDGEN ([facility], ) Body mass index 24.5 kg/m2 24.5 kg/m2 MEDGEN (S t (BMI) [Ratio] [facility], ) Diastolic blood 72 mm[Hg] 72 mm[Hg] MEDGEN (S t pressure [facility]) Systolic blood 130 mm[Hg] 130 mm[Hg] MED[facility] ([facility]) Body weight 181 lb 181 lb MED[facility] ([facility]) Body height 72 in 72 in [facility] ([facility]) Heart rate 54 /min 54 /min MED[facility] ([facility]) Inhaled oxygen 99 % 99 % MEDGEN ([facility], ) Body mass index 24.5 kg/m2 24.5 kg/m2 MEDGEN (S t (BMI) [Ratio] [facility], ) Diastolic blood 72 mm[Hg] 72 mm[Hg] MEDGEN (S t pressure [facility]) Systolic blood 130 mm[Hg] 130 mm[Hg] MEDGEN ([facility]) Body weight 181 lb 181 lb MEDGEN ([facility]) Body height 72 in 72 in MEDGEN ([facility]) Body height 72 in 72 in MEDGEN ([facility]) Heart rate 54 /min 54 /min MED[facility] ([facility]) Inhaled oxygen 99 % 99 % MED[facility] ([facility]) Body mass index 24.5 kg/m2 24.5 kg/m2 MEDGEN (S t (BMI) [Ratio] [facility]) Diastolic blood 72 mm[Hg] 72 mm[Hg] MEDGEN (S [facility]) Systolic blood 130 mm[Hg] 130 mm[Hg] MEDGEN ([facility]) Body weight 181 lb 181 lb MEDGEN ([facility]) Heart rate 54 /min 54 /min MED[facility] ([facility]) Inhaled oxygen 99 % 99 % MED[facility] ([facility]) Body mass index 24.5 kg/m2 24.5 kg/m2 MEDGEN (S t (BMI) [Ratio] [facility]) Diastolic blood 72 mm[Hg] 72 mm[Hg] MEDGEN (S [facility]) Systolic blood 130 mm[Hg] 130 mm[Hg] MEDGEN ([facility]) Body weight 181 lb 181 lb MED[facility] ([facility]) Body height 72 in 72 in MEDGEN ([facility]) Body mass index 24 kg/m2 24 kg/m2 MEDGEN (S t (BMI) [Ratio] [facility]) Diastolic blood 72 mm[Hg] 72 mm[Hg] MEDGEN (S [facility]) Systolic blood 126 mm[Hg] 126 mm[Hg] MEDGEN ([facility]) Body weight 177 lb 177 lb MED[facility] ([facility]) Body height 72 in 72 in MEDGEN ([facility]) Body mass index 24 kg/m2 24 kg/m2 MEDGEN (S t (BMI) [Ratio] [facility]) Diastolic blood 72 mm[Hg] 72 mm[Hg] MEDGEN (S [facility]) Systolic blood 126 mm[Hg] 126 mm[Hg] MEDGEN ([facility]) Body weight 177 lb 177 lb MEDGEN ([facility]) Body height 72 in 72 in [facility] ([facility]) Body mass index 24 kg/m2 24 kg/m2 MEDGEN (S t (BMI) [Ratio] [facility]) Diastolic blood 72 mm[Hg] 72 mm[Hg] MEDGEN (S [facility]) Systolic blood 126 mm[Hg] 126 mm[Hg] MED[facility] ([facility]) Body weight 177 lb 177 lb [facility] ([facility]) Body height 72 in 72 in [facility] ([facility]) Body mass index 24 kg/m2 24 kg/m2 MEDGEN (S t (BMI) [Ratio] [facility]) Diastolic blood 72 mm[Hg] 72 mm[Hg] MEDGEN (S [facility]) Systolic blood 126 mm[Hg] 126 mm[Hg] [facility] ([facility]) Body weight 177 lb 177 lb [facility] ([facility]) Body height 72 in 72 in [facility] ([facility]) Body mass index 23.7 kg/m2 23.7 kg/m2 MEDGEN (S t (BMI) [Ratio] [facility]) Diastolic blood 84 mm[Hg] 84 mm[Hg] MEDGEN (S [facility]) Systolic blood 140 mm[Hg] 140 mm[Hg] [facility] ([facility]) Body weight 175 lb 175 lb [facility] ([facility]) Body height 72 in 72 in [facility] ([facility]) Body mass index 23.7 kg/m2 23.7 kg/m2 MEDGEN (S t (BMI) [Ratio] [facility]) Diastolic blood 84 mm[Hg] 84 mm[Hg] MEDGEN (S [facility]) Systolic blood 140 mm[Hg] 140 mm[Hg] [facility] ([facility]) Body weight 175 lb 175 lb [facility] ([facility]) Body height 72 in 72 in [facility] ([facility]) Body mass index 23.7 kg/m2 23.7 kg/m2 MEDGEN (S t (BMI) [Ratio] [facility], ) Diastolic blood 84 mm[Hg] 84 mm[Hg] MEDGEN (S t pressure [facility]) Systolic blood 140 mm[Hg] 140 mm[Hg] MED[facility] ([facility]) Body weight 175 lb 175 lb [facility] ([facility]) Body height 72 in 72 in [facility] ([facility]) Body mass index 23.7 kg/m2 23.7 kg/m2 MEDGEN (S t (BMI) [Ratio] [facility], ) Diastolic blood 84 mm[Hg] 84 mm[Hg] MEDGEN (S t pressure [facility]) Systolic blood 140 mm[Hg] 140 mm[Hg] MED[facility] ([facility]) Body weight 175 lb 175 lb [facility] ([facility]) Body height 72 in 72 in [facility] ([facility]) Body mass index 24 kg/m2 24 kg/m2 MEDGEN (S t (BMI) [Ratio] [facility], ) Diastolic blood 74 mm[Hg] 74 mm[Hg] MEDGEN (S t pressure [facility]) Systolic blood 126 mm[Hg] 126 mm[Hg] [facility] ([facility]) Body weight 177 lb 177 lb [facility] ([facility]) Body height 72 in 72 in [facility] ([facility]) Body mass index 24 kg/m2 24 kg/m2 MEDGEN (S t (BMI) [Ratio] [facility], ) Diastolic blood 74 mm[Hg] 74 mm[Hg] MEDGEN (S t pressure [facility]) Systolic blood 126 mm[Hg] 126 mm[Hg] MED[facility] ([facility]) Body weight 177 lb 177 lb [facility] ([facility]) Body height 72 in 72 in [facility] ([facility]) Body mass index 24 kg/m2 24 kg/m2 MEDGEN (S t (BMI) [Ratio] [facility], ) Diastolic blood 74 mm[Hg] 74 mm[Hg] MEDGEN (S t pressure [facility]) Systolic blood 126 mm[Hg] 126 mm[Hg] MEDGEN ([facility]) Body weight 177 lb 177 lb [facility] ([facility]) Body height 72 in 72 in [facility] ([facility]) Body mass index 24 kg/m2 24 kg/m2 MEDGEN (S t (BMI) [Ratio] [facility], ) Diastolic blood 74 mm[Hg] 74 mm[Hg] MEDGEN (S t pressure [facility]) Systolic blood 126 mm[Hg] 126 mm[Hg] MEDGEN ([facility]) Body weight 177 lb 177 lb MED[facility] ([facility]) Body height 72 in 72 in [facility] ([facility]) Body mass index 23.9 kg/m2 23.9 kg/m2 MEDGEN (S t (BMI) [Ratio] [facility], ) Diastolic blood 80 mm[Hg] 80 mm[Hg] MEDGEN (S t pressure [facility]) Systolic blood 132 mm[Hg] 132 mm[Hg] [facility] ([facility] [facility] Body weight 176 lb 176 lb [facility] ([facility]) Body height 72 in 72 in [facility] ([facility]) Body mass index 23.9 kg/m2 23.9 kg/m2 [facility] (S t (BMI) [Ratio] [facility], ) Diastolic blood 80 mm[Hg] 80 mm[Hg] [facility] (S t pressure [facility]) Systolic blood 132 mm[Hg] 132 mm[Hg] MED[facility] ([facility]) Body weight 176 lb 176 lb [facility] ([facility]) Body height 72 in 72 in [facility] ([facility]) Body mass index 23.9 kg/m2 23.9 kg/m2 [facility] (S t (BMI) [Ratio] [facility], ) Diastolic blood 80 mm[Hg] 80 mm[Hg] [facility] (S t pressure [facility]) Systolic blood 132 mm[Hg] 132 mm[Hg] MED[facility] ([facility]) Body weight 176 lb 176 lb [facility] ([facility]) Body height 72 in 72 in [facility] ([facility]) Body mass index 23.9 kg/m2 23.9 kg/m2 [facility] (S t (BMI) [Ratio] [facility]) Diastolic blood 80 mm[Hg] 80 mm[Hg] MED[facility] (S [facility]) Systolic blood 132 mm[Hg] 132 mm[Hg] [facility] ([facility]) Body weight 176 lb 176 lb [facility] ([facility]) Body height 72 in 72 in [facility] ([facility]) Body mass index 23.5 kg/m2 23.5 kg/m2 [facility] (S t (BMI) [Ratio] [facility]) Diastolic blood 90 mm[Hg] 90 mm[Hg] [facility] (S [facility]) Systolic blood 150 mm[Hg] 150 mm[Hg] [facility] ([facility]) Body weight 173 lb 173 lb [facility] ([facility]) Body height 72 in 72 in [facility] ([facility]) Body mass index 23.5 kg/m2 23.5 kg/m2 [facility] (S t (BMI) [Ratio] [facility]) Diastolic blood 90 mm[Hg] 90 mm[Hg] [facility] (S [facility]) Systolic blood 150 mm[Hg] 150 mm[Hg] [facility] ([facility]) Body weight 173 lb 173 lb [facility] ([facility]) Body height 72 in 72 in [facility] ([facility]) Body mass index 23.5 kg/m2 23.5 kg/m2 [facility] (S t (BMI) [Ratio] [facility]) Diastolic blood 90 mm[Hg] 90 mm[Hg] [facility] (S [facility]) Systolic blood 150 mm[Hg] 150 mm[Hg] [facility] ([facility]) Body weight 173 lb 173 lb [facility] ([facility]) Body height 72 in 72 in [facility] ([facility]) Body mass index 23.5 kg/m2 23.5 kg/m2 [facility] (S t (BMI) [Ratio] [facility]) Diastolic blood 90 mm[Hg] 90 mm[Hg] [facility] (S t [facility]) Systolic blood 150 mm[Hg] 150 mm[Hg] [facility] ([facility]) Body weight 173 lb 173 lb [facility] ([facility]) Body height 72 in 72 in [facility] ([facility]) Body mass index 23.6 kg/m2 23.6 kg/m2 [facility] (S t (BMI) [Ratio] [facility]) Diastolic blood 100 mm[Hg] 100 mm[Hg] [facility] (S t [facility]) Systolic blood 150 mm[Hg] 150 mm[Hg] [facility] ([facility]) Body weight 174 lb 174 lb [facility] ([facility]) Body height 72 in 72 in [facility] ([facility]) Body mass index 23.6 kg/m2 23.6 kg/m2 [facility] (S t (BMI) [Ratio] [facility]) Diastolic blood 100 mm[Hg] 100 mm[Hg] [facility] (S [facility]) Systolic blood 150 mm[Hg] 150 mm[Hg] [facility] ([facility]) Body weight 174 lb 174 lb [facility] ([facility]) Body height 72 in 72 in [facility] ([facility]) Body mass index 23.6 kg/m2 23.6 kg/m2 [facility] (S t (BMI) [Ratio] [facility]) Diastolic blood 100 mm[Hg] 100 mm[Hg] [facility] (S [facility]) Systolic blood 150 mm[Hg] 150 mm[Hg] [facility] ([facility]) Body weight 174 lb 174 lb [facility] ([facility]) Body height 72 in 72 in [facility] ([facility]) Body mass index 23.6 kg/m2 23.6 kg/m2 [facility] (S t (BMI) [Ratio] [facility], ) Diastolic blood 100 mm[Hg] 100 mm[Hg] [facility] (S t pressure [facility]) Systolic blood 150 mm[Hg] 150 mm[Hg] [facility] ([facility]) Body weight 174 lb 174 lb [facility] ([facility]) Body height 72 in 72 in [facility] ([facility]) Body mass index 25 kg/m2 25 kg/m2 [facility] (S t (BMI) [Ratio] [facility], ) Diastolic blood 84 mm[Hg] 84 mm[Hg] [facility] (S t pressure [facility]) Systolic blood 140 mm[Hg] 140 mm[Hg] [facility] ([facility]) Body weight 184 lb 184 lb [facility] ([facility]) Body height 72 in 72 in [facility] ([facility]) Body mass index 25 kg/m2 25 kg/m2 [facility] (S t (BMI) [Ratio] [facility], ) Diastolic blood 84 mm[Hg] 84 mm[Hg] [facility] (S t pressure [facility]) Systolic blood 140 mm[Hg] 140 mm[Hg] [facility] ([facility]) Body weight 184 lb 184 lb [facility] ([facility]) Body height 72 in 72 in [facility] ([facility]) Body mass index 25 kg/m2 25 kg/m2 [facility] (S t (BMI) [Ratio] [facility], ) Diastolic blood 84 mm[Hg] 84 mm[Hg] [facility] (S t pressure [facility]) Systolic blood 140 mm[Hg] 140 mm[Hg] [facility] ([facility]) Body weight 184 lb 184 lb [facility] ([facility]) Body height 72 in 72 in [facility] ([facility]) Body mass index 25 kg/m2 25 kg/m2 [facility] (S t (BMI) [Ratio] [facility]) Diastolic blood 84 mm[Hg] 84 mm[Hg] [facility] (S t pressure [facility]) Systolic blood 140 mm[Hg] 140 mm[Hg] [facility] ([facility]) Body weight 184 lb 184 lb [facility] ([facility]) Body height 72 in 72 in [facility] ([facility]) Body mass index 24.5 kg/m2 24.5 kg/m2 [facility] (S t (BMI) [Ratio] [facility]) Diastolic blood 100 mm[Hg] 100 mm[Hg] [facility] (S [facility]) Systolic blood 170 mm[Hg] 170 mm[Hg] [facility] ([facility]) Body weight 181 lb 181 lb [facility] ([facility]) Body height 72 in 72 in [facility] ([facility]) Body mass index 24.5 kg/m2 24.5 kg/m2 [facility] (S t (BMI) [Ratio] [facility]) Diastolic blood 100 mm[Hg] 100 mm[Hg] [facility] (S [facility]) Systolic blood 170 mm[Hg] 170 mm[Hg] [facility] ([facility]) Body weight 181 lb 181 lb [facility] ([facility]) Body height 72 in 72 in [facility] ([facility]) Body mass index 24.5 kg/m2 24.5 kg/m2 [facility] (S t (BMI) [Ratio] [facility]) Diastolic blood 100 mm[Hg] 100 mm[Hg] [facility] (S [facility]) Systolic blood 170 mm[Hg] 170 mm[Hg] [facility] ([facility]) Body weight 181 lb 181 lb [facility] ([facility]) Body height 72 in 72 in [facility] ([facility]) Body mass index 24.5 kg/m2 24.5 kg/m2 [facility] (S t (BMI) [Ratio] [facility]) Diastolic blood 100 mm[Hg] 100 mm[Hg] [facility] (S [facility]) Systolic blood 170 mm[Hg] 170 mm[Hg] [facility] ([facility]) Body weight 181 lb 181 lb [facility] ([facility]) Body height 72 in 72 in [facility] ([facility]) Body mass index 24.8 kg/m2 24.8 kg/m2 [facility] (S t (BMI) [Ratio] [facility]) Diastolic blood 80 mm[Hg] 80 mm[Hg] [facility] (S [facility]) Systolic blood 130 mm[Hg] 130 mm[Hg] [facility] ([facility]) Body weight 183 lb 183 lb [facility] ([facility]) Body height 72 in 72 in [facility] ([facility]) Body mass index 24.8 kg/m2 24.8 kg/m2 [facility] (S t (BMI) [Ratio] [facility]) Diastolic blood 80 mm[Hg] 80 mm[Hg] [facility] (S [facility]) Systolic blood 130 mm[Hg] 130 mm[Hg] [facility] ([facility]) Body weight 183 lb 183 lb [facility] ([facility]) Body height 72 in 72 in [facility] ([facility]) Body mass index 24.8 kg/m2 24.8 kg/m2 [facility] (S t (BMI) [Ratio] [facility]) Diastolic blood 80 mm[Hg] 80 mm[Hg] [facility] ([facility]) Systolic blood 130 mm[Hg] 130 mm[Hg] [facility] ([facility]) Body weight 183 lb 183 lb [facility] ([facility]) Body height 72 in 72 in [facility] ([facility]) Body mass index 24.8 kg/m2 24.8 kg/m2 [facility] (S t (BMI) [Ratio] [facility]) Diastolic blood 80 mm[Hg] 80 mm[Hg] [facility] ([facility]) Systolic blood 130 mm[Hg] 130 mm[Hg] [facility] ([facility]) Body weight 183 lb 183 lb [facility] ([facility]) Body height 72 in 72 in [facility] ([facility]) Heart rate 61 /min 61 /min [facility] ([facility]) Body mass index 24.1 kg/m2 24.1 kg/m2 [facility] (S t (BMI) [Ratio] [facility]) Diastolic blood 90 mm[Hg] 90 mm[Hg] [facility] (S t pressure [facility]) Systolic blood 150 mm[Hg] 150 mm[Hg] [facility] ([facility]) Body weight 178 lb 178 lb [facility] ([facility]) Body height 72 in 72 in [facility] ([facility]) Heart rate 61 /min 61 /min [facility] ([facility]) Body mass index 24.1 kg/m2 24.1 kg/m2 [facility] (S t (BMI) [Ratio] [facility]) Diastolic blood 90 mm[Hg] 90 mm[Hg] [facility] (S t [facility]) Systolic blood 150 mm[Hg] 150 mm[Hg] [facility] ([facility]) Body weight 178 lb 178 lb [facility] ([facility]) Body height 72 in 72 in [facility] ([facility]) Heart rate 61 /min 61 /min [facility] ([facility]) Body mass index 24.1 kg/m2 24.1 kg/m2 [facility] (S t (BMI) [Ratio] [facility], ) Diastolic blood 90 mm[Hg] 90 mm[Hg] [facility] (S t pressure [facility]) Systolic blood 150 mm[Hg] 150 mm[Hg] [facility] ([facility]) Body weight 178 lb 178 lb [facility] ([facility]) Body height 72 in 72 in [facility] ([facility]) Heart rate 61 /min 61 /min [facility] ([facility]) Body mass index 24.1 kg/m2 24.1 kg/m2 [facility] (S t (BMI) [Ratio] [facility], ) Diastolic blood 90 mm[Hg] 90 mm[Hg] [facility] (S t pressure [facility]) Systolic blood 150 mm[Hg] 150 mm[Hg] [facility] ([facility]) Body weight 178 lb 178 lb [facility] ([facility]) Body height 72 in 72 in [facility] ([facility]) Heart rate 61 /min 61 /min [facility] ([facility]) Body mass index 24.5 kg/m2 24.5 kg/m2 [facility] (S t (BMI) [Ratio] [facility], ) Diastolic blood 82 mm[Hg] 82 mm[Hg] [facility] (S t pressure [facility]) Systolic blood 140 mm[Hg] 140 mm[Hg] [facility] ([facility]) Body weight 181 lb 181 lb [facility] ([facility]) Body height 72 in 72 in [facility] ([facility]) Heart rate 61 /min 61 /min [facility] ([facility]) Body mass index 24.5 kg/m2 24.5 kg/m2 [facility] (S t (BMI) [Ratio] [facility], ) Diastolic blood 82 mm[Hg] 82 mm[Hg] [facility] (S t pressure [facility]) Systolic blood 140 mm[Hg] 140 mm[Hg] MEDGEN ([facility]) Body weight 181 lb 181 lb [facility] ([facility]) Body height 72 in 72 in [facility] ([facility]) Heart rate 61 /min 61 /min [facility] ([facility]) Body mass index 24.5 kg/m2 24.5 kg/m2 [facility] (S t (BMI) [Ratio] [facility], ) Diastolic blood 82 mm[Hg] 82 mm[Hg] MEDGEN (S pressure [facility]) Systolic blood 140 mm[Hg] 140 mm[Hg] MED[facility] ([facility]) Body weight 181 lb 181 lb [facility] ([facility]) Body height 72 in 72 in [facility] ([facility]) Heart rate 61 /min 61 /min [facility] ([facility]) Body mass index 24.5 kg/m2 24.5 kg/m2 MED[facility] (S t (BMI) [Ratio] [facility], ) Diastolic blood 82 mm[Hg] 82 mm[Hg] MEDGEN (S t pressure [facility] , ) Systolic blood 140 mm[Hg] 140 mm[Hg] [facility] ([facility] , ) Body weight 181 lb 181 lb [facility] ([facility]) Body height 72 in 72 in [facility] ([facility]) Heart rate 61 /min 61 /min [facility] ([facility]) Body mass index 24 kg/m2 24 kg/m2 [facility] (S t (BMI) [Ratio] [facility], ) Diastolic blood 74 mm[Hg] 74 mm[Hg] MEDGEN (S t pressure [facility] , ) Systolic blood 126 mm[Hg] 126 mm[Hg] [facility] ([facility] , ) Body weight 177 lb 177 lb [facility] ([facility]) Body height 72 in 72 in [facility] ([facility]) Heart rate 61 /min 61 /min MED[facility] ([facility] , ) Body mass index 24 kg/m2 24 kg/m2 MED[facility] (S t (BMI) [Ratio] [facility], ) Diastolic blood 74 mm[Hg] 74 mm[Hg] MEDGEN (S t pressure [facility] , ) Systolic blood 126 mm[Hg] 126 mm[Hg] MEDGEN (St pressure [facility] , ) Body weight 177 lb 177 lb [facility] ([facility]) Body height 72 in 72 in [facility] ([facility]) Heart rate 61 /min 61 /min MED[facility] ([facility] , ) Body mass index 24 kg/m2 24 kg/m2 MED[facility] (S t (BMI) [Ratio] [facility], ) Diastolic blood 74 mm[Hg] 74 mm[Hg] MEDGEN (S t pressure [facility] , ) Systolic blood 126 mm[Hg] 126 mm[Hg] MEDGEN (St pressure [facility] , ) Body weight 177 lb 177 lb [facility] ([facility]) Body height 72 in 72 in [facility] ([facility]) Heart rate 61 /min 61 /min [facility] ([facility]) Body mass index 24 kg/m2 24 kg/m2 [facility] (S t (BMI) [Ratio] [facility], ) Diastolic blood 74 mm[Hg] 74 mm[Hg] MED[facility] (S t pressure [facility]) Systolic blood 126 mm[Hg] 126 mm[Hg] MEDGEN ([facility]) Body weight 177 lb 177 lb [facility] ([facility]) Body height 72 in 72 in [facility] ([facility]) Heart rate 61 /min 61 /min [facility] ([facility]) Body mass index 23.7 kg/m2 23.7 kg/m2 [facility] (S t (BMI) [Ratio] [facility], ) Diastolic blood 72 mm[Hg] 72 mm[Hg] MED[facility] (S t pressure [facility]) Systolic blood 120 mm[Hg] 120 mm[Hg] MEDGEN ([facility]) Body weight 175 lb 175 lb [facility] ([facility]) Body height 72 in 72 in [facility] ([facility]) Heart rate 61 /min 61 /min [facility] ([facility]) Body mass index 23.7 kg/m2 23.7 kg/m2 [facility] (S t (BMI) [Ratio] [facility], ) Diastolic blood 72 mm[Hg] 72 mm[Hg] MED[facility] (S t pressure [facility]) Systolic blood 120 mm[Hg] 120 mm[Hg] MEDGEN ([facility]) Body weight 175 lb 175 lb [facility] ([facility]) Body height 72 in 72 in [facility] ([facility]) Heart rate 61 /min 61 /min [facility] ([facility]) Body mass index 23.7 kg/m2 23.7 kg/m2 [facility] (S t (BMI) [Ratio] [facility], ) Diastolic blood 72 mm[Hg] 72 mm[Hg] [facility] (S t pressure [facility]) Systolic blood 120 mm[Hg] 120 mm[Hg] MEDGEN ([facility]) Body weight 175 lb 175 lb [facility] ([facility]) Body height 72 in 72 in [facility] ([facility]) Heart rate 61 /min 61 /min [facility] ([facility]) Body mass index 23.7 kg/m2 23.7 kg/m2 [facility] (S t (BMI) [Ratio] [facility]) Diastolic blood 72 mm[Hg] 72 mm[Hg] MEDGEN (S pressure [facility]) Systolic blood 120 mm[Hg] 120 mm[Hg] MEDGEN ([facility]) Body weight 175 lb 175 lb [facility] ([facility]) Body height 72 in 72 in [facility] ([facility]) Heart rate 61 /min 61 /min [facility] ([facility]) Body mass index 23.7 kg/m2 23.7 kg/m2 MED[facility] (S t (BMI) [Ratio] [facility]) Diastolic blood 82 mm[Hg] 82 mm[Hg] MEDGEN (S t [facility]) Systolic blood 120 mm[Hg] 120 mm[Hg] MEDGEN ([facility]) Body weight 175 lb 175 lb [facility] ([facility]) Body height 72 in 72 in [facility] ([facility]) Heart rate 61 /min 61 /min [facility] ([facility]) Body mass index 23.7 kg/m2 23.7 kg/m2 MEDGEN (S t (BMI) [Ratio] [facility]) Diastolic blood 82 mm[Hg] 82 mm[Hg] MEDGEN (S t pressure [facility]) Systolic blood 120 mm[Hg] 120 mm[Hg] MEDGEN ([facility]) Body weight 175 lb 175 lb [facility] ([facility]) Body height 72 in 72 in MED[facility] ([facility]) Heart rate 61 /min 61 /min MED[facility] ([facility]) Body mass index 23.7 kg/m2 23.7 kg/m2 MEDGEN (S t (BMI) [Ratio] [facility]) Diastolic blood 82 mm[Hg] 82 mm[Hg] MEDGEN (S t pressure [facility]) Systolic blood 120 mm[Hg] 120 mm[Hg] MEDGEN ([facility]) Body weight 175 lb 175 lb [facility] ([facility]) Body height 72 in 72 in [facility] ([facility]) Heart rate 61 /min 61 /min MED[facility] ([facility]) Body mass index 23.7 kg/m2 23.7 kg/m2 MED[facility] (S t (BMI) [Ratio] [facility], ) Diastolic blood 82 mm[Hg] 82 mm[Hg] MEDGEN (S t [facility]) Systolic blood 120 mm[Hg] 120 mm[Hg] MEDGEN ([facility]) Body weight 175 lb 175 lb [facility] ([facility]) Body height 72 in 72 in [facility] ([facility]) Heart rate 61 /min 61 /min [facility] ([facility]) Body mass index 23.7 kg/m2 23.7 kg/m2 [facility] (S t (BMI) [Ratio] [facility], ) Diastolic blood 65 mm[Hg] 65 mm[Hg] MEDGEN (S t [facility]) Systolic blood 116 mm[Hg] 116 mm[Hg] MEDGEN ([facility]) Body weight 175 lb 175 lb [facility] ([facility]) Body height 72 in 72 in [facility] ([facility]) Heart rate 61 /min 61 /min [facility] ([facility]) Body mass index 23.7 kg/m2 23.7 kg/m2 [facility] (S t (BMI) [Ratio] [facility], ) Diastolic blood 65 mm[Hg] 65 mm[Hg] MED[facility] (S t [facility]) Systolic blood 116 mm[Hg] 116 mm[Hg] MEDGEN ([facility]) Body weight 175 lb 175 lb [facility] ([facility]) Body height 72 in 72 in [facility] ([facility]) Heart rate 61 /min 61 /min [facility] ([facility]) Body mass index 23.7 kg/m2 23.7 kg/m2 MED[facility] (S t (BMI) [Ratio] [facility], ) Diastolic blood 65 mm[Hg] 65 mm[Hg] MED[facility] (S t pressure [facility]) Systolic blood 116 mm[Hg] 116 mm[Hg] MEDGEN ([facility]) Body weight 175 lb 175 lb [facility] ([facility]) Body height 72 in 72 in [facility] ([facility]) Heart rate 61 /min 61 /min [facility] ([facility]) Body mass index 23.7 kg/m2 23.7 kg/m2 [facility] (S t (BMI) [Ratio] [facility], ) Diastolic blood 65 mm[Hg] 65 mm[Hg] MED[facility] (S t pressure [facility]) Systolic blood 116 mm[Hg] 116 mm[Hg] MED[facility] ([facility]) Body weight 175 lb 175 lb [facility] ([facility]) Body height 72 in 72 in [facility] ([facility]) Body mass index 23.7 kg/m2 23.7 kg/m2 [facility] (S t (BMI) [Ratio] [facility], ) Diastolic blood 70 mm[Hg] 70 mm[Hg] [facility] (S t pressure [facility]) Systolic blood 120 mm[Hg] 120 mm[Hg] MED[facility] ([facility]) Body weight 175 lb 175 lb [facility] ([facility]) Body height 72 in 72 in [facility] ([facility]) Body mass index 23.7 kg/m2 23.7 kg/m2 [facility] (S t (BMI) [Ratio] [facility], ) Diastolic blood 70 mm[Hg] 70 mm[Hg] [facility] (S t pressure [facility]) Systolic blood 120 mm[Hg] 120 mm[Hg] MED[facility] ([facility]) Body weight 175 lb 175 lb [facility] ([facility]) Body height 72 in 72 in [facility] ([facility]) Body mass index 23.7 kg/m2 23.7 kg/m2 [facility] (S t (BMI) [Ratio] [facility], ) Diastolic blood 70 mm[Hg] 70 mm[Hg] [facility] (S t pressure [facility]) Systolic blood 120 mm[Hg] 120 mm[Hg] [facility] ([facility]) Body weight 175 lb 175 lb [facility] ([facility]) Body height 72 in 72 in [facility] ([facility]) Body mass index 23.7 kg/m2 23.7 kg/m2 [facility] (S t (BMI) [Ratio] [facility], ) Diastolic blood 70 mm[Hg] 70 mm[Hg] [facility] (S t pressure [facility] [place]) Systolic blood 120 mm[Hg] 120 mm[Hg] [facility] ([facility]) Body weight 175 lb 175 lb [facility] ([facility] [place]) Body height 72 in 72 in [facility] ([facility] [place])
--- NOTE | 2020-05-21 07:36 | PDOC ---
History of Present Illness - General Chief Complaint: Diarrhea Stated Complaint: DIARRHEA Time Seen by Provider: 05/21/20 07:21 History Source: Patient, Spouse - History of Present Illness Initial Comments: 05/21/20 07:33 69M w/hx HTN, HepB p/w one day of non-bloody diarrhea. He reports x7 non bloody diarrhea since last night, including waking up twice to use the restroom. No one else in the home has similar symptoms. He denies any nausea, vomiting, weakness, fatigue, or difficulty tolerating po. No prior abdominal surgeries. He reports presenting to the hospital for an epidural spinal injection, and being encouraged to present to the ED. No recent medication use. Past History - Medical History Allergies/Adverse Reactions: Allergies Allergy/AdvReac Type Severity Reaction Status Date / Time No Known Drug Allergies Allergy Verified 05/21/20 06:34 Home Medications: Ambulatory Orders Lisinopril [Prinivil] 40 mg PO DAILY 04/08/20 Metoprolol Succinate [Toprol XL -] 25 mg PO DAILY 04/08/20 Aspirin [ASA -] 81 mg PO DAILY 04/09/20 Anemia: No Asthma: No Cancer: No Cardiac Disorders: Yes (pacemaker 2016) CVA: No COPD: No CHF: No Dementia: No Diabetes: No GI Disorders: No Disorders: No HTN: Yes Hypercholesterolemia: No Liver Disease: No Seizures: No Thyroid Disease: No - Surgical History Abdominal Surgery: No Appendectomy: No Cardiac Surgery: Yes (pacemaker 2016) Cholecystectomy: No Lung Surgery: No Neurologic Surgery: No Orthopedic Surgery: No - Immunization History Immunization Up to Date: Yes - Psycho-Social/Smoking History Smoking Status: Yes Smoking History: Never smoked Have you smoked in the past 12 months: No Number of Cigarettes Smoked Daily: 20 If you are a former smoker, when did you quit?: 2016 Information on smoking cessation initiated: No 'Breaking Loose' booklet given: 11/10/14 - Substance Abuse Hx (Audit-C & DAST Scrn) How often the patient has a drink containing alcohol: Never Score: In Men: 4 or > Positive; In Women: 3 or > Positive: 0 Screen Result (Pos requires Nsg. Audit-10AR): Negative In the last yr the pt used illegal drug/Rx for NonMed reason: No Score: Yes response is considered Positive: 0 Screen Result (Positive result requires Nsg. DAST-10): Negative Review of Systems - Review of Systems Able to Perform ROS?: Yes Comments:: 05/21/20 08:30 GENERAL/CONSTITUTIONAL: No fever or chills. No weakness. HEAD, EYES, EARS, NOSE AND THROAT: No change in vision. No ear pain or discharge. No sore throat. CARDIOVASCULAR: No chest pain or shortness of breath RESPIRATORY: No cough, wheezing, or hemoptysis. GASTROINTESTINAL: Diarrhea. No nausea, vomiting, abdominal pain, or constipation. GENITOURINARY: No dysuria, frequency, or change in urination. MUSCULOSKELETAL: No joint or muscle swelling or pain. No neck or back pain. SKIN: No rash NEUROLOGIC: No headache, vertigo, loss of consciousness, or change in strength/sensation. ENDOCRINE: No increased thirst. No abnormal weight change HEMATOLOGIC/LYMPHATIC: No anemia, easy bleeding, or history of blood clots. ALLERGIC/IMMUNOLOGIC: No hives or skin allergy. *Physical Exam - Vital Signs Last Vital Signs Temp Pulse Resp BP Pulse Ox 97.9 F 51 L 20 124/63 100 05/21/20 06:34 05/21/20 06:34 05/21/20 06:34 05/21/20 06:34 05/21/20 06:34 - Physical Exam 05/21/20 08:30 GENERAL: Awake, alert, and fully oriented, in no acute distress HEAD: No signs of trauma, normocephalic, atraumatic EYES: PERRLA, EOMI, sclera anicteric, conjunctiva clear ENT: Auricles normal inspection, hearing grossly normal, nares patent, oropharynx clear without exudates. Moist mucosa NECK: Normal ROM, supple, no lymphadenopathy, JVD, or masses LUNGS: No distress, speaks full sentences, clear to auscultation bilaterally HEART: Regular rate and rhythm, normal S1 and S2, no murmurs, rubs or gallops, peripheral pulses normal and equal bilaterally. ABDOMEN: Soft, nontender, normoactive bowel sounds. No guarding, no rebound. No masses EXTREMITIES : Normal inspection, Normal range of motion, no edema. No clubbing or cyanosis NEUROLOGICAL: Cranial nerves II through XII grossly intact. Normal speech, normal gait, no focal sensorimotor deficits SKIN: Warm, Dry, normal turgor, no rashes or lesions noted ED Treatment Course - LABORATORY CBC & Chemistry Diagram: 05/21/20 08:00 05/21/20 08:00 Medical Decision Making - Medical Decision Making 05/21/20 08:31 69M w/hx HTN, HepB p/w one day of x7 non-bloody diarrhea without abdominal pain/tenderness, nausea, or vomiting, likely representing viral diarrheal disease. Plan: CBC CMP 1L LR Dispo: Discharge Discharge - Discharge Information Problems reviewed: Yes Clinical Impression/Diagnosis: Diarrhea Qualifiers: Diarrhea type: unspecified type Qualified Code(s): R19.7 - Diarrhea, unspeci fied Condition: Stable Disposition: HOME - Admission No - Follow up/Referral Referrals: Michael Viramontes MD [Primary Care Provider] - - Patient Discharge Instructions Patient Printed Discharge Instructions: DI for Diarrhea and Traveler's Diarrhea -- Adult Additional Instructions: Usted fue evaluado en la silvia de urgencias por diarrhea. [place] niveles de diana estaban normales. Regresa a la silvia de urgencias si empiezas tener dolor abdominal, fiebres altas, o nauseas y vomitos y no puedes comer ni beber. Print Language: LAO - Post Discharge Activity
[2020-05-21] MEDS ORDERED: LACTATED RINGERS SOLUTION 1000 ML INFUS.BAG IV ONE (07:55)
[2020-05-21 08:27] LABS: BASO % 0.2 % (0-2.0); EOS % 1.1 % (0-4.5); HEMATOCRIT 37.3 % (35.4-49); HEMOGLOBIN 12.7 GM/dL (11.7-16.9); LYMPH % 31.5 % (8-40); MCH 33.3 pg (25.7-33.7); MEAN CELL VOLUME 97.9 fl (80-96); MEAN PLT VOLUME 9.4 fl (7.5-11.1); MONO % 10.1 % (3.8-10.2); NEUT % 57.1 % (42.8-82.8); PLATELET COUNT 150 K/MM3 (134-434); RDW 13.8 % (11.9-15.9); WHITE BLOOD COUNT 6.7 K/mm3 (4.0-10.0)
[2020-05-21 08:52] LABS: ALBUMIN 3.3 g/dl (3.4-5.0); BILIRUBIN,TOTAL 0.4 mg/dL (0.2-1); BLOOD UREA NITROGEN 19.8 mg/dL (7-18); CALCIUM 8.8 mg/dL (8.5-10.1); CREATININE 0.9 mg/dL (0.55-1.3); POTASSIUM 3.4 mmol/L (3.5-5.1); TOT PROT 6.4 g/dl (6.4-8.2)
--- NOTE | 2020-05-21 09:05 | PDOC ---
Attending Attestation - Resident Resident Name: Travis Wilder - ED Attending Attestation I have performed the following: I have examined & evaluated the patient, The case was reviewed & discussed with the resident, I agree w/resident's findings & plan, Exceptions are as noted - HPI HPI: 05/21/20 09:00 69M w/hx HTN, HepB p/w non-bloody diarrhea since yesterday afternoon. Denies suspicious food intake. States other people in the house ate the same foods withotu any symptoms. Denies any abdominal pain. Was going to pain management thismorning and mentioned the diarrhea so he was told to get "checked out" to be medically cleared in order to reschedule the appointment. Denies all other complaints. - Physicial Exam PE: 05/21/20 09:02 General: well appearing Abdomen: soft, nt, no rebound, no guarding, no masses - Medical Decision Making 05/21/20 09:02 69 yo M with diarrhea since yesterday afternoon, tolerating PO and no abdominal pain or tenderness, possible enteritis vs. colitis. No tenderness to suggest diverticulitis. Plan: -labs -if labs unremarkable will d/c with return precautions, recommend PMD f/u This clinical encounter is taking place during a federal and state health care emergency attributable to the novel [place] Virus pandemic. The [place] of the Department of Health and Human Services has declared, pursuant to the Public Health Service Act 319F-3 (42 U.S.C. 247d-6d), that a covered persons activities related to medical countermeasures against COVID-19 will be immune from liability under Federal and State law. Discharge - Discharge Information Problems reviewed: Yes Clinical Impression/Diagnosis: Diarrhea Qualifiers: Diarrhea type: unspecified type Qualified Code(s): R19.7 - Diarrhea, unspecified Condition: Stable Disposition: HOME - Follow up/Referral Referrals: Michael Viramontes MD [Primary Care Provider] - - Patient Discharge Instructions Patient Printed Discharge Instructions: DI for Diarrhea and Traveler's Diarrhea -- Adult Additional Instructions: Usted fue evaluado en la silvia de urgencias por diarrhea. [place] niveles de diana estaban normales. Regresa a la silvia de urgencias si empiezas tener dolor abdominal, fiebres altas, o nauseas y vomitos y no puedes comer ni beber. Print Language: AZERI - Post Discharge Activity
[2020-05-21 09:12] VITALS: BP 119/74; PULSE 52; TEMP 98
== END 2020-05-21 09:13 | disposition home or self-care (01) ==
LOC: JER 06:18
DX: R19.7 Diarrhea, unspecified (principal)
CPT/HCPCS: 36415; 80053; 85025; 99284-25

== ENCOUNTER 2020-06-11 05:38 | Day surgery (SDC) | payer OTHER ==
--- OUTSIDE RECORDS SUMMARY | 2020-06-08 11:44 | XMS ---
:1950 Author Organization [facility] Care Team Providers Name Role Phone [...] is protected by Article 27-F of the [facility] Public Health law. If you continue you may haveaccess to information: Regarding HIV / AIDS; Provided by facilities licensed or operated by the [facility] Office of Mental Health; or Provided by the [facility] Office for People With Developmental Disabilities. If such information is present, then the following [facility] mandated warning applies: This information has been [...] law may result in a fine or correction sentence or both. A general authorization for the release of medical or other information is NOT sufficient authorization for further disclosure. Encounters Encounter Providers Location Date Indications Data Source(s ) Attender: Boaz 06/03/2020 MED[facility] ([facility] 12:00:00 AM EDT Medical, ) Office Attender: Boaz Angulo 05/10/2020 12:00:00 AM EDT [facility] ([facility], ) Office Attender: Boaz Angulo 03/29/2020 12:00:00 AM EDT [facility] ([facility], ) Office Attender: Michael 03/24/2020 12:00:00 AM EDT [facility] ([facility], ) Office Medications Medication Brand Start Product Dose Route Administrative Pharmacy [facility] Indications Reaction Description Data Name Date Form Instructions Instructions Source(s) gabapentin GABAPE 05/10/ CAPSULE 180 complet CURT PENTIN MED[facility] (St 100 MG Oral NTIN:3 2019 ed [facility] 16114 12:00: Medical, GABAPENTIN: 00 AM PC) [id number] EDT gabapentin GABAPE 05/10/ CAPSULE 180 complet [facility] (St 100 MG Oral NTIN:3 2019 ed [facility] [id number] 12:00: Medical, GABAPENTIN: 00 AM PC) [id number] EDT gabapentin GABAPE 04/19/ CAPSULE 90 complet [facility]T [facility] (St 100 MG Oral NTIN:3 2019 ed [facility] 24183 12:00: Medical, GABAPENTIN: 00 AM PC) [id number] EDT CREAM 03/29/ CREAM 1 complet CREAM BASE ME DGEN (St BASE:[id number] ed [facility] 12:00: Medical, 00 AM PC) EDT CREAM 03/29/ CREAM 1 complet CREAM BASE ME DGEN (St BASE:[id number] ed [facility] 12:00: Medical, 00 AM PC) EDT CREAM 03/29/ CREAM 1 complet CREAM BASE ME DGEN ( BASE:[id number] ed [facility] 12:00: Medical, 00 AM PC) EDT CREAM 03/29/ CREAM 1 complet CREAM BASE ME DGEN ( BASE:[id number] ed [facility] 12:00: Medical, 00 AM PC) EDT Insurance Providers Payer name Policy type Policy ID Covered Covered democrat's Policy P abundio / Coverage democrat ID relationship to [employer] Inf ormation type [facility] [place] [facility] [id number] SP [id number] HEALTHCARE (MEDICARE) [facility] [id number] CARE MEDICARE COMPLETE UNITED [id number] SP [id number] HEALTHCARE (MEDICARE) Problems, Conditions, and Diagnoses Code Display Name Description Problem Type Effective Dates Data Source(s) M54.16 Radiculopathy, RADICULOPATHY, Problem 03/29/2020 MED[facility] (St lumbar region [facility] 12:00:00 AM EDT Tod Tomlinson, ) M54.16 Radiculopathy, RADICULOPATHY, Problem 03/29/2020 MED[facility] (St lumbar region [facility] 12:00:00 AM EDT Tod Tomlinson ) M54.16 Radiculopathy, RADICULOPATHY, Problem 03/29/2020 MED[facility] (St lumbar region [facility] 12:00:00 AM EDT Tod Tomlinson, ) M54.16 Radiculopathy, RADICULOPATHY, Problem 03/29/2020 MED[facility] (St lumbar region [facility] 12:00:00 AM EDT Tod Tomlinson ) M54.5 Low back pain LOW BACK PAIN Problem 01/26/2020 MED[facility] ( St 12:00:00 AM EDT JOHANA Hudson) M25.552 Pain in left PAIN IN LEFT HIP Problem 01/26/2020 MED[facility] (St hip 12:00:00 AM EDT JOHANA Hudson) M54.5 Low back pain LOW BACK PAIN Problem 01/26/2020 MED[facility] ( St 12:00:00 AM EDT JOHANA Hudson) M25.552 Pain in left PAIN IN LEFT HIP Problem 01/26/2020 MED[facility] (St hip 12:00:00 AM EDT [facility]) M54.5 Low back pain LOW BACK PAIN Problem 01/26/2020 MED[facility] ( St 12:00:00 AM EDT [facility]) M25.552 Pain in left PAIN IN LEFT HIP Problem 01/26/2020 MED[facility] (St hip 12:00:00 AM EDT [facility]) M54.5 Low back pain LOW BACK PAIN Problem 01/26/2020 MED[facility] ( St 12:00:00 AM EDT [facility]) M25.552 Pain in left PAIN IN LEFT HIP Problem 01/26/2020 MED[facility] (St hip 12:00:00 AM EDT [facility]) M54.5 Low back pain LOW BACK PAIN Problem 01/26/2020 MED[facility] ( St 12:00:00 AM EDT [facility]) M25.552 Pain in left PAIN IN LEFT HIP Problem 01/26/2020 MED[facility] (St hip 12:00:00 AM EDT [facility]) R05 Cough COUGH Problem 09/05/2019 MED[facility] (St 12:00:00 AM EST [facility]) R05 Cough COUGH Problem 09/05/2019 MED[facility] (St 12:00:00 AM EST [facility]) R05 Cough COUGH Problem 09/05/2019 MED[facility] (St 12:00:00 AM EST [facility]) R05 Cough COUGH Problem 09/05/2019 MED[facility] (St 12:00:00 AM EST [facility]) R05 Cough COUGH Problem 09/05/2019 MED[facility] (St 12:00:00 AM EST [facility]) Surgeries/Procedures Procedure Description Date Indications Data Source(s) Documentation of current 06/03/2020 MED [facility] ([facility] (procedure) 12:00:00 AM EDT JOHANA Cuellar) Documentation of current 06/03/2020 MED [facility] ([facility] (procedure) 12:00:00 AM EDT JOHANA Cuellar) OFFICE OUTPATIENT VISIT 06/03/2020 [facility] EN ([facility] 15 MINUTES 12:00:00 AM EDT Medical, ) OFFICE OUTPATIENT VISIT 05/10/2020 [facility] EN ([facility] 15 MINUTES 12:00:00 AM EDT Medical, PC) OFFICE OUTPATIENT VISIT 05/10/2020 [facility] EN ([facility] 15 MINUTES 12:00:00 AM EDT Medical, PC) Documentation [...] AM EDT leonid, PC) OFFICE OUTPATIENT VISIT 04/19/2020 [facility] EN ([facility] 15 MINUTES 12:00:00 AM EDT Medical, PC) Documentation [...] AM EDT leonid, PC) OFFICE OUTPATIENT VISIT 04/19/2020 [facility] EN ([facility] 15 [facility]UTES 12:00:00 AM EDT Medical, PC) Documentation of current 04/19/2020 MED GEN ([facility] (procedure) 12:00:00 AM EDT leonid, PC) OFFICE OUTPATIENT VISIT 04/19/2020 [facility] EN ([facility] 15 MINUTES 12:00:00 AM EDT Medical, PC) Documentation [...] medications (procedure) 12:00:00 AM EDT M leonid, JOHANA) Documentation of current 03/29/2020 MED [facility] ([facility] [...] EDT Lisa jaquez, PC) Documentation of current 03/29/2020 MED GEN [...] GEN ([facility] (procedure) 12:00:00 AM EDT stephanieical, ) OFFICE OUTPATIENT VISIT 03/24/2020 MED[facility] EN ([facility] 15 MINUTES 12:00:00 AM EDT Medical, ) Documentation of current 03/24/2020 MED [facility] ([facility] (procedure) 12:00:00 AM EDT stephanieical, ) Documentation of current 03/24/2020 MED [facility] ([facility] (procedure) 12:00:00 AM EDT leonid, PC) Documentation of current 03/24/2020 MED [facility] ([facility] (procedure) 12:00:00 AM EDT stephanieical, ) OFFICE OUTPATIENT VISIT 03/24/2020 [facility] EN ([facility] 15 MINUTES 12:00:00 AM EDT Medical, ) Documentation of current 03/24/2020 MED [facility] ([facility] (procedure) 12:00:00 AM EDT [facility]ieical, PC) Documentation of current 03/24/2020 MED [facility] ([facility] (procedure) 12:00:00 AM EDT stephanieical, ) OFFICE OUTPATIENT VISIT 03/24/2020 MED[facility] EN ([facility] 15 MINUTES 12:00:00 AM [facility] Medical, ) Documentation of current 03/24/2020 MED GEN ([facility] (procedure) 12:00:00 AM EDT leonid, PC) Documentation of current 03/24/2020 MED [facility] ([facility] (procedure) 12:00:00 AM EDT [facility]ie[facility], PC) Documentation of current 03/24/2020 MED GEN ([facility] (procedure) 12:00:00 AM EDT leonid, ) OFFICE OUTPATIENT VISIT 03/24/2020 MED[facility] EN ([facility] 15 MINUTES 12:00:00 AM EDT Medical, PC) Documentation of current 03/24/2020 MED [facility] ([facility] (procedure) 12:00:00 AM EDT leonid, PC) OFFICE OUTPATIENT VISIT 03/24/2020 [facility] EN ([facility] 15 MINUTES 12:00:00 AM EDT Medical, PC) Documentation of current 02/09/2020 MED [facility] ([facility] (procedure) 12:00:00 AM EDT edical, PC) Documentation of current 02/09/2020 MED [facility] ([facility] (procedure) 12:00:00 AM EDT leonid, PC) Documentation of current 02/09/2020 MED [facility] ([facility] (procedure) 12:00:00 AM EDT ste[facility]ieical, PC) OFFICE OUTPATIENT VISIT 02/09/2020 [facility] EN ([facility] 15 MINUTES 12:00:00 AM EDT Medical, ) Documentation of current 02/09/2020 MED [facility] ([facility] (procedure) 12:00:00 AM EDT [facility]ieical, PC) Documentation of current 02/09/2020 MED [facility] ([facility] (procedure) 12:00:00 AM EDT leonid, PC) Documentation of current 02/09/2020 MED [facility] ([facility] (procedure) 12:00:00 AM EDT [facility]ieical, PC) OFFICE OUTPATIENT VISIT 02/09/2020 [facility] EN ([facility] 15 MINUTES 12:00:00 AM EDT [facility], ) Documentation of current 02/09/2020 MED GEN ([facility] (procedure) 12:00:00 AM EDT leonid, PC) Documentation of current 02/09/2020 MED GEN ([facility] (procedure) 12:00:00 AM EDT leonid, PC) Documentation of current 02/09/2020 MED [facility] ([facility] (procedure) 12:00:00 AM EDT [facility]ie[facility], PC) OFFICE OUTPATIENT VISIT 02/09/2020 [facility] EN ([facility] 15 MINUTES 12:00:00 AM EDT Medical, PC) Documentation of current 02/09/2020 MED [facility] ([facility] (procedure) 12:00:00 AM EDT ste[facility]ieical, PC) Documentation of current 02/09/2020 MED [facility] ([facility] (procedure) 12:00:00 AM EDT stephanieical, PC) Documentation of current 02/09/2020 MED [facility] ([facility] (procedure) 12:00:00 AM EDT ste[facility]ieical, PC) OFFICE OUTPATIENT VISIT 02/09/2020 [facility] EN ([facility] 15 MINUTES 12:00:00 AM EDT Medical, PC) Documentation of current 02/09/2020 MED GEN ([facility] (procedure) 12:00:00 AM EDT edical, ) Documentation of current 02/09/2020 MED GEN ([facility] (procedure) 12:00:00 AM EDT edical, PC) Documentation of current 02/09/2020 MED GEN ([facility] (procedure) 12:00:00 AM EDT edical, ) OFFICE OUTPATIENT VISIT 02/09/2020 MED[facility] EN ([facility] 15 MINUTES 12:00:00 AM EDT Medical, ) Documentation of current 01/26/2020 MED GEN ([facility] (procedure) 12:00:00 AM EDT edical, ) Documentation of current 01/26/2020 MED [facility] ([facility] (procedure) 12:00:00 AM EDT edical, PC) Documentation of current 01/26/2020 MED GEN ([facility] (procedure) 12:00:00 AM EDT edical, PC) OFFICE OUTPATIENT VISIT 01/26/2020 MEDG EN ([facility] 10 MINUTES 12:00:00 AM EDT Medical, ) Documentation of current 01/26/2020 MED GEN ([facility] (procedure) 12:00:00 AM EDT edical, PC) Documentation of current 01/26/2020 MED GEN ([facility] (procedure) 12:00:00 AM EDT edical, PC) Documentation of current 01/26/2020 MED GEN ([facility] (procedure) 12:00:00 AM EDT edical, PC) OFFICE OUTPATIENT VISIT 01/26/2020 MED[facility] EN ([facility] 10 MINUTES 12:00:00 AM EDT Medical, PC) Documentation of current 01/26/2020 MED GEN ([facility] (procedure) 12:00:00 AM EDT edical, PC) Documentation of current 01/26/2020 MED GEN ([facility] (procedure) 12:00:00 AM EDT edical, PC) Documentation of current 01/26/2020 MED GEN ([facility] (procedure) 12:00:00 AM EDT edical, ) OFFICE OUTPATIENT VISIT 01/26/2020 MED[facility] EN ([facility] 10 MINUTES 12:00:00 AM EDT Medical, ) Documentation of current 01/26/2020 MED GEN ([facility] (procedure) 12:00:00 AM EDT edical, ) Documentation of current 01/26/2020 MED GEN ([facility] (procedure) 12:00:00 AM EDT edical, ) Documentation of current 01/26/2020 MED [facility] ([facility]PAT[facility] VISIT 01/26/2020 MEDG EN ([facility] 10 MINUTES 12:00:00 AM ED Medical, ) Documentation of current 01/26/2020 MED GEN ([facility] (procedure) 12:00:00 AM EDT edical, PC) Documentation of current 01/26/2020 MED [facility] ([facility] current 01/26/2020 MED GEN ([facility] medications (procedure) 12:00:00 AM EDT [facility], ) OFFICE OUTPATIENT VISIT 01/26/2020 MEDG EN ([facility] 10 MINUTES 12:00:00 AM [facility] Medical, ) Documentation of current 09/05/2019 MED GEN ([facility]procedure) [facility]:00:00 [facility] OFFICE OUTPATIENT VISIT 09/05/2019 MEDG EN ([facility] 15 MINUTES 12:00:00 AM EST Medical, PC) Documentation of current 09/05/2019 MED GEN ([facility]procedure) 12:00:00 AM [facility] OFFICE OUTPATIENT VISIT 09/05/2019 MEDG EN ([facility] 15 MINUTES 12:00:00 AM EST Medical, PC) Documentation of current 09/05/2019 MED GEN ([facility]procedure) [facility]:00:00 [facility] OFFICE OUTPATIENT VISIT 09/05/2019 MEDG EN ([facility] 15 MINUTES 12:00:00 AM EST Medical, PC) Documentation of current 09/05/2019 MED GEN ([facility] (procedure) 12:00:00 AM EST edical, ) OFFICE OUTPATIENT VISIT 09/05/2019 MEDG EN ([facility] 15 MINUTES 12:00:00 AM EST Medical, PC) Documentation of current 09/05/2019 MED GEN ([facility] (procedure) 12:00:00 AM EST M edical, PC) OFFICE OUTPATIENT VISIT 09/05/2019 MED[facility] EN ([facility] 15 MINUTES 12:00:00 AM EST Medical, PC) Results ID Date Data Source [id number] 05/16/2020 10:15:00 AM EDT [facility] Name Value Range Interpretation Description Data Sup porting Code Source(s) Document(s ) SARS [facility] coronavirus 2 RNA This lab was ordered by [facility] and reported by [facility]. ID Date Data Source [id number] 04/05/2020 12:55:00 PM EDT [facility] Name Value Range Interpretation Description Data Sup porting Code Source(s) Document(s ) SARS [facility] coronavirus 2 RNA This lab was ordered by [facility] and reported by [facility]. Procedure Social History Code Duration Value Status Description Data Source(s ) Smoking 06/03/2020 No alcohol No completed No alcohol No MEDGEN ( [facility] 12:00:00 AM EDT smoking smoking Medical, PC) Smoking 06/03/2020 Unknown if ever completed Unknown if ever [facility] EN ([facility] 12:00:00 AM EDT smoked smoked Medical, PC) Smoking 05/10/2020 No alcohol No completed No alcohol No [facility] ( [facility] 12:00:00 AM EDT smoking smoking Medical, PC) Smoking 05/10/2020 Unknown if ever completed Unknown if ever [facility] EN ([facility] 12:00:00 AM EDT smoked smoked Medical, PC) Smoking 04/19/2020 No alcohol No completed No alcohol No [facility] ( [facility] 12:00:00 AM EDT smoking smoking Medical, PC) Smoking 04/19/2020 Unknown if ever completed Unknown if ever [facility] EN ([facility] 12:00:00 AM EDT smoked smoked Medical, PC) Smoking 03/29/2020 No alcohol No completed No alcohol No [facility] ( [facility] 12:00:00 AM EDT smoking smoking Medical, PC) Smoking 03/29/2020 Unknown if ever completed Unknown if ever [facility] EN ([facility] 12:00:00 AM EDT smoked smoked Medical, PC) Smoking 03/24/2020 No alcohol No completed No alcohol No MEDGEN ( [facility] 12:00:00 AM EDT smoking smoking [facility]) Smoking 03/24/2020 Unknown if ever completed Unknown if ever MEDG EN ([facility] 12:00:00 AM EDT smoked smoked [facility]) Vital Signs ID Date Data Source UNK Name Value Range Interpretation Code Description Data Source(s) Heart rate 58 /min 58 /min [facility] ([facility]) Respiratory rate 14 /min 14 /min [facility] ( [facility]) Inhaled oxygen 98 % 98 % MEDGEN ([facility]) Diastolic blood 80 mm[Hg] 80 mm[Hg] MEDGEN ([facility]) Systolic blood 120 mm[Hg] 120 mm[Hg] MEDGEN ([facility]) Body height 72 in 72 in MEDGEN ([facility]) Heart rate 88 /min 88 /min [facility] ([facility]) Respiratory rate 14 /min 14 /min MEDGEN ( [facility]) Inhaled oxygen 96 % 96 % MEDGEN ([facility]) Diastolic blood 60 mm[Hg] 60 mm[Hg] MEDGEN (S [facility]) Systolic blood 120 mm[Hg] 120 mm[Hg] MEDGEN ([facility]) Body height 72 in 72 in [facility] ([facility]) Heart rate 88 /min 88 /min [facility] ([facility]) Respiratory rate 14 /min 14 /min MEDGEN ( [facility]) Inhaled oxygen 96 % 96 % MEDGEN ([facility]) Diastolic blood 60 mm[Hg] 60 mm[Hg] MEDGEN (S [facility]) Systolic blood 120 mm[Hg] 120 mm[Hg] MEDGEN ([facility]) Body height 72 in 72 in MEDGEN ([facility]) Heart rate 103 /min 103 /min MED[facility] ([facility]) Respiratory rate 15 /min 15 /min MEDGEN ( [facility]) Inhaled oxygen 96 % 96 % MEDGEN ([facility]) Body mass index 23.7 kg/m2 23.7 kg/m2 MEDGEN (S t (BMI) [Ratio] [facility], ) Diastolic blood 64 mm[Hg] 64 mm[Hg] MEDGEN (S t pressure [facility]) Systolic blood 120 mm[Hg] 120 mm[Hg] MEDGEN ([facility]) Body weight 175 lb 175 lb MEDGEN ([facility]) Body height 72 in 72 in MEDGEN ([facility]) Heart rate 103 /min 103 /min MEDGEN ([facility]) Respiratory rate 15 /min 15 /min MEDGEN ( [facility]) Inhaled oxygen 96 % 96 % MEDGEN ([facility], ) Body mass index 23.7 kg/m2 23.7 kg/m2 MEDGEN (S t (BMI) [Ratio] [facility], ) Diastolic blood 64 mm[Hg] 64 mm[Hg] MEDGEN (S t pressure [facility]) Systolic blood 120 mm[Hg] 120 mm[Hg] MEDGEN ([facility]) Body weight 175 lb 175 lb MEDGEN ([facility]) Body height 72 in 72 in MEDGEN ([facility]) Heart rate 103 /min 103 /min MED[facility] ([facility]) Respiratory rate 15 /min 15 /min MEDGEN ( [facility]) Inhaled oxygen 96 % 96 % MEDGEN ([facility], ) Body mass index 23.7 kg/m2 23.7 kg/m2 MEDGEN (S t (BMI) [Ratio] [facility], ) Diastolic blood 64 mm[Hg] 64 mm[Hg] MEDGEN (S t pressure [facility]) Systolic blood 120 mm[Hg] 120 mm[Hg] MEDGEN ([facility]) Body weight 175 lb 175 lb MEDGEN ([facility]) Body height 72 in 72 in MEDGEN ([facility]) Heart rate 103 /min 103 /min MEDGEN ([facility]) Respiratory rate 15 /min 15 /min MEDGEN ( [facility]) Inhaled oxygen 96 % 96 % MEDGEN ([facility]) Body mass index 23.7 kg/m2 23.7 kg/m2 MEDGEN (S t (BMI) [Ratio] [facility]) Diastolic blood 64 mm[Hg] 64 mm[Hg] MEDGEN (S [facility]) Systolic blood 120 mm[Hg] 120 mm[Hg] MEDGEN ([facility]) Body weight 175 lb 175 lb [facility] ([facility]) Body height 72 in 72 in [facility] ([facility]) Body mass index 23.9 kg/m2 23.9 kg/m2 MEDGEN (S t (BMI) [Ratio] [facility]) Diastolic blood 70 mm[Hg] 70 mm[Hg] MEDGEN (S [facility]) Systolic blood 118 mm[Hg] 118 mm[Hg] MEDGEN ([facility]) Body weight 176 lb 176 lb [facility] ([facility]) Body height 72 in 72 in [facility] ([facility]) Body mass index 23.9 kg/m2 23.9 kg/m2 MEDGEN (S t (BMI) [Ratio] [facility]) Diastolic blood 70 mm[Hg] 70 mm[Hg] [facility] (S [facility]) Systolic blood 118 mm[Hg] 118 mm[Hg] MEDGEN ([facility]) Body weight 176 lb 176 lb MEDGEN ([facility]) Body height 72 in 72 in [facility] ([facility]) Body mass index 23.9 kg/m2 23.9 kg/m2 MEDGEN (S t (BMI) [Ratio] [facility]) Diastolic blood 70 mm[Hg] 70 mm[Hg] MEDGEN (S [facility]) Systolic blood 118 mm[Hg] 118 mm[Hg] MEDGEN ([facility]) Body weight 176 lb 176 lb [facility] ([facility]) Body height 72 in 72 in [facility] ([facility]) Body mass index 23.9 kg/m2 23.9 kg/m2 MEDGEN (S t (BMI) [Ratio] [facility], ) Diastolic blood 70 mm[Hg] 70 mm[Hg] MEDGEN (S t pressure [facility]) Systolic blood 118 mm[Hg] 118 mm[Hg] MEDGEN ([facility]) Body weight 176 lb 176 lb MEDGEN ([facility]) Body height 72 in 72 in MEDGEN ([facility]) Body mass index 23.9 kg/m2 23.9 kg/m2 MEDGEN (S t (BMI) [Ratio] [facility], ) Diastolic blood 70 mm[Hg] 70 mm[Hg] MEDGEN (S t [facility]) Systolic blood 118 mm[Hg] 118 mm[Hg] MEDGEN ([facility]) Body weight 176 lb 176 lb MEDGEN ([facility]) Body height 72 in 72 in MEDGEN ([facility]) Heart rate 54 /min 54 /min MED[facility] ([facility]) Inhaled oxygen 99 % 99 % MEDGEN ([facility]) Body mass index 24.5 kg/m2 24.5 kg/m2 MEDGEN (S t (BMI) [Ratio] [facility], ) Diastolic blood 72 mm[Hg] 72 mm[Hg] MEDGEN (S t [facility]) Systolic blood 130 mm[Hg] 130 mm[Hg] MEDGEN ([facility]) Body weight 181 lb 181 lb MEDGEN ([facility]) Body height 72 in 72 in MEDGEN ([facility]) Heart rate 54 /min 54 /min MEDGEN ([facility]) Inhaled oxygen 99 % 99 % MEDGEN ([facility]) Body mass index 24.5 kg/m2 24.5 kg/m2 MEDGEN (S t (BMI) [Ratio] [facility], ) Diastolic blood 72 mm[Hg] 72 mm[Hg] MEDGEN (S t pressure [facility]) Systolic blood 130 mm[Hg] 130 mm[Hg] MEDGEN ([facility]) Body weight 181 lb 181 lb MEDGEN ([facility]) Body height 72 in 72 in MEDGEN ([facility]) Heart rate 54 /min 54 /min MED[facility] ([facility]) Inhaled oxygen 99 % 99 % MEDGEN ([facility]) Body mass index 24.5 kg/m2 24.5 kg/m2 MEDGEN (S t (BMI) [Ratio] [facility]) Diastolic blood 72 mm[Hg] 72 mm[Hg] MEDGEN (S [facility]) Systolic blood 130 mm[Hg] 130 mm[Hg] MEDGEN ([facility]) Body weight 181 lb 181 lb MEDGEN ([facility]) Body height 72 in 72 in MEDGEN ([facility]) Body height 72 in 72 in MEDGEN ([facility]) Heart rate 54 /min 54 /min MEDGEN ([facility]) Inhaled oxygen 99 % 99 % MEDGEN ([facility]) Body mass index 24.5 kg/m2 24.5 kg/m2 MEDGEN (S t (BMI) [Ratio] [facility]) Diastolic blood 72 mm[Hg] 72 mm[Hg] MEDGEN (S [facility]) Systolic blood 130 mm[Hg] 130 mm[Hg] MEDGEN ([facility]) Body weight 181 lb 181 lb MEDGEN ([facility]) Heart rate 54 /min 54 /min MEDGEN ([facility]) Inhaled oxygen 99 % 99 % MEDGEN ([facility]) Body mass index 24.5 kg/m2 24.5 kg/m2 MEDGEN (S t (BMI) [Ratio] [facility]) Diastolic blood 72 mm[Hg] 72 mm[Hg] MEDGEN (S [facility]) Systolic blood 130 mm[Hg] 130 mm[Hg] MEDGEN ([facility]) Body weight 181 lb 181 lb MEDGEN ([facility]) Body height 72 in 72 in MEDGEN ([facility]) Body mass index 24 kg/m2 24 kg/m2 MEDGEN (S t (BMI) [Ratio] [facility]) Diastolic blood 72 mm[Hg] 72 mm[Hg] MEDGEN (S t pressure [facility]) Systolic blood 126 mm[Hg] 126 mm[Hg] [facility] [facility]) Body weight 177 lb 177 lb [facility] ([facility] [place]) Body height 72 in 72 in [facility] ([facility] [place]) Body mass index 24 kg/m2 24 kg/m2 [facility] (S t (BMI) [Ratio] [facility] [place], ) Diastolic blood 72 mm[Hg] 72 mm[Hg] [facility] (S t pressure [facility] [place]) Systolic blood 126 mm[Hg] 126 mm[Hg] [facility] ([facility]) Body weight 177 lb 177 lb [facility] ([facility] [place]) Body height 72 in 72 in [facility] ([facility] [place]) Body mass index 24 kg/m2 24 kg/m2 [facility] (S t (BMI) [Ratio] [facility] [place], ) Diastolic blood 72 mm[Hg] 72 mm[Hg] [facility] (S t pressure [facility] [place]) Systolic blood 126 mm[Hg] 126 mm[Hg] [facility] ([facility]) Body weight 177 lb 177 lb [facility] ([facility] [place]) Body height 72 in 72 in [facility] ([facility] [place]) Body mass index 24 kg/m2 24 kg/m2 [facility] (S t (BMI) [Ratio] [facility] [place], ) Diastolic blood 72 mm[Hg] 72 mm[Hg] [facility] (S t pressure [facility] [place]) Systolic blood 126 mm[Hg] 126 mm[Hg] [facility] ([facility]) Body weight 177 lb 177 lb [facility] ([facility] [place]) Body height 72 in 72 in [facility] ([facility] [place]) Body mass index 24 kg/m2 24 kg/m2 [facility] (S t (BMI) [Ratio] [facility] [place], ) Diastolic blood 72 mm[Hg] 72 mm[Hg] [facility] (S t pressure [facility] [place] , ) Systolic blood 126 mm[Hg] 126 mm[Hg] [facility] ([facility] [place] , ) Body weight 177 lb 177 lb [facility] ([facility] , ) [facility] height 72 in 72 in [facility] ([facility] , )
[2020-06-10 17:55] VITALS: BMI 23.7
--- OUTSIDE RECORDS SUMMARY | 2020-06-11 05:41 | XMS ---
[...] is protected by Article 27-F of the [facility] Public Health law. If you continue you may haveaccess to information: Regarding HIV / AIDS; Provided by facilities licensed or operated by the [facility] Office of Mental Health; or Provided by the [facility] Office for People With Developmental Disabilities. If such information is present, then the following [facility] mandated warning applies: This information [...] law may result in a fine or residential sentence or both. A general authorization for the release of medical or other information is NOT sufficient authorization for further disclosure. Encounters Encounter Providers Location Date Indications Data Source(s ) Attender: Boaz 06/03/2020 MEDGEN ([facility] [place] 12:00:00 AM EDT Medical, ) Office Attender: Boaz Angulo 05/10/2020 12:00:00 AM EDT MEDGEN ([facility], ) Office Attender: Boaz Angulo 03/29/2020 12:00:00 AM EDT MEDGEN ([facility], ) Office Attender: Michael 03/24/2020 12:00:00 AM EDT [facility] ([facility], ) Office Medications Medication Brand Start Product Dose Route Administrative Pharmacy [facility] Indications Reaction Description Data Name Date Form Instructions Instructions Source(s) gabapentin GABAPE 05/10/ CAPSULE 180 complet CURT PENTIN MED[facility] (St 100 MG Oral NTIN:3 2019 ed [facility] 22589 12:00: Medical, GABAPENTIN: 00 AM PC) [id number] EDT gabapentin GABAPE 05/10/ CAPSULE 180 complet CURT PENTIN [facility] (St 100 MG Oral NTIN:3 2019 ed [facility] 28400 12:00: Medical, GABAPENTIN: 00 AM PC) [id number] EDT gabapentin GABAPE 04/19/ CAPSULE 90 complet [facility]T PENTIN [facility] (St 100 MG Oral NTIN:3 2019 ed [facility] 72368 12:00: Medical, GABAPENTIN: 00 AM PC) [id number] EDT CREAM 03/29/ CREAM 1 complet CREAM BASE ME DGEN (St BASE:[id number] ed [facility] 12:00: Medical, 00 AM PC) EDT CREAM 03/29/ CREAM 1 complet CREAM BASE ME DGEN (St BASE:[id number] ed [facility] 12:00: Medical, 00 AM PC) EDT CREAM 03/29/ CREAM 1 complet CREAM BASE ME DGEN ( BASE:[id number] ed [facility] 12:00: Medical, 00 AM PC) EDT CREAM 03/29/ CREAM 1 complet CREAM BASE ME DGEN ( BASE:[id number] ed [facility] 12:00: Medical, 00 AM PC) EDT Insurance Providers Payer name Policy type Policy ID Covered Covered alliance party's Policy P abundio / Coverage alliance party ID relationship to [employer] Inf ormation type [place] [place] [id number] SP [id number] HEALTHCARE (MEDICARE) [place] [id number] SP [id number] HEALTHCARE (MEDICARE) [facility] [id number] CARE MEDICARE COMPLETE [place] [id number] SP [id number] HEALTHCARE (MEDICARE) Problems, Conditions, and Diagnoses Code Display Name Description Problem Type Effective Dates Data Source(s) M54.16 Radiculopathy, RADICULOPATHY, Problem 03/29/2020 MED[facility] ([facility] lumbar region [facility] 12:00:00 AM [facility] [place] M54.16 Radiculopathy, RADICULOPATHY, Problem 03/29/2020 MED[facility] (St lumbar region [facility] 12:00:00 AM EDT [facility] [place] M54.16 Radiculopathy, RADICULOPATHY, Problem 03/29/2020 MED[facility] (St lumbar region [facility] 12:00:00 AM EDT [facility] M54.16 Radiculopathy, RADICULOPATHY, Problem 03/29/2020 MED[facility] (St lumbar region [facility] 12:00:00 AM EDT [facility] [place] M54.5 Low back pain LOW BACK PAIN Problem 01/26/2020 MED[facility] ( St 12:00:00 AM EDT Kay nava ) M25.552 Pain in left PAIN IN LEFT HIP Problem 01/26/[address] [facility] ([address] hip 12:00:00 AM EDT Kay nava ) M54.5 Low back pain LOW BACK [...] MED GEN ([facility] (procedure) 12:00:00 AM EDJOHANA Palomino) Documentation of current 06/03/2020 MED GEN ([facility] (procedure) 12:00:00 AM EDJOHANA Palomino) OFFICE OUTPATIENT VISIT 06/03/2020 MEDG EN ([facility] 15 MINUTES 12:00:00 AM EDT Medical, PC) OFFICE OUTPATIENT VISIT 05/10/2020 MEDG EN ([facility] 15 MINUTES 12:00:00 AM EDT Medical, PC) OFFICE OUTPATIENT VISIT 05/10/2020 MEDG EN ([facility] 15 MINUTES 12:00:00 AM EDT [facility], PC) Documentation of current 04/19/2020 MED GEN ([facility] (procedure) 12:00:00 AM EDT leonid, ) Documentation of current 04/19/2020 MED GEN [...] GEN ([facility] (procedure) 12:00:00 AM EDT leonid PC) Documentation of current 04/19/2020 MED GEN ([facility] (procedure) 12:00:00 AM EDT leonid PC) Documentation of current 04/19/2020 MED GEN ([facility] (procedure) 12:00:00 AM EDT leonid, PC) Documentation of current 04/19/2020 MED GEN ([facility] (procedure) 12:00:00 AM EDT leonid, PC) Documentation of current 04/19/2020 MED GEN ([facility] (procedure) 12:00:00 AM EDT leoind, PC) Documentation of current 04/19/2020 MED GEN [...] AM EDT JOHANA Cuellar) Documentation of current 03/29/2020 MED GEN ([facility] (procedure) 12:00:00 AM EDT JOHANA Cuellar) Documentation of current 03/29/2020 MED GEN ([facility] (procedure) 12:00:00 AM EDT JOHANA Cuellar) Documentation of current 03/29/2020 MED GEN ([facility] (procedure) 12:00:00 AM EDT JOHANA Cuellar) Documentation of current 03/29/2020 MED GEN ([facility] (procedure) 12:00:00 AM EDT JOHANA jaquez) Documentation of current 03/29/2020 MED GEN ([facility] (procedure) 12:00:00 AM EDT JOHANA Cuellar) Documentation of current 03/29/2020 MED GEN ([facility] (procedure) 12:00:00 AM EDT Lisa jaquez PC) Documentation of current 03/29/2020 MED GEN ([facility] (procedure) 12:00:00 AM EDT JOHANA Cuellar) Documentation of current 03/29/2020 MED GEN ([facility] (procedure) 12:00:00 AM EDT Lisa jaquez PC) Documentation of current 03/29/2020 MED GEN ([facility] (procedure) 12:00:00 AM EDT JOHANA Cuellar) Documentation of current 03/29/2020 MED GEN ([facility] (procedure) 12:00:00 AM EDT JOHANA Cuellar) Documentation of current 03/29/2020 MED GEN ([facility] (procedure) 12:00:00 AM EDT JOHANA Cuellar) Documentation of current 03/29/2020 MED GEN ([facility] (procedure) 12:00:00 AM EDT Lisa jaquez PC) Documentation of current 03/29/2020 MED GEN ([facility] (procedure) 12:00:00 AM EDT JOHANA Cuellar) Documentation of current 03/24/2020 MED GEN ([facility] (procedure) 12:00:00 AM EDT Lisa jaquez PC) Documentation of current 03/24/2020 MED GEN ([facility] (procedure) 12:00:00 AM EDT JOHANA jaquez) Documentation of current 03/24/2020 MED GEN ([facility] (procedure) 12:00:00 AM EDT stephanieical, PC) OFFICE OUTPATIENT VISIT 03/24/2020 MEDG EN ([facility] 15 MINUTES 12:00:00 AM EDT Medical, ) Documentation of current 03/24/2020 MED GEN ([facility] (procedure) 12:00:00 AM EDT stephanieical, PC) Documentation of current 03/24/2020 MED GEN ([facility] (procedure) 12:00:00 AM EDT stephanieical, PC) Documentation of current 03/24/2020 MED GEN ([facility] (procedure) 12:00:00 AM EDT stephanieical, PC) OFFICE OUTPATIENT VISIT 03/24/2020 MEDG EN ([facility] 15 MINUTES 12:00:00 AM EDT Medical, PC) Documentation of current 03/24/2020 MED GEN ([facility] (procedure) 12:00:00 AM EDT stephanieical, PC) Documentation of current 03/24/2020 MED GEN ([facility] (procedure) 12:00:00 AM EDT stephanieical, PC) OFFICE OUTPATIENT VISIT 03/24/2020 MED[facility] EN ([facility] 15 MINUTES 12:00:00 AM EDT Medical, PC) Documentation of current 03/24/2020 MED GEN ([facility] (procedure) 12:00:00 AM EDT stephanieical, PC) Documentation of current 03/24/2020 MED GEN ([facility] (procedure) 12:00:00 AM EDT leonid, PC) Documentation of current 03/24/2020 MED GEN ([facility] (procedure) 12:00:00 AM EDT stephanieical, PC) OFFICE OUTPATIENT VISIT 03/24/2020 MEDG EN ([facility] 15 MINUTES 12:00:00 AM EDT Medical, PC) Documentation of current 03/24/2020 MED GEN ([facility] (procedure) 12:00:00 AM EDT stephanieical, PC) OFFICE OUTPATIENT VISIT 03/24/2020 MEDG EN [...] AM EDT edical, PC) OFFICE OUTPATIENT VISIT 02/09/2020 MEDG EN ([facility] 15 MINUTES 12:00:00 AM EDT Medical, ) Documentation of current 02/09/2020 MED GEN ([facility] (procedure) 12:00:00 AM EDT stephanieical, PC) Documentation of current 02/09/2020 MED GEN ([facility] (procedure) 12:00:00 AM EDT edical, PC) Documentation of current 02/09/2020 MED GEN ([facility] (procedure) 12:00:00 AM EDT edical, PC) OFFICE OUTPATIENT VISIT 02/09/2020 MEDG EN ([facility] 15 MINUTES 12:00:00 AM EDT Medical, PC) Documentation of current 02/09/2020 MED GEN ([facility] (procedure) 12:00:00 AM EDT edical, PC) Documentation of current 02/09/2020 MED GEN ([facility] (procedure) 12:00:00 AM EDT edical, PC) Documentation of current 02/09/2020 MED GEN ([facility] (procedure) 12:00:00 AM EDT edical, PC) OFFICE OUTPATIENT VISIT 02/09/2020 MEDG EN ([facility] 15 MINUTES 12:00:00 AM EDT Medical, PC) Documentation of current 02/09/2020 MED GEN ([facility] (procedure) 12:00:00 AM EDT stephanieical, PC) Documentation of current 02/09/2020 MED GEN ([facility] (procedure) 12:00:00 AM EDT edical, PC) Documentation of current 02/09/2020 MED GEN ([facility] (procedure) 12:00:00 AM EDT edical, PC) OFFICE OUTPATIENT VISIT 02/09/2020 MEDG EN ([facility] 15 MINUTES 12:00:00 AM EDT Medical, ) Documentation of current 01/26/2020 MED GEN ([facility] (procedure) 12:00:00 AM EDT edical, PC) Documentation of current 01/26/2020 MED GEN ([facility] (procedure) 12:00:00 AM EDT edical, PC) Documentation of current 01/26/2020 MED GEN ([facility] (procedure) 12:00:00 AM EDT ste[facility]ieical, PC) OFFICE OUTPATIENT VISIT 01/26/2020 MEDG EN ([facility] 10 MINUTES 12:00:00 AM T [facility], ) Documentation of current 01/26/2020 MED GEN ([facility] (procedure) 12:00:00 AM EDT stephanieical, PC) Documentation of current 01/26/2020 MED GEN ([facility] (procedure) 12:00:00 AM EDT stephanieical, PC) Documentation of current 01/26/2020 MED GEN ([facility] (procedure) 12:00:00 AM EDT stephanieical, PC) OFFICE OUTPATIENT VISIT 01/26/2020 MEDG EN ([facility] 10 MINUTES 12:00:00 AM T Medical, PC) Documentation of current 01/26/2020 MED [...] GEN ([facility] Documentation of current 01/26/2020 MED GEN ([facility] (procedure) 12:00:00 AM EDT [facility], ) Documentation of current 01/26/2020 MED GEN ([facility] medications (procedure) 12:00:00 AM EDT [facility], ) OFFICE OUTPATIENT VISIT 01/26/2020 MEDG EN ([facility] 10 MINUTES 12:00:00 AM ED Medical, ) Documentation of current 01/26/2020 MED GEN ([facility] (procedure) 12:00:00 AM EDT [facility], ) Documentation of current 01/26/2020 MED GEN ([facility] (procedure) 12:00:00 AM EDT [facility], ) Documentation of current 01/26/2020 MED GEN ([facility] (procedure) 12:00:00 AM EDT [facility], ) OFFICE OUTPATIENT VISIT 01/26/2020 [facility]G EN [facility]ation of current 09/05/2019 MED GEN ([facility] (procedure) 12:00:00 AM EST [facility], ) OFFICE OUTPATIENT VISIT 09/05/2019 MEDG EN ([facility] 15 MINUTES 12:00:00 AM EST [facility], ) Documentation of current 09/05/2019 MED GEN ([facility]procedure) [facility] OFF[facility] OUTPATIENT VISIT 09/05/2019 MEDG [...] Medical, PC) Results ID Date Data Source [id number] 06/06/2020 12:10:00 PM EDT [facility] Name Value Range Interpretation Description Data Sup porting Code Source(s) Document(s ) SARS [facility] coronavirus 2 RNA This lab was ordered by [facility] and reported by [facility]. ID Date Data Source [id number] 05/16/2020 10:15:00 AM EDT [facility] Name Value Range Interpretation Description Data Sup porting Code Source(s) Document(s ) SARS [facility] coronavirus 2 RNA This lab was ordered by [facility] and reported by [facility]. ID Date Data Source [id number] 04/05/2020 12:55:00 PM EDT [facility] Name Value Range Interpretation Description Data Sup porting Code Source(s) Document(s ) SARS [facility] coronavirus 2 RNA This lab was ordered by [facility] and reported by [facility]. Procedure [...] ([facility] 12:00:00 AM EDT smoked smoked Medical, ) Smoking 03/29/2020 No alcohol No completed No alcohol No MEDGEN ( [facility] 12:00:00 AM EDT smoking smoking Medical, ) Smoking 03/29/2020 Unknown if ever completed Unknown if ever MEDG EN ([facility] 12:00:00 AM EDT smoked smoked Medical, ) Smoking 03/24/2020 No alcohol No completed No alcohol No MEDGEN ( [facility] 12:00:00 AM EDT smoking smoking Medical, ) Smoking 03/24/2020 Unknown if ever completed Unknown if ever MEDG EN ([facility] 12:00:00 AM EDT smoked smoked Medical, ) Vital Signs ID Date Data Source UNK Name Value Range Interpretation Code Description Data Source(s) Heart rate 58 /min 58 /min MEDGEN ([facility] , ) Respiratory rate 14 /min 14 /min [facility] ( [facility]) Inhaled oxygen 98 % 98 % MEDGEN ([facility], ) Diastolic blood 80 mm[Hg] 80 mm[Hg] MEDGEN (S t pressure [facility]) Systolic blood 120 mm[Hg] 120 mm[Hg] MEDGEN ([facility]) Body height 72 in 72 in MEDGEN ([facility]) Heart rate 88 /min 88 /min MEDGEN ([facility]) Respiratory rate 14 /min 14 /min MEDGEN ( [facility]) Inhaled oxygen 96 % 96 % MEDGEN ([facility], ) Diastolic blood 60 mm[Hg] 60 mm[Hg] MEDGEN (S t pressure [facility]) Systolic blood 120 mm[Hg] 120 mm[Hg] MEDGEN ([facility] , ) Body height 72 in 72 in MEDGEN ([facility]) Heart rate 88 /min 88 /min MED[facility] ([facility]) Respiratory rate 14 /min 14 /min MEDGEN ( [facility]) Inhaled oxygen 96 % 96 % MEDGEN ([facility], ) Diastolic blood 60 mm[Hg] 60 mm[Hg] MEDGEN (S t pressure [facility] [place] , ) Systolic blood 120 mm[Hg] 120 mm[Hg] MEDGEN ([facility]) Body height 72 in 72 in MEDGEN ([facility]) Heart rate 103 /min 103 /min MED[facility] ([facility]) Respiratory rate 15 /min 15 /min MEDGEN ( [facility]) Inhaled oxygen 96 % 96 % MED[facility] ([facility]) Body mass index 23.7 kg/m2 23.7 kg/m2 MEDGEN (S t (BMI) [Ratio] [facility], ) Diastolic blood 64 mm[Hg] 64 mm[Hg] MEDGEN (S t pressure [facility]) Systolic blood 120 mm[Hg] 120 mm[Hg] MEDGEN ([facility]) Body weight 175 lb 175 lb MEDGEN ([facility]) Body height 72 in 72 in MEDGEN ([facility]) Heart rate 103 /min 103 /min MEDGEN ([facility]) Respiratory rate 15 /min 15 /min MEDGEN ( [facility]) Inhaled oxygen 96 % 96 % MEDGEN ([facility]) Body mass index 23.7 kg/m2 23.7 kg/m2 MEDGEN (S t (BMI) [Ratio] [facility]) Diastolic blood 64 mm[Hg] 64 mm[Hg] MEDGEN (S t pressure [facility]) Systolic blood 120 mm[Hg] 120 mm[Hg] MEDGEN ([facility]) Body weight 175 lb 175 lb MEDGEN ([facility]) Body height 72 in 72 in MEDGEN ([facility]) Heart rate 103 /min 103 /min MEDGEN ([facility]) Respiratory rate 15 /min 15 /min MEDGEN ( [facility]) Inhaled oxygen 96 % 96 % MEDGEN ([facility]) Body mass index 23.7 kg/m2 23.7 kg/m2 MEDGEN (S t (BMI) [Ratio] [facility]) Diastolic blood 64 mm[Hg] 64 mm[Hg] MEDGEN (S t pressure [facility]) Systolic blood 120 mm[Hg] 120 mm[Hg] MEDGEN ([facility]) Body weight 175 lb 175 lb MEDGEN ([facility]) Body height 72 in 72 in MEDGEN ([facility]) Heart rate 103 /min 103 /min MEDGEN ([facility]) Respiratory rate 15 /min 15 /min MEDGEN ( [facility]) Inhaled oxygen 96 % 96 % MEDGEN ([facility]) Body mass index 23.7 kg/m2 23.7 kg/m2 MEDGEN (S t (BMI) [Ratio] [facility]) Diastolic blood 64 mm[Hg] 64 mm[Hg] MEDGEN (S t [facility] [place] [place]) Systolic blood 120 mm[Hg] 120 mm[Hg] MEDGEN ([facility]) Body weight 175 lb 175 lb MEDGEN ([facility]) Body height 72 in 72 in MEDGEN ([facility]) Body mass index 23.9 kg/m2 23.9 kg/m2 MEDGEN (S t (BMI) [Ratio] [facility]) Diastolic blood 70 mm[Hg] 70 mm[Hg] MEDGEN (S t [facility] [place] [place]) Systolic blood 118 mm[Hg] 118 mm[Hg] MEDGEN ([facility]) Body weight 176 lb 176 lb MEDGEN ([facility]) Body height 72 in 72 in MEDGEN ([facility]) Body mass index 23.9 kg/m2 23.9 kg/m2 MEDGEN (S t (BMI) [Ratio] [facility]) Diastolic blood 70 mm[Hg] 70 mm[Hg] MEDGEN (S t [facility] [place] [place]) Systolic blood 118 mm[Hg] 118 mm[Hg] MEDGEN ([facility]) Body weight 176 lb 176 lb MEDGEN ([facility]) Body height 72 in 72 in MEDGEN ([facility]) Body mass index 23.9 kg/m2 23.9 kg/m2 MEDGEN (S t (BMI) [Ratio] [facility]) Diastolic blood 70 mm[Hg] 70 mm[Hg] MEDGEN (S t [facility] [place] [place]) Systolic blood 118 mm[Hg] 118 mm[Hg] MEDGEN ([facility]) Body weight 176 lb 176 lb MEDGEN ([facility]) Body height 72 in 72 in MEDGEN ([facility]) Body mass index 23.9 kg/m2 23.9 kg/m2 MEDGEN (S t (BMI) [Ratio] [facility]) Diastolic blood 70 mm[Hg] 70 mm[Hg] MEDGEN (S [facility]) Systolic blood 118 mm[Hg] 118 mm[Hg] MEDGEN ([facility]) Body weight 176 lb 176 lb MEDGEN ([facility]) Body height 72 in 72 in MEDGEN ([facility]) Body mass index 23.9 kg/m2 23.9 kg/m2 MEDGEN (S t (BMI) [Ratio] [facility]) Diastolic blood 70 mm[Hg] 70 mm[Hg] MEDGEN (S [facility]) Systolic blood 118 mm[Hg] 118 mm[Hg] MEDGEN ([facility]) Body weight 176 lb 176 lb MEDGEN ([facility]) Body height 72 in 72 in MEDGEN ([facility]) Heart rate 54 /min 54 /min MEDGEN ([facility]) Inhaled oxygen 99 % 99 % MEDGEN ([facility]) Body mass index 24.5 kg/m2 24.5 kg/m2 MEDGEN (S t (BMI) [Ratio] [facility]) Diastolic blood 72 mm[Hg] 72 mm[Hg] MEDGEN (S [facility]) Systolic blood 130 mm[Hg] 130 mm[Hg] MEDGEN ([facility]) Body weight 181 lb 181 lb MEDGEN ([facility]) Body height 72 in 72 in MEDGEN ([facility]) Heart rate 54 /min 54 /min MEDGEN ([facility]) Inhaled oxygen 99 % 99 % MEDGEN ([facility], ) Body mass index 24.5 kg/m2 24.5 kg/m2 MEDGEN (S t (BMI) [Ratio] [facility]) Diastolic blood 72 mm[Hg] 72 mm[Hg] MEDGEN (S t pressure [facility]) Systolic blood 130 mm[Hg] 130 mm[Hg] MEDGEN ([facility]) Body weight 181 lb 181 lb MEDGEN ([facility]) Body height 72 in 72 in MEDGEN ([facility]) Heart rate 54 /min 54 /min MEDGEN ([facility]) Inhaled oxygen 99 % 99 % MEDGEN ([facility]) Body mass index 24.5 kg/m2 24.5 kg/m2 MEDGEN (S t (BMI) [Ratio] [facility]) Diastolic blood 72 mm[Hg] 72 mm[Hg] MEDGEN (S t pressure [facility]) Systolic blood 130 mm[Hg] 130 mm[Hg] MEDGEN ([facility]) Body weight 181 lb 181 lb MEDGEN ([facility]) Body height 72 in 72 in MEDGEN ([facility]) Body height 72 in 72 in MEDGEN ([facility]) Heart rate 54 /min 54 /min MEDGEN ([facility]) Inhaled oxygen 99 % 99 % MEDGEN ([facility]) Body mass index 24.5 kg/m2 24.5 kg/m2 MEDGEN (S t (BMI) [Ratio] [facility], ) Diastolic blood 72 mm[Hg] 72 mm[Hg] MEDGEN (S t pressure [facility]) Systolic blood 130 mm[Hg] 130 mm[Hg] MEDGEN ([facility]) Body weight 181 lb 181 lb MEDGEN ([facility]) Heart rate 54 /min 54 /min MEDGEN ([facility]) Inhaled oxygen 99 % 99 % MEDGEN ([facility]) Body mass index 24.5 kg/m2 24.5 kg/m2 MEDGEN (S t (BMI) [Ratio] [facility] ) Diastolic blood 72 mm[Hg] 72 mm[Hg] MEDGEN (S t pressure [facility]) Systolic blood 130 mm[Hg] 130 mm[Hg] MEDGEN ([facility]) Body weight 181 lb 181 lb MEDGEN ([facility]) Body height 72 in 72 in MEDGEN ([facility]) Body mass index 24 kg/m2 24 kg/m2 MEDGEN (S t (BMI) [Ratio] [facility], ) Diastolic blood 72 mm[Hg] 72 mm[Hg] MEDGEN (S t pressure [facility]) Systolic blood 126 mm[Hg] 126 mm[Hg] MEDGEN ([facility]) Body weight 177 lb 177 lb MEDGEN ([facility]) Body height 72 in 72 in MEDGEN ([facility]) Body mass index 24 kg/m2 24 kg/m2 MEDGEN (S t (BMI) [Ratio] [facility], ) Diastolic blood 72 mm[Hg] 72 mm[Hg] MEDGEN (S t pressure [facility]) Systolic blood 126 mm[Hg] 126 mm[Hg] MEDGEN ([facility]) Body weight 177 lb 177 lb MEDGEN ([facility]) Body height 72 in 72 in MEDGEN ([facility]) Body mass index 24 kg/m2 24 kg/m2 MEDGEN (S t (BMI) [Ratio] [facility], ) Diastolic blood 72 mm[Hg] 72 mm[Hg] MEDGEN (S t pressure [facility]) Systolic blood 126 mm[Hg] 126 mm[Hg] MEDGEN ([facility]) Body weight 177 lb 177 lb MEDGEN ([facility]) Body height 72 in 72 in MEDGEN ([facility]) Body mass index 24 kg/m2 24 kg/m2 MEDGEN (S t (BMI) [Ratio] [facility], ) Diastolic blood 72 mm[Hg] 72 mm[Hg] MEDGEN (S t pressure [facility]) Systolic blood 126 mm[Hg] 126 mm[Hg] MEDGEN ([facility]) Body weight 177 lb 177 lb [facility] ([facility]) Body height 72 in 72 in [facility] ([facility]) Body mass index 24 kg/m2 24 kg/m2 [facility] ([facility] (BMI) [Ratio] [facility]) Diastolic blood 72 mm[Hg] 72 mm[Hg] [facility] ([facility]) Systolic blood 126 mm[Hg] 126 mm[Hg] [facility] ([facility]) Body weight 177 lb 177 lb [facility] ([facility]) Body height 72 in 72 in [facility] ([facility])
--- NOTE | 2020-06-11 14:37 | HP ---
Admitting History and Physical - Admission Chief Complaint: Left Low back and Leg Pain History of Present Illness: Pt complains of left low back and leg pain. History Source: Patient - Past Medical History DIET ASSISTANT: Yes: Alzheimer's Cardiovascular: Yes: HTN, Hyperlipdemia, Other (heavy smoker) Psych: Yes: Anxiety - Smoking History Smoking history: Former smoker Have you smoked in the past 12 months: No Aproximately how many cigarettes per day: 20 If you are a former smoker, when did you quit?: 2016 - Alcohol/Substance Use Hx Alcohol Use: No Home Medications - Allergies Allergies/Adverse Reactions: Allergies Allergy/AdvReac Type Severity Reaction Status Date / Time No Known Drug Allergies Allergy Verified 05/21/20 06:34 - Home Medications Home Medications: Ambulatory Orders Lisinopril [Prinivil] 40 mg PO DAILY 04/08/20 Metoprolol Succinate [Toprol XL -] 25 mg PO DAILY 04/08/20 Aspirin [ASA -] 81 mg PO DAILY 04/09/20 Review of Systems - Review of Systems Constitutional: reports: No Symptoms Eyes: reports: No Symptoms HENT: reports: No Symptoms Neck: reports: No Symptoms Cardiovascular: reports: No Symptoms Respiratory: reports: No Symptoms Gastrointestinal: reports: No Symptoms Genitourinary: reports: No Symptoms Breasts: reports: No Symptoms Reported Musculoskeletal: reports: Back Pain Neurological: reports: Parasthesia Hematology/Lymphatic: reports: No Symptoms Psychiatric: reports: No Symptoms Physical Examination Vital Signs: Vital Signs Temperature 97.7 F 06/11/20 12:56 Pulse Rate 52 L 06/11/20 12:56 Respiratory Rate 18 06/11/20 12:56 Blood Pressure 136/69 06/11/20 12:56 O2 Sat by Pulse Oximetry (%) 99 06/11/20 12:56 Imaging - Results MRI: Report Reviewed, Image Reviewed Assessment/Plan The patients pain is secondary to lumbar radiculopathy. 1. I will perform left paracentral interlaminar epidural steroid injection under fluoroscopic guidance.
[2020-06-11] MEDS ORDERED: LIDOCAINE HCL/PF 1% SDV 5ML VIAL ONE (15:02)
[2020-06-11] MEDS ORDERED: DEXAMETHASONE SOD PHOSPHATE/PF 10 MG/ML SDV ONE (15:02)
[2020-06-11] MEDS ORDERED: SODIUM CHLORIDE 0.9% P/F 10 ML VIAL IJ ONE (15:05)
[2020-06-11] MEDS ORDERED: IOHEXOL 180 MG/1 ML ML IJ ONE (15:17)
[2020-06-11] MEDS ORDERED: DEXAMETHASONE SOD PHOSPHATE 10 MG/1 ML VIAL IVPUSH ONE (15:17)
[2020-06-11] MEDS ORDERED: LIDOCAINE 1% P/F 10 MG/ML VIAL INF ONE (15:17)
[2020-06-11 16:11] VITALS: TEMP 98.6
[2020-06-11 16:15] VITALS: BP 153/79; PULSE 56
--- NOTE | 2020-06-15 12:35 | PROC ---
Procedure Note Procedure: Pre procedure Diagnosis: Lumbar Spinal Stenosis/ Lumabr radiculopathy Post Procedure Diagnosis: same Anesthesia: local Procedure Performed: L5-S1 Interlaminar epidural steroid injection After the risks and benefits were explained, informed consent was obtained. The patient was then taken to the procedure room and positioned prone on the procedure table. Time out was performed. Interlaminar space was identified using fluoroscopy. The skin was prepped and draped in the usual sterile fashion. The skin and soft tissues were anesthetized using 1% lidocaine. Under intermittent fluoroscopic guidance, a #22 gauge 3.5 inch [place] was successfully directed into the posterior epidural space at the L5-s1 level, using a posterior approach and loss of resistance technique. Needle placement was then confirmed with the injection of Omnipaque 180. Epidural flow was noted and no vascular uptake was noted. A 5 cc cocktail of 2 cc normal saline and 2 cc Dexamethasone 10 mg/mL and 1 cc of 1% lidocaine was then injected at the site. The patients response was again monitored and sensorimotor examination remained unchanged. The patient tolerated the procedure well and there were no complications. The patient was taken to the post procedure recovery area in good condition. Vital signs remained stable before, and after the procedure. The patient was given oral follow-up instructions. The patient was given a follow up appointment with me in the near future. Boaz Angulo DO
== END 2020-06-11 14:05 | disposition home or self-care (01) ==
LOC: JASU-SURG 05:38
PROVIDERS: ATTEND Pain Medicine Pain Medicine
PROC: 3E0R3BZ Introduction of Anesthetic Agent into Spinal Canal, Percutaneous Approach (ICD-10-PCS; 2020-06-11)
PROC: B01BYZZ Fluoroscopy of Spinal Cord using Other Contrast (ICD-10-PCS; 2020-06-11)
PROC: 3E0R33Z Introduction of Anti-inflammatory into Spinal Canal, Percutaneous Approach (ICD-10-PCS; principal; 2020-06-11 14:00)
DX: M48.061 Spinal stenosis, lumbar region without neurogenic claudication (principal); M54.16 Radiculopathy, lumbar region
CPT/HCPCS: 76000-TC-FY; J1100

== ENCOUNTER 2020-07-26 20:17 | Inpatient (IN) | payer OTHER ==
[2020-07-26 20:21] VITALS: BMI 23.7
[2020-07-26] MEDS ORDERED: morphine CARPU-JECT 2 MG/1 ML DISP.SYRIN IVPUSH ONE (20:50)
[2020-07-26] MEDS ORDERED: morphine SULFATE 4 MG/ML VIAL ONE (21:30)
[2020-07-26 21:36] LABS: BASO % 0.3 % (0-2.0); EOS % 1.9 % (0-4.5); HEMOGLOBIN 14.8 GM/dL (11.7-16.9); LYMPH % 25.6 % (8-40); MCH 31.9 pg (25.7-33.7); MCHC 32.9 g/dl (32.0-35.9); MEAN CELL VOLUME 96.9 fl (80-96); MEAN PLT VOLUME 8.5 fl (7.5-11.1); MONO % 10.9 % (3.8-10.2); NEUT % 61.3 % (42.8-82.8); PLATELET COUNT 194 K/MM3 (134-434); RBC 4.65 M/mm3 (4.00-5.60); WHITE BLOOD COUNT 9.5 K/mm3 (4.0-10.0)
[2020-07-26 21:43] LABS: INR 1.02 (0.83-1.09); PROTHROMBIN TIME (PATIENT) 12.3 SEC (9.7-13.0)
[2020-07-26 21:46] LABS: ACTIVATED PTT 29.4 SECONDS (25.2-36.5)
[2020-07-26 21:55] LABS: POTASSIUM 3.5 mmol/L (3.5-5.1)
[2020-07-26 21:56] LABS: CALCIUM 9.3 mg/dL (8.5-10.1)
[2020-07-26 21:57] LABS: ALBUMIN 3.4 g/dl (3.4-5.0); BLOOD UREA NITROGEN 29.4 mg/dL (7-18)
[2020-07-26 22:00] LABS: CREATININE 1.1 mg/dL (0.55-1.3)
[2020-07-26 22:02] LABS: TOT PROT 6.7 g/dl (6.4-8.2)
[2020-07-26 22:07] LABS: BILIRUBIN,TOTAL 0.4 mg/dL (0.2-1)
[2020-07-27] MEDS ORDERED: ACETAMINOPHEN 325 MG TABLET (FP) PO PRN (00:26)
[2020-07-27] MEDS: ACETAMINOPHEN 325 MG TABLET (FP) PO PRN ×3 (00:39→20:56)
[2020-07-27] MEDS ORDERED: LACTATED RINGERS SOLUTION 1,000 ML/1,000 ML INFUS.BAG IV SCH (01:00)
[2020-07-27] MEDS ORDERED: morphine SULFATE 4 MG/ML VIAL IVPUSH ONE (02:33)
[2020-07-27 06:31] LABS: HEMATOCRIT 41.2 % (35.4-49); HEMOGLOBIN 13.7 GM/dL (11.7-16.9); MCH 32.2 pg (25.7-33.7); MCHC 33.1 g/dl (32.0-35.9); MEAN CELL VOLUME 97.3 fl (80-96); MEAN PLT VOLUME 8.6 fl (7.5-11.1); PLATELET COUNT 179 K/MM3 (134-434); RBC 4.23 M/mm3 (4.00-5.60); RDW 14.1 % (11.9-15.9); WHITE BLOOD COUNT 7.5 K/mm3 (4.0-10.0)
[2020-07-27 07:02] LABS: POTASSIUM 3.9 mmol/L (3.5-5.1)
[2020-07-27 07:04] LABS: CALCIUM 8.8 mg/dL (8.5-10.1)
[2020-07-27 07:05] LABS: BLOOD UREA NITROGEN 26.2 mg/dL (7-18); MAGNESIUM 2.3 mg/dL (1.8-2.4)
[2020-07-27 07:07] LABS: CREATININE 0.9 mg/dL (0.55-1.3)
[2020-07-27 07:08] LABS: PHOSPHOROUS 4.2 mg/dL (2.5-4.9)
[2020-07-27] MEDS ORDERED: BUPIVACAINE LIPOSOME/PF (EXPAREL) 266 MG/20 ML VIAL ONE (09:52)
[2020-07-27] MEDS ORDERED: LIDOCAINE 1%/EPI 1:100000 (50 ML MULTI DOSE VIAL) ONE (09:52)
[2020-07-27] MEDS ORDERED: GENTAMICIN SO4 80 MG/2 ML VIAL ONE (09:52)
[2020-07-27] MEDS ORDERED: VANCOMYCIN 1,000 MG VIAL (RESTRICTED TO ID ONLY) ONE (09:52)
[2020-07-27] MEDS ORDERED: THROMBIN (BOVINE) 20,000 UNIT VIAL TP ONE (09:53)
[2020-07-27] MEDS ORDERED: CHLORTHALIDONE 25 MG TABLET PO SCH (10:00)
[2020-07-27] MEDS: metoPROLOL SUCCINATE 25 MG TAB.SR.24H (FP) PO SCH (10:19)
[2020-07-27] MEDS: SPIRONOLACTONE 25 MG TABLET PO SCH (10:20)
[2020-07-27] MEDS: LISINOPRIL 20 MG TABLET PO SCH (10:20)
[2020-07-27 13:33] LABS: N-TERMINAL BNP 122.9 pg/ml (5-125)
[2020-07-27] MEDS: INSULIN SLIDING SCALE (NOVOLOG) 1 VIAL SQ SCH ×2 (16:37→20:59)
[2020-07-27] MEDS: oxyCODONE HCL 5 MG TABLET PO PRN (20:56)
[2020-07-28] MEDS: oxyCODONE HCL 5 MG TABLET PO PRN ×3 (02:49→17:35)
[2020-07-28] MEDS: LACTATED RINGERS SOLUTION 1,000 ML/1,000 ML INFUS.BAG IV SCH ×2 (02:50→17:34)
[2020-07-28] MEDS: ACETAMINOPHEN 325 MG TABLET (FP) PO PRN ×3 (02:50→17:35)
[2020-07-28] MEDS: INSULIN SLIDING SCALE (NOVOLOG) 1 VIAL SQ SCH ×3 (06:10→22:29)
[2020-07-28 08:01] LABS: BASO % 0.2 % (0-2.0); EOS % 1.6 % (0-4.5); HEMATOCRIT 44.9 % (35.4-49); HEMOGLOBIN 15.3 GM/dL (11.7-16.9); LYMPH % 41.7 % (8-40); MCH 33.1 pg (25.7-33.7); MCHC 34.1 g/dl (32.0-35.9); MEAN PLT VOLUME 8.9 fl (7.5-11.1); MONO % 10.3 % (3.8-10.2); NEUT % 46.2 % (42.8-82.8); PLATELET COUNT 180 K/MM3 (134-434); RBC 4.63 M/mm3 (4.00-5.60); RDW 13.8 % (11.9-15.9); WHITE BLOOD COUNT 7.7 K/mm3 (4.0-10.0)
[2020-07-28 08:18] LABS: POTASSIUM 3.8 mmol/L (3.5-5.1)
[2020-07-28 08:21] LABS: ALBUMIN 3.4 g/dl (3.4-5.0); BLOOD UREA NITROGEN 24.2 mg/dL (7-18); MAGNESIUM 2.1 mg/dL (1.8-2.4)
[2020-07-28 08:22] LABS: CALCIUM 8.8 mg/dL (8.5-10.1)
[2020-07-28 08:25] LABS: BILIRUBIN,TOTAL 1.1 mg/dL (0.2-1); PHOSPHOROUS 3.8 mg/dL (2.5-4.9)
[2020-07-28 08:26] LABS: TOT PROT 6.9 g/dl (6.4-8.2)
[2020-07-28] MEDS: LISINOPRIL 20 MG TABLET PO SCH (09:41)
[2020-07-28] MEDS: metoPROLOL SUCCINATE 25 MG TAB.SR.24H (FP) PO SCH (09:41)
[2020-07-28] MEDS: SPIRONOLACTONE 25 MG TABLET PO SCH (09:41)
[2020-07-28] MEDS ORDERED: CHLORHEXIDINE GLUCONATE 4% CLEANSER FOR DECOLONIZATION TP SCH (22:00)
[2020-07-29] MEDS: ACETAMINOPHEN 325 MG TABLET (FP) PO PRN (02:16)
[2020-07-29] MEDS: oxyCODONE HCL 5 MG TABLET PO PRN (02:16)
[2020-07-29] MEDS: LACTATED RINGERS SOLUTION 1,000 ML/1,000 ML INFUS.BAG IV SCH ×2 (04:43→16:07)
[2020-07-29] MEDS: INSULIN SLIDING SCALE (NOVOLOG) 1 VIAL SQ SCH ×4 (06:12→22:20)
[2020-07-29 06:29] LABS: BASO % 0.2 % (0-2.0); EOS % 1.7 % (0-4.5); HEMATOCRIT 41.2 % (35.4-49); HEMOGLOBIN 13.9 GM/dL (11.7-16.9); LYMPH % 37.6 % (8-40); MCH 32.5 pg (25.7-33.7); MCHC 33.7 g/dl (32.0-35.9); MEAN CELL VOLUME 96.6 fl (80-96); MEAN PLT VOLUME 8.8 fl (7.5-11.1); MONO % 9.6 % (3.8-10.2); NEUT % 50.9 % (42.8-82.8); PLATELET COUNT 187 K/MM3 (134-434); RBC 4.27 M/mm3 (4.00-5.60); RDW 14.4 % (11.9-15.9); WHITE BLOOD COUNT 7.2 K/mm3 (4.0-10.0)
[2020-07-29 06:40] LABS: POTASSIUM 3.9 mmol/L (3.5-5.1)
[2020-07-29 06:42] LABS: ALBUMIN 3.1 g/dl (3.4-5.0); BLOOD UREA NITROGEN 27.6 mg/dL (7-18); CALCIUM 8.9 mg/dL (8.5-10.1)
[2020-07-29 06:47] LABS: BILIRUBIN,TOTAL 0.7 mg/dL (0.2-1); TOT PROT 6.1 g/dl (6.4-8.2)
[2020-07-29] MEDS ORDERED: GENTAMICIN SO4 80 MG/2 ML VIAL ONE (07:14)
[2020-07-29] MEDS ORDERED: BUPIVACAINE LIPOSOME/PF (EXPAREL) 266 MG/20 ML VIAL ONE (07:14)
[2020-07-29] MEDS ORDERED: VANCOMYCIN 1,000 MG VIAL (RESTRICTED TO ID ONLY) ONE ×2 (07:14→09:13)
[2020-07-29] MEDS ORDERED: LIDOCAINE 1%/EPI 1:100000 (50 ML MULTI DOSE VIAL) ONE (07:15)
[2020-07-29] MEDS ORDERED: THROMBIN (BOVINE) 20,000 UNIT VIAL TP ONE (07:15)
[2020-07-29] MEDS ORDERED: PROPOFOL 20 ML ONE (07:55)
[2020-07-29] MEDS ORDERED: morphine SULFATE/PF 0.5 MG/ML (2cc Syringe - QUVA) ONE (07:55)
[2020-07-29] MEDS ORDERED: SUCCINYLCHOLINE CHLORIDE 200 MG/10 ML SYRINGE ONE (07:55)
[2020-07-29] MEDS ORDERED: ROCURONIUM BROMIDE 50 MG/5 ML SYRINGE ONE (07:55)
[2020-07-29] MEDS ORDERED: ceFAZolin SODIUM 1 GM VIAL IVPB ONE ×2 (08:20→12:09)
[2020-07-29] MEDS ORDERED: morphine SULFATE/PF 0.5 MG/ML (2cc Syringe - QUVA) IT ONE (08:40)
[2020-07-29] MEDS ORDERED: ceFAZolin SODIUM 1 GM VIAL ONE ×2 (09:12→16:45)
[2020-07-29] MEDS ORDERED: EPHEDRINE SULFATE/0.9% NACL/PF 50 MG/10 ML SYRINGE NR ONE (09:15)
[2020-07-29] MEDS ORDERED: LIDOCAINE 1%/EPI 1:100000 (20 ML MULTI DOSE VIAL) IJ ONE (09:25)
[2020-07-29] MEDS ORDERED: THROMBIN (BOVINE) 5,000 UNIT VIAL TP ONE ×2 (09:30→09:59)
[2020-07-29] MEDS ORDERED: GENTAMICIN SO4 80 MG/2 ML VIAL IVPB ONE (10:00)
[2020-07-29] MEDS ORDERED: BACITRACIN 50,000 UNITS VIAL TP ONE ×2 (10:00→10:03)
[2020-07-29] MEDS ORDERED: VANCOMYCIN 1,000 MG VIAL (RESTRICTED TO ID ONLY) IVPB ONE (10:02)
[2020-07-29] MEDS ORDERED: BUPIVACAINE HCL/PF 0.5% (5MG/ML) 10 ML VIAL IJ ONE ×2 (10:06→12:13)
[2020-07-29] MEDS ORDERED: BUPIVACAINE LIPOSOME/PF (EXPAREL) 266 MG/20 ML VIAL NR ONE ×2 (10:07→12:13)
[2020-07-29] MEDS ORDERED: DESFLURANE GAS 240 ML BOTTLE IH ONE (11:04)
[2020-07-29] MEDS ORDERED: ONDANSETRON 4 MG/2 ML VIAL ONE (11:07)
[2020-07-29] MEDS ORDERED: DEXAMETHASONE SOD PHOSPHATE 4 MG/1 ML VIAL ONE (11:07)
[2020-07-29] MEDS ORDERED: METOPROLOL TARTRATE 5 MG/5 ML VIAL ONE (12:27)
[2020-07-29] MEDS ORDERED: diphenhydrAMINE HCL 25 MG CAPSULE (FP) PO PRN (13:38)
[2020-07-29] MEDS ORDERED: ONDANSETRON 4 MG/2 ML VIAL IVPUSH PRN (13:38)
[2020-07-29] MEDS ORDERED: oxyCODONE HCL 5 MG TABLET PO PRN ×2 (13:59)
[2020-07-29] MEDS ORDERED: ONDANSETRON 4 MG/2 ML VIAL IVPUSH ONE (13:59)
[2020-07-29] MEDS ORDERED: NALOXONE HCL 0.4 MG/ML VIAL IVPUSH PRN (13:59)
[2020-07-29] MEDS: SPIRONOLACTONE 25 MG TABLET PO SCH (15:27)
[2020-07-29] MEDS: metoPROLOL SUCCINATE 25 MG TAB.SR.24H (FP) PO SCH (15:27)
[2020-07-29] MEDS: LISINOPRIL 20 MG TABLET PO SCH (15:27)
[2020-07-29] MEDS: ACETAMINOPHEN 325 MG TABLET (FP) PO SCH ×2 (16:07→22:16)
[2020-07-29] MEDS: DOCUSATE SODIUM 100 MG CAPSULE (FP) PO SCH ×2 (16:07→22:15)
[2020-07-29] MEDS: CEFAZOLIN 1 GM in DEXTROSE 5%-WATER - 1 GM/50 ML IVPB IVPB SCH ×2 (16:11→17:25)
[2020-07-29] MEDS ORDERED: DEXTROSE 5%-WATER - 50 ML IVPB ONE (16:45)
[2020-07-29] MEDS: PANTOPRAZOLE SODIUM 40 MG VIAL IVPUSH SCH (17:48)
[2020-07-29] MEDS ORDERED: ACETAMINOPHEN 1000 MG/100 ML VIAL (NON FORMULARY) IVPB PRN (19:25)
[2020-07-30] MEDS: ACETAMINOPHEN 325 MG TABLET (FP) PO SCH (02:55)
[2020-07-30] MEDS ORDERED: ceFAZolin SODIUM 1 GM VIAL ONE ×3 (02:56→16:33)
[2020-07-30] MEDS ORDERED: DEXTROSE 5%-WATER - 50 ML IVPB ONE ×3 (02:57→16:33)
[2020-07-30] MEDS: CEFAZOLIN 1 GM in DEXTROSE 5%-WATER - 1 GM/50 ML IVPB IVPB SCH ×3 (02:58→17:10)
[2020-07-30] MEDS: LACTATED RINGERS SOLUTION 1,000 ML/1,000 ML INFUS.BAG IV SCH ×2 (04:29→17:10)
[2020-07-30] MEDS: DOCUSATE SODIUM 100 MG CAPSULE (FP) PO SCH ×3 (05:46→21:27)
[2020-07-30] MEDS: INSULIN SLIDING SCALE (NOVOLOG) 1 VIAL SQ SCH ×4 (06:05→21:33)
[2020-07-30 08:42] LABS: BASO % 0.2 % (0-2.0); HEMATOCRIT 35.7 % (35.4-49); HEMOGLOBIN 11.9 GM/dL (11.7-16.9); LYMPH % 16.4 % (8-40); MCH 32.1 pg (25.7-33.7); MCHC 33.3 g/dl (32.0-35.9); MEAN CELL VOLUME 96.3 fl (80-96); MEAN PLT VOLUME 8.9 fl (7.5-11.1); MONO % 10.2 % (3.8-10.2); NEUT % 73.2 % (42.8-82.8); PLATELET COUNT 167 K/MM3 (134-434); RBC 3.71 M/mm3 (4.00-5.60); WHITE BLOOD COUNT 10.2 K/mm3 (4.0-10.0)
[2020-07-30 08:55] LABS: POTASSIUM 4.1 mmol/L (3.5-5.1)
[2020-07-30] MEDS ORDERED: oxyCODONE HCL 5 MG TABLET PO PRN ×2 (09:00)
[2020-07-30 09:08] LABS: CALCIUM 8.6 mg/dL (8.5-10.1)
[2020-07-30 09:09] LABS: ALBUMIN 2.7 g/dl (3.4-5.0); BLOOD UREA NITROGEN 30.6 mg/dL (7-18)
[2020-07-30 09:12] LABS: CREATININE 0.9 mg/dL (0.55-1.3); PHOSPHOROUS 4.3 mg/dL (2.5-4.9)
[2020-07-30 09:13] LABS: BILIRUBIN,TOTAL 0.7 mg/dL (0.2-1); TOT PROT 5.6 g/dl (6.4-8.2)
[2020-07-30] MEDS: LISINOPRIL 20 MG TABLET PO SCH (10:15)
[2020-07-30] MEDS: FOLIC ACID 1 MG TABLET (FP) PO SCH (10:15)
[2020-07-30] MEDS: PANTOPRAZOLE SODIUM 40 MG VIAL IVPUSH SCH (10:15)
[2020-07-30] MEDS: HEPARIN NA (PORCINE) 5,000 UNITS/ML 1ML VIAL SQ SCH ×2 (10:15→17:10)
[2020-07-30] MEDS: SPIRONOLACTONE 25 MG TABLET PO SCH (10:16)
[2020-07-30] MEDS: FERROUS SO4 325 MG TABLET (FP) PO SCH (10:16)
[2020-07-30] MEDS: metoPROLOL SUCCINATE 25 MG TAB.SR.24H (FP) PO SCH (10:16)
[2020-07-30] MEDS: oxyCODONE HCL 10 MG SUSTAINED ACTING TABLET PO SCH ×2 (13:22→21:27)
[2020-07-30] MEDS: oxyCODONE HCL 5 MG TABLET PO PRN (21:57)
[2020-07-31] MEDS ORDERED: ceFAZolin SODIUM 1 GM VIAL ONE ×3 (02:23→17:19)
[2020-07-31] MEDS ORDERED: DEXTROSE 5%-WATER - 50 ML IVPB ONE ×3 (02:23→17:19)
[2020-07-31] MEDS: HEPARIN NA (PORCINE) 5,000 UNITS/ML 1ML VIAL SQ SCH ×3 (02:24→17:30)
[2020-07-31] MEDS: CEFAZOLIN 1 GM in DEXTROSE 5%-WATER - 1 GM/50 ML IVPB IVPB SCH ×3 (02:25→17:30)
[2020-07-31] MEDS: oxyCODONE HCL 5 MG TABLET PO PRN ×3 (02:35→14:58)
[2020-07-31] MEDS: DOCUSATE SODIUM 100 MG CAPSULE (FP) PO SCH ×3 (06:13→21:28)
[2020-07-31] MEDS: INSULIN SLIDING SCALE (NOVOLOG) 1 VIAL SQ SCH ×4 (06:13→21:28)
[2020-07-31] MEDS: LACTATED RINGERS SOLUTION 1,000 ML/1,000 ML INFUS.BAG IV SCH (06:15)
[2020-07-31 07:46] LABS: POTASSIUM 3.9 mmol/L (3.5-5.1)
[2020-07-31 08:00] LABS: CALCIUM 8.1 mg/dL (8.5-10.1)
[2020-07-31 08:01] LABS: ALBUMIN 2.6 g/dl (3.4-5.0); BLOOD UREA NITROGEN 18.7 mg/dL (7-18); MAGNESIUM 1.9 mg/dL (1.8-2.4)
[2020-07-31 08:02] LABS: TOT PROT 5.4 g/dl (6.4-8.2)
[2020-07-31 08:04] LABS: CREATININE 0.8 mg/dL (0.55-1.3); PHOSPHOROUS 2.4 mg/dL (2.5-4.9)
[2020-07-31 08:05] LABS: BILIRUBIN,TOTAL 0.8 mg/dL (0.2-1)
[2020-07-31 08:14] LABS: BASO % 0.1 % (0-2.0); EOS % 0.1 % (0-4.5); HEMATOCRIT 34.3 % (35.4-49); HEMOGLOBIN 11.6 GM/dL (11.7-16.9); LYMPH % 27.7 % (8-40); MCH 33.4 pg (25.7-33.7); MEAN CELL VOLUME 98.3 fl (80-96); MEAN PLT VOLUME 9.3 fl (7.5-11.1); MONO % 11.6 % (3.8-10.2); NEUT % 60.5 % (42.8-82.8); PLATELET COUNT 149 K/MM3 (134-434); RBC 3.49 M/mm3 (4.00-5.60); RDW 13.9 % (11.9-15.9); WHITE BLOOD COUNT 10.1 K/mm3 (4.0-10.0)
[2020-07-31] MEDS: SPIRONOLACTONE 25 MG TABLET PO SCH (09:34)
[2020-07-31] MEDS: LISINOPRIL 20 MG TABLET PO SCH (09:34)
[2020-07-31] MEDS: FERROUS SO4 325 MG TABLET (FP) PO SCH (09:34)
[2020-07-31] MEDS: metoPROLOL SUCCINATE 25 MG TAB.SR.24H (FP) PO SCH (09:34)
[2020-07-31] MEDS: FOLIC ACID 1 MG TABLET (FP) PO SCH (09:35)
[2020-07-31] MEDS: oxyCODONE HCL 10 MG SUSTAINED ACTING TABLET PO SCH ×2 (09:35→21:28)
[2020-07-31] MEDS: PANTOPRAZOLE SODIUM 40 MG VIAL IVPUSH SCH (09:37)
[2020-07-31] MEDS ORDERED: SODIUM PHOSPHATE - 15 MM in DEXTROSE 5%-WATER - 250 ML IVPB ONE (11:00)
[2020-07-31] MEDS ORDERED: PCA PUMP NR ONE ×3 (14:21→21:01)
[2020-07-31] MEDS: HYDROmorphone *PCA* 10MG/50ML DISP.SYRIN PCA SCH (15:40)
[2020-08-01] MEDS ORDERED: ceFAZolin SODIUM 1 GM VIAL ONE ×3 (01:16→18:13)
[2020-08-01] MEDS ORDERED: DEXTROSE 5%-WATER - 50 ML IVPB ONE ×3 (01:16→18:13)
[2020-08-01] MEDS: HEPARIN NA (PORCINE) 5,000 UNITS/ML 1ML VIAL SQ SCH ×3 (01:29→18:15)
[2020-08-01] MEDS: CEFAZOLIN 1 GM in DEXTROSE 5%-WATER - 1 GM/50 ML IVPB IVPB SCH ×3 (01:29→18:16)
[2020-08-01] MEDS: DOCUSATE SODIUM 100 MG CAPSULE (FP) PO SCH ×3 (06:55→21:59)
[2020-08-01] MEDS: INSULIN SLIDING SCALE (NOVOLOG) 1 VIAL SQ SCH ×3 (06:56→21:59)
[2020-08-01] MEDS ORDERED: PCA PUMP NR ONE (08:26)
[2020-08-01] MEDS: HYDROmorphone *PCA* 10MG/50ML DISP.SYRIN PCA SCH (08:57)
[2020-08-01] MEDS: oxyCODONE HCL 10 MG SUSTAINED ACTING TABLET PO SCH ×2 (09:59→22:00)
[2020-08-01] MEDS: metoPROLOL SUCCINATE 25 MG TAB.SR.24H (FP) PO SCH (10:00)
[2020-08-01] MEDS: LISINOPRIL 20 MG TABLET PO SCH (10:00)
[2020-08-01] MEDS: FOLIC ACID 1 MG TABLET (FP) PO SCH (10:00)
[2020-08-01] MEDS: FERROUS SO4 325 MG TABLET (FP) PO SCH (10:00)
[2020-08-01] MEDS: SPIRONOLACTONE 25 MG TABLET PO SCH (10:01)
[2020-08-01] MEDS: PANTOPRAZOLE SODIUM 40 MG VIAL IVPUSH SCH (10:02)
[2020-08-01] MEDS ORDERED: SENNOSIDES 8.8 MG/5 ML BULK BOTTLE PO ONE (10:53)
[2020-08-01 11:17] LABS: BASO % 0.2 % (0-2.0); HEMATOCRIT 32.8 % (35.4-49); HEMOGLOBIN 10.9 GM/dL (11.7-16.9); LYMPH % 16.9 % (8-40); MCH 32.2 pg (25.7-33.7); MCHC 33.2 g/dl (32.0-35.9); MEAN PLT VOLUME 8.5 fl (7.5-11.1); MONO % 9.4 % (3.8-10.2); NEUT % 72.5 % (42.8-82.8); PLATELET COUNT 149 K/MM3 (134-434); RBC 3.39 M/mm3 (4.00-5.60); RDW 13.9 % (11.9-15.9); WHITE BLOOD COUNT 10.8 K/mm3 (4.0-10.0)
[2020-08-01 11:41] LABS: POTASSIUM 3.7 mmol/L (3.5-5.1)
[2020-08-01 11:44] LABS: ALBUMIN 2.4 g/dl (3.4-5.0); BLOOD UREA NITROGEN 20.3 mg/dL (7-18); MAGNESIUM 1.9 mg/dL (1.8-2.4)
[2020-08-01 11:47] LABS: CREATININE 0.9 mg/dL (0.55-1.3)
[2020-08-01 11:48] LABS: PHOSPHOROUS 2.9 mg/dL (2.5-4.9)
[2020-08-01 11:49] LABS: TOT PROT 5.4 g/dl (6.4-8.2)
[2020-08-01] MEDS ORDERED: POTASSIUM CHLORIDE TABS 20 MEQ TABLET.ER (FP) PO ONE (12:45)
[2020-08-01 16:45] LABS: BASO % 0.2 % (0-2.0); EOS % 0.8 % (0-4.5); HEMATOCRIT 31.9 % (35.4-49); HEMOGLOBIN 10.8 GM/dL (11.7-16.9); LYMPH % 17.2 % (8-40); MCH 32.9 pg (25.7-33.7); MCHC 33.9 g/dl (32.0-35.9); MEAN CELL VOLUME 97.1 fl (80-96); MEAN PLT VOLUME 8.8 fl (7.5-11.1); MONO % 9.4 % (3.8-10.2); NEUT % 72.4 % (42.8-82.8); PLATELET COUNT 150 K/MM3 (134-434); RBC 3.29 M/mm3 (4.00-5.60); RDW 13.9 % (11.9-15.9); WHITE BLOOD COUNT 11.3 K/mm3 (4.0-10.0)
[2020-08-01] MEDS ORDERED: ACETAMINOPHEN 325 MG TABLET (FP) PO PRN (18:37)
[2020-08-01] MEDS: POLYETHYLENE GLYCOL 3350 119 GM BTL PO SCH (21:59)
[2020-08-02] MEDS ORDERED: ceFAZolin SODIUM 1 GM VIAL ONE ×2 (01:06→09:05)
[2020-08-02] MEDS ORDERED: DEXTROSE 5%-WATER - 50 ML IVPB ONE ×2 (01:06→09:05)
[2020-08-02] MEDS: CEFAZOLIN 1 GM in DEXTROSE 5%-WATER - 1 GM/50 ML IVPB IVPB SCH ×2 (01:12→09:13)
[2020-08-02] MEDS: HEPARIN NA (PORCINE) 5,000 UNITS/ML 1ML VIAL SQ SCH ×3 (01:13→16:11)
[2020-08-02] MEDS ORDERED: PCA PUMP NR ONE ×2 (02:22→11:38)
[2020-08-02] MEDS: HYDROmorphone *PCA* 10MG/50ML DISP.SYRIN PCA SCH ×2 (02:40→16:08)
[2020-08-02] MEDS: INSULIN SLIDING SCALE (NOVOLOG) 1 VIAL SQ SCH ×5 (06:15→21:12)
[2020-08-02] MEDS: DOCUSATE SODIUM 100 MG CAPSULE (FP) PO SCH ×3 (06:16→21:58)
[2020-08-02 08:01] LABS: BASO % 0.2 % (0-2.0); EOS % 1.9 % (0-4.5); HEMATOCRIT 30.4 % (35.4-49); HEMOGLOBIN 10.2 GM/dL (11.7-16.9); LYMPH % 22.6 % (8-40); MCH 32.7 pg (25.7-33.7); MCHC 33.7 g/dl (32.0-35.9); MEAN PLT VOLUME 9.2 fl (7.5-11.1); MONO % 7.8 % (3.8-10.2); NEUT % 67.5 % (42.8-82.8); PLATELET COUNT 155 K/MM3 (134-434); RBC 3.13 M/mm3 (4.00-5.60); WHITE BLOOD COUNT 9.3 K/mm3 (4.0-10.0)
[2020-08-02 08:12] LABS: CHLORIDE 100 mmol/L (98-107); SODIUM 136 mmol/L (136-145)
[2020-08-02 08:21] LABS: ALBUMIN 2.2 g/dl (3.4-5.0); ANION GAP 7 MMOL/L (8-16); BLOOD UREA NITROGEN 21.6 mg/dL (7-18); CALCIUM 8.1 mg/dL (8.5-10.1); CO2 29 mmol/L (21-32); GLUCOSE,RANDOM 94 mg/dL (74-106); MAGNESIUM 2.1 mg/dL (1.8-2.4)
[2020-08-02 08:23] LABS: ALK PHOS 41 U/L (45-117); CREATININE 0.9 mg/dL (0.55-1.3); PHOSPHOROUS 3.1 mg/dL (2.5-4.9); SGPT/ALT 22 U/L (13-61)
[2020-08-02 08:25] LABS: BILIRUBIN,TOTAL 0.6 mg/dL (0.2-1); SGOT/AST 30 U/L (15-37); TOT PROT 5.3 g/dl (6.4-8.2)
[2020-08-02] MEDS: FERROUS SO4 325 MG TABLET (FP) PO SCH (09:13)
[2020-08-02] MEDS: LISINOPRIL 20 MG TABLET PO SCH (09:14)
[2020-08-02] MEDS: oxyCODONE HCL 10 MG SUSTAINED ACTING TABLET PO SCH ×2 (09:14→21:05)
[2020-08-02] MEDS: SPIRONOLACTONE 25 MG TABLET PO SCH (09:15)
[2020-08-02] MEDS: FOLIC ACID 1 MG TABLET (FP) PO SCH (09:15)
[2020-08-02] MEDS: metoPROLOL SUCCINATE 25 MG TAB.SR.24H (FP) PO SCH (09:15)
[2020-08-02] MEDS: PANTOPRAZOLE SODIUM 40 MG VIAL IVPUSH SCH (09:16)
[2020-08-02] MEDS: POLYETHYLENE GLYCOL 3350 119 GM BTL PO SCH ×4 (09:23→21:24)
[2020-08-02] MEDS ORDERED: oxyCODONE HCL 5 MG TABLET PO PRN ×2 (14:31→14:32)
[2020-08-02] MEDS: ASPIRIN 81 MG CHEWABLE TABLETS PO SCH ×2 (17:03→17:04)
[2020-08-03] MEDS: HEPARIN NA (PORCINE) 5,000 UNITS/ML 1ML VIAL SQ SCH ×3 (01:02→17:30)
[2020-08-03] MEDS ORDERED: ACETAMINOPHEN 325 MG TABLET (FP) PO PRN (06:23)
[2020-08-03 06:31] LABS: BASO % 0.2 % (0-2.0); EOS % 1.8 % (0-4.5); HEMOGLOBIN 10.5 GM/dL (11.7-16.9); LYMPH % 20.1 % (8-40); MCH 32.8 pg (25.7-33.7); MCHC 33.9 g/dl (32.0-35.9); MEAN CELL VOLUME 96.5 fl (80-96); MEAN PLT VOLUME 8.6 fl (7.5-11.1); MONO % 8.6 % (3.8-10.2); NEUT % 69.3 % (42.8-82.8); PLATELET COUNT 185 K/MM3 (134-434); RBC 3.21 M/mm3 (4.00-5.60); RDW 13.7 % (11.9-15.9); WHITE BLOOD COUNT 8.4 K/mm3 (4.0-10.0)
[2020-08-03 07:00] LABS: POTASSIUM 4.1 mmol/L (3.5-5.1)
[2020-08-03 07:09] LABS: ALBUMIN 2.3 g/dl (3.4-5.0); BLOOD UREA NITROGEN 21.1 mg/dL (7-18); CALCIUM 8.2 mg/dL (8.5-10.1)
[2020-08-03 07:11] LABS: CREATININE 0.8 mg/dL (0.55-1.3)
[2020-08-03 07:13] LABS: PHOSPHOROUS 3.1 mg/dL (2.5-4.9)
[2020-08-03 07:14] LABS: BILIRUBIN,TOTAL 0.6 mg/dL (0.2-1); TOT PROT 5.7 g/dl (6.4-8.2)
[2020-08-03 07:30] LABS: MAGNESIUM 2.2 mg/dL (1.8-2.4)
[2020-08-03] MEDS: INSULIN SLIDING SCALE (NOVOLOG) 1 VIAL SQ SCH ×4 (07:34→22:13)
[2020-08-03] MEDS: DOCUSATE SODIUM 100 MG CAPSULE (FP) PO SCH ×3 (07:48→22:12)
[2020-08-03] MEDS: PANTOPRAZOLE SODIUM 40 MG VIAL IVPUSH SCH (09:57)
[2020-08-03] MEDS: SENNOSIDES 8.6MG TABLET (FP) PO SCH ×2 (09:57→22:12)
[2020-08-03] MEDS: FERROUS SO4 325 MG TABLET (FP) PO SCH (09:57)
[2020-08-03] MEDS: SPIRONOLACTONE 25 MG TABLET PO SCH (09:57)
[2020-08-03] MEDS: FOLIC ACID 1 MG TABLET (FP) PO SCH (09:57)
[2020-08-03] MEDS: metoPROLOL SUCCINATE 25 MG TAB.SR.24H (FP) PO SCH (09:57)
[2020-08-03] MEDS: ASPIRIN 81 MG CHEWABLE TABLETS PO SCH (09:57)
[2020-08-03] MEDS: LISINOPRIL 20 MG TABLET PO SCH (09:57)
[2020-08-03] MEDS: oxyCODONE HCL 10 MG SUSTAINED ACTING TABLET PO SCH ×2 (09:58→22:12)
[2020-08-03] MEDS: POLYETHYLENE GLYCOL 3350 119 GM BTL PO SCH ×3 (09:59→22:20)
[2020-08-03] MEDS ORDERED: ATORVASTATIN CA 20 MG TABLET (FP) PO ONE (15:15)
[2020-08-03] MEDS ORDERED: BISACODYL 10 MG SUPP.RECT PR ONE (17:35)
[2020-08-04] MEDS: HEPARIN NA (PORCINE) 5,000 UNITS/ML 1ML VIAL SQ SCH ×2 (01:44→09:23)
[2020-08-04] MEDS: INSULIN SLIDING SCALE (NOVOLOG) 1 VIAL SQ SCH ×2 (06:23→12:30)
[2020-08-04] MEDS: DOCUSATE SODIUM 100 MG CAPSULE (FP) PO SCH (06:28)
[2020-08-04] MEDS: oxyCODONE HCL 10 MG SUSTAINED ACTING TABLET PO SCH (09:23)
[2020-08-04] MEDS: SPIRONOLACTONE 25 MG TABLET PO SCH (09:23)
[2020-08-04] MEDS: ASPIRIN 81 MG CHEWABLE TABLETS PO SCH (09:24)
[2020-08-04] MEDS: SENNOSIDES 8.6MG TABLET (FP) PO SCH (09:25)
[2020-08-04] MEDS: metoPROLOL SUCCINATE 25 MG TAB.SR.24H (FP) PO SCH (09:25)
[2020-08-04] MEDS: FERROUS SO4 325 MG TABLET (FP) PO SCH (09:25)
[2020-08-04] MEDS: PANTOPRAZOLE SODIUM 40 MG VIAL IVPUSH SCH (09:25)
[2020-08-04] MEDS: FOLIC ACID 1 MG TABLET (FP) PO SCH (09:25)
[2020-08-04] MEDS: LISINOPRIL 20 MG TABLET PO SCH (09:25)
[2020-08-04] MEDS: POLYETHYLENE GLYCOL 3350 119 GM BTL PO SCH (10:00)
[2020-08-04 13:04] VITALS: BP 113/60; PULSE 66; TEMP 98.3
[2020-08-04] MEDS ORDERED: ATORVASTATIN CA 20 MG TABLET (FP) PO SCH (22:00)
== END 2020-08-04 14:27 | disposition home health service (06) | DRG 454 ==
LOC: JER 20:17 → JERBED 21:46 → J7W 07-27 00:34 → J4W 07-29 15:48
PROVIDERS: ADMIT Hospitalist; ATTEND Internal Medicine
PROC: 0SG1071 Fusion of 2 or more Lumbar Vertebral Joints with Autologous Tissue Substitute, Posterior Approach, Posterior Column, Open Approach (ICD-10-PCS; 2020-07-29)
PROC: 0QB00ZZ Excision of Lumbar Vertebra, Open Approach (ICD-10-PCS; 2020-07-29)
PROC: 0JX70ZB Transfer Back Subcutaneous Tissue and Fascia with Skin and Subcutaneous Tissue, Open Approach (ICD-10-PCS; 2020-07-29)
PROC: B01BZZZ Fluoroscopy of Spinal Cord (ICD-10-PCS; 2020-07-29)
PROC: 4A1004G Monitoring of Central Nervous Electrical Activity, Intraoperative, Open Approach (ICD-10-PCS; 2020-07-29)
PROC: 0SG10AJ Fusion of 2 or more Lumbar Vertebral Joints with Interbody Fusion Device, Posterior Approach, Anterior Column, Open Approach (ICD-10-PCS; principal; 2020-07-29 08:00)
DX: M51.16 Intervertebral disc disorders with radiculopathy, lumbar region (principal); I50.22 Chronic systolic (congestive) heart failure; I24.8 Other forms of acute ischemic heart disease; M43.06 Spondylolysis, lumbar region; M48.061 Spinal stenosis, lumbar region without neurogenic claudication; I10 Essential (primary) hypertension; N99.89 Other postprocedural complications and disorders of genitourinary system; E11.9 Type 2 diabetes mellitus without complications; I25.119 Atherosclerotic heart disease of native coronary artery with unspecified angina pectoris; Z95.5 Presence of coronary angioplasty implant and graft; R33.9 Retention of urine, unspecified; K59.00 Constipation, unspecified; Y83.9 Surgical procedure, unspecified as the cause of abnormal reaction of the patient, or of later complication, without mention of misadventure at the time of the procedure; E78.5 Hyperlipidemia, unspecified
CPT/HCPCS: 36415; 71045-TC-FY; 72131-TC; 76000-TC-FY; 80048; 80053; 80061; 82550; 82607; 82746; 82962; 83036; 83721; 83735; 83880; 84100; 84443; 84484; 85025; 85027; 85610; 85730; 86850; 86900; 86901; 93005; 93010; 93306-TC; 94010; 94760; 97116-GP; 97161-GP; 99285-25; C9803; J0131; J1644; U0003

== ENCOUNTER 2022-08-28 10:43 | Emergency (ER) | payer OTHER ==
[2022-08-28 11:07] VITALS: BP 100/51; PULSE 63; RESP 18; TEMP 98.1; BMI 28.3
[2022-08-28] MEDS ORDERED: IBUPROFEN 600 MG TABLET (FP) PO ONE ×2 (11:38→11:40)
== END 2022-08-28 13:37 | disposition home or self-care (01) ==
LOC: JERFT 10:43
PROC: 2W3DX1Z Immobilization of Left Lower Arm using Splint (ICD-10-PCS; principal; 2022-08-28)
DX: S52.502A Unspecified fracture of the lower end of left radius, initial encounter for closed fracture (principal); W01.0XXA Fall on same level from slipping, tripping and stumbling without subsequent striking against object, initial encounter
CPT/HCPCS: 73090-TC-LT-FY; 73110-TC-LT-FY; 73130-TC-LT-FY; 99284-25